=== PATIENT | male | born 1940 | race Caucasian/White ===

== ENCOUNTER → 2019-08-15 13:19 | Outpatient (BNVA) | payer MEDICARE, SELFPAY | PROVIDERS: PCP Nurse Practitioner Family; Visit Provider Nurse Practitioner Family | DX: I10 Essential (primary) hypertension (principal); M79.641 Pain in right hand; M79.642 Pain in left hand | CPT/HCPCS: 80053; 80061; 85025 ==

== ENCOUNTER → 2020-03-15 08:30 | Outpatient (BNVA) | payer MEDICARE, SELFPAY | PROVIDERS: PCP Nurse Practitioner Family; Visit Provider Family Medicine | DX: I10 Essential (primary) hypertension (principal) | CPT/HCPCS: 80053; 80061; 85025 ==

== ENCOUNTER → 2020-05-30 13:57 | Outpatient (BNVA) | payer MEDICARE, SELFPAY | PROVIDERS: PCP Family Medicine; Visit Provider Family Medicine | DX: N40.1 Benign prostatic hyperplasia with lower urinary tract symptoms (principal); R39.11 Hesitancy of micturition | CPT/HCPCS: 84153 ==

== ENCOUNTER → 2020-06-23 13:29 | Outpatient (BNVA) | payer MEDICARE, SELFPAY | PROVIDERS: PCP Family Medicine; Visit Provider Emergency Medicine | DX: Z20.822 Contact with and (suspected) exposure to COVID-19 (principal); R35.0 Frequency of micturition | CPT/HCPCS: 81000; 87635 ==

== ENCOUNTER 2020-07-29 11:18 | Inpatient (IN) | payer MEDICARE, SELFPAY ==
[2020-07-29 11:32] VITALS: BP 127/76; PULSE 118; RESP 14; TEMP 37.8; O2SAT 93; BMI 28.5
[2020-07-29] MEDS: sodium chloride 0.9% 500 ML 999 ML IV (12:04)
--- NOTE | 2020-07-29 12:04 | W.ED.GENADLT ---
HPI - General Adult General: Chief complaint: General Medical Stated complaint: COLD CHILLS, POSS UTI Time Seen by Provider: 07/29/20 11:34 History of Present Illness: HPI narrative: 79-year-old male comes in today complaining he is having chills at times. He has burning with urination. This all began this morning. He states he is in his normal state of good health yesterday. He did recently have up bladder infection he was on Macrobid for 7 days. He denies any vomiting. No shortness of breath no chest pain or abdominal pain Onset (ago): hour(s) Severity: moderate Quality: burning Pain Consistency: intermittent Relieving factors: none Exacerbating factors: none Associated symptoms: Reports decreased appetite, malaise, nausea and weakness; Deny chest pain, confusion, cough, diaphoresis, dyspnea, fevers/chills, headache(s), rash, palpitations, seizures, short of breath, syncope or vomiting Review of Systems Const: Reports: malaise; Denies: diaphoresis ENMT: Denies: throat pain, ear or mastoid pain, nasal discharge or nasal congestion Card: Denies: chest pain, palpitations or syncope Resp: Denies: dyspnea, productive cough or non-productive cough GI: Reports: nausea; Denies: vomiting : Denies: flank pain, dysuria, urinary frequency or urinary urgency Skin/Breast: Denies: rash Neuro: Denies: headache(s) or confusion PFSH ED PFSH: Medical History BPH (benign prostatic hyperplasia) GERD (gastroesophageal reflux disease) Hypertension Vitamin D deficiency Surgical History Hx of colonoscopy (~2010) Hx of foot surgery Hx of hemorrhoidectomy Hx of knee surgery Hx of neck surgery Hx of rotator cuff surgery Family History Mother , age 93 Alzheimer disease Father , age 85 Cancer colon Social History Smoking and tobacco status: former smoker Quit status (tobacco): has quit using tobacco Second hand smoke exposure: No Alcohol intake: never Lives independently: No Household members: spouse Marital status: Current occupational status: employed History of recent travel: No Current gender identity: Male Physical Exam Const: COMMON NORMALS: no acute distress GENERAL APPEARANCE: cooperative and comfortable ORIENTATION/CONSCIOUSNESS: Yes awake, Yes oriented to person, Yes oriented to place and Yes oriented to time HENMT: COMMON NORMALS: normocephalic, atraumatic and hearing grossly normal bilaterally HEAD & SCALP: normocephalic and atraumatic Eye: COMMON NORMALS: Equal, round and reactive pupils present, EOMs intact bilaterally, conjunctivae normal and no scleral icterus CONJUNCTIVA: Yes conjunctivae normal PUPIL: Yes Equal, round and reactive pupils present Neck/C-Spine: COMMON NORMALS: full ROM, no lymphadenopathy, supple and no JVD Lymph: LYMPHATIC: no lymphadenopathy noted and no lymphedema noted Resp: COMMON NORMALS: normal respiratory effort, No retractions, No use of accessory muscles and clear to auscultation bilaterally AUSCULTATION: clear to auscultation bilaterally Cardio: COMMON NORMALS: no JVD, regular rate, regular rhythm and No murmurs present (Cardio) RATE: regular rate RHYTHM: regular rhythm GI: COMMON NORMALS: Soft to palpation and No hepatosplenomegaly present AUSCULTATION: Yes normoactive bowel sounds PALPATION: Yes Soft to palpation, No Tenderness to palpation present (GI), No Guarding due to palpation present (GI) and Yes No hepatosplenomegaly present : COMMON NORMALS: Yes no CVA tenderness BLADDER/KIDNEY EXAM: Yes no CVA tenderness Back/Pelvis: COMMON NORMALS: no CVA tenderness Extremity: COMMON NORMALS: normal to inspection, capillary refill normal, no clubbing, cyanosis or edema, no calf tenderness and no pedal edema Neuro: SENSORIUM/ORIENTATION: Yes oriented to person, Yes oriented to place and Yes oriented to time Skin: COMMON NORMALS: no rashes or lesions noted GENERAL SKIN EXAM: no rashes or lesions noted Course Vital Signs: Vital signs: Vital Signs Temperature 99.2 F 07/30/20 04:00 Pulse Rate 81 07/30/20 04:00 Respiratory Rate 18 07/30/20 04:00 Blood Pressure 108/66 07/30/20 04:00 Pulse Oximetry 90 07/30/20 04:00 MDM - General Adult MDM Narrative: Medical decision making narrative: Patient has significant white count elevation in 19,000 with sharp left shift he also was having a fever. Concerned about the rapid onset of the symptoms given his age recommend that he be admitted Lab Data: Labs: Lab Results 07/29/20 07/29/20 07/29/20 Range/Units 11:57 11:57 11:57 WBC 19.1 H (4.0-10.0) 10^3/ uL RBC 3.84 L (4.1-5.3) 10^6/u L Hgb 12.5 (11.7-16.6) g/dL Hct 36.5 L (42.0-52.0) % MCV 95.1 H (80-94) fL MCH 32.6 (28.0-34.0) pg MCHC 34.2 (30.0-36.0) g/dL RDW 12.5 (12.1-15.1) % Plt Count 154 (130-400) 10^3/c mm MPV 9.8 (7.4-10.4) fL Neut % (Auto) 96.5 % Lymph % (Auto) 1.2 % [place] % (Auto) 1.6 % Eos % (Auto) 0.0 % Baso % (Auto) 0.3 % Neut # (Auto) 18.44 H (1.8-7.7) 10^3/u L Lymph # (Auto) 0.2 L (0.8-4.8) 10^3/u L [place] # (Auto) 0.3 (0.2-0.9) 10^3/u L Eos # (Auto) 0.0 (0.0-0.8) 10^3/u L Baso # (Auto) 0.1 (0.0-0.1) 10^3/u L Nucleated RBC % (a uto) 0 % Nucleated RBCs # 0.0 /100WBC D-Dimer (0-0.59) ug/mIFE U Sodium 138 (136-145) mmol/L Potassium 3.6 (3.5-5.1) mmol/L Chloride 106 (98-107) mmol/L Carbon Dioxide 23 (22-29) mmol/L Anion Gap 12.6 (5-19) BUN 21 (8-23) mg/dL Creatinine 1.0 (0.7-1.2) mg/dL GFR Calculation Not Reportable Glucose 126 H (65-115) mg/dL Calculated Osmolal ity 291 (285-295) mOsm/k g Calcium 8.3 L (8.5-10.5) mg/dL Total Bilirubin 0.8 (0.15-1.2) mg/dL AST 18 (0-40) U/L ALT 14 (0-41) U/L Alkaline Phosphata se 61 (40-130) IU/L Lactate Dehydrogen ase (135-225) U/L C-Reactive Protein 9.2 H (0.0-4.9) mg/L Total Protein 6.2 L (6.6-8.7) g/dL Albumin 3.5 (3.5-5.2) g/dL Globulin 2.7 (1.3-4.6) g/dL Procalcitonin 0.15 (0-0.5) ng/mL Urine Color (Yellow) Urine Appearance (CLEAR) Urine pH (5-7) Ur Specific Gravit y (1.005-1.030) Urine Protein (Negative) Urine Glucose (UA) (Normal) Urine Ketones (Negative) Urine Blood (Negative) Urine Nitrate (Negative) Urine Bilirubin (Negative) Urine Urobilinogen (Negative) mg/dL Ur Leukocyte Karin ase (Negative) Urine RBC (0-2) /hpf Urine WBC (0-5) /hpf Ur Squamous Epith Cells (0-5) /hpf Amorphous Sediment Urine Bacteria (NONE) /hpf 07/29/20 07/29/20 07/29/20 Range/Units 11:57 11:57 12:19 WBC (4.0-10.0) 10^3/ uL RBC (4.1-5.3) 10^6/u L Hgb (11.7-16.6) g/dL Hct (42.0-52.0) % MCV (80-94) fL MCH (28.0-34.0) pg MCHC (30.0-36.0) g/dL RDW (12.1-15.1) % Plt Count (130-400) 10^3/c mm MPV (7.4-10.4) fL Neut % (Auto) % Lymph % (Auto) % [place] % (Auto) % Eos % (Auto) % Baso % (Auto) % Neut # (Auto) (1.8-7.7) 10^3/u L Lymph # (Auto) (0.8-4.8) 10^3/u L [place] # (Auto) (0.2-0.9) 10^3/u L Eos # (Auto) (0.0-0.8) 10^3/u L Baso # (Auto) (0.0-0.1) 10^3/u L Nucleated RBC % (a uto) % Nucleated RBCs # /100WBC D-Dimer 2.42 H (0-0.59) ug/mIFE U Sodium (136-145) mmol/L Potassium (3.5-5.1) mmol/L Chloride (98-107) mmol/L Carbon Dioxide (22-29) mmol/L Anion Gap (5-19) BUN (8-23) mg/dL Creatinine (0.7-1.2) mg/dL GFR Calculation Glucose (65-115) mg/dL Calculated Osmolal ity (285-295) mOsm/k g Calcium (8.5-10.5) mg/dL Total Bilirubin (0.15-1.2) mg/dL AST (0-40) U/L ALT (0-41) U/L Alkaline Phosphata se (40-130) IU/L Lactate Dehydrogen ase 181 (135-225) U/L C-Reactive Protein (0.0-4.9) mg/L Total Protein (6.6-8.7) g/dL Albumin (3.5-5.2) g/dL Globulin (1.3-4.6) g/dL Procalcitonin (0-0.5) ng/mL Urine Color Yellow (Yellow) Urine Appearance Cloudy (CLEAR) Urine pH 7 (5-7) Ur Specific Gravit y 1.005 (1.005-1.030) Urine Protein 1+ H (Negative) Urine Glucose (UA) Norm (Normal) Urine Ketones Negative (Negative) Urine Blood 2+ H (Negative) Urine Nitrate Positive H (Negative) Urine Bilirubin Neg (Negative) Urine Urobilinogen Norm (Negative) mg/dL Ur Leukocyte Karin ase 2+ H (Negative) Urine RBC 5-10 H (0-2) /hpf Urine WBC 10-15 H (0-5) /hpf Ur Squamous Epith Cells 0-4 H (0-5) /hpf Amorphous Sediment Not Reportable Urine Bacteria 4+ H (NONE) /hpf Discharge Plan Discharge Patient Disposition: Admitted As Inpatient Admit Provider: Francis Gonzalez Clinical Impression: UTI (urinary tract infection), Sepsis Condition: Stable Coding Level of Care Code ED Peoplesoft Taleo Manager for Chg Fwd Exam Comprehensive
[2020-07-29 12:13] LABS: Basophils # 0.1 10^3/uL (0.0-0.1); Basophils % 0.3 %; Hematocrit 36.5 % (42.0-52.0); Hemoglobin 12.5 g/dL (11.7-16.6); Lymphocytes # 0.2 10^3/uL (0.8-4.8); Lymphocytes % 1.2 %; Mean Corpuscular HGB Conc 34.2 g/dL (30.0-36.0); Mean Corpuscular Hemoglobin 32.6 pg (28.0-34.0); Mean Corpuscular Volume 95.1 fL (80-94); Mean Platelet Volume 9.8 fL (7.4-10.4); Monocytes # 0.3 10^3/uL (0.2-0.9); Monocytes % 1.6 %; Neutrophils # 18.44 10^3/uL (1.8-7.7); Neutrophils % 96.5 %; Nucleated Red Blood Cells % 0 %; Platelet Count 154 10^3/cmm (130-400); Red Blood Count 3.84 10^6/uL (4.1-5.3); Red Cell Distribution Width 12.5 % (12.1-15.1); White Blood Count 19.1 10^3/uL (4.0-10.0)
[2020-07-29 12:35] LABS: Add Urine Microscopic? YES; Bilirubin Urine Neg (Negative); Blood Urine 2+ (Negative); Glucose Urine UA Norm (Normal); Ketones Urine Negative (Negative); Leukocyte Esterase Urine 2+ (Negative); Nitrate Urine Positive (Negative); Protein Urine 1+ (Negative); Specific Gravity, Urine 1.005 (1.005-1.030); Urine Appearance Cloudy (CLEAR); Urine Color Yellow (Yellow); Urobilinogen Urine Norm (Negative); pH Urine 7 (5-7)
[2020-07-29 12:38] LABS: Bacteria Urine 4+ /hpf; Squamous Epithelial Cell Urine 0-4 /hpf (0-5)
[2020-07-29 12:39] LABS: Add Urine Culture? Yes
[2020-07-29 12:44] LABS: Alanine Aminotransferase 14 U/L (0-41); Albumin Level 3.5 g/dL (3.5-5.2); Alkaline Phosphatase 61 IU/L (40-130); Anion Gap 12.6 (5-19); Aspartate Amino Transferase 18 U/L (0-40); Blood Urea Nitrogen 21 mg/dL (8-23); Calcium 8.3 mg/dL (8.5-10.5); Carbon Dioxide 23 mmol/L (22-29); Chloride 106 mmol/L (98-107); Globulin 2.7 g/dL (1.3-4.6); Glucose 126 mg/dL (65-115); Osmolality Calculated 291 mOsm/kg (285-295); Potassium 3.6 mmol/L (3.5-5.1); Sodium 138 mmol/L (136-145); Total Bilirubin 0.8 mg/dL (0.15-1.2); Total Protein 6.2 g/dL (6.6-8.7)
[2020-07-29 12:50] VITALS: BP 118/75; PULSE 92; RESP 20; O2SAT 93
--- NOTE | 2020-07-29 14:09 | XRR_ITS ---
PROCEDURE INFORMATION: Exam: XR Chest Exam date and time: 07/29/2020 2:15 PM Age: 79 years old Clinical indication: Cough and dyspnea and fever; Additional info: Dyspnea/cough TECHNIQUE: Imaging protocol: XR of the chest Views: 1 view. COMPARISON: No relevant prior studies available. FINDINGS: Lungs: Unremarkable. No consolidation. Pleural spaces: Unremarkable. No pleural effusion. No pneumothorax. Heart/Mediastinum: Unremarkable. No cardiomegaly. Bones/joints: Unremarkable. XR/XR chest 1V portable [id number] IMPRESSION: No acute findings.
--- NOTE | 2020-07-29 14:19 | PM.HP ---
Providers/Chief Complaint Primary Care Provider: Marielena Dunn MD Chief Complaint: COLD CHILLS, POSS UTI History of Present Illness Mars Reeder is a 79 year old male who presented today with chief complaint of chills. Patient is stating that around 7 AM he went out with his dog when he started experiencing chills. He is endorsing dysuria, did not experience any fever, nausea, vomiting, chest pain, shortness of breath, productive cough, headache or vision changes. He has been contemplating to see a urologist for BPH and dysuria. When he arrived in the ER he was diagnosed with UTI for which she received ceftriaxone he met sepsis criteria. No MONICA. High D-dimer. He was not hypoxic. He was saturating well on room air, pulse varying between 86-92. Chest x-ray without pneumonia. CBC showed leukocytosis BMP unremarkable with high inflammatory markers. Procalcitonin 0.15. UA showed pyuria with hematuria. Review of Systems Const: Reports: chills and body aches Eyes: Denies: change in vision ENMT: Denies: throat pain Card: Reports: chest pain Resp: Denies: dyspnea GI: Denies: abdominal pain : Denies: flank pain Musc: Denies: neck pain Skin/Breast: Denies: rash Neuro: Denies: headache(s) Psych: Denies: anxiety Endo: Denies: polyuria Saurabh/Lymph: Denies: easy bruising All/Imm: Denies: urticaria Medications/Allergies Home Medications Medication Instructions Recorded Confirmed Last Taken Type multivitamin 1 tab PO DAILY@08/15/19 07/29/20 07/29/20 History Flomax 0.4 mg PO DAILY@07/29/20 07/29/20 07/29/20 History amlodipine 5 mg PO DAILY@07/29/20 07/29/20 07/29/20 History aspirin 81 mg PO DAILY@07/29/20 07/29/20 07/29/20 History lisinopril 20 mg PO DAILY@07/29/20 07/29/20 07/28/20 History meloxicam 15 mg PO DAILY@07/29/20 07/29/20 07/29/20 History Allergies Allergy/AdvReac Type Severity Reaction Status Date / Time No Known Allergies Allergy Verified 05/30/20 13:34 PFSH Acute PFSH: Medical History BPH (benign prostatic hyperplasia) GERD (gastroesophageal reflux disease) Vitamin D deficiency Surgical History Hx of colonoscopy (~2010) Hx of foot surgery Hx of hemorrhoidectomy Hx of knee surgery Hx of neck surgery Hx of rotator cuff surgery Family History Mother , age 93 Alzheimer disease Father , age 85 Cancer colon Social History Smoking and tobacco status: former smoker Quit status (tobacco): has quit using tobacco Second hand smoke exposure: No Alcohol intake: never Lives independently: No Household members: spouse Marital status: Current occupational status: employed History of recent travel: No Current gender identity: Male Vitals/I&O/Wt Last Vital Signs Temp 100.1 F H 07/29/20 11:32 Pulse 92 07/29/20 12:50 Resp 20 H 07/29/20 12:50 BP 118/75 07/29/20 12:50 Pulse Ox 93 07/29/20 12:50 07/28/20 07/29/20 07/29/20 22:59 06:59 14:59 Intake Total 500 / 500 Balance 500 / 500 Weight last 48 hrs Weight 95.254 kg Physical Exam Narrative: EXAM NARRATIVE: Very pleasant elderly male Was sitting comfortably in his room when I enter Was saturating well on room air Appears stated age S1, S2 sinus rhythm No abdominal pain No acute respite distress no audible wheezing or stridor No neurological deficit GCS 15 Awake alert oriented x3 No skin findings of ulcer or gangrene or ischemia No joint swelling Data : 07/29/20 11:57 07/29/20 11:57 A&P Assessment and plan (1) Sepsis: Status: Acute (2) UTI (urinary tract infection): Status: Acute Additional A&P Information Sepsis secondary to UTI sepsis criteria met with tachypnea, tachycardia, leukocytosis, We will keep him on ceftriaxone for now, he is afebrile, Lactic acid is pending Requested blood culture, urine culture Covid antigen is negative considering leukocytosis with leukopenia I would request Covid PCR however 3 days ago he was tested for Covid which was negative as well We will give him 1 L lactated Ringer bolus No MONICA, patient complaining of dysuria, my threshold will stay low if he starts becoming more symptomatic to rule out pyelonephritis He has history of BPH Hypertension: Currently normotensive continue lisinopril and amlodipine Cardiac diet DVT prophylaxis Lovenox Full code Attestations Medical Necessity Statement*: Anticipating stay in the hospital course more than 2 midnights for sepsis secondary to UTI Time Spent in Patient Care: (>than 50% of time spent in counselling and/or direct pt care on unit). 35mins Coding Level of Care Code Acute Embedded Firmware Engineer for g Fwd Diagnoses Sepsis A41.9 UTI (urinary tract infection) N39.0
[2020-07-29] MEDS: cefTRIAXone 1,000 MG in sodium chloride 0.9% (plus) 50 ML 100 MG IV (14:27)
[2020-07-29 14:54] LABS: Procalcitonin 0.15 ng/mL (0-0.5)
[2020-07-29 15:05] LABS: C Reactive Protein 9.2 mg/L (0.0-4.9)
[2020-07-29 15:17] LABS: D Dimer 2.42 ug/mIFEU (0-0.59)
[2020-07-29 15:18] LABS: Lactate Dehydrogenase 181 U/L (135-225)
[2020-07-29 15:46] VITALS: BP 112/66; PULSE 96; RESP 18; O2SAT 94
[2020-07-29 16:12] VITALS: BP 101/63; PULSE 86; RESP 18; TEMP 37.3; O2SAT 93
[2020-07-29] MEDS: lactated ringers 1,000 ML 999 ML IV (16:47)
[2020-07-29] MEDS: sodium chloride 0.9% 1,000 ML 100 ML IV (17:53)
[2020-07-29] MEDS: enoxaparin 40 mg/0.4 mL Syringe SUBCUT (18:30)
[2020-07-29 19:20] LABS: Lactic Sepsis W/Reflex 3.4 mmol/L (0.5-2.2)
[2020-07-29 20:00] VITALS: BP 109/63; PULSE 86; RESP 18; TEMP 37.9; O2SAT 94
[2020-07-29 20:50] LABS: Reflex Lactate Order REFLEX LACTIC ORDERD
[2020-07-29] MEDS: lisinopril 20 mg Tablet PO (20:58)
[2020-07-29 21:56] LABS: Lactic Acid level (Lactate) 1.8 mmol/L (0.5-2.2)
[2020-07-30] VITALS: BP 106/68; PULSE 106; RESP 18; TEMP 37.4; O2SAT 92
[2020-07-30 04:00] VITALS: BP 108/66; PULSE 81; RESP 18; TEMP 37.3; O2SAT 90
[2020-07-30 05:56] LABS: Basophils # 0.1 10^3/uL (0.0-0.1); Basophils % 0.3 %; Hemoglobin 11.6 g/dL (11.7-16.6); Lymphocytes # 1.4 10^3/uL (0.8-4.8); Lymphocytes % 6.8 %; Mean Corpuscular HGB Conc 33.1 g/dL (30.0-36.0); Mean Corpuscular Hemoglobin 32.5 pg (28.0-34.0); Mean Platelet Volume 10.7 fL (7.4-10.4); Monocytes # 1.2 10^3/uL (0.2-0.9); Neutrophils # 17.15 10^3/uL (1.8-7.7); Neutrophils % 86.2 %; Nucleated Red Blood Cells % 0 %; Platelet Count 143 10^3/cmm (130-400); Red Blood Count 3.57 10^6/uL (4.1-5.3); Red Cell Distribution Width 12.7 % (12.1-15.1); White Blood Count 19.9 10^3/uL (4.0-10.0)
[2020-07-30 06:16] LABS: Alanine Aminotransferase 10 U/L (0-41); Alkaline Phosphatase 52 IU/L (40-130); Aspartate Amino Transferase 18 U/L (0-40); Blood Urea Nitrogen 28 mg/dL (8-23); Calcium 8.1 mg/dL (8.5-10.5); Carbon Dioxide 22 mmol/L (22-29); Chloride 106 mmol/L (98-107); Creatinine Clr Calc Pharmacy 63.0686; Globulin 2.6 g/dL (1.3-4.6); Glucose 100 mg/dL (65-115); Osmolality Calculated 288 mOsm/kg (285-295); Sodium 136 mmol/L (136-145); Total Bilirubin 0.8 mg/dL (0.15-1.2); Total Protein 5.6 g/dL (6.6-8.7)
[2020-07-30] MEDS: amlodipine 5 mg Tablet PO (06:19)
[2020-07-30] MEDS: tamsulosin 0.4 mg Capsule PO (06:20)
[2020-07-30] MEDS: aspirin 81 mg Chew Tablet PO (06:20)
[2020-07-30 08:00] VITALS: BP 103/64; PULSE 79; RESP 18; TEMP 36.9; O2SAT 94
--- NOTE | 2020-07-30 10:59 | P.PN_ITS ---
Subjective Subjective: Interval history: Interval history: Noticed low-grade temperature overnight, however patient is endorsing feeling better no shakes or rigors overnight, Patient is stating that dysuria still present Noted to temperature readings of 100.1 and 100.3 yesterday Leukocytosis 19.9 Lactic acidemia improved, Steroid blood culture, urine culture is pending Chest x-ray without pneumonia Vitals/I&O/Wt Last Vital Signs Temp 98.5 F 07/30/20 08:00 Pulse 79 07/30/20 08:00 Resp 18 07/30/20 08:00 BP 103/64 07/30/20 08:00 Pulse Ox 94 07/30/20 08:00 07/29/20 07/30/20 07/30/20 22:59 06:59 14:59 Intake Total 1288.333 / 1838.333 120 / 120 Balance 1288.333 / 1838.333 120 / 120 Weight last 48 hrs Weight 95.254 kg Physical Exam Narrative: EXAM NARRATIVE: Patient was sitting comfortably in his bed when I entered the room Was saturating well on room air No active chest pain shortness of breath S1, S2 no murmur Abdomen soft nontender bowel sound present No CVA tenderness Bilateral breath sounds without adventitious rhonchi or crackles No neurological deficit Awake alert oriented x3 GCS 15 No joint pain or skin cellulitis Data : 07/30/20 05:09 07/30/20 05:09 Micro: Microbiology 07/29/20 15:02 Blood Culture - Preliminary Blood SPECIMEN COLLECTED 07/29/20 15:02 Blood Culture - Preliminary Blood SPECIMEN COLLECTED A&P Assessment and plan (1) UTI (urinary tract infection): Patient is still complaining of dysuria Continue ceftriaxone If he spikes temperature 48 hours after use of antibiotics I would recommend CT abdomen to rule out pyelonephritis and escalating his antibiotics for now I would continue him on similar antibiotics, blood cultures are sterile for now, urine cultures were obtained yesterday however not reported yet Status: Acute (2) Sepsis: Sepsis present, low-grade temp last night with increasing leukocytosis however lactic acidemia has improved I will monitor him for 1 more day to finish 48 hours on ceftriaxone to see the response, and still waiting on culture and sensitivity report of urine Status: Acute Additional A&P Information DVT prophylaxis Lovenox Cardiac diet Full code BPH: Continue home regimen of tamsulosin History of hypertension: Currently normotensive Attestations Medical Necessity Statement*: Sepsis present today, will need inpatient hospitalization, anticipating discharge tomorrow if his sepsis resolves, will de-escalate antibiotics depending on culture and sensitivity Time Spent in Patient Care: (>than 50% of time spent in counselling and/or direct pt care on unit) . 30mins Coding Level of Care Code Acute Financial Advocate for [facility] Fwd Diagnoses UTI (urinary tract infection) N39.0 Sepsis A41.9
--- NOTE | 2020-07-30 11:25 | CT_ITS ---
WS: [id number] CT ABDOMEN PELVIS TECHNIQUE: Contrast-enhanced CT of the abdomen and pelvis with coronal and sagittal reformatted image s. CLINICAL INFORMATION: pyelonephritis COMPARISON: None. DLP: 1833.[address] scans at [facility] use at least one of these dose optimization techniques: automat ed exposure control; mA and/or kV adjustment per patient size (includes targeted exams where dose is matched to clinical indication); or iterative reconstruction. FINDINGS: Normal liver. Normal spleen. Chronic emphysematous changes in the lung bases. Subsegmental atelectasi s left lower lobe. Trace pleural fluid in the lung bases. Normal caliber abdominal aorta. No periaortic or retroperitoneal lymphadenopathy. Adrenal glands are normal. Normal renal parenchymal enhancement. Mild perinephric edema can be seen with renal insuffici ency. No evidence of pyelonephritis. Nodular heterogeneously enhancing enlarged prostate measuring 5.1 x 5.8 cm. Recommend correlation PSA . Diffuse bladder wall thickening likely due to bladder outlet obstruction. Sigmoid diverticulosis. N o evidence of acute diverticulitis. No evidence of small or large bowel obstruction. No inguinal lymphadenopathy. Moderate spondylitic ch anges lumbar spine. Severe central canal stenosis in the lumbar spine at L2-3, and L4-5. CT/CT abdomen pelvis w con* [id number] IMPRESSION: 1. Normal bilateral renal parenchymal enhancement. No hydronephrosis. No defin ite evidence of pyelonephritis. 2. Mild perinephric edema can be seen with renal insufficiency. 3. Nodular enlarged prostate with evidence of bladder outlet obstruction.Corre lation PSA. 4. Sigmoid diverticulosis. No evidence of acute diverticulitis. 5. Subsegmental atelectasis left lower lobe with trace bilateral pleural fluid . 6. Severe chronic appearing central canal stenosis L2-L3 and L4-L5
[2020-07-30] MEDS: phenazopyridine 100 mg Tablet 200 MG PO ×3 (11:33→17:02)
--- NOTE | 2020-07-30 11:34 | PC.CHAP ---
Pastoral Care Encounter/Spiritual Assessment Type of Contact [] Declined bill recapitulation clerk visit [] Patient/Family/Request visit [] Outpatient visit [] Follow-up visit [] Physician referral [] Code/Alert [] Routine visit [] Staff referral [] Actively dying [] Patient sleeping [] Family support [] [] Out of room [] Palliative care [] [] Receiving care in room [] Pre-surgical visit [] Trauma [] Long length of stay [] ICU visit [x] Other: Isolation Relational/Emotional Strength [] Patient feels connected with others/family/visitors/staff [] Distress [] Loneliness/isolation [] Abandonment Spirituality of Patient [] Person of Emily [] Attends Congregational of their Emily [] Believes in Prayer [] Reads Bible or Episcopal materials [] There are Spiritual issues to be addressed Awning Hanger Supervisor Interventions [] Prayer [] Active listening [] Non-anxious presence [] Spiritual/emotional support [] Crisis/trauma care [] Spiritual counseling [] Bereavement support [] Provided bereavement packet [] Provided Bible/devotional materials [] Provided toy/stuffed animal, coloring book to patient or family member [] Provided Communion [] Anointing/[place] [] Salvation [] Completed spiritual assessment [] Other: Impact on Illness or Injury [] Angry [] Fearful [] Anxious [] Often cries [] Exhaustion [] Unable to work [] Unable to attend yazidi [] Unable to walk/stand [] Unable to read [] Unable to drive [] Unable to eat/drink [] Unable to sleep [] Unable to be with family [] Patient intubated [] Other: Summary They have placed him in Isolation. Didn't get to visit with nor pray with him. :-( Time spent with patient 0
[2020-07-30 11:42] VITALS: BP 115/69; PULSE 79; RESP 17; TEMP 37.3; O2SAT 93
[2020-07-30 12:49] LABS: Add Urine Microscopic? YES; Bilirubin Urine Neg (Negative); Blood Urine 2+ (Negative); Glucose Urine UA Norm (Normal); Ketones Urine Negative (Negative); Leukocyte Esterase Urine 2+ (Negative); Nitrate Urine Negative (Negative); Protein Urine Trace (Negative); Specific Gravity, Urine 1.015 (1.005-1.030); Urine Appearance Cloudy (CLEAR); Urine Color Yellow (Yellow); Urobilinogen Urine Norm (Negative); pH Urine 5 (5-7)
[2020-07-30 13:08] LABS: Add Urine Culture? Yes; Bacteria Urine 1+ /hpf; Squamous Epithelial Cell Urine 0-4 /hpf (0-5); WBC Urine TOO NUMEROUS TO CNT /hpf (0-5)
--- NOTE | 2020-07-30 13:25 | PC.NURSE ---
Medication Scanned medication at bedside and saved. [employer] showed administration saved. After restarting computer, mar showed medication an hour late but also showed correct administration. This was corrected by this nurse.
[2020-07-30] MEDS: cefTRIAXone 1,000 MG in sodium chloride 0.9% (plus) 50 ML 100 MG IV (13:46)
[2020-07-30] MEDS: iohexol 300 mg/mL 100 mL Btl IV (15:00)
[2020-07-30 15:12] VITALS: BP 117/73; PULSE 85; RESP 17; TEMP 37.4; O2SAT 94
[2020-07-30] MEDS: enoxaparin 40 mg/0.4 mL Syringe SUBCUT (17:02)
--- NOTE | 2020-07-30 18:01 | PC.NURSE ---
SHIFT SUMMARY PATIENT HAS DONE WELL TODAY. PATIENT STATED HE FEELS BETTER . NO CHILLS TODAY. ADEQUATE URINE OUTPUT. ALTHOUGH SMALL AMOUNTS AT A TIME, PATIENT STATED HE FEELS HE HAS A BETTER STREAM THAN BEFORE. PATIENT STARTED ON PYRIDIUM TODAY SO URINE IS ORANGE IN COLOR. NO COMPLAINTS OF PAIN. CONTINUE TO MONITOR.
[2020-07-30 19:34] VITALS: BP 121/72; PULSE 77; RESP 17; TEMP 37.9; O2SAT 92
[2020-07-30] MEDS: lisinopril 20 mg Tablet PO (20:40)
[2020-07-31] VITALS: BP 125/74; PULSE 87; RESP 17; TEMP 37.7; O2SAT 92
[2020-07-31 03:56] VITALS: BP 132/81; PULSE 80; RESP 17; TEMP 37.1; O2SAT 94
[2020-07-31 05:04] LABS: Basophils % 0.3 %; Eosinophils % 0.4 %; Hematocrit 34.5 % (42.0-52.0); Hemoglobin 11.6 g/dL (11.7-16.6); Lymphocytes # 0.9 10^3/uL (0.8-4.8); Lymphocytes % 8.5 %; Mean Corpuscular HGB Conc 33.6 g/dL (30.0-36.0); Mean Platelet Volume 10.7 fL (7.4-10.4); Monocytes # 0.8 10^3/uL (0.2-0.9); Monocytes % 7.5 %; Neutrophils # 8.94 10^3/uL (1.8-7.7); Neutrophils % 82.8 %; Nucleated Red Blood Cells % 0 %; Platelet Count 131 10^3/cmm (130-400); Red Blood Count 3.52 10^6/uL (4.1-5.3); Red Cell Distribution Width 12.9 % (12.1-15.1); White Blood Count 10.8 10^3/uL (4.0-10.0)
[2020-07-31 05:59] LABS: Coronavirus Test Green County Not Detected
[2020-07-31] MEDS: amlodipine 5 mg Tablet PO (06:10)
[2020-07-31] MEDS: aspirin 81 mg Chew Tablet PO (06:10)
[2020-07-31] MEDS: tamsulosin 0.4 mg Capsule PO (06:10)
[2020-07-31] MEDS: phenazopyridine 100 mg Tablet 200 MG PO (07:19)
[2020-07-31 07:53] VITALS: BP 136/80; PULSE 84; RESP 18; TEMP 37; O2SAT 94
--- NOTE | 2020-07-31 08:20 | PM.DCS ---
Discharge Providers Date of Admission: 07/29/20 14:15 Date of Discharge: July 31, 2020 Attending Provider at Admission: Francis Gonzalez MD Attending Provider at Discharge: Francis Gonzalez MD Primary Care Provider: Marielena Dunn MD Diagnoses at Discharge Discharge Diagnosis (1) UTI (urinary tract infection): Status: Acute (2) Sepsis: Status: Acute Reason for Visit Reason for Visit: C[place], POSS UTI Hospital Course Hospital Course 79-year-old gentleman who was admitted for sepsis secondary to UTI, patient clinical course remain stable, on first night he spiked temperature of 100.3 otherwise his leukocytosis improved, he kept complaining about dysuria for which Pyridium was added, urine cultures are growing gram-negative rods however after 48 hours cultures x2 report has not been finalized. Clinically patient has improved significantly. Repeat urine culture is showing no growth yet. I am confident that this most likely is E. coli related UTI which is sensitive to cephalosporins hence he will be discharged on Cefpodoxime and Pyridium. CT abdomen was requested which did not show any pyelonephritis. Repeat urinalysis revealed microscopic hematuria however no ureterolithiasis reported on CT abdomen. I would recommend outpatient follow-up with urology for persistent microscopic hematuria, please note he has BPH which is evident on CT abdomen pelvis as well. Physical Exam Narrative: EXAM NARRATIVE: Pleasant gentleman S1, S2 sinus rhythm no sign of heart failure No acute respite distress No abdominal pain no CVA tenderness Low symmetry no edema gangrene ulcer No neurological deficit EOMI, PERRLA Discharge Data Data Completed and Pending: Completed Studies During Hospitalization Category Date Time Status CT abdomen pelvis w con* [id number] Rout ine Cat Scan 07/30/20 11:25 Completed XR chest 1V marcial ble [id number] Stat Exams 07/29/20 14:09 Completed Pending at discharge Category Date Time Status Blood Culture Sta t Lab 07/29/20 15:02 Results Urine Culture Sta t Lab 07/29/20 12:19 Results Urine Culture Sta t Lab 07/30/20 11:22 Results Labs from last 24 hours 07/31/20 07/30/20 07/29/20 04:32 11:22 15:31 WBC 10.8 H RBC 3.52 L Hgb 11.6 L Hct 34.5 L MCV 98.0 H MCH 33.0 MCHC 33.6 RDW 12.9 Plt Count 131 MPV 10.7 H Neut % (Auto) 82.8 Lymph % (Auto) 8.5 Butts % (Auto) 7.5 Eos % (Auto) 0.4 Baso % (Auto) 0.3 Neut # (Auto) 8.94 H Lymph # (Auto) 0.9 Butts # (Auto) 0.8 Eos # (Auto) 0.0 Baso # (Auto) 0.0 Nucleated RBC % (a uto) 0 Nucleated RBCs # 0.0 Urine Color Yellow Urine Appearance Cloudy Urine pH 5 Ur Specific Gravit y 1.015 Urine Protein Trace Urine Glucose (UA) Norm Urine Ketones Negative Urine Blood 2+ H Urine Nitrate Negative Urine Bilirubin Neg Urine Urobilinogen Norm Ur Leukocyte Karin ase 2+ H Urine RBC 5-10 H Urine WBC Too numerous to c nt H Ur Squamous Epith Cells 0-4 H Amorphous Sediment Not Reportable Urine Bacteria 1+ H Nasal/Oral COVID-1 9 PCR Not detected Vitals: Last Vital Signs Temp 98.6 F 07/31/20 07:53 Pulse 84 07/31/20 07:53 Resp 18 07/31/20 07:53 BP 136/80 07/31/20 07:53 Pulse Ox 94 07/31/20 07:53 Discharge Plan Discharge Patient Disposition: Home Condition: Stable Prescriptions: New tamsulosin 0.4 mg Capsule 0.4 mg PO DAILY@07 10 Days Qty: 10 RF: 0 phenazopyridine 100 mg Tablet 200 mg PO TIDPC 10 Days Qty: 30 RF: 0 cefpodoxime 200 mg tablet 200 mg PO BID 7 Days Qty: 14 RF: 0 Continued multivitamin [Daily Multi-Vitamin] Tablet 1 tab PO DAILY@07 RF: 0 aspirin 81 mg Tablet,Chewable 81 mg PO DAILY@07 RF: 0 lisinopril 20 mg tablet 20 mg PO DAILY@20 RF: 0 amlodipine 5 mg tablet 5 mg PO DAILY@07 RF: 0 Flomax 0.4 mg capsule 0.4 mg PO DAILY@07 RF: 0 Discontinued meloxicam 15 mg tablet 15 mg PO DAILY@07 RF: 0 Discharge Orders: Discharge Order (Routine); Ordered 07/31/20 Ordered By: Francis Gonzalez Referrals: Rodolfo Williamson MD [Physician] - 3 months ( BPH, obstructive symptoms, microscopic hematuria) Discharge Diet: Advance as tolerated Discharge Activity: Resume usual activity Activity Restrictions/Additional Instructions: Please finish antibiotic regimen of Cefpodoxime for next 7 days You can take Pyridium for burning sensation There is microscopic hematuria evident on urinalysis most likely is related to prostate hyperplasia however I would also recommend following up with urologist Dr. Williamson Discharge Attestations Time Spent in Discharge Care*: less than 30 min Quality Metrics Clinical Quality Measures During this hospital stay, did patient experience: None Coding Level of Care Code Acute Inventory Administrator for g Fwd Diagnoses UTI (urinary tract infection) N39.0 Sepsis A41.9
[2020-07-31 10:37] VITALS: BP 136/80; PULSE 84; RESP 18; TEMP 37; O2SAT 94
== END 2020-07-31 10:38 | disposition home or self-care (01) | DRG 872 ==
LOC: ER 14:11 → MEDSURG 14:58
PROVIDERS: Admitting Provider Internal Medicine; Emergency Provider Family Medicine; PCP Family Medicine; Visit Provider Internal Medicine
DX: A41.9 Sepsis, unspecified organism (principal); N39.0 Urinary tract infection, site not specified; E87.2 Acidosis; R31.29 Other microscopic hematuria; N40.0 Benign prostatic hyperplasia without lower urinary tract symptoms; K21.9 Gastro-esophageal reflux disease without esophagitis; E55.9 Vitamin D deficiency, unspecified; Z87.891 Personal history of nicotine dependence; I10 Essential (primary) hypertension; B96.20 Unspecified Escherichia coli [E. coli] as the cause of diseases classified elsewhere; Z79.82 Long term (current) use of aspirin
CPT/HCPCS: 11042; 36415; 71045; 74177; 80048; 80053; 81001; 82009; 82550; 83605; 83615; 83690; 83735; 84145; 85025; 85378; 86140; 87040; 87077; 87086; 87186; 87635; 96365; 96372; 99285; G0463; J0696; J1650; J2543; J7030; J7040; Q9967

== ENCOUNTER 2020-07-31 14:11 | Inpatient (IN) | payer MEDICARE, SELFPAY ==
[2020-07-31] VITALS (7 sets, daily range): BP systolic 107–137; BP diastolic 71–83; PULSE 67–92; RESP 14–22; TEMP 36.7–38.9; O2SAT 93–95; BMI 28.5
--- NOTE | 2020-07-31 15:04 | XR_ITS ---
WS: [id number] Portable AP upright chest, 07/31/2020 Clinical Data: fever Comparison: Portable chest, 07/29/2020. Findings: No nodules, masses or effusions are seen. The heart is normal. The pulmonary vascularity is not increased. No pneumonia or pneumothorax is seen. The aortic arch and descending aorta are tortuo us. XR/XR chest 1V portable [id number] Impression: Atherosclerosis.
--- NOTE | 2020-07-31 16:31 | CTR_ITS ---
PROCEDURE INFORMATION: Exam: CT Abdomen And Pelvis With Contrast Exam date and time: 07/31/2020 5:18 PM Age: 79 years old Clinical indication: Other: Frequent urination; Additional info: Abd pain TECHNIQUE: Imaging protocol: Computed tomography of the abdomen and pelvis with contrast. Radiation optimization: All CT scans at this facility use at least one of these dose optimization techniques: automated exposure control; mA and/or kV adjustment per patient size (includes targeted exams where dose is matched to clinical indication); or iterative reconstruction. Contrast material: VISI 320; Contrast volume: 95 ml; Contrast route: INTRAVENOUS (IV); COMPARISON: CT abdomen pelvis w con* [id number] 07/30/2020 3:11 PM RADIATION DOSE METRICS: Total DLP (mGy-cm): 1688.58 FINDINGS: Lungs: Mild basilar atelectasis/scarring, greater on the left. Liver: Normal size and density. No focal mass. Gallbladder and bile ducts: No intrahepatic or extrahepatic biliary dilitation. No calcified stones. Pancreas: No evidence of mass. No ductal dilation. Spleen: No splenomegaly or mass. Adrenal glands: Normal. Kidneys and ureters: No stones or hydronephrosis. No evidence of focal mass. Mild bilateral perinephric fat stranding. Stomach and bowel: Scattered diverticulosis throughout the colon. No signs of acute diverticulitis. No focal bowel wall thickening or mass. No signs of obstruction. Small to moderate stool burden. Appendix: The appendix is not clearly seen, but there are no secondary signs of acute appendicitis. Intraperitoneal space: No free air. No free fluid or evidence of abscess. Vasculature: A few scattered vascular calcifications. Lymph nodes: No lymphadenopathy. Urinary bladder: Normal CT appearance. Reproductive: The prostate gland measures 5.8 cm in transverse dimension. Bones/joints: The bones appear demineralized. Moderate to severe degenerative changes of the spine with significant canal stenosis and significant foraminal stenosis. Soft tissues: Small fat containing inguinal hernias. CT/CT abdomen pelvis w con* [id number] IMPRESSION: Urinary bladder is nondistended. The prostate gland is again noted to be enlarged. Otherwise no significant interval change compared to the prior exam. Radiation Dose CTDIVOL = (mGy): DLP = 1688.58 (mGy-cm)
--- NOTE | 2020-07-31 16:40 | ED_ITS ---
Documented by User: Jeff Goncalves DO 08/03/20 07:01 HPI - General Adult General: Chief complaint: General Medical Stated complaint: discharged this am, vomiting, shivering Time Seen by Provider: 07/31/20 16:26 History of Present Illness: HPI narrative: 79-year-old male presents emergency room with complaint of fever. We admitted him 2 days ago he appeared to be septic at the time he had a urinary tract infection although he only had a few white blood cells. His white count was 19,000 and he had a temp. During the hospitalization repeat urine showed white blood cells too many to count. His pulmonary urine culture and his blood cultures are both been negative. He was dismissed this morning on oral antibiotics. After leaving here he went out for a sandwich and then when he arrived home he was having fever sweats chills vomited. He continues to feel ill. He is still having frequent urination. He denies any hematuria. Onset (ago): day(s) Severity: mild Quality: burning Pain Consistency: intermittent Relieving factors: none Exacerbating factors: none Associated symptoms: Reports diaphoresis, decreased appetite, fevers/chills, malaise, nausea, vomiting and weakness; Deny chest pain, confusion, cough, dyspnea, headache(s), rash, palpitations, seizures, short of breath or syncope Treatments prior to arrival: other (Patiently hospitalized with IV antibiotics discharge this morning with oral antibiotics) Review of Systems Const: Reports: malaise and diaphoresis ENMT: Denies: throat pain, ear or mastoid pain, nasal discharge or nasal congestion Card: Denies: chest pain, palpitations or syncope Resp: Denies: dyspnea GI: Reports: nausea and vomiting : Denies: flank pain, dysuria, urinary frequency or urinary urgency Skin/Breast: Denies: rash Neuro: Denies: headache(s) or confusion PFS ED PFSH: Medical History BPH (benign prostatic hyperplasia) GERD (gastroesophageal reflux disease) Hypertension Vitamin D deficiency Surgical History Hx of colonoscopy (~2010) Hx of foot surgery Hx of hemorrhoidectomy Hx of knee surgery Hx of neck surgery Hx of rotator cuff surgery Family History Mother , age 93 Alzheimer disease Father , age 85 Cancer colon Social History Smoking and tobacco status: former smoker Quit status (tobacco): has quit using tobacco Second hand smoke exposure: No Alcohol intake: never Lives independently: No Household members: spouse Marital status: Current occupational status: employed History of recent travel: No Current gender identity: Male Physical Exam Const: COMMON NORMALS: no acute distress GENERAL APPEARANCE: cooperative and comfortable ORIENTATION/CONSCIOUSNESS: Yes awake, Yes oriented to person, Yes oriented to place and Yes oriented to time HENMT: COMMON NORMALS: normocephalic, atraumatic and hearing grossly normal bilaterally HEAD & SCALP: normocephalic and atraumatic Neck/C-Spine: COMMON NORMALS: no JVD Resp: COMMON NORMALS: normal respiratory effort, No retractions, No use of accessory muscles and clear to auscultation bilaterally AUSCULTATION: clear to auscultation bilaterally Cardio: COMMON NORMALS: no JVD, regular rate, regular rhythm and No murmurs present (Cardio) RATE: regular rate RHYTHM: regular rhythm GI: COMMON NORMALS: Soft to palpation and No hepatosplenomegaly present AUSCULTATION: Yes normoactive bowel sounds PALPATION: Yes Soft to palpation, No Tenderness to palpation present (GI), No Guarding due to palpation present (GI) and Yes No hepatosplenomegaly present Extremity: COMMON NORMALS: normal to inspection, capillary refill normal, no clubbing, cyanosis or edema, no calf tenderness and no pedal edema Neuro: SENSORIUM/ORIENTATION: Yes oriented to person, Yes oriented to place and Yes oriented to time Skin: COMMON NORMALS: no rashes or lesions noted GENERAL SKIN EXAM: no rashes or lesions noted Course Vital Signs: Vital signs: Vital Signs Temperature 98.5 F 08/03/20 04:00 Pulse Rate 99 08/03/20 04:00 Respiratory Rate 16 08/03/20 04:00 Blood Pressure 124/83 08/03/20 04:00 Pulse Oximetry 94 08/03/20 04:00 MDM - General Adult MDM Narrative: Medical decision making narrative: Care turned over to Dr. Berg at change of shift see his notes for diagnosis and disposition Lab Data: Labs: Lab Results 07/31/20 07/31/20 07/31/20 Range/Units 17:03 17:03 17:03 WBC 10.7 H (4.0-10.0) 10^3/ uL RBC 3.71 L (4.1-5.3) 10^6/u L Hgb 12.1 (11.7-16.6) g/dL Hct 35.2 L (42.0-52.0) % MCV 94.9 H (80-94) fL MCH 32.6 (28.0-34.0) pg MCHC 34.4 (30.0-36.0) g/dL RDW 12.5 (12.1-15.1) % Plt Count 132 (130-400) 10^3/c mm MPV 10.5 H (7.4-10.4) fL Neut % (Auto) 87.5 % Lymph % (Auto) 4.7 % [place] % (Auto) 7.1 % Eos % (Auto) 0.1 % Baso % (Auto) 0.2 % Neut # (Auto) 9.40 H (1.8-7.7) 10^3/u L Lymph # (Auto) 0.5 L (0.8-4.8) 10^3/u L [place] # (Auto) 0.8 (0.2-0.9) 10^3/u L Eos # (Auto) 0.0 (0.0-0.8) 10^3/u L Baso # (Auto) 0.0 (0.0-0.1) 10^3/u L Nucleated RBC % (a uto) 0 % Nucleated RBCs # 0.0 /100WBC Sodium 137 (136-145) mmol/L Potassium 3.8 (3.5-5.1) mmol/L Chloride 105 (98-107) mmol/L Carbon Dioxide 21 L (22-29) mmol/L Anion Gap 14.8 (5-19) BUN 16 (8-23) mg/dL Creatinine 1.0 (0.7-1.2) mg/dL GFR Calculation Not Reportable Glucose 112 (65-115) mg/dL Calculated Osmolal ity 286 (285-295) mOsm/k g Lactic Acid 1.1 (0.5-2.2) mmol/L Calcium 8.0 L (8.5-10.5) mg/dL Magnesium 1.9 (1.7-2.3) mg/dL Total Bilirubin 0.5 (0.15-1.2) mg/dL AST 28 (0-40) U/L ALT 15 (0-41) U/L Alkaline Phosphata se 60 (40-130) IU/L Creatine Kinase 102 (39-308) U/L Total Protein 6.2 L (6.6-8.7) g/dL Albumin 3.1 L (3.5-5.2) g/dL Globulin 3.1 (1.3-4.6) g/dL Lipase 30 (13-60) U/L Urine Color (Yellow) Urine Appearance (CLEAR) Urine pH (5-7) Ur Specific Gravit y (1.005-1.030) Urine Protein (Negative) Urine Glucose (UA) (Normal) Urine Ketones (Negative) Urine Blood (Negative) Urine Nitrate (Negative) Urine Bilirubin (Negative) Urine Urobilinogen (Negative) mg/dL Ur Leukocyte Karin ase (Negative) Urine RBC (0-2) /hpf Urine WBC (0-5) /hpf Ur Squamous Epith Cells (0-5) /hpf Amorphous Sediment Urine Bacteria (NONE) /hpf Serum Ketones (Negative) 07/31/20 07/31/20 Range/Units 17:03 17:14 WBC (4.0-10.0) 10^3/ uL RBC (4.1-5.3) 10^6/u L Hgb (11.7-16.6) g/dL Hct (42.0-52.0) % MCV (80-94) fL MCH (28.0-34.0) pg MCHC (30.0-36.0) g/dL RDW (12.1-15.1) % Plt Count (130-400) 10^3/c mm MPV (7.4-10.4) fL Neut % (Auto) % Lymph % (Auto) % [place] % (Auto) % Eos % (Auto) % Baso % (Auto) % Neut # (Auto) (1.8-7.7) 10^3/u L Lymph # (Auto) (0.8-4.8) 10^3/u L [place] # (Auto) (0.2-0.9) 10^3/u L Eos # (Auto) (0.0-0.8) 10^3/u L Baso # (Auto) (0.0-0.1) 10^3/u L Nucleated RBC % (a uto) % Nucleated RBCs # /100WBC Sodium (136-145) mmol/L Potassium (3.5-5.1) mmol/L Chloride (98-107) mmol/L Carbon Dioxide (22-29) mmol/L Anion Gap (5-19) BUN (8-23) mg/dL Creatinine (0.7-1.2) mg/dL GFR Calculation Glucose (65-115) mg/dL Calculated Osmolal ity (285-295) mOsm/k g Lactic Acid (0.5-2.2) mmol/L Calcium (8.5-10.5) mg/dL Magnesium (1.7-2.3) mg/dL Total Bilirubin (0.15-1.2) mg/dL AST (0-40) U/L ALT (0-41) U/L Alkaline Phosphata se (40-130) IU/L Creatine Kinase (39-308) U/L Total Protein (6.6-8.7) g/dL Albumin (3.5-5.2) g/dL Globulin (1.3-4.6) g/dL Lipase (13-60) U/L Urine Color [place] (Yellow) Urine Appearance Clear (CLEAR) Urine pH 7 (5-7) Ur Specific Gravit y 1.005 (1.005-1.030) Urine Protein 3+ H (Negative) Urine Glucose (UA) Norm (Normal) Urine Ketones Negative (Negative) Urine Blood 2+ H (Negative) Urine Nitrate Positive H (Negative) Urine Bilirubin 2+ H (Negative) Urine Urobilinogen 8 H (Negative) mg/dL Ur Leukocyte Karin ase Negative (Negative) Urine RBC 10-15 H (0-2) /hpf Urine WBC 5-10 H (0-5) /hpf Ur Squamous Epith Cells Rare (0-5) /hpf Amorphous Sediment Not Reportable Urine Bacteria 1+ H (NONE) /hpf Serum Ketones Negative (Negative) Discharge Plan Discharge Patient Disposition: Admitted As Inpatient Admit Provider: Francis Gonzalez Clinical Impression: Acute cystitis Qualifiers: Hematuria presence: without hematuria Qualified Code(s): N30.00 - Acute cystitis without hematuria Condition: Stable Coding Level of Care Code ED Molecular Geneticist for Chg Fwd Exam Comprehensive Documented by User: Chivo Berg MD 07/31/20 18:55 HPI - General Adult General: Chief complaint: General Medical Stated complaint: discharged this am, vomiting, shivering Time Seen by Provider: 07/31/20 16:26 PFSH ED PFSH: Medical History BPH (benign prostatic hyperplasia) GERD (gastroesophageal reflux disease) Hypertension Vitamin D deficiency Surgical History Hx of colonoscopy (~2010) Hx of foot surgery Hx of hemorrhoidectomy Hx of knee surgery Hx of neck surgery Hx of rotator cuff surgery Family History Mother , age 93 Alzheimer disease Father , age 85 Cancer colon Social History Smoking and tobacco status: former smoker Quit status (tobacco): has quit using tobacco Second hand smoke exposure: No Alcohol intake: never Lives independently: No Household members: spouse Marital status: Current occupational status: employed History of recent travel: No Current gender identity: Male Course Vital Signs: Vital signs: Vital Signs Temperature 98.5 F 08/03/20 04:00 Pulse Rate 99 08/03/20 04:00 Respiratory Rate 16 08/03/20 04:00 Blood Pressure 124/83 08/03/20 04:00 Pulse Oximetry 94 08/03/20 04:00 MDM - General Adult MDM Narrative: Medical decision making narrative: Patient presents here with fever and does have an acute cystitis. Spoke to hospitalist and will admit for IV antibiotics. Patient's blood pressure here stable and white count and lactate are stable as well. Lab Data: Labs: Lab Results 07/31/20 07/31/20 07/31/20 Range/Units 17:03 17:03 17:03 WBC 10.7 H (4.0-10.0) 10^3/ uL RBC 3.71 L (4.1-5.3) 10^6/u L Hgb 12.1 (11.7-16.6) g/dL Hct 35.2 L (42.0-52.0) % MCV 94.9 H (80-94) fL MCH 32.6 (28.0-34.0) pg MCHC 34.4 (30.0-36.0) g/dL RDW 12.5 (12.1-15.1) % Plt Count 132 (130-400) 10^3/c mm MPV 10.5 H (7.4-10.4) fL Neut % (Auto) 87.5 % Lymph % (Auto) 4.7 % [place] % (Auto) 7.1 % Eos % (Auto) 0.1 % Baso % (Auto) 0.2 % Neut # (Auto) 9.40 H (1.8-7.7) 10^3/u L Lymph # (Auto) 0.5 L (0.8-4.8) 10^3/u L [place] # (Auto) 0.8 (0.2-0.9) 10^3/u L Eos # (Auto) 0.0 (0.0-0.8) 10^3/u L Baso # (Auto) 0.0 (0.0-0.1) 10^3/u L Nucleated RBC % (a uto) 0 % Nucleated RBCs # 0.0 /100WBC Sodium 137 (136-145) mmol/L Potassium 3.8 (3.5-5.1) mmol/L Chloride 105 (98-107) mmol/L Carbon Dioxide 21 L (22-29) mmol/L Anion Gap 14.8 (5-19) BUN 16 (8-23) mg/dL Creatinine 1.0 (0.7-1.2) mg/dL GFR Calculation Not Reportable Glucose 112 (65-115) mg/dL Calculated Osmolal ity 286 (285-295) mOsm/k g Lactic Acid 1.1 (0.5-2.2) mmol/L Calcium 8.0 L (8.5-10.5) mg/dL Magnesium 1.9 (1.7-2.3) mg/dL Total Bilirubin 0.5 (0.15-1.2) mg/dL AST 28 (0-40) U/L ALT 15 (0-41) U/L Alkaline Phosphata se 60 (40-130) IU/L Creatine Kinase 102 (39-308) U/L Total Protein 6.2 L (6.6-8.7) g/dL Albumin 3.1 L (3.5-5.2) g/dL Globulin 3.1 (1.3-4.6) g/dL Lipase 30 (13-60) U/L Urine Color (Yellow) Urine Appearance (CLEAR) Urine pH (5-7) Ur Specific Gravit y (1.005-1.030) Urine Protein (Negative) Urine Glucose (UA) (Normal) Urine Ketones (Negative) Urine Blood (Negative) Urine Nitrate (Negative) Urine Bilirubin (Negative) Urine Urobilinogen (Negative) mg/dL Ur Leukocyte Karin ase (Negative) Urine RBC (0-2) /hpf Urine WBC (0-5) /hpf Ur Squamous Epith Cells (0-5) /hpf Amorphous Sediment Urine Bacteria (NONE) /hpf Serum Ketones (Negative) 07/31/20 07/31/20 Range/Units 17:03 17:14 WBC (4.0-10.0) 10^3/ uL RBC (4.1-5.3) 10^6/u L Hgb (11.7-16.6) g/dL Hct (42.0-52.0) % MCV (80-94) fL MCH (28.0-34.0) pg MCHC (30.0-36.0) g/dL RDW (12.1-15.1) % Plt Count (130-400) 10^3/c mm MPV (7.4-10.4) fL Neut % (Auto) % Lymph % (Auto) % [place] % (Auto) % Eos % (Auto) % Baso % (Auto) % Neut # (Auto) (1.8-7.7) 10^3/u L Lymph # (Auto) (0.8-4.8) 10^3/u L [place] # (Auto) (0.2-0.9) 10^3/u L Eos # (Auto) (0.0-0.8) 10^3/u L Baso # (Auto) (0.0-0.1) 10^3/u L Nucleated RBC % (a uto) % Nucleated RBCs # /100WBC Sodium (136-145) mmol/L Potassium (3.5-5.1) mmol/L Chloride (98-107) mmol/L Carbon Dioxide (22-29) mmol/L Anion Gap (5-19) BUN (8-23) mg/dL Creatinine (0.7-1.2) mg/dL GFR Calculation Glucose (65-115) mg/dL Calculated Osmolal ity (285-295) mOsm/k g Lactic Acid (0.5-2.2) mmol/L Calcium (8.5-10.5) mg/dL Magnesium (1.7-2.3) mg/dL Total Bilirubin (0.15-1.2) mg/dL AST (0-40) U/L ALT (0-41) U/L Alkaline Phosphata se (40-130) IU/L Creatine Kinase (39-308) U/L Total Protein (6.6-8.7) g/dL Albumin (3.5-5.2) g/dL Globulin (1.3-4.6) g/dL Lipase (13-60) U/L Urine Color [place] (Yellow) Urine Appearance Clear (CLEAR) Urine pH 7 (5-7) Ur Specific Gravit y 1.005 (1.005-1.030) Urine Protein 3+ H (Negative) Urine Glucose (UA) Norm (Normal) Urine Ketones Negative (Negative) Urine Blood 2+ H (Negative) Urine Nitrate Positive H (Negative) Urine Bilirubin 2+ H (Negative) Urine Urobilinogen 8 H (Negative) mg/dL Ur Leukocyte Karin ase Negative (Negative) Urine RBC 10-15 H (0-2) /hpf Urine WBC 5-10 H (0-5) /hpf Ur Squamous Epith Cells Rare (0-5) /hpf Amorphous Sediment Not Reportable Urine Bacteria 1+ H (NONE) /hpf Serum Ketones Negative (Negative) Imaging Data^: CT Abd/Pel: Radiologist's impression: [address] [id number] [address] Scan Report Signed Patient: Mars Reeder Unit #: [id number] : 1940 Age/Sex: 79 / M ADM Date: 07/31/20 Loc: ER Room/Bed: Attending Dr: Ordering Provider/Ordering MD: Jeff Goncalves DO Date of Service: 07/31/20 Procedure(s): CT abdomen pelvis w con* [id number] Accession Number(s): [id number] Report Number: [id number] PROCEDURE INFORMATION: Exam: CT Abdomen And Pelvis With Contrast Exam date and time: 07/31/2020 5:18 PM Age: 79 years old Clinical indication: Other: Frequent urination; Additional info: Abd pain TECHNIQUE: Imaging protocol: Computed tomography of the abdomen and pelvis with contrast. Radiation optimization: All CT scans at this facility use at least one of these dose optimization techniques: automated exposure control; mA and/or kV adjustment per patient size (includes targeted exams where dose is matched to clinical indication); or iterative reconstruction. Contrast material: VISI 320; Contrast volume: 95 ml; Contrast route: INTRAVENOUS (IV); COMPARISON: CT abdomen pelvis w con* [id number] 07/30/2020 3:11 PM RADIATION DOSE METRICS: Total DLP (mGy-cm): 1688.58 FINDINGS: Lungs: Mild basilar atelectasis/scarring, greater on the left. Liver: Normal size and density. No focal mass. Gallbladder and bile ducts: No intrahepatic or extrahepatic biliary dilitation. No calcified stones. Pancreas: No evidence of mass. No ductal dilation. Spleen: No splenomegaly or mass. Adrenal glands: Normal. Kidneys and ureters: No stones or hydronephrosis. No evidence of focal mass. Mild bilateral perinephric fat stranding. Stomach and bowel: Scattered diverticulosis throughout the colon. No signs of acute diverticulitis. No focal bowel wall thickening or mass. No signs of obstruction. Small to moderate stool burden. Appendix: The appendix is not clearly seen, but there are no secondary signs of acute appendicitis. Intraperitoneal space: No free air. No free fluid or evidence of abscess. Vasculature: A few scattered vascular calcifications. Lymph nodes: No lymphadenopathy. Urinary bladder: Normal CT appearance. Reproductive: The prostate gland measures 5.8 cm in transverse dimension. Bones/joints: The bones appear demineralized. Moderate to severe degenerative changes of the spine with significant canal stenosis and significant foraminal stenosis. Soft tissues: Small fat containing inguinal hernias. CT/CT abdomen pelvis w con* [id number] IMPRESSION: Urinary bladder is nondistended. The prostate gland is again noted to be enlarged. Discharge Plan Discharge Patient Disposition: Admitted As Inpatient Admit Provider: Francis Gonzalez Clinical Impression: Acute cystitis Qualifiers: Hematuria presence: without hematuria Qualified Code(s): N30.00 - Acute cystitis without hematuria Condition: Stable Coding Level of Care Code ED Molecular Geneticist for g Fwd Exam Comprehensive
[2020-07-31 17:14] LABS: Basophils % 0.2 %; Eosinophils % 0.1 %; Hematocrit 35.2 % (42.0-52.0); Hemoglobin 12.1 g/dL (11.7-16.6); Lymphocytes # 0.5 10^3/uL (0.8-4.8); Lymphocytes % 4.7 %; Mean Corpuscular HGB Conc 34.4 g/dL (30.0-36.0); Mean Corpuscular Hemoglobin 32.6 pg (28.0-34.0); Mean Corpuscular Volume 94.9 fL (80-94); Mean Platelet Volume 10.5 fL (7.4-10.4); Monocytes # 0.8 10^3/uL (0.2-0.9); Monocytes % 7.1 %; Neutrophils % 87.5 %; Nucleated Red Blood Cells % 0 %; Platelet Count 132 10^3/cmm (130-400); Red Blood Count 3.71 10^6/uL (4.1-5.3); Red Cell Distribution Width 12.5 % (12.1-15.1); White Blood Count 10.7 10^3/uL (4.0-10.0)
[2020-07-31] MEDS: iodixanol 320 mg/mL 100mL Btl IV (17:27)
[2020-07-31 17:34] LABS: Blood Urine 2+ (Negative); Glucose Urine UA Norm (Normal); Ketones Urine Negative (Negative); Nitrate Urine Positive (Negative); Protein Urine 3+ (Negative); Specific Gravity, Urine 1.005 (1.005-1.030); Urine Appearance Clear (CLEAR); Urine Color Orange (Yellow); pH Urine 7 (5-7)
[2020-07-31 17:35] LABS: Add Urine Microscopic? YES; Bilirubin Urine 2+ (Negative); Leukocyte Esterase Urine Negative (Negative); Urobilinogen Urine 8 mg/dL (Negative)
[2020-07-31 17:38] LABS: Add Urine Culture? Yes; Bacteria Urine 1+ /hpf; Squamous Epithelial Cell Urine RARE /hpf (0-5)
[2020-07-31 17:50] LABS: Ketone (Acetest) Serum Negative (Negative)
[2020-07-31 17:58] LABS: Lactic Sepsis W/Reflex 1.1 mmol/L (0.5-2.2)
--- NOTE | 2020-07-31 18:00 | PC.NURSE ---
pt 89% on room air whilst sleeping.pt placed on 2L per nasal cannula
[2020-07-31 18:13] LABS: Alanine Aminotransferase 15 U/L (0-41); Albumin Level 3.1 g/dL (3.5-5.2); Alkaline Phosphatase 60 IU/L (40-130); Anion Gap 14.8 (5-19); Aspartate Amino Transferase 28 U/L (0-40); Blood Urea Nitrogen 16 mg/dL (8-23); Carbon Dioxide 21 mmol/L (22-29); Chloride 105 mmol/L (98-107); Creatine Phosphokinase 102 U/L (39-308); Globulin 3.1 g/dL (1.3-4.6); Glucose 112 mg/dL (65-115); Lipase 30 U/L (13-60); Magnesium 1.9 mg/dL (1.7-2.3); Osmolality Calculated 286 mOsm/kg (285-295); Potassium 3.8 mmol/L (3.5-5.1); Sodium 137 mmol/L (136-145); Total Bilirubin 0.5 mg/dL (0.15-1.2); Total Protein 6.2 g/dL (6.6-8.7)
--- NOTE | 2020-07-31 18:36 | P.HP_ITS ---
Providers/Chief Complaint Primary Care Provider: Marielena Dunn MD Chief Complaint: discharged this am, vomiting, shivering History of Present Illness Mars Reeder is a 79 year old male who was discharged today after being treated with ceftriaxone for UTI. He was discharged on Cefpodoxime. Patient is stating that as well at home in evening he started experiencing shakes/rigors chills and fever. Temperature 102. He decided to come to the hospital. Diagnostic work-up in the ER revealed improving leukocytosis however on previous admission it was 19.1 on today's diagnostic work-up it is 10.7, he is septic with tachypnea, fever 102. No signs of meningismus, no headache, chest pain, shortness of breath history of endorsing mild dysuria, no abdominal pain, diarrhea or productive cough . Previous urine culture is growing gram-negative rods. Blood culture, urine culture requested in the ER He has been given ceftriaxone in the ER Review of Systems Const: Reports: fever(s), chills, body aches, fatigue and malaise Eyes: Denies: change in vision ENMT: Denies: throat pain Card: Denies: chest pain Resp: Denies: dyspnea GI: Denies: abdominal pain : Reports: difficulty urinating, urinary urgency and urinary dribbling; Denies: flank pain, urinary frequency or hematuria Musc: Denies: neck pain Skin/Breast: Denies: rash Neuro: Denies: headache(s) Psych: Denies: anxiety Endo: Denies: polyuria Saurabh/Lymph: Denies: easy bruising All/Imm: Denies: urticaria Medications/Allergies Home Medications Medication Instructions Recorded Confirmed Last Taken Type multivitamin 1 tab PO DAILY@08/15/19 07/31/20 07/31/20 History amlodipine 5 mg PO DAILY@07/29/20 07/31/20 07/31/20 History aspirin 81 mg PO DAILY@07/29/20 07/31/20 07/31/20 History lisinopril 20 mg PO DAILY@07/29/20 07/31/20 07/30/20 History tamsulosin [Flomax] 0.4 mg PO DAILY@07/29/20 07/31/20 07/31/20 History cefpodoxime 200 mg PO BID 7 Days #14 tab 07/31/20 07/31/20 Unknown Rx phenazopyridine 200 mg PO TIDPC 10 Days #30 tab 07/31/20 07/31/20 Unknown Rx Allergies Allergy/AdvReac Type Severity Reaction Status Date / Time No Known Allergies Allergy Verified 05/30/20 13:34 PFSH Acute PFSH: Medical History BPH (benign prostatic hyperplasia) GERD (gastroesophageal reflux disease) Hypertension Vitamin D deficiency Surgical History Hx of colonoscopy (~2010) Hx of foot surgery Hx of hemorrhoidectomy Hx of knee surgery Hx of neck surgery Hx of rotator cuff surgery Family History Mother , age 93 Alzheimer disease Father , age 85 Cancer colon Social History Smoking and tobacco status: former smoker Quit status (tobacco): has quit using tobacco Second hand smoke exposure: No Alcohol intake: never Lives independently: No Household members: spouse Marital status: Current occupational status: employed History of recent travel: No Current gender identity: Male Vitals/I&O/Wt Last Vital Signs Temp 102.0 F H 07/31/20 14:33 Pulse 89 07/31/20 17:59 Resp 21 H 07/31/20 17:59 BP 120/71 07/31/20 17:59 Pulse Ox 95 07/31/20 17:59 Weight last 48 hrs Weight 95.254 kg Physical Exam Narrative: EXAM NARRATIVE: Pleasant elderly male Appears well-hydrated Saturating well on room air S1, S2 sinus rhythm no signs of heart failure or murmur Abdomen soft nontender bowel sounds present, no CVA tenderness No signs of meningismus No neurological deficits No joint swelling No lower extremity cellulitis, edema, gangrene ulcer Appropriate mood and affect EOMI, PERRLA Data : 07/31/20 17:03 07/31/20 17:03 Micro: Microbiology 07/31/20 16:56 Blood Culture - Preliminary Blood SPECIMEN COLLECTED 07/31/20 17:07 Blood Culture - Preliminary Blood SPECIMEN COLLECTED A&P Assessment and plan (1) Sepsis: Status: Acute (2) UTI (urinary tract infection): Status: Acute (3) BPH (benign prostatic hyperplasia): Status: Acute Qualifiers: Lower urinary tract symptom presence: symptoms present Lower urinary tract symptom detail: urinary hesitancy Qualified Code(s): N40.1 - Benign prostatic hyperplasia with lower urinary tract symptoms; R39.11 - Hesitancy of micturition Additional A&P Information Sepsis secondary to UTI Previous urine culture growing gram-negative rods Currently septic with fever, tachypnea and leukocytosis Second set of urine culture blood culture requested I would use Zosyn CT abdomen pelvis was requested on previous visit which did not show any pyonephritis however mild perinephric edema noted No hydronephrosis or kidney stone BPH Continue tamsulosin added Pyridium for dysuria. Essential hypertension: Continue amlodipine and lisinopril Full code Cardiac diet DVT prophylaxis low with Attestations Medical Necessity Statement*: Anticipating stay in the hospital because more than 2 midnights for sepsis secondary to UTI Time Spent in Patient Care: (>than 50% of time spent in counselling and/or direct pt care on unit) . 40mins Coding Level of Care Code Acute Retail Service Lead Merchandiser for [facility] Fwd Diagnoses Sepsis A41.9 UTI (urinary tract infection) N39.0 BPH (benign prostatic hyperplasia) N40.1; R39.11 Lower urinary tract symptom presence: symptoms present Lower urinary tract symptom detail: urinary hesitancy
[2020-07-31] MEDS: cefTRIAXone 1,000 MG in sodium chloride 0.9% (plus) 50 ML 100 MG IV (19:04)
[2020-07-31] MEDS: lisinopril 20 mg Tablet PO (22:11)
[2020-07-31] MEDS: enoxaparin 40 mg/0.4 mL Syringe SUBCUT (22:11)
[2020-07-31] MEDS: piperacillin-tazobactam 3.375 GM in sodium chloride 0.9% (plus) 50 ML IV (22:15)
[2020-08-01] VITALS (7 sets, daily range): BP systolic 99–142; BP diastolic 66–76; PULSE 66–94; RESP 17–20; TEMP 36.6–38.3; O2SAT 90–95
[2020-08-01] MEDS: acetaminophen 325 mg Tablet 650 MG PO (04:35)
[2020-08-01] MEDS: piperacillin-tazobactam 3.375 GM in sodium chloride 0.9% (plus) 50 ML IV ×3 (04:38→21:05)
[2020-08-01 05:32] LABS: Basophils % 0.2 %; Hematocrit 33.4 % (42.0-52.0); Hemoglobin 11.5 g/dL (11.7-16.6); Lymphocytes # 0.5 10^3/uL (0.8-4.8); Mean Corpuscular HGB Conc 34.4 g/dL (30.0-36.0); Mean Corpuscular Hemoglobin 32.4 pg (28.0-34.0); Mean Corpuscular Volume 94.1 fL (80-94); Mean Platelet Volume 11.1 fL (7.4-10.4); Monocytes # 0.7 10^3/uL (0.2-0.9); Monocytes % 6.6 %; Neutrophils # 8.83 10^3/uL (1.8-7.7); Neutrophils % 87.8 %; Nucleated Red Blood Cells % 0 %; Platelet Count 128 10^3/cmm (130-400); Red Blood Count 3.55 10^6/uL (4.1-5.3); Red Cell Distribution Width 12.4 % (12.1-15.1); White Blood Count 10.1 10^3/uL (4.0-10.0)
[2020-08-01 06:05] LABS: Anion Gap 12.5 (5-19); Blood Urea Nitrogen 16 mg/dL (8-23); Calcium 7.9 mg/dL (8.5-10.5); Carbon Dioxide 24 mmol/L (22-29); Chloride 102 mmol/L (98-107); Glucose 102 mg/dL (65-115); Osmolality Calculated 281 mOsm/kg (285-295); Potassium 3.5 mmol/L (3.5-5.1); Sodium 135 mmol/L (136-145)
[2020-08-01] MEDS: tamsulosin 0.4 mg Capsule PO (06:32)
[2020-08-01] MEDS: amlodipine 5 mg Tablet PO (06:32)
[2020-08-01] MEDS: aspirin 81 mg Chew Tablet PO (06:32)
--- NOTE | 2020-08-01 09:20 | PM.PN ---
Subjective Subjective: Interval history: Interval history: Patient endorsed night sweats, overnight he had low-grade temperature, morning labs reviewed, he was watching television when entered the room did not complain of abdominal pain, worsening of dysuria chest pain shortness of breath headache He thinks his flow of urine is adequate is denying hypogastric abdominal discomfort or flank pain Vitals/I&O/Wt Last Vital Signs Temp 97.8 F 08/01/20 08:00 Pulse 72 08/01/20 08:00 Resp 18 08/01/20 08:00 BP 99/66 08/01/20 08:00 Pulse Ox 93 08/01/20 08:00 07/31/20 08/01/20 08/01/20 22:59 06:59 14:59 Intake Total 50 / 50 100 / 150 Output Total 0 / 0 400 / 400 Balance 50 / 50 -300 / -250 Weight last 48 hrs Weight 95.254 kg Physical Exam Narrative: EXAM NARRATIVE: Was lying comfortably in the room elderly male was watching television Systolic blood pressure 99 mmHg today low-grade temperature 100.5 or noted overnight S1, S2 no murmur appreciated Clinically looks euvolemic Abdomen soft no CVA tenderness Rectal exam did not reveal tender prostate Lower extremity no edema gangrene or ulcer Bunions bilateral Appropriate mood and affect EOMI, PERRLA GCS 15 Data : 08/01/20 05:02 08/01/20 05:02 Micro: Microbiology 07/31/20 16:56 Blood Culture - Preliminary Blood SPECIMEN COLLECTED 07/31/20 17:07 Blood Culture - Preliminary Blood SPECIMEN COLLECTED A&P Assessment and plan (1) Pyelonephritis: Status: Acute (2) Sepsis: Status: Acute Additional A&P Information Sepsis secondary to pyelonephritis Sepsis present however improving leukocytosis, low-grade temperature overnight 100.5 Abnormal UA, digital rectal exam did not reveal prostate tenderness Prostatitis unlikely no kidney stone or urolithiasis no hydronephrosis Perinephric fat stranding with cystitis, I do believe because of prostate he is retaining some urine which is causing bilateral perinephric fat stranding, I would continue Zosyn for pyelonephritis we will follow up with culture and sensitivity, initial urine culture is growing gram-negative rods, sensitivities pending BPH: Continue tamsulosin We will do frequent post void residual bladder scan He will need outpatient follow-up with Dr. Williamson as well Cardiac diet DVT prophylaxis Lovenox Full code Attestations Medical Necessity Statement*: Sepsis for pyonephritis continue inpatient IV antibiotics and hospitalization Time Spent in Patient Care: 30mins Coding Level of Care Code Acute Intelligence Manager for [facility] Fw Diagnoses Pyelonephritis N12 Sepsis A41.9
[2020-08-01] MEDS: phenazopyridine 100 mg Tablet 200 MG PO ×3 (09:27→18:33)
[2020-08-01] MEDS: lactated ringers 1,000 ML 999 ML IV (10:24)
[2020-08-01] MEDS: lisinopril 20 mg Tablet PO (21:04)
[2020-08-01] MEDS: enoxaparin 40 mg/0.4 mL Syringe SUBCUT (21:04)
[2020-08-02 04:00] VITALS: BP 111/69; PULSE 95; RESP 18; TEMP 37; O2SAT 94
[2020-08-02 05:43] LABS: Basophils # 0.1 10^3/uL (0.0-0.1); Basophils % 0.6 %; Eosinophils # 0.1 10^3/uL (0.0-0.8); Eosinophils % 1.7 %; Hematocrit 33.3 % (42.0-52.0); Hemoglobin 11.5 g/dL (11.7-16.6); Lymphocytes # 0.9 10^3/uL (0.8-4.8); Lymphocytes % 11.4 %; Mean Corpuscular HGB Conc 34.5 g/dL (30.0-36.0); Mean Corpuscular Hemoglobin 32.8 pg (28.0-34.0); Mean Corpuscular Volume 94.9 fL (80-94); Mean Platelet Volume 11.2 fL (7.4-10.4); Monocytes # 0.9 10^3/uL (0.2-0.9); Monocytes % 11.1 %; Neutrophils # 5.85 10^3/uL (1.8-7.7); Neutrophils % 74.7 %; Nucleated Red Blood Cells % 0 %; Platelet Count 127 10^3/cmm (130-400); Red Blood Count 3.51 10^6/uL (4.1-5.3); Red Cell Distribution Width 12.6 % (12.1-15.1); White Blood Count 7.8 10^3/uL (4.0-10.0)
[2020-08-02] MEDS: piperacillin-tazobactam 3.375 GM in sodium chloride 0.9% (plus) 50 ML IV ×3 (06:02→20:34)
[2020-08-02] MEDS: aspirin 81 mg Chew Tablet PO (06:03)
[2020-08-02] MEDS: amlodipine 5 mg Tablet PO (06:03)
[2020-08-02] MEDS: tamsulosin 0.4 mg Capsule PO (06:03)
[2020-08-02 06:20] LABS: Anion Gap 13.2 (5-19); Blood Urea Nitrogen 12 mg/dL (8-23); Calcium 7.8 mg/dL (8.5-10.5); Carbon Dioxide 23 mmol/L (22-29); Chloride 104 mmol/L (98-107); Glucose 95 mg/dL (65-115); Osmolality Calculated 284 mOsm/kg (285-295); Potassium 3.2 mmol/L (3.5-5.1); Sodium 137 mmol/L (136-145)
[2020-08-02 07:38] VITALS: BP 121/83; PULSE 99; RESP 18; TEMP 37.2; O2SAT 93
[2020-08-02 12:00] VITALS: BP 113/76; PULSE 86; RESP 18; TEMP 36.8; O2SAT 95
--- NOTE | 2020-08-02 13:30 | PM.PN ---
Subjective Subjective: Interval history: Overnight febrile episodes noted, he still spiking low-grade temperature Leukocytosis improved clinically improving he is not complaining of active chest pain his dysuria has improved No CVA tenderness No diarrhea chest pain shortness of breath nausea vomiting Vitals/I&O/Wt Last Vital Signs Temp 99.0 F 08/02/20 07:38 Pulse 99 08/02/20 07:38 Resp 18 08/02/20 07:38 BP 121/83 08/02/20 07:38 Pulse Ox 93 08/02/20 07:38 08/01/20 08/02/20 08/02/20 22:59 06:59 14:59 Intake Total 390 / 1870 50 / 1920 530 / 530 Output Total 150 / 450 540 / 990 300 / 300 Balance 240 / 1420 -490 / 930 230 / 230 Weight last 48 hrs Weight 95.254 kg Physical Exam Narrative: EXAM NARRATIVE: Patient was laying comfortably in his bed without any active discomfort Clinically improving S1, S2 sinus rhythm Abdomen soft nontender no CVA tenderness No audible wheezing or crackles Neurologically nonfocal exam EOMI, PERRLA Awake alert oriented x3 GCS 15 No joint swelling Bilateral bunions noted Data : 08/02/20 04:51 08/02/20 04:51 Micro: Microbiology 07/31/20 17:07 Blood Culture - Preliminary Blood NEGATIVE TO DATE 07/31/20 16:56 Blood Culture - Preliminary Blood NEGATIVE TO DATE 07/31/20 17:14 Urine Culture - Preliminary Urine,Clean Catch A&P Assessment and plan (1) Sepsis: Sepsis resolved 08/03/2019 , improvement in leukocytosis however still spiking low-grade temperature I will continue his Zosyn for now previous urine culture is growing gram-negative rods with E. coli sensitive to penicillin Patient is denying unintentional weight loss, night sweats at home, no previous history of smoking Patient is stating that his dysuria has improved as well Status: Acute (2) Pyelonephritis: Sepsis resolved, continue Zosyn, dysuria improved Bilateral perinephric edema noted Most likely due to BPH with urinary outlet obstruction however patient is endorsing adequate urine flow He has outpatient follow-up appointment with Dr. Williamson Status: Acute Additional A&P Information Cardiac diet DVT prophylaxis Lovenox Full code Anticipating discharge over this weekend Attestations Medical Necessity Statement*: Anticipating discharge over the weekend patient is still spiking low-grade temperature however sepsis has resolved today Time Spent in Patient Care: 30mins Coding Level of Care Code Acute Senior Analyst for [facility] Fwd Diagnoses Sepsis A41.9 Pyelonephritis N12
[2020-08-02] MEDS: potassium chloride ER 20 mEq Tablet 40 MEQ PO (13:46)
--- NOTE | 2020-08-02 14:23 | PC.CHAP ---
Pastoral Care Encounter/Spiritual Assessment Type of Contact [] Declined director of neurology visit [] Patient/Family/Request visit [] Outpatient visit [] Follow-up visit [] Physician referral [] Code/Alert [xx] Routine visit [] Staff referral [] Actively dying [] Patient sleeping [] Family support [] [] Out of room [] Palliative care [] [] Receiving care in room [] Pre-surgical visit [] Trauma [] Long length of stay [] ICU visit [] Other: Relational/Emotional Strength [xx] Patient feels connected with others/family/visitors/staff [] Distress [] Loneliness/isolation [] Abandonment Spirituality of Patient [xx] Person of Emily [xx] Attends Latter Day of their Emily [xx] Believes in Prayer [xx] Reads Bible or Yarsani materials [] There are Spiritual issues to be addressed Forward Air Controller/Air Officer Interventions [xx] Prayer [xx] Active listening [xx] Non-anxious presence [] Spiritual/emotional support [] Crisis/trauma care [] Spiritual counseling [] Bereavement support [] Provided bereavement packet [] Provided Bible/devotional materials [] Provided toy/stuffed animal, coloring book to patient or family member [] Provided Communion [] Anointing/[place] [] Salvation [xx] Completed spiritual assessment [] Other: Impact on Illness or Injury [] Angry [] Fearful [] Anxious [] Often cries [] Exhaustion [] Unable to work [] Unable to attend mormon [] Unable to walk/stand [] Unable to read [] Unable to drive [] Unable to eat/drink [] Unable to sleep [] Unable to be with family [] Patient intubated [] Other: Summary 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 He requestged director of neurology pray for certain ones rather than just himself. Time spent with patient 15 minutes
[2020-08-02 16:00] VITALS: BP 115/79; PULSE 111; RESP 18; TEMP 37.3; O2SAT 94
[2020-08-02 20:00] VITALS: BP 102/81; PULSE 85; RESP 18; TEMP 37.4; O2SAT 95
[2020-08-02] MEDS: enoxaparin 40 mg/0.4 mL Syringe SUBCUT (20:36)
[2020-08-02] MEDS: lisinopril 20 mg Tablet PO (20:37)
[2020-08-03] VITALS: BP 117/70; PULSE 92; RESP 18; TEMP 37.1; O2SAT 98
[2020-08-03 04:00] VITALS: BP 124/83; PULSE 99; RESP 16; TEMP 36.9; O2SAT 94
[2020-08-03] MEDS: piperacillin-tazobactam 3.375 GM in sodium chloride 0.9% (plus) 50 ML IV (04:31)
[2020-08-03] MEDS: amlodipine 5 mg Tablet PO (06:41)
[2020-08-03] MEDS: tamsulosin 0.4 mg Capsule PO (06:41)
[2020-08-03] MEDS: aspirin 81 mg Chew Tablet PO (06:41)
[2020-08-03 07:09] LABS: Basophils # 0.1 10^3/uL (0.0-0.1); Basophils % 0.7 %; Eosinophils # 0.2 10^3/uL (0.0-0.8); Eosinophils % 3.2 %; Hematocrit 36.6 % (42.0-52.0); Hemoglobin 12.4 g/dL (11.7-16.6); Lymphocytes % 14.7 %; Mean Corpuscular HGB Conc 33.9 g/dL (30.0-36.0); Mean Corpuscular Volume 94.6 fL (80-94); Mean Platelet Volume 10.5 fL (7.4-10.4); Monocytes # 0.8 10^3/uL (0.2-0.9); Monocytes % 10.8 %; Neutrophils # 4.84 10^3/uL (1.8-7.7); Neutrophils % 69.6 %; Nucleated Red Blood Cells % 0 %; Platelet Count 158 10^3/cmm (130-400); Red Blood Count 3.87 10^6/uL (4.1-5.3); Red Cell Distribution Width 12.4 % (12.1-15.1)
[2020-08-03 07:29] LABS: Anion Gap 13.6 (5-19); Blood Urea Nitrogen 12 mg/dL (8-23); Calcium 7.7 mg/dL (8.5-10.5); Carbon Dioxide 24 mmol/L (22-29); Chloride 106 mmol/L (98-107); Glucose 101 mg/dL (65-115); Osmolality Calculated 290 mOsm/kg (285-295); Potassium 3.6 mmol/L (3.5-5.1); Sodium 140 mmol/L (136-145)
[2020-08-03 07:33] VITALS: BP 160/73; PULSE 80; RESP 18; TEMP 36.8; O2SAT 94
[2020-08-03] MEDS: calcium carb-vit d 500mg-200unit 1 Tablet 1 EACH PO (08:40)
[2020-08-03] MEDS: potassium chloride ER 20 mEq Tablet 40 MEQ PO (08:40)
--- NOTE | 2020-08-03 10:24 | P.DS_ITS ---
Discharge Providers Date of Admission: 07/31/20 18:39 Date of Discharge: August 03, 2020 Attending Provider at Admission: Francis Gonzalez MD Attending Provider at Discharge: Francis Gonzalez MD Primary Care Provider: Marielena Dunn MD Diagnoses at Discharge Discharge Diagnosis (1) Sepsis: Status: Acute (2) Pyelonephritis: Status: Acute Reason for Visit Reason for Visit: discharged this am, vomiting, shivering Hospital Course Hospital Course Very pleasant 79-year-old gentleman who was admitted initially for management of sepsis secondary to UTI, urine culture was growing gram-negative rods, culture sensitivity was pending when he was discharged initially, he came back within 6 hours because he was experiencing rigors and chills, fever 102. Another set of blood culture and urine culture were taken and he was started on ceftriaxone. I escalated his antibiotics to Zosyn. His culture and sensitivity came back which was sensitive to penicillin and cephalosporins. Repeat CT abdomen and pelvis revealed perinephric fat stranding, considering history of BPH I treated him as pyelonephritis with Zosyn. He has stayed afebrile for last 36 hours. According to culture and sensitivity I would discharge him on Augmentin. He does not want to take Cefpodoxime because it is not available at his local pharmacy. Patient initially complained of dysuria which improved with Pyridium. His leukocytosis is improved markably initially it was 19 on day of discharge it is 7, he has stayed afebrile for 36 hours, hemodynamically stable, dysuria has improved, culture and sensitivity report reviewed, sterile blood cultures, potassium was repleted today potassium 3.6 Patient will be discharged home. Physical Exam Narrative: EXAM NARRATIVE: Very pleasant elderly male Was comfortable in his bed in supine position S1, S2 Abdomen soft No CVA tenderness No neurological deficit No acute respite distress EOMI, PERRLA Discharge Data Data Completed and Pending: Completed Studies During Hospitalization Category Date Time Status CT abdomen pelvis w con* [id number] Stat Cat Scan 07/31/20 16:31 Completed XR chest 1V marcial ble [id number] Urgent Exams 07/31/20 15:04 Completed Pending at discharge Category Date Time Status Basic Metabolic P ciera AM LABS Lab 08/04/20 04:00 Ordered Blood Culture Sta t Lab 07/31/20 16:56 Results Complete Blood Co unt w/Auto AM LABS Lab 08/04/20 04:00 Ordered Labs from last 24 hours 08/03/20 08/03/20 06:57 06:57 WBC 7.0 RBC 3.87 L Hgb 12.4 Hct 36.6 L MCV 94.6 H MCH 32.0 MCHC 33.9 RDW 12.4 Plt Count 158 MPV 10.5 H Neut % (Auto) 69.6 Lymph % (Auto) 14.7 [place] % (Auto) 10.8 Eos % (Auto) 3.2 Baso % (Auto) 0.7 Neut # (Auto) 4.84 Lymph # (Auto) 1.0 [place] # (Auto) 0.8 Eos # (Auto) 0.2 Baso # (Auto) 0.1 Nucleated RBC % (a uto) 0 Nucleated RBCs # 0.0 Sodium 140 Potassium 3.6 Chloride 106 Carbon Dioxide 24 Anion Gap 13.6 BUN 12 Creatinine 0.9 GFR Calculation Not Reportable Glucose 101 Calculated Osmolal ity 290 Calcium 7.7 L Vitals: Last Vital Signs Temp 98.3 F 08/03/20 07:33 Pulse 80 08/03/20 07:33 Resp 18 08/03/20 07:33 BP 160/73 08/03/20 07:33 Pulse Ox 94 08/03/20 07:33 Discharge Plan Discharge Patient Disposition: Home Condition: Stable Prescriptions: New acetaminophen 325 mg Tablet 650 mg PO Q6H PRN (Reason: Mild Pain) 30 Days Qty: 100 RF: 0 amoxicillin-pot clavulanate [Augmentin] 875-125 mg tablet 1 tab PO BID 10 Days Qty: 20 RF: 0 calcium carbonate-vitamin D3 [Oyster Shell Calcium-Vit D3] 500 mg(1,250mg) - 200 unit Tablet 1 ea PO DAILY 10 Days Qty: 10 RF: 0 potassium chloride [Klor-Con M20] 20 mEq Tablet,Er Particles/Crystals 40 meq PO DAILY 2 Days Qty: 2 RF: 0 Continued multivitamin [Daily Multi-Vitamin] Tablet 1 tab PO DAILY@07 RF: 0 aspirin 81 mg Tablet,Chewable 81 mg PO DAILY@07 RF: 0 lisinopril 20 mg tablet 20 mg PO DAILY@20 RF: 0 amlodipine 5 mg tablet 5 mg PO DAILY@07 RF: 0 tamsulosin [Flomax] 0.4 mg capsule 0.4 mg PO DAILY@07 30 Days Qty: 30 RF: 0 Discontinued phenazopyridine 100 mg Tablet 200 mg PO TIDPC 10 Days Qty: 30 RF: 0 cefpodoxime 200 mg tablet 200 mg PO BID 7 Days Qty: 14 RF: 0 Discharge Orders: Discharge Order (Routine); Ordered 08/03/20 Ordered By: Francis Gonzalez Referrals: Marielena Dunn MD [Primary Care Provider] - (CAMILO Acevedo/[facility] will call you to set up an appointment on Wednesday.) Discharge Diet: Advance as tolerated Discharge Activity: Increase activity as tolerated Activity Restrictions/Additional Instructions: Please be aware that you are getting Augmentin 10-day regimen take twice a day for UTI which was secondary to E. coli Your second and third urine culture did not grow anything most likely you have cleared your infection Your potassium is little bit low currently take potassium for 2 more days Calcium 7.7 you can start taking vitamin D and calcium tablets and follow-up with your PCP This UTI is most likely secondary to contamination from fecal microorganisms with underlying BPH, please follow-up with Dr. Williamson Discharge Attestations Time Spent in Discharge Care*: less than 30 min Quality Metrics Clinical Quality Measures During this hospital stay, did patient experience: None Coding Level of Care Code Acute Chg FW DC note Diagnoses Sepsis A41.9 Pyelonephritis N12
--- NOTE | 2020-08-03 11:17 | DCPLANNER ---
Pg 2 of IM updated and reviewed with pt who was fixing to leave as he is d/c'd. 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 He knows it now and gladly accepts the IM.
--- NOTE | 2020-08-03 11:20 | PC.NURSE ---
Patient discharged at this time, in stable condition. Went over discharge instructions with patient, all questions answered. IV catheter removed tip intact.
[2020-08-03 11:22] VITALS: BP 160/73; PULSE 80; RESP 18; TEMP 36.8; O2SAT 94
== END 2020-08-03 11:23 | disposition home or self-care (01) | DRG 872 ==
LOC: ER 18:55 → MEDSURG 21:04
PROVIDERS: Family Medicine; Physician Assistant; Admitting Provider Internal Medicine; Emergency Provider Emergency Medicine; PCP Family Medicine; Visit Provider Internal Medicine
DX: A41.9 Sepsis, unspecified organism (principal); N39.0 Urinary tract infection, site not specified; N13.8 Other obstructive and reflux uropathy; N10 Acute pyelonephritis; N40.1 Benign prostatic hyperplasia with lower urinary tract symptoms; R39.11 Hesitancy of micturition; K21.9 Gastro-esophageal reflux disease without esophagitis; I10 Essential (primary) hypertension; E55.9 Vitamin D deficiency, unspecified; Z87.891 Personal history of nicotine dependence; Z79.82 Long term (current) use of aspirin
CPT/HCPCS: 36415; 71045; 74177; 80048; 80053; 81001; 82009; 82550; 83605; 83690; 83735; 85025; 87040; 87086; 96365; 96372; 99285; J0696; J1650; J2543; Q9967

== ENCOUNTER → 2020-08-21 09:44 | Outpatient (BNVA) | payer MEDICARE, SELFPAY | PROVIDERS: PCP Family Medicine; Visit Provider Family Medicine | DX: R06.02 Shortness of breath (principal) | CPT/HCPCS: 71046 ==

== ENCOUNTER → 2020-09-03 08:55 | Outpatient (BNVA) | payer MEDICARE, SELFPAY | PROVIDERS: PCP Family Medicine; Visit Provider Family Medicine | DX: R06.02 Shortness of breath (principal); J18.9 Pneumonia, unspecified organism | CPT/HCPCS: 71046 ==

== ENCOUNTER 2020-09-03 11:50 | Inpatient (IN) | payer MEDICARE, SELFPAY ==
[2020-09-03] VITALS (11 sets, daily range): BP systolic 113–134; BP diastolic 64–92; PULSE 80–125; RESP 16–24; TEMP 36.3–36.6; O2SAT 90–97; BMI 29.8
--- NOTE | 2020-09-03 12:28 | XRR_ITS ---
PROCEDURE INFORMATION: Exam: XR Chest Exam date and time: 09/03/2020 1:13 PM Age: 79 years old Clinical indication: Dyspnea and shortness of breath TECHNIQUE: Imaging protocol: XR of the chest. Views: 1 view. COMPARISON: CR XR chest 2V* [id number] 09/03/2020 8:57 AM FINDINGS: Lungs: Unremarkable. No consolidation. Pleural spaces: Unremarkable. No pleural effusion. No pneumothorax. Heart/Mediastinum: Unremarkable. No cardiomegaly. Bones/joints: Unremarkable. XR/XR chest 1V portable [id number] IMPRESSION: No acute findings.
--- NOTE | 2020-09-03 12:28 | ECG_ITS ---
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 Measurements Intervals [place] Rate: 103 P: MA: QRS: 68 QRSD: 117 T: 200 QT: 389 QTc: 511 Interpretive Statements ATRIAL FIBRILLATION WITH RAPID VENTRICULAR RESPONSE WITH ABERRANT CONDUCTION OR VENTRICULAR PREMATURE COMPLEXES LOW QRS VOLTAGE IN EXTREMITY LEADS [QRS DEFLECTION < 0.5 mV IN LIMB LEADS] MODERATE INTRAVENTRICULAR CONDUCTION DELAY [105+ ms QRS DURATION, 80+ ms Q/S IN V1/V2, NO Q AND 60+ ms R IN I/aVL/V5/V6] NONSPECIFIC ST & T-WAVE ABNORMALITY Compared to ECG 09/03/2020 12:06:01 Low QRS voltage now present Intraventricular conduction delay now present T-wave abnormality now present Myocardial infarct finding no longer present Electronically Signed On 09-04-2020 7:41:21 CDT by Bette Rangel M.D. [id number]
--- NOTE | 2020-09-03 12:52 | W.ED.SOB ---
HPI - SOB/Dyspnea General: Chief Complaint: Shortness of Breath/Dyspnea Stated Complaint: SENT BY PCP/FLUID ON LUNGS Time Seen by Provider: 09/03/20 12:19 History of Present Illness: HPI Narrative: 79-year-old male who was recently in quite a bit of trouble. He was hospitalized and discharged immediately rehospitalized. Short time later he was seen use treated for pneumonia on chest x-ray was read as CHF. He was back at his primary care doctor's office today repeat chest x-ray was read as CHF with improvement. Patient's not had any orthopnea he has noticed quite a bit of swelling in his legs. He was able to sleep completely horizontal last night. Prior to that he had been sleeping in a recliner upright for some time and just recently transition back to his bed. He is not on any diuretics at this point he is on lisinopril 20 daily. He has an echocardiogram in his back from approximately 2014 which time he had an EF of 54%. Could not find our records that he has had one since. Does complain of some shortness of breath with exertion but no orthopnea or PND. MD elicited complaint: shortness of breath Pertinent past history: congestive heart failure Onset (ago): week(s) Context: recent illness Timing: improved Severity: moderate Exacerbating factors: exertion Relieving factors: rest Known history of: congestive heart failure Associated symptoms: Reports chest congestion and cough; Deny abdominal pain, chest pain, diaphoresis, dizziness, extremity pain, fever(s), hemoptysis, lightheadedness, myalgias, nausea, orthopnea, palpitations, paresthesias, polydipsia, polyuria, rash, sense of impending doom, syncope or vomiting Treatment prior to arrival: none Review of Systems Const: Denies: fever(s) or diaphoresis ENMT: Denies: throat pain, ear or mastoid pain, nasal discharge or nasal congestion Card: Denies: chest pain, palpitations, lightheadedness, syncope or orthopnea Resp: Reports: chest congestion; Denies: hemoptysis GI: Denies: abdominal pain, nausea or vomiting : Denies: flank pain, dysuria, urinary frequency or urinary urgency Musc: Denies: extremity pain Skin/Breast: Denies: rash or pruritus Neuro: Denies: dizziness Endo: Denies: polyuria or polydipsia PFSH ED PFSH: Medical History BPH (benign prostatic hyperplasia) GERD (gastroesophageal reflux disease) Hypertension Sepsis UTI (urinary tract infection) Vitamin D deficiency Surgical History Hx of colonoscopy (~2010) Hx of foot surgery Hx of hemorrhoidectomy Hx of knee surgery Hx of neck surgery Hx of rotator cuff surgery Family History Mother , age 93 Alzheimer disease Father , age 85 Cancer colon Social History Smoking and tobacco status: former smoker Quit status (tobacco): has quit using tobacco Second hand smoke exposure: No Alcohol intake: never Lives independently: No Household members: spouse Marital status: Current occupational status: employed History of recent travel: No Current gender identity: Male Physical Exam Const: COMMON NORMALS: no acute distress GENERAL APPEARANCE: cooperative and comfortable ORIENTATION/CONSCIOUSNESS: Yes awake, Yes oriented to person, Yes oriented to place and Yes oriented to time HENMT: COMMON NORMALS: normocephalic, atraumatic and hearing grossly normal bilaterally HEAD & SCALP: normocephalic and atraumatic Resp: COMMON NORMALS: normal respiratory effort, No retractions, No use of accessory muscles and clear to auscultation bilaterally AUSCULTATION: clear to auscultation bilaterally Cardio: RATE: tachycardic RHYTHM: abnormal rhythm irregularly irregular HEART SOUNDS: Murmur heart sound present systolic Location: right sternal border (Grade 3/6) GI: COMMON NORMALS: Soft to palpation and No hepatosplenomegaly present AUSCULTATION: Yes normoactive bowel sounds PALPATION: Yes Soft to palpation, No Tenderness to palpation present (GI), No Guarding due to palpation present (GI) and Yes No hepatosplenomegaly present Extremity: GENERAL: No calf tenderness and Yes edema Neuro: SENSORIUM/ORIENTATION: Yes oriented to person, Yes oriented to place and Yes oriented to time Skin: COMMON NORMALS: no rashes or lesions noted GENERAL SKIN EXAM: no rashes or lesions noted Course Vital Signs: Vital signs: Vital Signs Temperature 97.4 F L 09/03/20 12:09 Pulse Rate 117 H 09/03/20 14:00 Respiratory Rate 16 09/03/20 14:00 Blood Pressure 123/88 09/03/20 14:00 Pulse Oximetry 97 09/03/20 14:00 MDM - SOB/Dyspnea MDM Narrative: Medical decision making narrative: After initial valuation patient patient did have a few fine base crackles he was given Lasix 20 mg IV chest x-ray on repeat here does not really show any congestive heart failure though he did have quite a bit of swelling in his legs some of that may be caused by the amlodipine. More importantly he is in A. fib with RVR. We initially gave him some Lopressor had no response we instead tried Cardizem bolus and drip and he is having some semblance of control although he remains in atrial fibrillation we will go ahead and admit him for new onset atrial fibrillation discussed with Dr. Garcia orders written Lab Data: Labs: Lab Results 09/03/20 09/03/20 09/03/20 Range/Units 13:00 13:00 13:00 WBC 6.3 (4.0-10.0) 10^3/ uL RBC 4.02 L (4.1-5.3) 10^6/u L Hgb 13.1 (11.7-16.6) g/dL Hct 39.3 L (42.0-52.0) % MCV 97.8 H (80-94) fL MCH 32.6 (28.0-34.0) pg MCHC 33.3 (30.0-36.0) g/dL RDW 14.3 (12.1-15.1) % Plt Count 136 (130-400) 10^3/c mm MPV 10.5 H (7.4-10.4) fL Neut % (Auto) 76.4 % Lymph % (Auto) 14.2 % [place] % (Auto) 8.4 % Eos % (Auto) 0.2 % Baso % (Auto) 0.5 % Neut # (Auto) 4.80 (1.8-7.7) 10^3/u L Lymph # (Auto) 0.9 (0.8-4.8) 10^3/u L [place] # (Auto) 0.5 (0.2-0.9) 10^3/u L Eos # (Auto) 0.0 (0.0-0.8) 10^3/u L Baso # (Auto) 0.0 (0.0-0.1) 10^3/u L Nucleated RBC % (a uto) 0 % Nucleated RBCs # 0.0 /100WBC Sodium 135 L (136-145) mmol/L Potassium 4.1 (3.5-5.1) mmol/L Chloride 103 (98-107) mmol/L Carbon Dioxide 24 (22-29) mmol/L Anion Gap 12.1 (5-19) BUN 23 (8-23) mg/dL Creatinine 1.0 (0.7-1.2) mg/dL GFR Calculation Not Reportable Glucose 101 (65-115) mg/dL Calculated Osmolal ity 284 L (285-295) mOsm/k g Calcium 8.2 L (8.5-10.5) mg/dL Total Bilirubin 1.1 (0.15-1.2) mg/dL AST 48 H (0-40) U/L ALT 65 H (0-41) U/L Alkaline Phosphata se 80 (40-130) IU/L Troponin T Baselin e 43 H (0-15) ng/L NT-Pro-B Natriuret Pep 2563 H (0-450) pg/mL Total Protein 6.0 L (6.6-8.7) g/dL Albumin 3.6 (3.5-5.2) g/dL Globulin 2.4 (1.3-4.6) g/dL Discharge Plan Discharge Patient Disposition: Admitted As Inpatient Clinical Impression: Atrial fibrillation, Hypertension, Congestive heart failure Condition: Stable Coding Level of Care Code ED Turkey Picker for Wilian Fwd Exam Comprehensive
[2020-09-03] MEDS: metoprolol tartrate 1 mg/1 mL SDV 5 mL 2.5 MG IV (12:53)
[2020-09-03] MEDS: FUROsemide 10 mg/mL SDV 2mL 20 MG IVP (12:54)
[2020-09-03 13:07] LABS: Basophils % 0.5 %; Eosinophils % 0.2 %; Hematocrit 39.3 % (42.0-52.0); Hemoglobin 13.1 g/dL (11.7-16.6); Lymphocytes # 0.9 10^3/uL (0.8-4.8); Lymphocytes % 14.2 %; Mean Corpuscular HGB Conc 33.3 g/dL (30.0-36.0); Mean Corpuscular Hemoglobin 32.6 pg (28.0-34.0); Mean Corpuscular Volume 97.8 fL (80-94); Mean Platelet Volume 10.5 fL (7.4-10.4); Monocytes # 0.5 10^3/uL (0.2-0.9); Monocytes % 8.4 %; Neutrophils % 76.4 %; Nucleated Red Blood Cells % 0 %; Platelet Count 136 10^3/cmm (130-400); Red Blood Count 4.02 10^6/uL (4.1-5.3); Red Cell Distribution Width 14.3 % (12.1-15.1); White Blood Count 6.3 10^3/uL (4.0-10.0)
[2020-09-03 13:38] LABS: Troponin(5th) Baseline 43 ng/L (0-15)
[2020-09-03 13:52] LABS: Alanine Aminotransferase 65 U/L (0-41); Albumin Level 3.6 g/dL (3.5-5.2); Alkaline Phosphatase 80 IU/L (40-130); Anion Gap 12.1 (5-19); Aspartate Amino Transferase 48 U/L (0-40); Blood Urea Nitrogen 23 mg/dL (8-23); Calcium 8.2 mg/dL (8.5-10.5); Carbon Dioxide 24 mmol/L (22-29); Chloride 103 mmol/L (98-107); Globulin 2.4 g/dL (1.3-4.6); Glucose 101 mg/dL (65-115); NT Pro B Type Natriuretic Pept 2563 pg/mL (0-450); Osmolality Calculated 284 mOsm/kg (285-295); Potassium 4.1 mmol/L (3.5-5.1); Sodium 135 mmol/L (136-145); Total Bilirubin 1.1 mg/dL (0.15-1.2)
--- NOTE | 2020-09-03 14:28 | ECG_ITS ---
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 Measurements Intervals [place] Rate: 117 P: OK: QRS: 53 QRSD: 111 T: -60 QT: 275 QTc: 385 Interpretive Statements ATRIAL FIBRILLATION WITH RAPID VENTRICULAR RESPONSE WITH ABERRANT CONDUCTION OR VENTRICULAR PREMATURE COMPLEXES SEPTAL MYOCARDIAL INFARCTION [40+ ms Q WAVE IN V1/V2], PROBABLY OLD Compared to ECG 11/28/2014 05:50:28 Aberrant conduction of supraventricular beat(s) now present Myocardial infarct finding now present Sinus rhythm no longer present Intraventricular conduction delay no longer present T-wave abnormality no longer present Electronically Signed On 09-04-2020 7:44:42 CDT by Bette Rangel M.D. [id number]
[2020-09-03 15:31] LABS: Troponin 5 2HR 42.24 ng/L (0-15)
[2020-09-03 15:34] LABS: Troponin 5 2HR Delta -0.76 ABS# (0-10)
[2020-09-03 15:34] LABS: D Dimer 3.87 ug/mIFEU (0-0.59)
--- NOTE | 2020-09-03 16:26 | P.HP_ITS ---
Providers/Chief Complaint Admitting Physician: Yobani Murphy Primary Care Provider: Marielena Dunn MD Chief Complaint: SENT BY PCP/FLUID ON LUNGS History of Present Illness Very pleasant 79-year-old gentleman, in the last several months requiring multiple healthcare encounters including treatment of sepsis due to urinary tract infection, subsequently separate episode of care for pneumonia, and today on follow-up with primary care provider on repeat chest x-ray was noted to have congestive changes suggestive of CHF, as well as with progressive lower extremity edema, and recently orthopnea in the last several days. Last night orthopnea appears to have been better for the first time he was able to sleep in his bed. He was referred to the hospital by his primary care provider due to what appears to be new onset congestive heart failure. On evaluation in ER he is also noted to have new onset atrial fibrillation with RVR. He denies chest pain or pressure. Denies any strokelike symptoms. Recently has been going through a difficult time with his daughter's health who has cancer and whom he has been having to take her treatments to [facility]. Review of Systems Const: Denies: fever(s), chills, body aches or malaise Eyes: Denies: change in vision or eye redness ENMT: Denies: throat pain, oral sores or ear or mastoid pain Card: Reports: edema, dyspnea on exertion and orthopnea (but not last night); Denies: chest pain or pre-syncope Resp: Denies: dyspnea, productive cough, change in phlegm color or hemoptysis GI: Denies: abdominal pain, nausea, vomiting (apart from small no vomiting after choking on a lozenge several weeks ago, ), diarrhea, constipation, hematochezia or melena : Denies: flank pain, difficulty urinating, urinary frequency or hematuria Musc: Denies: back pain, joint swelling or joint redness Skin/Breast: Denies: rash, sores or new lesions Neuro: Denies: headache(s), numbness in extremities, weakness in extremities, dizziness, confusion or seizure-like activity Endo: Denies: polyuria or polydipsia Saurabh/Lymph: Denies: easy bleeding or purpura All/Imm: Denies: urticaria, throat swelling or tongue swelling Medications/Allergies Home Medications Medication Instructions Recorded Confirmed Last Taken Type multivitamin 1 tab PO DAILY@08/15/19 09/03/20 09/03/20 History amlodipine 5 mg PO DAILY@07/29/20 09/03/20 09/03/20 History aspirin 81 mg PO DAILY@07/29/20 09/03/20 09/03/20 History lisinopril 20 mg PO DAILY@07/29/20 09/03/20 09/02/20 History promethazine-DM 6.25 mg-15 mg/5 mL 5 ml PO Q6H PRN #160 ml 08/21/20 09/03/20 Unknown Rx oral syrup albuterol sulfate 2.5 mg INHALATION Q4H PRN #90 ml 09/02/20 09/03/20 09/02/20 Rx Allergies Allergy/AdvReac Type Severity Reaction Status Date / Time No Known Allergies Allergy Verified 09/03/20 09:06 PFSH Acute PFSH: Medical History BPH (benign prostatic hyperplasia) GERD (gastroesophageal reflux disease) Hypertension Sepsis UTI (urinary tract infection) Vitamin D deficiency Surgical History Hx of colonoscopy (~2010) Hx of foot surgery Hx of hemorrhoidectomy Hx of knee surgery Hx of neck surgery Hx of rotator cuff surgery Family History Mother , age 93 Alzheimer disease Father , age 85 Cancer colon Social History Smoking and tobacco status: former smoker Quit status (tobacco): has quit using tobacco Former quit date comment: pipe in high school Second hand smoke exposure: No Alcohol intake: never Substance/Drug Use: never Lives independently: Yes Household members: spouse Marital status: Current occupational status: employed History of recent travel: No Current gender identity: Male Vitals/I&O/Wt Last Vital Signs Temp 97.4 F L 09/03/20 12:09 Pulse 103 H 09/03/20 16:17 Resp 17 09/03/20 16:17 BP 113/86 09/03/20 16:17 Pulse Ox 93 09/03/20 16:17 Weight last 48 hrs Weight 99.79 kg Physical Exam Const: COMMON NORMALS: no acute distress and patient oriented x3 HENMT: COMMON NORMALS: oropharynx normal Neck/C-Spine: COMMON NORMALS: no JVD Resp: COMMON NORMALS: normal respiratory effort and clear to auscultation bilaterally AUSCULTATION: clear to auscultation bilaterally Cardio: COMMON NORMALS: no JVD, regular rhythm, S1 normal heart sound present, S2 normal heart sound present and No murmurs present (Cardio) RATE: tachycardic RHYTHM: abnormal rhythm irregularly irregular HEART SOUNDS: S1 normal heart sound present and S2 normal heart sound present GI: COMMON NORMALS: Normal to inspection, nondistended, normoactive bowel sounds present, Soft to palpation and non-tender PALPATION: Yes Soft to palpation Extremity: COMMON NORMALS: no joint enlargement GENERAL: Yes edema (3+) Neuro: COMMON NORMALS: patient oriented x3 and moves all extremities Skin: COMMON NORMALS: no rashes or lesions noted GENERAL SKIN EXAM: no rashes or lesions noted Data : 09/03/20 13:00 09/03/20 13:00 A&P Assessment and plan (1) New onset of congestive heart failure: Unclear timing of onset of CHF, but has been having progressively more swelling lower extremities. Recently also with orthopnea, which for the first time was a little bit better last night. No chest pain or pressure. Has had prior stress test, no history of coronary disease. Has been going through a difficult time recently with his daughter's health. There is moderate troponin elevation, although without suggestion of acute AR. Complete troponin EKG series. Discussed with him in number additional etiologies which may be contributing to development of congestive heart failure. Will more closely assessed by TTE. Treat also with diuretics, received IV Lasix today, will continue also tomorrow at this time 40 mg IV twice daily. Monitor urine output, renal function. Electrolytes. Monitor on telemetry. Discussed with him at some point he also would benefit from additional assessment by stress testing to rule out progression of coronary disease. Status: Acute (2) New onset a-fib: Similarly unclear etiology of new onset atrial fibrillation. Additional assessment by TTE. Treat acute CHF. Complete troponin EKG series. Check TSH, check magnesium. Potassium is normal. Has been going through stressful events recently. Continue Cardizem drip at this time. Attempt to wean. Start metoprolol 25 mg twice daily. Would discontinue amlodipine at the same time. Discussed with him risk of CVA, prevention with anticoagulation along with risks and benefits. He is agreeable to initiation. For now we will initiate with Lovenox. Monitor while in the hospital. Subsequently discussed transition to oral anticoagulants, and we went over different options including warfarin, DOACs. He would prefer DOAC as he is quite involved in the care of his daughter, and would need to minimize additional reassessments and adjustments. Status: Acute (3) Elevated d-dimer: Initiate anticoagulation as above. Will also assessed by VQ scan. Status: Acute (4) Transaminitis: Unclear cause of transaminitis, suspect this may be secondary to congestive hepatopathy given lower extremity edema, possibly right-sided heart failure. We will go ahead and assess by TTE. Monitor lower function. No sign of cholestasis. T bili, alk phos normal. Status: Acute (5) Elevated troponin: Suspect this is secondary to arrhythmia, but there is possibility of underlying coronary disease, demand ischemia secondary to A. fib with RVR. He denies any chest pain. Will complete troponin EKG series. Assess TTE. May benefit from additional risk stratification once volume optimized. Status: Acute Additional A&P Information Recent sepsis and UTI Recent pneumonia HTN BPH GERD Attestations Medical Necessity Statement*: Admission of over 2 midnights is going to be needed for assessment and management of new onset congestive heart failure, new onset atrial fibrillation with RVR, elevated troponin. Coding Level of Care Code Acute Neurology Epilepsy Physician for Wilian Reyes Diagnoses New onset of congestive heart failure I50.9 New onset a-fib I48.91 Elevated d-dimer R79.89 Transaminitis R74.01 Elevated troponin R77.8
--- NOTE | 2020-09-03 18:28 | ECG_ITS ---
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 Measurements Intervals [place] Rate: 95 P: OK: QRS: 16 QRSD: 117 T: 161 QT: 340 QTc: 428 Interpretive Statements ATRIAL FIBRILLATION WITH ABERRANT CONDUCTION OR VENTRICULAR PREMATURE COMPLEXES MODERATE INTRAVENTRICULAR CONDUCTION DELAY [105+ ms QRS DURATION, 80+ ms Q/S IN V1/V2, NO Q AND 60+ ms R IN I/aVL/V5/V6] NONSPECIFIC ST & T-WAVE ABNORMALITY Compared to ECG 09/03/2020 15:19:01 No significant changes Electronically Signed On 09-04-2020 7:45:11 CDT by Bette Rangel M.D. [id number]
[2020-09-03] MEDS: enoxaparin 100 mg/mL Syringe SUBCUT (18:40)
[2020-09-03 18:44] LABS: Magnesium 2.1 mg/dL (1.7-2.3); Thyroid Stimulating Hormone 2.45 uIU/mL (0.27-4.20)
[2020-09-03 19:48] LABS: Troponin 5 6HR 43.19 ng/L (0-15); Troponin 5 6HR Delta 0.19 ng/L (0-12)
--- NOTE | 2020-09-03 19:52 | PC.NURSE ---
Asked patient if he wanted a bath. Patient stated He had one a home before coming in to the hospital.
[2020-09-03] MEDS: metoprolol tartrate 25 mg Tablet PO (20:47)
--- NOTE | 2020-09-03 21:08 | PC.NURSE ---
Pt HR elevated to 150s a-fib with RVR. Went into patient room to evaluate patient and found him to have an increased work of breathing with audible expiratory wheezing that seemed to be upper airway only. Lung sounds revealed that the patient had some expiratory wheezing noted to the right base. Pt placed on O2 per the oxygen therapy protocol order at 2lpm. Pt stated that he had a minor accident involving some stool and he was up trying to clean up and states that he became extremely winded with any exertion and states that this is what was happening at home as well. Pt in a position of comfort and work of breathing decreased as well as his feeling of exhaustion. Pt states condition has improved at this time.
[2020-09-04] VITALS (11 sets, daily range): BP systolic 100–127; BP diastolic 71–86; PULSE 86–111; RESP 15–28; TEMP 36.4–36.9; O2SAT 90–96
[2020-09-04 04:54] LABS: Basophils % 0.5 %; Eosinophils % 0.5 %; Hematocrit 35.4 % (42.0-52.0); Hemoglobin 11.6 g/dL (11.7-16.6); Lymphocytes # 1.2 10^3/uL (0.8-4.8); Lymphocytes % 20.6 %; Mean Corpuscular HGB Conc 32.8 g/dL (30.0-36.0); Mean Corpuscular Volume 97.8 fL (80-94); Mean Platelet Volume 10.9 fL (7.4-10.4); Monocytes # 0.6 10^3/uL (0.2-0.9); Monocytes % 10.2 %; Neutrophils # 3.78 10^3/uL (1.8-7.7); Neutrophils % 67.8 %; Nucleated Red Blood Cells % 0 %; Platelet Count 136 10^3/cmm (130-400); Red Blood Count 3.62 10^6/uL (4.1-5.3); Red Cell Distribution Width 14.5 % (12.1-15.1); White Blood Count 5.6 10^3/uL (4.0-10.0)
--- NOTE | 2020-09-04 05:00 | USCV_ITS ---
Mars Reeder Age: 79 Gender: M : 1940 Exam Date: 09/04/2020 06:37 Ordering Phys: Yobani Murphy MD Technologist: Wang Lockwood Exam Location: [facility] [place] Indication: NEW ONSET AFIB, CHF BP: 140 / 70 HR: 47 Rhythm: Sinus Technical Quality: Adequate MEASUREMENTS (Male / Female) Normal Values 2D ECHO LVOT Diameter 2.1 cm LV Ejection Fraction MOD 2C 55.3 % LV Ejection Fraction 2C AL 55.5 % LA Diameter 3.9 cm Aorta at Sinotubular Diameter 3.2 cm M-MODE LV Diastolic Diameter MM 5.9 cm 4.2 - 5.9 / 3.9 - 5.3 cm LV Systolic Diameter MM 4.9 cm LV Ejection Fraction MM Teich 35.8 % IVS Diastolic Thickness MM 1.1 cm 0.6 - 1.0 / 0.6 - 0.9 cm IVS Systolic Thickness MM 1.5 cm LVPW Diastolic Thickness MM 1.2 cm 0.6 - 1.0 / 0.6 - 0.9 cm LVPW Systolic Thickness MM 1.6 cm RV Diastolic Diameter MM 1.9 cm Aortic Annulus Diameter 3.7 cm LA Ao Ratio MM 1.1 MV E Point Septal Separation 1.5 cm DOPPLER AV Peak Velocity 117.0 cm/s LVOT Peak Velocity 80.0 cm/s AV Area Cont Eq vti 3.0 cm squared AV Area Cont Eq pk 2.3 cm squared MV Area PHT 5.0 cm squared Mitral E to A Ratio 3.0 MV E' Velocity 58.5 cm/s Mitral E to MV E' Ratio 13.4 Mitral E to LV E' Lateral Ratio 13.7 Mitral E to LV E' Septal Ratio 13.2 TR Peak Velocity 309.0 cm/s TR Peak Gradient 38.2 mmHg FINDINGS Left Ventricle Moderately increased left ventricular cavity size. Severely decreased left ventricular systolic function. Left ventricular ejection fraction is estimated at 35 %. Global left ventricular hypokinesis. The presence of atrial fibrillation diastolic function cannot be assessed accurately. Right Ventricle The right ventricle is normal in size and function. RVSP could not be calculated due to incomplete tricuspid regurgitation velocity profile. Right Atrium The right atrium is normal in size. Left Atrium The left atrium is normal in size. Mitral Valve Moderately thickened mitral valve. Mild mitral annular calcification. No mitral valve stenosis. Severe mitral valve regurgitation. Aortic Valve Structurally normal aortic valve without significant sclerosis or stenosis. There is no aortic regurgitation. Tricuspid Valve Thickened tricuspid valve. No tricuspid valve stenosis. Moderate tricuspid valve regurgitation. Pulmonic Valve Structurally normal pulmonic valve without significant stenosis. There is no pulmonic regurgitation. Pericardium Normal pericardium without effusion. Aorta Normal ascending aorta dimension. CONCLUSIONS 1-Moderately increased left ventricular cavity size. Severely decreased left ventricular systolic function. Left ventricular ejection fraction is estimated at 35 %. Global left ventricular hypokinesis. The presence of atrial fibrillation diastolic function cannot be assessed accurately. 2-Structurally normal aortic valve without significant sclerosis or stenosis. There is no aortic regurgitation. 3-Moderately thickened mitral valve. Mild mitral annular calcification. No mitral valve stenosis. Severe mitral valve regurgitation. 4-There is no pericardial effusion. 5-The right ventricle is normal in size and function. RVSP could not be calculated due to incomplete tricuspid regurgitation velocity profile. 6-Right atrial pressure is around 5 mm of mercury. 7-When compared to the prior echocardiogram dated 28 November 2014 there is worsening of the left ventricle ejection fraction from normal 54% to severely depressed 35% there appeared to be severe mitral and moderate tricuspid valve regurgitation now Francis Granados MD (Electronically Signed) Final Date: 04 September 2020 17:17 S
[2020-09-04 05:12] LABS: Alanine Aminotransferase 54 U/L (0-41); Albumin Level 3.2 g/dL (3.5-5.2); Alkaline Phosphatase 70 IU/L (40-130); Aspartate Amino Transferase 44 U/L (0-40); Blood Urea Nitrogen 23 mg/dL (8-23); Carbon Dioxide 25 mmol/L (22-29); Chloride 104 mmol/L (98-107); Globulin 2.4 g/dL (1.3-4.6); Glucose 98 mg/dL (65-115); Osmolality Calculated 288 mOsm/kg (285-295); Sodium 137 mmol/L (136-145); Total Bilirubin 0.8 mg/dL (0.15-1.2); Total Protein 5.6 g/dL (6.6-8.7)
[2020-09-04] MEDS: aspirin 81 mg Chew Tablet PO (06:13)
[2020-09-04] MEDS: enoxaparin 100 mg/mL Syringe SUBCUT ×2 (06:13→17:28)
[2020-09-04] MEDS: FUROsemide 10 mg/mL SDV 4mL 40 MG IVP ×2 (06:13→17:28)
[2020-09-04] MEDS: metoprolol tartrate 25 mg Tablet PO ×2 (08:45→10:33)
--- NOTE | 2020-09-04 09:10 | PC.NURSE ---
returned from vq scan at 0750.tolerated fairly well...however heart rate elevated to 140's.cardizem drip increased to 7.5 mg
--- NOTE | 2020-09-04 09:27 | PC.CHAP ---
Pastoral Care Encounter/Spiritual Assessment Type of Contact [] Declined rubber tire curer visit [] Patient/Family/Request visit [] Outpatient visit [] Follow-up visit [] Physician referral [] Code/Alert x[] Routine visit [] Staff referral [] Actively dying [x] Patient sleeping [] Family support [] [] Out of room [] Palliative care [] [] Receiving care in room [] Pre-surgical visit [] Trauma [] Long length of stay [] ICU visit [] Other: Relational/Emotional Strength [] Patient feels connected with others/family/visitors/staff [] Distress [] Loneliness/isolation [] Abandonment Spirituality of Patient [] Person of Emily [] Attends Jewish of their Emily [] Believes in Prayer [] Reads Bible or Mormonism materials [] There are Spiritual issues to be addressed Jewellery Designer Interventions [x] Prayer [] Active listening [] Non-anxious presence [] Spiritual/emotional support [] Crisis/trauma care [] Spiritual counseling [] Bereavement support [] Provided bereavement packet [] Provided Bible/devotional materials [] Provided toy/stuffed animal, coloring book to patient or family member [] Provided Communion [] Anointing/[place] [] Salvation [x] Completed spiritual assessment [] Other: Impact on Illness or Injury [] Angry [] Fearful [] Anxious [] Often cries [] Exhaustion [] Unable to work [] Unable to attend taoist [] Unable to walk/stand [] Unable to read [] Unable to drive [] Unable to eat/drink [] Unable to sleep [] Unable to be with family [] Patient intubated [] Other: Summary Time spent with patient
--- NOTE | 2020-09-04 09:45 | PC.NURSE ---
pt wants bath tonight
--- NOTE | 2020-09-04 17:09 | NM_ITS ---
WS: [id number] NUCLEAR MEDICINE VENTILATION/PERFUSION LUNG SCAN HISTORY: new onset afib, chf, assess for pe COMPARISON: Chest radiograph 09/03/2020 TECHNIQUE: Ventilation: 32.4 mCi of Technetium 99 DTPA aerosol inhaled. Perfusion: 5.5 mCi of technetium 99m MAA IV. Marked heterogeneous distribution between the ventilatory portion. More prominent deposition centrall y. Better perfusion as compared to the ventilatory portion. Maximum blunting of the costophrenic angl es. Moderate cardiomegaly. No unmatched defects. NM/NM pul vent and perfus* [id number] IMPRESSION: Low probability pulmonary embolism.
--- NOTE | 2020-09-04 17:45 | PC.NURSE ---
cardizem drip weaned to off at 1520.hr 70-80's afib
--- NOTE | 2020-09-04 18:20 | P.PN_ITS ---
Subjective Subjective: Interval history: He is doing little bit better today. Heart rate is better controlled, although still requiring Cardizem drip at the time of my visit. Denies chest pain or pressure. States breathing is comfortable with nasal cannula oxygen. Vitals/I&O/Wt Last Vital Signs Temp 97.6 F 09/04/20 15:12 Pulse 86 09/04/20 15:12 Resp 17 09/04/20 15:12 BP 110/86 09/04/20 15:12 Pulse Ox 95 09/04/20 15:12 09/04/20 09/04/20 09/04/20 06:59 14:59 22:59 Intake Total 150 / 390 116.166 / 116.166 246.23 / 362.396 Output Total 350 / 550 1900 / 1900 Balance -200 / -160 -1783.834 / -1783.834 246.23 / -1537.604 Weight last 48 hrs Weight 100.244 kg Weight 99.79 kg Physical Exam Const: COMMON NORMALS: no acute distress and patient oriented x3 HENMT: COMMON NORMALS: oropharynx normal Neck/C-Spine: COMMON NORMALS: no JVD Resp: COMMON NORMALS: normal respiratory effort and clear to auscultation bilaterally AUSCULTATION: clear to auscultation bilaterally Cardio: COMMON NORMALS: no JVD, S1 normal heart sound present, S2 normal heart sound present and No murmurs present (Cardio) RHYTHM: abnormal rhythm irregularly irregular HEART SOUNDS: S1 normal heart sound present and S2 normal heart sound present GI: COMMON NORMALS: Normal to inspection, nondistended, normoactive bowel sounds present, Soft to palpation and non-tender PALPATION: Yes Soft to palpation Extremity: COMMON NORMALS: no joint enlargement GENERAL: Yes edema (3+) Neuro: COMMON NORMALS: patient oriented x3 and moves all extremities Skin: COMMON NORMALS: no rashes or lesions noted GENERAL SKIN EXAM: no rashes or lesions noted Data : 09/04/20 04:15 09/04/20 04:15 A&P Assessment and plan (1) New onset of congestive heart failure: Diuresing well so far. Continue IV diuretic. In negative balance 2 L last 24 hours. Continue optimization of A. fib with RVR of which appears we are getting better control. TTE showing EF 35%, global left ventricular hypokinesis. Diastolic function could not be assessed due to A. fib. Severe MVR. EF worsened down to 35% compared to echocardiogram in 2015. At this time continue to optimize volume status. Would benefit additional assessment for coronary artery disease once volume status is better. He has been chest pain-free. Troponin without acute rise. Likely this would be achieved by stress test. TSH is normal. Status: Acute (2) New onset a-fib: Continue to optimize A. fib with RVR. Required up to 7.5 mg infusion of Cardizem. Weaning down today with increasing metoprolol dose today to 50 mg twice daily. Severe MVR. Would benefit from additional follow-up with cardiology, subs equently consideration of risks and benefits of valve repair. Normal TSH and magnesium. Has been going through stressful events recently. Anticoagulation. Status: Acute (3) Elevated d-dimer: VQ scan low probability for PE. Status: Acute (4) Transaminitis: Likely congestive hepatopathy secondary to CHF. Continue optimizing vol ume status, IV diuretics. Monitor liver parameters. Will need follow-up. Status: Acute (5) Elevated troponin: Suspect this is secondary to arrhythmia, but there is possibility of underlying coronary disease, demand ischemia secondary to A. fib with RVR. He denies any chest pain. Will complete troponin EKG series. Assess TTE. May benefit from additional risk stratification once volume optimized. Status: Acute Additional A&P Information Recent sepsis and UTI Recent pneumonia HTN BPH GERD Attestations Medical Necessity Statement*: Continue admission for assessment of management of new CHF, with worsening EF, new A. fib with RVR, optimization of rate control, additional assessment of troponin elevation. Coding Level of Care Code Acute Research Quality Assurance Specialist for Chg Fwd Diagnoses New onset of congestive heart failure I50.9 New onset a-fib I48.91 Elevated d-dimer R79.89 Transaminitis R74.01 Elevated troponin R77.8
[2020-09-04] MEDS: metoprolol tartrate 50 mg Tablet PO (21:20)
[2020-09-05] VITALS (11 sets, daily range): BP systolic 98–129; BP diastolic 72–106; PULSE 81–117; RESP 15–24; TEMP 36.3–36.8; O2SAT 91–96
[2020-09-05 05:42] LABS: Basophils % 0.7 %; Eosinophils % 0.5 %; Hematocrit 37.9 % (42.0-52.0); Hemoglobin 12.3 g/dL (11.7-16.6); Lymphocytes # 1.1 10^3/uL (0.8-4.8); Mean Corpuscular HGB Conc 32.5 g/dL (30.0-36.0); Mean Corpuscular Hemoglobin 32.4 pg (28.0-34.0); Mean Corpuscular Volume 99.7 fL (80-94); Mean Platelet Volume 10.8 fL (7.4-10.4); Monocytes # 0.6 10^3/uL (0.2-0.9); Monocytes % 10.4 %; Neutrophils # 3.83 10^3/uL (1.8-7.7); Neutrophils % 68.9 %; Nucleated Red Blood Cells % 0 %; Platelet Count 139 10^3/cmm (130-400); Red Cell Distribution Width 14.6 % (12.1-15.1); White Blood Count 5.6 10^3/uL (4.0-10.0)
[2020-09-05 05:57] LABS: Alanine Aminotransferase 49 U/L (0-41); Albumin Level 3.2 g/dL (3.5-5.2); Alkaline Phosphatase 68 IU/L (40-130); Anion Gap 13.8 (5-19); Aspartate Amino Transferase 37 U/L (0-40); Blood Urea Nitrogen 23 mg/dL (8-23); Calcium 7.8 mg/dL (8.5-10.5); Carbon Dioxide 25 mmol/L (22-29); Chloride 102 mmol/L (98-107); Globulin 2.6 g/dL (1.3-4.6); Glucose 91 mg/dL (65-115); Osmolality Calculated 287 mOsm/kg (285-295); Potassium 3.8 mmol/L (3.5-5.1); Sodium 137 mmol/L (136-145); Total Bilirubin 0.7 mg/dL (0.15-1.2); Total Protein 5.8 g/dL (6.6-8.7)
[2020-09-05] MEDS: FUROsemide 10 mg/mL SDV 4mL 40 MG IVP ×2 (06:41→16:19)
[2020-09-05] MEDS: enoxaparin 100 mg/mL Syringe SUBCUT ×2 (06:41→17:35)
[2020-09-05] MEDS: aspirin 81 mg Chew Tablet PO (06:41)
[2020-09-05] MEDS: metoprolol tartrate 50 mg Tablet PO ×2 (08:00→20:36)
[2020-09-05] MEDS: dilTIAZem 60 mg Tablet PO ×3 (08:05→20:36)
[2020-09-05] MEDS: tamsulosin 0.4 mg Capsule PO (10:41)
--- NOTE | 2020-09-05 18:43 | PM.PN ---
Subjective Subjective: Interval history: Today he states he is doing all right. He is breathing a bit better. Denies chest pain or pressure. Breathing all right with nasal cannula on. Denies palpitations, lightheadedness, presyncope. Still persistent swelling in lower extremities. Heart rates this morning somewhat worse. Fluctuating between 90s and 100 and teens at rest. Vitals/I&O/Wt Last Vital Signs Temp 98.0 F 09/05/20 15:37 Pulse 81 09/05/20 15:37 Resp 18 09/05/20 15:37 BP 106/76 09/05/20 15:37 Pulse Ox 96 09/05/20 15:37 09/05/20 09/05/20 09/05/20 06:59 14:59 22:59 Intake Total 100 / 462.396 820 / 820 240 / 1060 Output Total 250 / 2450 960 / 960 750 / 1710 Balance -150 / -1987.604 -140 / -140 -510 / -650 Weight last 48 hrs Weight 109.316 kg Weight 100.244 kg Physical Exam Const: COMMON NORMALS: no acute distress and patient oriented x3 HENMT: COMMON NORMALS: oropharynx normal Neck/C-Spine: COMMON NORMALS: no JVD Resp: COMMON NORMALS: normal respiratory effort AUSCULTATION: diminished lung sounds Cardio: COMMON NORMALS: no JVD, S1 normal heart sound present, S2 normal heart sound present and No murmurs present (Cardio) RATE: tachycardic RHYTHM: abnormal rhythm irregularly irregular HEART SOUNDS: S1 normal heart sound present and S2 normal heart sound present GI: COMMON NORMALS: Normal to inspection, nondistended, normoactive bowel sounds present, Soft to palpation and non-tender PALPATION: Yes Soft to palpation Extremity: COMMON NORMALS: no joint enlargement GENERAL: Yes edema (3+) Neuro: COMMON NORMALS: patient oriented x3 and moves all extremities Skin: COMMON NORMALS: no rashes or lesions noted GENERAL SKIN EXAM: no rashes or lesions noted Data : 09/05/20 04:23 09/05/20 04:23 A&P Assessment and plan (1) New onset of congestive heart failure: In negative balance. Diuresing. Continue IV diuresis at this time. Still persistently very lower extremity edema. Diminished air entry. Requiring oxygen by nasal cannula. Discussed with him findings of echocardiogram, new onset CHF, severe MVR. Continue optimization of A. fib with RVR of which appears we are getting better control. TTE showing EF 35%, global left ventricular hypokinesis. Diastolic function could not be assessed due to A. fib. Severe MVR. EF worsened down to 35% compared to echocardiogram in 2015. At this time continue to optimize volume status. Would benefit additional assessment for coronary artery disease once volume status is better. He has been chest pain-free. Troponin without acute rise. Likely this would be achieved by stress test. TSH is normal. Status: Acute (2) New onset a-fib: Difficult to control A. fib with RVR with noted severe MVR. Discussed with him. Continue optimization of rate control and volume status. Continue metoprolol 50 mg twice daily. Added Cardizem 60 mg every 6 hours to help wean off Cardizem drip, better control heart rates. Severe MVR. Will benefit from additional assessment by cardiology including additional assessment of the valve by HARI, subsequently consideration of risks and benefits of valve surgery. Discussed with him. Normal TSH and magnesium. Has been going through stressful events recently. Anticoagulation. Status: Acute (3) Elevated d-dimer: VQ scan low probability for PE. Status: Acute (4) Transaminitis: Likely congestive hepatopathy secondary to CHF. Continue optimizing volume status, IV diuretics. Monitor liver parameters. Will need follow-up. Status: Acute (5) Elevated troponin: Suspect this is secondary to arrhythmia, but there is possibility of underlying coronary disease, demand ischemia secondary to A. fib with RVR. No chest pain. Worsening of ejection fraction down to 35%. Would benefit from additional risk stratification once a better volume optimized. Status: Acute Additional A&P Information Recent sepsis and UTI Recent pneumonia HTN BPH GERD Attestations Medical Necessity Statement*: Continue admission for management of new CHF, difficult to control A. fib with RVR, with new decrease in EF, severe MVR Coding Level of Care Code Acute Clinical Documentation Consultant for Chg Fwd Diagnoses New onset of congestive heart failure I50.9 New onset a-fib I48.91 Elevated d-dimer R79.89 Transaminitis R74.01 Elevated troponin R77.8
[2020-09-06] VITALS (10 sets, daily range): BP systolic 101–124; BP diastolic 73–80; PULSE 0–112; RESP 17–20; TEMP 36.3–36.6; O2SAT 85–97
[2020-09-06] MEDS: dilTIAZem 60 mg Tablet PO ×4 (01:22→20:11)
--- NOTE | 2020-09-06 01:39 | PC.NURSE ---
Received bedside report from ABHI Vogel at 1930. Patient resting in bed. Denies pain or needs at this time. No distress observed.
[2020-09-06 04:58] LABS: Basophils % 0.4 %; Eosinophils % 0.9 %; Hematocrit 35.5 % (42.0-52.0); Hemoglobin 12.1 g/dL (11.7-16.6); Lymphocytes % 20.3 %; Mean Corpuscular HGB Conc 34.1 g/dL (30.0-36.0); Mean Corpuscular Hemoglobin 32.7 pg (28.0-34.0); Mean Corpuscular Volume 95.9 fL (80-94); Mean Platelet Volume 10.7 fL (7.4-10.4); Monocytes # 0.6 10^3/uL (0.2-0.9); Neutrophils % 66.2 %; Nucleated Red Blood Cells % 0 %; Platelet Count 146 10^3/cmm (130-400); Red Cell Distribution Width 14.3 % (12.1-15.1); White Blood Count 4.7 10^3/uL (4.0-10.0)
[2020-09-06 05:16] LABS: Alanine Aminotransferase 39 U/L (0-41); Albumin Level 3.1 g/dL (3.5-5.2); Alkaline Phosphatase 61 IU/L (40-130); Anion Gap 12.4 (5-19); Aspartate Amino Transferase 28 U/L (0-40); Blood Urea Nitrogen 23 mg/dL (8-23); Calcium 7.8 mg/dL (8.5-10.5); Carbon Dioxide 28 mmol/L (22-29); Chloride 101 mmol/L (98-107); Globulin 2.5 g/dL (1.3-4.6); Glucose 97 mg/dL (65-115); Osmolality Calculated 290 mOsm/kg (285-295); Potassium 3.4 mmol/L (3.5-5.1); Sodium 138 mmol/L (136-145); Total Bilirubin 0.7 mg/dL (0.15-1.2); Total Protein 5.6 g/dL (6.6-8.7)
[2020-09-06] MEDS: enoxaparin 100 mg/mL Syringe SUBCUT ×2 (06:01→18:36)
[2020-09-06] MEDS: FUROsemide 10 mg/mL SDV 4mL 40 MG IVP ×2 (06:01→18:36)
[2020-09-06] MEDS: aspirin 81 mg Chew Tablet PO (06:01)
[2020-09-06] MEDS: metoprolol tartrate 50 mg Tablet PO ×2 (08:06→20:11)
[2020-09-06] MEDS: tamsulosin 0.4 mg Capsule PO (08:06)
--- NOTE | 2020-09-06 09:30 | PC.SOCIAL ---
IMM Updated Updated pt on Pg 2 IMM. No questions voiced. Provided pt a copy. Signed, dated, & timed a copy & placed in chart.
--- NOTE | 2020-09-06 21:53 | PM.PN ---
Subjective Subjective: Interval history: Breathing gradually improving. Intermittently coming down to room air today. Denies chest pain or pressure. Denies palpitations, lightheadedness or dizziness. Vitals/I&O/Wt Last Vital Signs Temp 97.6 F 09/06/20 19:07 Pulse 85 09/06/20 21:45 Resp 17 09/06/20 19:22 BP 101/80 09/06/20 19:07 Pulse Ox 85 L 09/06/20 19:22 09/06/20 09/06/20 09/06/20 06:59 14:59 22:59 Intake Total 360 / 360 600 / 960 Output Total 550 / 2685 1580 / 1580 640 / 2220 Balance -550 / -1625 -1220 / -1220 -40 / -1260 Weight last 48 hrs Weight 108.635 kg Weight 109.316 kg Physical Exam Const: COMMON NORMALS: no acute distress and patient oriented x3 HENMT: COMMON NORMALS: oropharynx normal Neck/C-Spine: COMMON NORMALS: no JVD Resp: COMMON NORMALS: normal respiratory effort AUSCULTATION: diminished lung sounds Cardio: COMMON NORMALS: no JVD, S1 normal heart sound present, S2 normal heart sound present and No murmurs present (Cardio) RATE: tachycardic RHYTHM: abnormal rhythm irregularly irregular HEART SOUNDS: S1 normal heart sound present and S2 normal heart sound present GI: COMMON NORMALS: Normal to inspection, nondistended, normoactive bowel sounds present, Soft to palpation and non-tender PALPATION: Yes Soft to palpation Extremity: COMMON NORMALS: no joint enlargement GENERAL: Yes edema (2-3+) Neuro: COMMON NORMALS: patient oriented x3 and moves all extremities Skin: COMMON NORMALS: no rashes or lesions noted GENERAL SKIN EXAM: no rashes or lesions noted Data : 09/06/20 04:24 09/06/20 04:24 A&P Assessment and plan (1) New onset of congestive heart failure: Severe lower extremity edema appears to be gradually improving. Diuresing well. Renal function so far doing well. Continue IV diuresis at this time. Replace potassium. Monitor renal function. Blood pressures. Discussed with him again, he is agreeable for additional cardiology evaluation when his volume status is getting little bit better. Discussed with him findings of echocardiogram, new onset CHF, severe MVR. Continue optimization of A. fib with RVR of which appears we are getting better control. TTE showing EF 35%, global left ventricular hypokinesis. Diastolic function could not be assessed due to A. fib. Severe MVR. EF worsened down to 35% compared to echocardiogram in 2015. At this time continue to optimize volume status. Would benefit additional assessment for coronary artery disease once volume status is better. He has been chest pain-free. Troponin without acute rise. Likely this would be achieved by stress test. TSH is normal. Status: Acute (2) New onset a-fib: Heart rates are now much better controlled. Continue metoprolol, Cardizem p.o. Has weaned off the drip. Severe MVR. Will benefit from additional assessment by cardiology including additional assessment of the valve by HARI, subsequently consideration of risks and benefits of valve surgery. Discussed with him. Normal TSH and magnesium. Has been going through stressful events recently. Anticoagulation. Status: Acute (3) Elevated d-dimer: VQ scan low probability for PE. Status: Acute (4) Transaminitis: Resolving with optimization of volume status. 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 Continue optimizing volume status, IV diuretics. Monitor liver parameters. Will need follow-up. Status: Acute (5) Elevated troponin: Suspect this is secondary to arrhythmia, but there is possibility of underlying coronary disease, demand ischemia secondary to A. fib with RVR. No chest pain. Worsening of ejection fraction down to 35%. Would benefit from additional risk stratification once a better volume optimized. Status: Acute Additional A&P Information Recent sepsis and UTI Recent pneumonia HTN BPH GERD Attestations Medical Necessity Statement*: See admission for assessment management of acute CHF, new A. fib in the setting of worsening ejection fraction, new severe MVR. Coding Level of Care Code Acute Maintenance Representative for Chg Fwd Diagnoses New onset of congestive heart failure I50.9 New onset a-fib I48.91 Elevated d-dimer R79.89 Transaminitis R74.01 Elevated troponin R77.8
[2020-09-06] MEDS: potassium chloride ER 20 mEq Tablet PO (22:11)
[2020-09-07] VITALS (11 sets, daily range): BP systolic 89–146; BP diastolic 66–89; PULSE 73–94; RESP 10–19; TEMP 36.3–36.8; O2SAT 91–95
[2020-09-07] MEDS: dilTIAZem 60 mg Tablet PO ×4 (02:10→20:52)
[2020-09-07] MEDS: enoxaparin 100 mg/mL Syringe SUBCUT ×2 (05:40→17:31)
[2020-09-07] MEDS: aspirin 81 mg Chew Tablet PO (05:40)
[2020-09-07] MEDS: FUROsemide 10 mg/mL SDV 4mL 40 MG IVP ×2 (05:40→16:19)
[2020-09-07 06:03] LABS: Basophils % 0.2 %; Eosinophils % 0.4 %; Hematocrit 35.6 % (42.0-52.0); Hemoglobin 11.9 g/dL (11.7-16.6); Lymphocytes # 0.9 10^3/uL (0.8-4.8); Lymphocytes % 18.8 %; Mean Corpuscular HGB Conc 33.4 g/dL (30.0-36.0); Mean Corpuscular Hemoglobin 32.2 pg (28.0-34.0); Mean Corpuscular Volume 96.5 fL (80-94); Mean Platelet Volume 10.7 fL (7.4-10.4); Monocytes # 0.5 10^3/uL (0.2-0.9); Monocytes % 11.7 %; Neutrophils # 3.18 10^3/uL (1.8-7.7); Neutrophils % 68.7 %; Nucleated Red Blood Cells % 0 %; Platelet Count 146 10^3/cmm (130-400); Red Blood Count 3.69 10^6/uL (4.1-5.3); Red Cell Distribution Width 14.2 % (12.1-15.1); White Blood Count 4.6 10^3/uL (4.0-10.0)
[2020-09-07 06:31] LABS: Alanine Aminotransferase 34 U/L (0-41); Albumin Level 3.3 g/dL (3.5-5.2); Alkaline Phosphatase 60 IU/L (40-130); Anion Gap 12.5 (5-19); Aspartate Amino Transferase 26 U/L (0-40); Blood Urea Nitrogen 20 mg/dL (8-23); Calcium 7.9 mg/dL (8.5-10.5); Carbon Dioxide 28 mmol/L (22-29); Chloride 100 mmol/L (98-107); Globulin 2.7 g/dL (1.3-4.6); Glucose 89 mg/dL (65-115); Osmolality Calculated 286 mOsm/kg (285-295); Potassium 3.5 mmol/L (3.5-5.1); Sodium 137 mmol/L (136-145); Total Bilirubin 0.7 mg/dL (0.15-1.2)
[2020-09-07] MEDS: tamsulosin 0.4 mg Capsule PO (08:17)
[2020-09-07] MEDS: metoprolol tartrate 50 mg Tablet PO ×2 (08:17→20:52)
--- NOTE | 2020-09-07 19:22 | PM.PN ---
Subjective Subjective: Interval history: He is progressively feeling better. He is gradually able to increase the distance he is able to ambulate. Denies chest pain or pressure. No palpitations, no dizziness or lightheadedness. Being visited by his . Vitals/I&O/Wt Last Vital Signs Temp 98.0 F 09/07/20 14:43 Pulse 73 09/07/20 14:43 Resp 19 H 09/07/20 14:43 BP 101/77 09/07/20 14:43 Pulse Ox 94 09/07/20 14:43 09/07/20 09/07/20 09/07/20 06:59 14:59 22:59 Intake Total 360 / 360 340 / 700 Output Total 300 / 2720 900 / 900 100 / 1000 Balance -300 / -1760 -540 / -540 240 / -300 Weight last 48 hrs Weight 107.275 kg Weight 108.635 kg Physical Exam Const: COMMON NORMALS: no acute distress and patient oriented x3 HENMT: COMMON NORMALS: oropharynx normal Neck/C-Spine: COMMON NORMALS: no JVD Resp: COMMON NORMALS: normal respiratory effort AUSCULTATION: diminished lung sounds Cardio: COMMON NORMALS: no JVD, S1 normal heart sound present, S2 normal heart sound present and No murmurs present (Cardio) RATE: tachycardic RHYTHM: abnormal rhythm irregularly irregular HEART SOUNDS: S1 normal heart sound present and S2 normal heart sound present GI: COMMON NORMALS: Normal to inspection, nondistended, normoactive bowel sounds present, Soft to palpation and non-tender PALPATION: Yes Soft to palpation Extremity: COMMON NORMALS: no joint enlargement GENERAL: Yes edema (2+) Neuro: COMMON NORMALS: patient oriented x3 and moves all extremities Skin: COMMON NORMALS: no rashes or lesions noted GENERAL SKIN EXAM: no rashes or lesions noted Data : 09/07/20 04:42 09/07/20 04:42 A&P Assessment and plan (1) New onset of congestive heart failure: Continue diuresis. In negative balance. Improving dyspnea on exertion. Improving edema. Requesting cardiology consultation in preparation for additional work-up regarding new onset CHF, severe mitral regurgitation. New A. fib. Discussed with him again, he is agreeable for additional cardiology evaluation when his volume status is getting little bit better. Discussed with him findings of echocardiogram, new onset CHF, severe MVR. Continue metoprolol, Cardizem. TTE showing EF 35%, global left ventricular hypokinesis. Diastolic function could not be assessed due to A. fib. Severe MVR. EF worsened down to 35% compared to echocardiogram in 2015. At this time continue to optimize volume status. Would benefit additional assessment for coronary artery disease once volume status is better. He has been chest pain-free. Troponin without acute rise. Likely this would be achieved by stress test. TSH is normal. Status: Acute (2) New onset a-fib: Heart rates are now much better controlled. Continue metoprolol, Cardizem p.o. Has weaned off the drip. Cardiology consultation with regards to new symptomatic severe MVR. Will benefit from additional assessment by cardiology including additional assessment of the valve by HARI, subsequently consideration of risks and benefits of valve surgery. Discussed with him. Anticoagulation. Status: Acute (3) Elevated d-dimer: VQ scan low probability for PE. Status: Acute (4) Transaminitis: Resolving with optimization of volume status. 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 Continue optimizing volume status, IV diuretics. Monitor liver parameters. Will need follow-up. Status: Acute (5) Elevated troponin: Suspect this is secondary to arrhythmia, but there is possibility of underlying coronary disease, demand ischemia secondary to A. fib with RVR. No chest pain. Worsening of ejection fraction down to 35%. Would benefit from additional risk stratification once a better volume optimized. Status: Acute Additional A&P Information Recent sepsis and UTI Recent pneumonia HTN BPH GERD Attestations Medical Necessity Statement*: Continue admission for assessment of management of new CHF, optimization of volume status, severe MVR, new A. fib. Coding Level of Care Code Acute Integrated Pest Management Technician for Chg Fwd Diagnoses New onset of congestive heart failure I50.9 New onset a-fib I48.91 Elevated d-dimer R79.89 Transaminitis R74.01 Elevated troponin R77.8
--- NOTE | 2020-09-07 20:57 | PM.CONSULT ---
Providers/Reason For Consult Consulting Physican/Specialty*: Dr. Negro, Cardiology Reason for Consult*: Mitral reggurgitation, CHF Attending Physician: Yobani Murphy Primary Care Provider: Marielena Dunn MD History of Present Illness History of Present Illness Mars Reeder is a 79 year old male was at primary care provider's office for SOB. He was treated for UTI and then PNA prior to that. Chest x-ray was noted to have congestive changes. He had worsening lower extremity edema, orthopnea and dry cough. On evaluation in ER he was noted to have new onset atrial fibrillation with RVR. He denies chest pain or pressure. Denies any stroke like symptoms. Recently has been going through a difficult time with his daughter's health who has cancer and whom he has been having to take her treatments to [facility]. Echo with moderately decreased LV function and severe MR. I have been asked to assist and evaluate in further management. Review of Systems Const: Denies: fever(s), chills, body aches or malaise Eyes: Denies: change in vision or eye redness ENMT: Denies: throat pain, oral sores or ear or mastoid pain Card: Reports: edema, dyspnea on exertion and orthopnea (but not last night); Denies: chest pain or pre-syncope Resp: Denies: dyspnea, productive cough, change in phlegm color or hemoptysis GI: Denies: abdominal pain, nausea, vomiting (apart from small no vomiting after choking on a lozenge several weeks ago, ), diarrhea, constipation, hematochezia or melena : Denies: flank pain, difficulty urinating, urinary frequency or hematuria Musc: Denies: back pain, joint swelling or joint redness Skin/Breast: Denies: rash, sores or new lesions Neuro: Denies: headache(s), numbness in extremities, weakness in extremities, dizziness, confusion or seizure-like activity Endo: Denies: polyuria or polydipsia Saurabh/Lymph: Denies: easy bleeding or purpura All/Imm: Denies: urticaria, throat swelling or tongue swelling Meds/Allergies Home Medications and Allergies Home Medications Medication Instructions Recorded Confirmed Last Taken Type multivitamin 1 tab PO DAILY@08/15/19 09/03/20 09/03/20 History amlodipine 5 mg PO DAILY@07 07/29/20 09/03/20 09/03/20 History aspirin 81 mg PO DAILY@07 07/29/20 09/03/20 09/03/20 History lisinopril 20 mg PO DAILY@07/29/20 09/03/20 09/02/20 History promethazine-DM 6.25 mg-15 mg/5 mL 5 ml PO Q6H PRN #160 ml 08/21/20 09/03/20 Unknown Rx oral syrup albuterol sulfate 2.5 mg INHALATION Q4H PRN #90 ml 09/02/20 09/03/20 09/02/20 Rx Allergies Allergy/AdvReac Type Severity Reaction Status Date / Time No Known Allergies Allergy Verified 09/03/20 09:06 Current Medications Current Medications Generic Name Dose Route Start Last Admin Trade Name Freq PRN Reason Stop Dose Admin Aspirin 81 mg 09/04/20 07:00 09/07/20 05:40 Aspirin 81 Mg Chew Tablet PO 81 mg DAILY@07 BALJIT Administration Diltiazem HCl 60 mg 09/05/20 08:00 09/07/20 20:52 Diltiazem 60 Mg Tablet PO 60 mg Q6H BALJIT Administration Enoxaparin Sodium 100 mg 09/03/20 18:00 09/07/20 17:31 Enoxaparin 100 Mg/Ml Syringe 1 mg/kg (100 mg) 100 mg SUBCUT Administration Q12H BALJIT Furosemide 40 mg 09/04/20 06:00 09/07/20 16:19 Furosemide 10 Mg/Ml Sdv 4ml IVP 40 mg BID@0600,1600 BALJIT Administration Diltiazem HCl 125 mg/ Sodium 125 mls @ 0 mls/hr 09/03/20 14:15 09/04/20 15:20 Chloride IV Infused .Q0M BALJIT Titration Protocol Per Protocol Metoprolol Tartrate 50 mg 09/04/20 21:00 09/07/20 20:52 Metoprolol Tartrate 50 Mg Tablet PO 50 mg BID@0900,2100 BALJIT Administration Tamsulosin HCl 0.4 mg 09/05/20 10:30 09/07/20 08:17 Tamsulosin 0.4 Mg Capsule PO 0.4 mg DAILY BALJIT Administration PFSH Acute PFSH: Medical History (Updated 09/07/20 @ 21:00 by Ofe Negro MD) BPH (benign prostatic hyperplasia) GERD (gastroesophageal reflux disease) Hypertension Mitral valve regurgitation Sepsis UTI (urinary tract infection) Vitamin D deficiency Surgical History Hx of colonoscopy (~2010) Hx of foot surgery Hx of hemorrhoidectomy Hx of knee surgery Hx of neck surgery Hx of rotator cuff surgery Family History Mother , age 93 Alzheimer disease Father , age 85 Cancer colon Social History Smoking and tobacco status: former smoker Quit status (tobacco): has quit using tobacco Former quit date comment: pipe in high school Second hand smoke exposure: No Alcohol intake: never Substance/Drug Use: never Lives independently: Yes Household members: spouse Marital status: Current occupational status: employed History of recent travel: No Current gender identity: Male Vitals/I&O/Wt Last Vital Signs Temp 97.8 F 09/07/20 20:53 Pulse 85 09/07/20 20:53 Resp 18 09/07/20 20:53 BP 117/75 09/07/20 20:53 Pulse Ox 91 09/07/20 20:53 09/07/20 09/07/20 09/07/20 06:59 14:59 22:59 Intake Total 360 / 360 340 / 700 Output Total 300 / 2720 900 / 900 100 / 1000 Balance -300 / -1760 -540 / -540 240 / -300 Weight last 48 hrs Weight 236 lb 8 oz Weight 239 lb 8 oz Physical Exam Narrative: EXAM NARRATIVE: Gen: NAD, sitting confortably in bed HEENT/Neck: + JVD, PERRL, No pallor or icterus RS: CTAB/L, No wheezing, rales or rhonchi CVS: S1, S2 +, No murmur, rub or gallop PA: soft, BS+, NT, ND. DISPLAY DESIGNER OUTSIDE: AAOx3, No FND Ext: 1+ bilateral edema, No cyanosis or clubbing Psych: Normal mood and affect Skin: No rashes or lesions noted Data Imaging^: Echo: I personally reviewed and interpreted this imaging study as follows: My impression: CONCLUSIONS 1-Moderately increased left ventricular cavity size. Severely decreased left ventricular systolic function. Left ventricular ejection fraction is estimated at 35 %. Global left ventricular hypokinesis. The presence of atrial fibrillation diastolic function cannot be assessed accurately. 2-Structurally normal aortic valve without significant sclerosis or stenosis. There is no aortic regurgitation. 3-Moderately thickened mitral valve. Mild mitral annular calcification. No mitral valve stenosis. Severe mitral valve regurgitation. 4-There is no pericardial effusion. 5-The right ventricle is normal in size and function. RVSP could not be calculated due to incomplete tricuspid regurgitation velocity profile. 6-Right atrial pressure is around 5 mm of mercury. 7-When compared to the prior echocardiogram dated 28 November 2014 there is worsening of the left ventricle ejection fraction from normal 54% to severely depressed 35% there appeared to be severe mitral and moderate tricuspid valve regurgitation now A&P Assessment and plan (1) New onset of congestive heart failure: continue to diurese. -will need left and right heart cath possibly early next week. Status: Acute (2) Mitral valve regurgitation: Plan for HARI to assess MR Status: Acute (3) Atrial fibrillation: On cardizem, lovenox and metoprolol Status: Acute (4) Hypertension: Status: Acute (5) GERD (gastroesophageal reflux disease): Status: Acute Consult Attestations Medical Necessity Statement: Needs hospital stay for CHF and MR Time Spent in Patient Care: Greater than 35 minutes (>than 50% of time spent in counselling and/or direct pt care on unit). Coding Level of Care Code Acute Physical Meteorologist for Chrisg Fwd Diagnoses New onset of congestive heart failure I50.9 Mitral valve regurgitation I34.0 Atrial fibrillation I48.91 Hypertension I10 GERD (gastroesophageal reflux disease) K21.9
[2020-09-08] VITALS (12 sets, daily range): BP systolic 99–118; BP diastolic 78–85; PULSE 78–96; RESP 14–18; TEMP 36.4–36.7; O2SAT 90–95
[2020-09-08] MEDS: dilTIAZem 60 mg Tablet PO ×2 (03:02→08:46)
[2020-09-08] MEDS: aspirin 81 mg Chew Tablet PO (05:49)
[2020-09-08] MEDS: FUROsemide 10 mg/mL SDV 4mL 40 MG IVP ×2 (05:49→15:11)
[2020-09-08] MEDS: enoxaparin 100 mg/mL Syringe SUBCUT ×2 (05:49→17:18)
[2020-09-08] MEDS: tamsulosin 0.4 mg Capsule PO (08:46)
[2020-09-08] MEDS: metoprolol tartrate 50 mg Tablet PO (08:46)
[2020-09-08 09:17] LABS: Anion Gap 10.2 (5-19); Blood Urea Nitrogen 19 mg/dL (8-23); Calcium 7.9 mg/dL (8.5-10.5); Carbon Dioxide 31 mmol/L (22-29); Chloride 98 mmol/L (98-107); Glucose 115 mg/dL (65-115); Osmolality Calculated 285 mOsm/kg (285-295); Potassium 3.2 mmol/L (3.5-5.1); Sodium 136 mmol/L (136-145)
--- NOTE | 2020-09-08 09:44 | PC.SOCIAL ---
IMM Updated Updated pt on Pg 2 IMM. No questions voiced. Provided pt a copy. Signed, dated, & timed copy in chart.
[2020-09-08 10:30] LABS: Magnesium 1.8 mg/dL (1.7-2.3)
[2020-09-08] MEDS: potassium chloride ER 20 mEq Tablet 40 MEQ PO (17:17)
[2020-09-08] MEDS: magnesium sulfate premix 2 GM/50 ML PIGGYBACK IV (17:17)
--- NOTE | 2020-09-08 17:29 | PC.NURSE ---
Patient's SBP noted to be 99 at [address] Negro notified, asked to hold this evenings dose of metoprolol succinate.
--- NOTE | 2020-09-08 17:39 | P.PN_ITS ---
Subjective Subjective: Interval history: Denies any new complaints. BCs and NSVT noted on telemetry. Medications: Reviewed: Yes Vitals/I&O/Wt Last Vital Signs Temp 97.6 F 09/08/20 14:42 Pulse 78 09/08/20 14:42 Resp 17 09/08/20 14:42 BP 104/79 09/08/20 17:22 Pulse Ox 93 09/08/20 14:42 09/08/20 09/08/20 09/08/20 06:59 14:59 22:59 Intake Total 240 / 940 720 / 720 240 / 960 Output Total 550 / 1550 1250 / 1250 550 / 1800 Balance -310 / -610 -530 / -530 -310 / -840 Weight last 48 hrs Weight 233 lb Weight 236 lb 8 oz Physical Exam 2 Narrative: EXAM NARRATIVE: Gen: NAD, sitting confortably in bed HEENT/Neck: + JVD, PERRL, No pallor or icterus RS: CTAB/L, No wheezing, rales or rhonchi CVS: S1, S2 +, No murmur, rub or gallop PA: soft, BS+, NT, ND. DIRECTOR OF EDUCATION AND TRAINING: AAOx3, No FND Ext: 1+ bilateral lower leg and ankle edema, No cyanosis or clubbing Psych: Normal mood and affect Skin: No rashes or lesions noted Data : 09/07/20 04:42 09/08/20 08:15 A&P Assessment and plan (1) New onset of congestive heart failure: continue to diurese. -will need left and right heart cath possibly early next week. Status: Acute (2) Mitral valve regurgitation: Plan for HARI to assess MR tomorrow or day after depending on schedule. Status: Acute Qualifiers: Cardiac valve disease etiology: nonrheumatic Qualified Code(s): I34.0 - Nonrheumatic mitral (valve) insufficiency (3) Atrial fibrillation: On cardizem, lovenox and metoprolol Status: Acute Qualifiers: Atrial fibrillation type: persistent (not longstanding) Qualified Code(s): I48.19 - Other persistent atrial fibrillation (4) Hypertension: Status: Acute Qualifiers: Hypertension type: essential hypertension Qualified Code(s): I10 - Essential (primary) hypertension (5) GERD (gastroesophageal reflux disease): Status: Acute Qualifiers: Esophagitis presence: esophagitis presence not specified Qualified Code(s): K21.9 - Gastro-esophageal reflux disease without esophagitis Additional A&P Information PVCs/NSVT Hypokalemia : replaced Attestations Medical Necessity Statement*: Needs hospital stay for further work-up of CHF and mitral regurgitation Time Spent in Patient Care: 16 - 35 minutes (>than 50% of time spent in counselling and/or direct pt care on unit) . Coding Level of Care Code Acute Infant Lead Teacher for [facility] Fwd Diagnoses New onset of congestive heart failure I50.9 Mitral valve regurgitation I34.0 Cardiac valve disease etiology: nonrheumatic Atrial fibrillation I48.19 Atrial fibrillation type: persistent (not longstanding) Hypertension I10 Hypertension type: essential hypertension GERD (gastroesophageal reflux disease) K21.9 Esophagitis presence: esophagitis presence not specified
[2020-09-08] MEDS: metoprolol succinate ER (24 HR) 25 mg Tablet PO (20:06)
--- NOTE | 2020-09-08 20:42 | PM.PN ---
Subjective Subjective: Interval history: Overall he feels he continues to progress well. Ambulating little bit easier. Denies any complaints. Had a good discussion with the machinist/machine builder. Yesterday was having some issues with weaker urinary stream, but appears to be doing better with tamsulosin. Vitals/I&O/Wt Last Vital Signs Temp 98.1 F 09/08/20 19:39 Pulse 95 09/08/20 19:39 Resp 14 09/08/20 19:39 BP 107/79 09/08/20 19:39 Pulse Ox 92 09/08/20 19:39 09/08/20 09/08/20 09/08/20 06:59 14:59 22:59 Intake Total 240 / 940 720 / 720 290 / 1010 Output Total 550 / 1550 1250 / 1250 800 / 2050 Balance -310 / -610 -530 / -530 -510 / -1040 Weight last 48 hrs Weight 105.687 kg Weight 107.275 kg Physical Exam Const: COMMON NORMALS: no acute distress and patient oriented x3 HENMT: COMMON NORMALS: oropharynx normal Neck/C-Spine: COMMON NORMALS: no JVD Resp: COMMON NORMALS: normal respiratory effort AUSCULTATION: diminished lung sounds Cardio: COMMON NORMALS: no JVD, S1 normal heart sound present, S2 normal heart sound present and No murmurs present (Cardio) RATE: tachycardic RHYTHM: abnormal rhythm irregularly irregular HEART SOUNDS: S1 normal heart sound present and S2 normal heart sound present GI: COMMON NORMALS: Normal to inspection, nondistended, normoactive bowel sounds present, Soft to palpation and non-tender PALPATION: Yes Soft to palpation Extremity: COMMON NORMALS: no joint enlargement GENERAL: Yes edema (2+) Neuro: COMMON NORMALS: patient oriented x3 and moves all extremities Skin: COMMON NORMALS: no rashes or lesions noted GENERAL SKIN EXAM: no rashes or lesions noted Data : 09/07/20 04:42 09/08/20 08:15 A&P Assessment and plan (1) New onset of congestive heart failure: Continue IV diuretics. Replace hypokalemia, hypomagnesemia. Appreciate cardiology recommendations regarding new onset CHF, severe mitral regurgitation. New A. fib. Plans for additional assessment by HARI, left and right heart cath. HARI planned for tomorrow. New onset CHF, severe MVR. Continue metoprolol, Cardizem. TTE showing EF 35%, global left ventricular hypokinesis. Diastolic function could not be assessed due to A. fib. Severe MVR. EF worsened down to 35% compared to echocardiogram in 2015. At this time continue to optimize volume status. Would benefit additional assessment for coronary artery disease once volume status is better. He has been chest pain-free. Troponin without acute rise. Likely this would be achieved by stress test. TSH is normal. Status: Acute (2) New onset a-fib: Continue metoprolol, Cardizem p.o. Lovenox. Transition to oral anticoagulation at discharge. Status: Acute (3) Elevated d-dimer: VQ scan low probability for PE. Status: Acute (4) Transaminitis: Resolving with optimization of volume status. 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 Continue optimizing volume status, IV diuretics. Monitor liver parameters. Will need follow-up. Status: Acute (5) Elevated troponin: Suspect this is secondary to arrhythmia, but there is possibility of underlying coronary disease, demand ischemia secondary to A. fib with RVR. No chest pain. Worsening of ejection fraction down to 35%. Would benefit from additional risk stratification once a better volume optimized. Status: Acute Additional A&P Information Recent sepsis and UTI Recent pneumonia HTN BPH: Started tamsulosin GERD Attestations Medical Necessity Statement*: Continue admission for assessment management of new CHF, worsening ejection fraction, new severe MVR, additional assessment by HARI, left and right heart cath. Coding Level of Care Code Acute Patternmaker All Around for g Fwd Diagnoses New onset of congestive heart failure I50.9 New onset a-fib I48.91 Elevated d-dimer R79.89 Transaminitis R74.01 Elevated troponin R77.8
[2020-09-09] VITALS (13 sets, daily range): BP systolic 103–126; BP diastolic 72–94; PULSE 93–117; RESP 17–24; TEMP 36.6–36.8; O2SAT 91–97
[2020-09-09 04:47] LABS: Anion Gap 12.8 (5-19); Blood Urea Nitrogen 21 mg/dL (8-23); Carbon Dioxide 29 mmol/L (22-29); Chloride 99 mmol/L (98-107); Glucose 84 mg/dL (65-115); Magnesium 2.2 mg/dL (1.7-2.3); Osmolality Calculated 286 mOsm/kg (285-295); Potassium 3.8 mmol/L (3.5-5.1); Sodium 137 mmol/L (136-145)
[2020-09-09] MEDS: aspirin 81 mg Chew Tablet PO (06:03)
[2020-09-09] MEDS: enoxaparin 100 mg/mL Syringe SUBCUT ×2 (06:03→18:11)
[2020-09-09] MEDS: FUROsemide 10 mg/mL SDV 4mL 40 MG IVP ×2 (06:08→16:31)
[2020-09-09] MEDS: metoprolol succinate ER (24 HR) 100 mg Tablet PO (08:12)
[2020-09-09] MEDS: tamsulosin 0.4 mg Capsule PO (08:12)
[2020-09-09] MEDS: potassium chloride ER 20 mEq Tablet 40 MEQ PO (11:50)
[2020-09-09 13:17] LABS: Iron 78 ug/dL (59-158); Percent Saturation 31.4 % (20-50); Total Iron Binding Capacity 248 mcg/dl; Unsaturated Iron Binding 170 ug/dL (112-347)
--- NOTE | 2020-09-09 13:26 | P.PN_ITS ---
Subjective Subjective: Interval history: Hospital course, labs and vitals appreciated. Examination lying comfortably in bed. States he is feeling a lot better than when he came in. Denies any nausea, vomiting, headache, palpitations. Currently on room air saturating 93%. Awaiting HARI to be done tomorrow morning. He verbalizes understanding of care plan. Medications: Reviewed: Yes Vitals/I&O/Wt Last Vital Signs Temp 98.0 F 09/09/20 12:00 Pulse 96 09/09/20 12:00 Resp 23 H 09/09/20 12:00 BP 107/72 09/09/20 12:00 Pulse Ox 93 09/09/20 12:00 09/08/20 09/09/20 09/09/20 22:59 06:59 14:59 Intake Total 290 / 1010 100 / 1110 480 / 480 Output Total 1075 / 2325 425 / 2750 1550 / 1550 Balance -785 / -1315 -325 / -1640 -1070 / -1070 Weight last 48 hrs Weight 105.823 kg Weight 105.687 kg Data : 09/07/20 04:42 09/09/20 03:48 A&P Assessment and plan (1) Mitral valve regurgitation: New onset. Patient awaiting HARI. Patient most likely will need left and right heart cath as a work-up for mitral valve replacement. Status: Acute Qualifiers: Cardiac valve disease etiology: nonrheumatic Qualified Code(s): I34.0 - Nonrheumatic mitral (valve) insufficiency (2) New onset of congestive heart failure: Secondary to above. Continue IV diuretics. Replace hypokalemia, hypomagnesemia. Appreciate cardiology recommendations regarding new onset CHF, severe mitral regurgitation. New A. fib. TTE showing EF 35%, global left ventricular hypokinesis. Diastolic function could not be assessed due to A. fib. Severe MVR. EF worsened down to 35% compared to echocardiogram in 2015. At this time continue to optimize volume status. Would benefit additional assessment for coronary artery disease once volume status is better. He has been chest pain-free. Troponin without acute rise. Likely this would be achieved by stress test. TSH is normal. Status: Acute (3) New onset a-fib: Continue metoprolol, Cardizem p.o. Anticoagulation with full dose Lovenox. Transition to oral anticoagulation at discharge. Status: Acute (4) Elevated d-dimer: VQ scan low probability for PE. Status: Acute (5) Transaminitis: Resolving with optimization of volume status. 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 Continue optimizing volume status, IV diuretics. Monitor liver parameters. Will need follow-up. Status: Acute (6) Elevated troponin: Suspect this is secondary to arrhythmia, but there is possibility of underlying coronary disease, demand ischemia secondary to A. fib with RVR. No chest pain. Worsening of ejection fraction down to 35%. Would benefit from additional risk stratification once a better volume optimized. Status: Acute Additional A&P Information Recent sepsis and UTI Recent pneumonia HTN BPH: Started tamsulosin GERD Full code. Full dose Lovenox will also help with DVT prophylaxis. Cardiac diet, n.p.o. after midnight. Patient's care plan discussed in detail with the patient. Verbalized understanding. All questions were answered. Attestations Medical Necessity Statement*: Patient requires further hospitalization for evaluation of new severe mitral regurg, treatment of new onset congestive heart failure. Time Spent in Patient Care: Greater than 35 minutes (>than 50% of time spent in counselling and/or direct pt care on unit) . Coding Level of Care Code Acute Community Administrator for Wilian Reyes Diagnoses Mitral valve regurgitation I34.0 Cardiac valve disease etiology: nonrheumatic New onset of congestive heart failure I50.9 New onset a-fib I48.91 Elevated d-dimer R79.89 Transaminitis R74.01 Elevated troponin R77.8
--- NOTE | 2020-09-09 15:11 | P.PN_ITS ---
Subjective Subjective: Interval history: Denies any new complaints. PVCs and NSVT noted on telemetry. Medications: Reviewed: Yes Medication Review Details: Current Medications Acetaminophen (Acetaminophen 325 Mg Tablet) 650 mg PO Q6H PRN PRN Reason: Mild/Mod Pain Or Temp >/= 101 Albuterol Sulfate (Albuterol 2.5 Mg/0.5 Ml Neb) 2.5 mg INHALATION Q4H.RESPIRATORY PRN PRN Reason: shortness of breath or wheezing Aspirin (Aspirin 81 Mg Chew Tablet) 81 mg PO DAILY@07 [facility] Last Admin: 09/09/20 06:03 Dose: 81 mg Documented by: Diltiazem HCl (Diltiazem 30 Mg Tablet) 30 mg PO Q6H PRN PRN Reason: HR>100 bpm Enoxaparin Sodium (Enoxaparin 100 Mg/Ml Syringe) 100 mg 1 mg/kg (100 mg) SUBCUT Q12H [facility] Last Admin: 09/09/20 06:03 Dose: 100 mg Documented by: Furosemide (Furosemide 10 Mg/Ml Sdv 4ml) 40 mg IVP BID@0600,1600 [facility] Last Admin: 09/09/20 06:08 Dose: 40 mg Documented by: Metoprolol Succinate (Metoprolol Succinate Er (24 Hr) 100 Mg Tablet) 100 mg PO QAM [facility] Last Admin: 09/09/20 08:12 Dose: 100 mg Documented by: Metoprolol Succinate (Metoprolol Succinate Er (24 Hr) 50 Mg Tablet) 50 mg PO 2100 [facility] Ondansetron HCl (Ondansetron 2 Mg/Ml Sdv 2 Ml) 4 mg IVP Q6H PRN PRN Reason: NAUSEA AND VOMITING Tamsulosin HCl (Tamsulosin 0.4 Mg Capsule) 0.4 mg PO DAILY [facility] Last Admin: 09/09/20 08:12 Dose: 0.4 mg Documented by: Vitals/I&O/Wt Last Vital Signs Temp 97.8 F 09/09/20 15:00 Pulse 117 H 09/09/20 15:00 Resp 18 09/09/20 15:00 BP 103/86 09/09/20 15:00 Pulse Ox 97 09/09/20 15:00 09/09/20 09/09/20 09/09/20 06:59 14:59 22:59 Intake Total 100 / 1110 480 / 480 Output Total 425 / 2750 1550 / 1550 Balance -325 / -1640 -1070 / -1070 Weight last 48 hrs Weight 233 lb 4.8 oz Weight 233 lb Physical Exam Narrative: EXAM NARRATIVE: Gen: NAD, sitting confortably in bed HEENT/Neck:Mild JVD, PERRL, No pallor or icterus RS: CTAB/L, No wheezing, rales or rhonchi CVS: S1, S2 +, No murmur, rub or gallop PA: soft, BS+, NT, ND. AGRICULTURAL AGENT: AAOx3, No FND Ext: 1+ bilateral lower leg and ankle edema, No cyanosis or clubbing Psych: Normal mood and affect Skin: No rashes or lesions noted Data : 09/07/20 04:42 09/09/20 03:48 Micro: Microbiology 09/09/20 13:50 Blood Culture - Preliminary Blood SPECIMEN COLLECTED 09/09/20 14:00 Blood Culture - Preliminary Blood SPECIMEN COLLECTED Attestation for Other Data: I personally reviewed and interpreted the following: Other data: Echo: I personally reviewed and interpreted this imaging study as follows: My impression: CONCLUSIONS 1-Moderately increased left ventricular cavity size. Severely decreased left ventricular systolic function. Left ventricular ejection fraction is estimated at 35 %. Global left ventricular hypokinesis. The presence of atrial fibrillation diastolic function cannot be assessed accurately. 2-Structurally normal aortic valve without significant sclerosis or stenosis. There is no aortic regurgitation. 3-Moderately thickened mitral valve. Mild mitral annular calcification. No mitral valve stenosis. Severe mitral valve regurgitation. 4-There is no pericardial effusion. 5-The right ventricle is normal in size and function. RVSP could not be calculated due to incomplete tricuspid regurgitation velocity profile. 6-Right atrial pressure is around 5 mm of mercury. 7-When compared to the prior echocardiogram dated 28 November 2014 there is worsening of the left ventricle ejection fraction from normal 54% to severely depressed 35% there appeared to be severe mitral and moderate tricuspid valve regurgitation now A&P Assessment and plan (1) New onset of congestive heart failure: continue to diurese. Possibly transition to PO lasix tomorrow -will plan for left and right heart cath possibly on Wednesday. -started on metoprolol succinate 100 mg am and 50 mg PM -will add entresto possibly tomorrow/day after Status: Acute (2) Mitral valve regurgitation: Plan for HARI to assess MR tomorrow. Status: Acute Qualifiers: Cardiac valve disease etiology: nonrheumatic Qualified Code(s): I34.0 - Nonrheumatic mitral (valve) insufficiency (3) Atrial fibrillation: On lovenox and metoprolol Status: Acute Qualifiers: Atrial fibrillation type: persistent (not longstanding) Qualified Code(s): I48.19 - Other persistent atrial fibrillation (4) Hypertension: Status: Acute Qualifiers: Hypertension type: essential hypertension Qualified Code(s): I10 - Essential (primary) hypertension (5) GERD (gastroesophageal reflux disease): Status: Acute Qualifiers: Esophagitis presence: esophagitis presence not specified Qualified Code(s): K21.9 - Gastro-esophageal reflux disease without esophagitis Additional A&P Information PVCs/NSVT: keep K>4 and magnesium >2. Hypokalemia : replaced Attestations Medical Necessity Statement*: Needs hospital stay for further work-up of CHF a nd mitral regurgitation Time Spent in Patient Care: 16 - 35 minutes (>than 50% of time spent in counselling and/or direct pt care on unit) . Coding Level of Care Code Acute Sap Portal Developer for Chg Fwd Diagnoses New onset of congestive heart failure I50.9 Mitral valve regurgitation I34.0 Cardiac valve disease etiology: nonrheumatic Atrial fibrillation I48.19 Atrial fibrillation type: persistent (not longstanding) Hypertension I10 Hypertension type: essential hypertension GERD (gastroesophageal reflux disease) K21.9 Esophagitis presence: esophagitis presence not specified
[2020-09-09 17:21] LABS: SARS Covid-2 Antigen Negative (Negative)
[2020-09-09] MEDS: metoprolol succinate ER (24 HR) 50 mg Tablet PO (20:54)
[2020-09-10] VITALS (11 sets, daily range): BP systolic 99–121; BP diastolic 72–97; PULSE 83–115; RESP 14–27; TEMP 36.3–36.8; O2SAT 91–96
[2020-09-10 05:06] LABS: Basophils % 0.4 %; Eosinophils % 0.6 %; Hematocrit 38.9 % (42.0-52.0); Lymphocytes # 1.1 10^3/uL (0.8-4.8); Lymphocytes % 21.1 %; Mean Corpuscular HGB Conc 33.4 g/dL (30.0-36.0); Mean Corpuscular Hemoglobin 32.4 pg (28.0-34.0); Mean Platelet Volume 10.5 fL (7.4-10.4); Monocytes # 0.6 10^3/uL (0.2-0.9); Monocytes % 10.9 %; Neutrophils # 3.44 10^3/uL (1.8-7.7); Neutrophils % 66.6 %; Nucleated Red Blood Cells % 0 %; Platelet Count 160 10^3/cmm (130-400); Red Blood Count 4.01 10^6/uL (4.1-5.3); Red Cell Distribution Width 13.9 % (12.1-15.1); White Blood Count 5.2 10^3/uL (4.0-10.0)
[2020-09-10 05:36] LABS: Magnesium 2.2 mg/dL (1.7-2.3)
[2020-09-10 05:37] LABS: Alanine Aminotransferase 34 U/L (0-41); Albumin Level 3.3 g/dL (3.5-5.2); Alkaline Phosphatase 59 IU/L (40-130); Aspartate Amino Transferase 32 U/L (0-40); Blood Urea Nitrogen 21 mg/dL (8-23); Carbon Dioxide 30 mmol/L (22-29); Chloride 97 mmol/L (98-107); Globulin 2.5 g/dL (1.3-4.6); Glucose 95 mg/dL (65-115); Osmolality Calculated 281 mOsm/kg (285-295); Sodium 134 mmol/L (136-145); Total Bilirubin 0.9 mg/dL (0.15-1.2); Total Protein 5.8 g/dL (6.6-8.7)
[2020-09-10] MEDS: enoxaparin 100 mg/mL Syringe SUBCUT ×2 (06:18→18:02)
[2020-09-10] MEDS: aspirin 81 mg Chew Tablet PO (06:18)
[2020-09-10] MEDS: FUROsemide 10 mg/mL SDV 4mL 40 MG IVP (06:18)
[2020-09-10] MEDS: metoprolol succinate ER (24 HR) 100 mg Tablet PO (06:18)
--- NOTE | 2020-09-10 07:00 | USCV_ITS ---
Mars Reeder Age: 79 Gender: M : 1940 Exam Date: 09/10/2020 06:26 Ordering Phys: Ofe Negro MD ([email or web address]) Technologist: Dona Mancuso Exam Location: [facility] [place] Indication: Mitral regurgitation BP: 113 / 97 HR: 43 Rhythm: Sinus Technical Quality: Good MEASUREMENTS (Male / Female) Normal Values 2D ECHO LVOT Diameter 2.1 cm DOPPLER LVOT Peak Velocity 54.0 cm/s TR Peak Velocity 254.1 cm/s TR Peak Gradient 25.8 mmHg TR Mean Velocity 171.7 cm/s TR Mean Gradient 13.5 mmHg TR Velocity Time Integral 55.8 cm Medications Sedation by anesthesia. Refer to separate report for details. Complications Intubation easy. Attempts x 2. No blood on probe post procedure. Proc. Components Multiple images obtained at mid esophageal and trans gastric levels FINDINGS Left Ventricle Severely increased left ventricular cavity size. Severely decreased left ventricular systolic function. Left ventricular ejection fraction is estimated at 20-25%. Severe global hypokinesis. Right Ventricle Normal right ventricular size. Mildly decreased right ventricular systolic function. Pulmonary artery pressure estimated at 33 mm Hg. Right Atrium Normal right atrial size. Left Atrium Moderately increased left atrial size. LA Appendage Normal left atrial appendage. Decreased flow velocities in the left atrial appendage. No thrombus visualized in the left atrial appendage. IA Septum Normal interatrial septum. No patent foramen ovale. No evidence for an atrial septal defect. Mitral Valve Structurally normal mitral valve. No mitral valve stenosis. Moderate-severe mitral valve regurgitation. Aortic Valve Structurally normal trileaflet aortic valve. No aortic valve stenosis. Mild aortic valve regurgitation. Tricuspid Valve Structurally normal tricuspid valve. Mild tricuspid valve regurgitation. Pulmonic Valve Structurally normal pulmonic valve. Trace pulmonary valve regurgitation. Pericardium No pericardial effusion. Aorta Normal size aortic root and proximal ascending aorta. No aortic dilation, aneurysm or dissection. Grade 3 atheroma noted in proximal descending aorta. CONCLUSIONS 1. Severely increased left ventricular cavity size. Severely decreased left ventricular systolic function. Left ventricular ejection fraction is estimated at 20-25%. Severe global hypokinesis. 2. Mildly decreased right ventricular systolic function. 3. Moderate-severe mitral valve regurgitation. 4. Pulmonary artery pressure estimated at 33 mm Hg. 5. No left atrial or atrial appendage thrombus. 6. Mild aortic valve regurgitation. Ofe Negro MD (Electronically Signed) Final Date: 11 September 2020 20:18 S
--- NOTE | 2020-09-10 07:00 | ANES.PREANE2 ---
Pre-Anesthetic Assessment Pre-Anesthetic Assessment: Height/Weight: Height 1.83 m Weight 105.687 kg Temp Pulse Resp BP Pulse Ox 98 F 115 H 16 113/97 93 09/09/20 23:19 09/10/20 03:28 09/10/20 03:28 09/10/20 03:28 09/10/20 03:28 Preop Diagnosis: MR assessment new onset atrial fibrillation. Proposed Procedure: Operation Date: 09/10/20 07:00 Proposed Procedures p HARI(Not Applicable) - Ofe Negro MD Familial anesthetic complications: none Was Beta Bell taken within 24 hours: Yes Was Clonidine taken within 24 hours: N/A Last intake: Food- 232909/09/20 clear liquid sip with med 0630 Social: Social History: No alcohol and No tobacco Exam: Pre-Anes Outpt Exam: alert, oriented x 3 and clear to auscultation bilaterally Airway: Submandibular: WNL Cervical ROM: WNL MP: 3 Dentition: Full History/ROS: No significant history except as noted Pulmonary: Pulmonary: SOB (with activity.) and None reported CV/HEM: CV/HEM: Afib, Arrythmia (atrial fibrilation), CHF, HTN and Murmur (severe mitral regurgitation see previous ECHO results in ava's note.) : : None reported Hepatic: Hepatic: None reported GI: GI: GERD and None reported Metabolic: Metabolic: None reported Musc/skel: Musc/skel: None reported Neuropsych: Neuropsych: None reported Anesthetic Plan: ASA status: 3 Anesthesia: MAC Risk of > 500 ml blood loss (7ml/kg in children): No Meds/Allergies Current Medications: Current Medications Generic Name Dose Route Start Last Admin Trade Name Macq PRN Reason Stop Dose Admin Aspirin 81 mg 09/04/20 07:00 09/10/20 06:18 Aspirin 81 Mg Ch ew Tablet PO 81 mg DAILY@07 BALJIT Administration Enoxaparin Sodium 100 mg 09/03/20 18:00 09/10/20 06:18 Enoxaparin 100 M g/Ml Syringe 1 mg/kg (100 mg) 100 mg SUBCUT Administration Q12H BALJIT Furosemide 40 mg 09/04/20 06:00 09/10/20 06:18 Furosemide 10 Mg /Ml Sdv 4ml IVP 40 mg BID@0600,1600 BALJIT Administration Metoprolol Succina te 100 mg 04/19/21 09:00 09/10/20 06:18 Metoprolol Succi marisol Er (24 Hr) 10 0 Mg Tablet PO 100 mg QAM [facility] Administration Metoprolol Succina te 50 mg 09/09/20 21:00 09/09/20 20:54 Metoprolol Succi marisol Er (24 Hr) 50 Mg Tablet PO 50 mg 2100 [facility] Administration Tamsulosin HCl 0.4 mg 09/05/20 10:30 09/09/20 08:12 Tamsulosin 0.4 M g Capsule PO 0.4 mg DAILY [facility] Administration Additional Medication Information: Current Medications Acetaminophen (Acetaminophen 325 Mg Tablet) 650 mg PO Q6H PRN PRN Reason: Mild/Mod Pain Or Temp >/= 101 Albuterol Sulfate (Albuterol 2.5 Mg/0.5 Ml Neb) 2.5 mg INHALATION Q4H.RESPIRATORY PRN PRN Reason: shortness of breath or wheezing Aspirin (Aspirin 81 Mg Chew Tablet) 81 mg PO DAILY@07 [facility] Last Admin: 09/09/20 06:03 Dose: 81 mg Documented by: Diltiazem HCl (Diltiazem 30 Mg Tablet) 30 mg PO Q6H PRN PRN Reason: HR>100 bpm Enoxaparin Sodium (Enoxaparin 100 Mg/Ml Syringe) 100 mg 1 mg/kg (100 mg) SUBCUT Q12H [facility] Last Admin: 09/09/20 06:03 Dose: 100 mg Documented by: Furosemide (Furosemide 10 Mg/Ml Sdv 4ml) 40 mg IVP BID@0600,1600 [facility] Last Admin: 09/09/20 06:08 Dose: 40 mg Documented by: Metoprolol Succinate (Metoprolol Succinate Er (24 Hr) 100 Mg Tablet) 100 mg PO QAM [facility] Last Admin: 09/09/20 08:12 Dose: 100 mg Documented by: Metoprolol Succinate (Metoprolol Succinate Er (24 Hr) 50 Mg Tablet) 50 mg PO 2100 [facility] Ondansetron HCl (Ondansetron 2 Mg/Ml Sdv 2 Ml) 4 mg IVP Q6H PRN PRN Reason: NAUSEA AND VOMITING Tamsulosin HCl (Tamsulosin 0.4 Mg Capsule) 0.4 mg PO DAILY [facility] Last Admin: 09/09/20 08:12 Dose: 0.4 mg Documented by: PFSH Anesthesia PFSH: Medical History (Updated 09/08/20 @ 17:43 by Ofe Negro MD) BPH (benign prostatic hyperplasia) GERD (gastroesophageal reflux disease) Hypertension Mitral valve regurgitation Sepsis UTI (urinary tract infection) Vitamin D deficiency Surgical History Hx of colonoscopy (~2010) Hx of foot surgery Hx of hemorrhoidectomy Hx of knee surgery Hx of neck surgery Hx of rotator cuff surgery Family History Mother , age 93 Alzheimer disease Father , age 85 Cancer colon Social History Smoking and tobacco status: former smoker Quit status (tobacco): has quit using tobacco Former quit date comment: pipe in high school Second hand smoke exposure: No Alcohol intake: never Substance/Drug Use: never Lives independently: Yes Household members: spouse Marital status: Current occupational status: employed History of recent travel: No Current gender identity: Male Data Anesthesia CBC & Chem 7: 09/10/20 04:20 09/10/20 04:20 Other Labs: Laboratory Results - last 48 hr 09/08/20 09/08/20 09/09/20 08:15 08:15 03:48 WBC RBC Hgb Hct MCV MCH MCHC RDW Plt Count MPV Neut % (Auto) Lymph % (Auto) [place] % (Auto) Eos % (Auto) Baso % (Auto) Neut # (Auto) Lymph # (Auto) [place] # (Auto) Eos # (Auto) Baso # (Auto) Nucleated RBC % (auto) Nucleated RBCs # Sodium 136 137 Potassium 3.2 L 3.8 Chloride 98 99 Carbon Dioxide 31 H 29 Anion Gap 10.2 12.8 BUN 19 21 Creatinine 0.9 0.8 GFR Calculation Not Reportable Not Reportable Glucose 115 84 Calculated Osmolality 285 286 Calcium 7.9 L 8.0 L Magnesium 1.8 2.2 Iron TIBC % Saturation Unsat Iron Binding Total Bilirubin AST ALT Alkaline Phosphatase Total Protein Albumin Globulin SARS-CoV-2 Ag (Rapid) 09/09/20 09/09/20 09/10/20 03:48 16:30 04:20 WBC RBC Hgb Hct MCV MCH MCHC RDW Plt Count MPV Neut % (Auto) Lymph % (Auto) [place] % (Auto) Eos % (Auto) Baso % (Auto) Neut # (Auto) Lymph # (Auto) [place] # (Auto) Eos # (Auto) Baso # (Auto) Nucleated RBC % (auto) Nucleated RBCs # Sodium Potassium Chloride Carbon Dioxide Anion Gap BUN Creatinine GFR Calculation Glucose Calculated Osmolality Calcium Magnesium 2.2 Iron 78 TIBC 248 % Saturation 31.4 Unsat Iron Binding 170 Total Bilirubin AST ALT Alkaline Phosphatase Total Protein Albumin Globulin SARS-CoV-2 Ag (Rapid) Negative 09/10/20 09/10/20 04:20 04:20 WBC 5.2 RBC 4.01 L Hgb 13.0 Hct 38.9 L MCV 97.0 H MCH 32.4 MCHC 33.4 RDW 13.9 Plt Count 160 MPV 10.5 H Neut % (Auto) 66.6 Lymph % (Auto) 21.1 [place] % (Auto) 10.9 Eos % (Auto) 0.6 Baso % (Auto) 0.4 Neut # (Auto) 3.44 Lymph # (Auto) 1.1 [place] # (Auto) 0.6 Eos # (Auto) 0.0 Baso # (Auto) 0.0 Nucleated RBC % (auto) 0 Nucleated RBCs # 0.0 Sodium 134 L Potassium 4.0 Chloride 97 L Carbon Dioxide 30 H Anion Gap 11.0 BUN 21 Creatinine 0.9 GFR Calculation Not Reportable Glucose 95 Calculated Osmolality 281 L Calcium 8.0 L Magnesium Iron TIBC % Saturation Unsat Iron Binding Total Bilirubin 0.9 AST 32 ALT 34 Alkaline Phosphatase 59 Total Protein 5.8 L Albumin 3.3 L Globulin 2.5 SARS-CoV-2 Ag (Rapid) Micro: Microbiology 09/09/20 13:50 Blood Culture - Preliminary Blood SPECIMEN COLLECTED 09/09/20 14:00 Blood Culture - Preliminary Blood SPECIMEN COLLECTED Cardiac Studies: No Data to Display
[2020-09-10] MEDS: sodium chloride 0.9% 1,000 ML 75 ML IV (07:15)
--- NOTE | 2020-09-10 08:16 | PC.NURSE ---
HARI 0715 procedure start, timeout performed, all that are present agree. 0721 patient confirmed asleep. 0723 scope in 0803 scope out VSS and IVF monitored and titrated by anesthesia. Patient tolerated procedure well. Nursing to continue to monitor.
--- NOTE | 2020-09-10 08:37 | P.PN_ITS ---
Subjective Subjective: Interval history: Denies any new complaints. PVCs and NSVT noted on telemetry. He undwerwent HARI this morning Medications: Reviewed: Yes Medication Review Details: Current Medications Acetaminophen (Acetaminophen 325 Mg Tablet) 650 mg PO Q6H PRN PRN Reason: Mild/Mod Pain Or Temp >/= 101 Albuterol Sulfate (Albuterol 2.5 Mg/0.5 Ml Neb) 2.5 mg INHALATION Q4H.RESPIR ATORY PRN PRN Reason: shortness of breath or wheezing Aspirin (Aspirin 81 Mg Chew Tablet) 81 mg PO DAILY@07 [facility] Last Admin: 09/09/20 06:03 Dose: 81 mg Documented by: Diltiazem HCl (Diltiazem 30 Mg Tablet) 30 mg PO Q6H PRN PRN Reason: HR>100 bpm Enoxaparin Sodium (Enoxaparin 100 Mg/Ml Syringe) 100 mg 1 mg/kg (100 mg) SUBCUT Q12H [facility] Last Admin: 09/09/20 06:03 Dose: 100 mg Documented by: Furosemide (Furosemide 10 Mg/Ml Sdv 4ml) 40 mg IVP BID@0600,1600 [facility] Last Admin: 09/09/20 06:08 Dose: 40 mg Documented by: Metoprolol Succinate (Metoprolol Succinate Er (24 Hr) 100 Mg Tablet) 100 mg PO QAM [facility] Last Admin: 09/09/20 08:12 Dose: 100 mg Documented by: Metoprolol Succinate (Metoprolol Succinate Er (24 Hr) 50 Mg Tablet) 50 mg PO 2100 [facility] Ondansetron HCl (Ondansetron 2 Mg/Ml Sdv 2 Ml) 4 mg IVP Q6H PRN PRN Reason: NAUSEA AND VOMITING Tamsulosin HCl (Tamsulosin 0.4 Mg Capsule) 0.4 mg PO DAILY [facility] Last Admin: 09/09/20 08:12 Dose: 0.4 mg Documented by: Vitals/I&O/Wt Last Vital Signs Temp 98 F 09/09/20 23:19 Pulse 97 09/10/20 06:00 Resp 16 09/10/20 03:28 BP 113/97 09/10/20 03:28 Pulse Ox 93 09/10/20 03:28 09/09/20 09/10/20 09/10/20 22:59 06:59 14:59 Intake Total 340 / 820 446.25 / 446.25 Output Total 500 / 2050 600 / 2650 400 / 400 Balance -160 / -1230 -600 / -1830 46.25 / 46.25 Weight last 48 hrs Weight 233 lb Weight 233 lb 4.8 oz Physical Exam Narrative: EXAM NARRATIVE: Gen: NAD, sitting confortably in bed HEENT/Neck:Mild JVD, PERRL, No pallor or icterus RS: CTAB/L, No wheezing, rales or rhonchi CVS: S1, S2 irregular, Grade 3/6 SM+. No rub or gallop PA: soft, BS+, NT, ND. BOILER/CHILLER OPERATOR: AAOx3, No FND Ext: trace bilateral lower leg and ankle edema, No cyanosis or clubbing Psych: Normal mood and affect Skin: No rashes or lesions noted Data : 09/10/20 04:20 09/10/20 04:20 Micro: Microbiology 09/09/20 13:50 Blood Culture - Preliminary Blood SPECIMEN COLLECTED 09/09/20 14:00 Blood Culture - Preliminary Blood SPECIMEN COLLECTED A&P Assessment and plan (1) New onset of congestive heart failure: continue to diurese. Transition to PO lasix -will plan for left and right heart cath tomorrow. -started on metoprolol succinate 100 mg am and 50 mg PM -will add entresto possibly tomorrow/day after. Risks and benefits were discussed with the patients. Alternate management options were discussed with the patient as well. Possible complications were reviewed with the patient as well. Plan is to proceed for the procedure at the earliest. -The case was discussed with Dr. Granados and plan to proceed with cath tomorrow. Status: Acute (2) Mitral valve regurgitation: s/p HARI with 3-4+ MR . -Findings discussed with the patient and his and daughter. Status: Acute Qualifiers: Cardiac valve disease etiology: nonrheumatic Qualified Code(s): I34.0 - Nonrheumatic mitral (valve) insufficiency (3) Atrial fibrillation: On lovenox and metoprolol -Transition to Eliquis post left and right cathetarization Status: Acute Qualifiers: Atrial fibrillation type: persistent (not longstanding) Qualified Code(s): I48.19 - Other persistent atrial fibrillation (4) Hypertension: BP soft here Status: Acute Qualifiers: Hypertension type: essential hypertension Qualified Code(s): I10 - Essential (primary) hypertension (5) GERD (gastroesophageal reflux disease): Status: Acute Qualifiers: Esophagitis presence: esophagitis presence not specified Qualified Code(s): K21.9 - Gastro-esophageal reflux disease without esophagitis Additional A&P Information PVCs/NSVT: keep K>4 and magnesium >2. Hypokalemia : replaced Attestations 2 Medical Necessity Statement*: Needs hospital stay for further work-up of CHF and mitral regurgitation Time Spent in Patient Care: Greater than 35 minutes (>than 50% of time spent in counselling and/or direct pt care on unit) . Coding Level of Care Code Acute Transformation Consultant for Chg Fwd Diagnoses New onset of congestive heart failure I50.9 Mitral valve regurgitation I34.0 Cardiac valve disease etiology: nonrheumatic Atrial fibrillation I48.19 Atrial fibrillation type: persistent (not longstanding) Hypertension I10 Hypertension type: essential hypertension GERD (gastroesophageal reflux disease) K21.9 Esophagitis presence: esophagitis presence not specified
--- NOTE | 2020-09-10 08:37 | PM.ACPR ---
Procedure/Consent Time out: Time Out Performed: Yes Consent: Consent for Procedure: Consent obtained from patient, Risks & Benefits reviewed and Agrees to proceed with procedure Procedure Narrative: HARI Procedure note Indication: Mitral regurgitation Sedation: Propofol by anesthesia. Refer to separate report for details. Procedure was performed bedside. Procedure was explained to the patient in detail and informed consent was obtained. Timeout was called. After achieving adequate sedation, the probe was inserted on second attempt. No blood on the probe post procedure. Prelim report: Severely decreased left ventricular systolic function. 3-4+ mitral regurgitation. No left atrial or left atrial appendage thrombus. Full report to follow. Patient tolerated the procedure well Acute Procedures Epistaxis Control: Time out performed: Yes
[2020-09-10] MEDS: tamsulosin 0.4 mg Capsule PO (09:26)
--- NOTE | 2020-09-10 09:51 | PC.SOCIAL ---
*IMM UPDATE* Dispenser Operator gave patient IMM update, provided him copy of pg 2. Verbalized understanding. 09/10/20 @ 0937 Initialed,dated, timed and placed in chart.
--- NOTE | 2020-09-10 09:59 | PC.CHAP ---
Pastoral Care Encounter/Spiritual Assessment Type of Contact [] Declined senior resident care director visit [] Patient/Family/Request visit [] Outpatient visit [] Follow-up visit [] Physician referral [] Code/Alert [x] Routine visit [] Staff referral [] Actively dying [] Patient sleeping [] Family support [] [] Out of room [] Palliative care [] [] Receiving care in room [] Pre-surgical visit [] Trauma [] Long length of stay [] ICU visit [] Other: Relational/Emotional Strength [] Patient feels connected with others/family/visitors/staff [] Distress [] Loneliness/isolation [] Abandonment Spirituality of Patient [] Person of Emily [] Attends Hindu of their Emily [] Believes in Prayer [] Reads Bible or Hinduism materials [] There are Spiritual issues to be addressed Travel Service Consultant Interventions [x] Prayer [x] Active listening [x] Non-anxious presence [x] Spiritual/emotional support [] Crisis/trauma care [] Spiritual counseling [] Bereavement support [] Provided bereavement packet [] Provided Bible/devotional materials [] Provided toy/stuffed animal, coloring book to patient or family member [] Provided Communion [] Anointing/[place] [] Salvation [x] Completed spiritual assessment [] Other: Impact on Illness or Injury [] Angry [] Fearful [] Anxious [] Often cries [] Exhaustion [] Unable to work [] Unable to attend congregational [] Unable to walk/stand [] Unable to read [] Unable to drive [] Unable to eat/drink [] Unable to sleep [] Unable to be with family [] Patient intubated [] Other: 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 having issues with breathing and couching.. resting well, but there is concern with heart issues.. waiting for doctors visit Time spent with patient 10 min
[2020-09-10] MEDS: cetylpyridinium Lozenge 1 EACH MUCOUS MEM ×2 (12:08→16:32)
--- NOTE | 2020-09-10 15:35 | P.PN_ITS ---
Subjective Subjective: Interval history: No acute events overnight. On examination patient seen post HARI. On examination patient lying comfortably in bed. Denies any nausea, vomiting, headache, palpitation. Complaining of mild throat scratchiness. Currently on room air saturating 92%. Still not ambulating much. Medications: Reviewed: Yes Vitals/I&O/Wt Last Vital Signs Temp 97.4 F L 09/10/20 15:10 Pulse 83 09/10/20 15:10 Resp 14 09/10/20 15:10 BP 121/78 09/10/20 15:10 Pulse Ox 92 09/10/20 15:10 09/10/20 09/10/20 09/10/20 06:59 14:59 22:59 Intake Total 686.25 / 686.25 Output Total 600 / 2650 1100 / 1100 Balance -600 / -1830 -413.75 / -413.75 Weight last 48 hrs Weight 105.687 kg Weight 105.823 kg Physical Exam Narrative: EXAM NARRATIVE: General: No acute distress, AO x3 HEENT: PERRLA, pupils bilaterally equal and reactive Chest: Normal vesicular breath sounds, no added sounds, equal good air entry bilaterally CVS: S1-S2 irregularly irregular, pansystolic murmur at the apex radiating all the way to the posterior axillary line, , no tachycardia, no gallops, no rubs Abdomen: Soft, nontender, no organomegaly, bowel sounds present Neuro: No focal deficits, no facial deformity, AO x3, power 5/5 in all limbs Data : 09/10/20 04:20 09/10/20 04:20 Micro: Microbiology 09/09/20 13:50 Blood Culture - Preliminary Blood NEGATIVE TO DATE 09/09/20 14:00 Blood Culture - Preliminary Blood NEGATIVE TO DATE A&P Assessment and plan (1) Mitral valve regurgitation: New onset. HARI done today. Results awaited. Plan would most likely for patient to undergo left and right heart cath for work-up for mitral valve replacement tomorrow. N.p.o. after midnight. Status: Acute Qualifiers: Cardiac valve disease etiology: nonrheumatic Qualified Code(s): I34.0 - Nonrheumatic mitral (valve) insufficiency (2) New onset of congestive heart failure: Secondary to above. Continue IV diuretics. Replace hypokalemia, hypomagnesemia. Appreciate cardiology recommendations regarding new onset CHF, severe mitral regurgitation. New A. fib. TTE showing EF 35%, global left ventricular hypokinesis. Diastolic function could not be assessed due to A. fib. Severe MVR. EF worsened down to 35% comp ared to echocardiogram in 2014. At this time continue to optimize volume status. Would benefit additional assessment for coronary artery disease once volume status is better. He has been chest pain-free. Troponin without acute rise. Likely this would be achieved by stress test. TSH is normal. Status: Acute (3) New onset a-fib: Continue metoprolol, Cardizem p.o. Anticoagulation with full dose Lovenox. Transition to oral anticoagulation at discharge. Status: Acute (4) Elevated d-dimer: VQ scan low probability for PE. Status: Acute (5) Transaminitis: Resolving with optimization of volume status. 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 Continue optimizing volume status, IV diuretics. Monitor liver parameters. Will need follow-up. Status: Acute (6) Elevated troponin: Suspect this is secondary to arrhythmia, but there is possibility of underlying coronary disease, demand ischemia secondary to A. fib with RVR. No chest pain. Worsening of ejection fraction down to 35%. Would benefit from additional risk stratification once a better volume optimized. Status: Acute Additional A&P Information Recent sepsis and UTI Recent pneumonia HTN BPH: Started tamsulosin GERD Full code. Full dose Lovenox will also help with DVT prophylaxis. Cardiac diet, n.p.o. after midnight. PT/OT evaluation. Patient's care plan discussed in detail with the patient. Verbalized understanding. All questions were answered. Attestations Medical Necessity Statement*: Requires further hospitalization for management of new onset congestive heart failure in setting of new onset severe mitral regurgitation and atrial fibrillation. Time Spent in Patient Care: Greater than 35 minutes (>than 50% of time spent in counselling and/or direct pt care on unit) . Coding Level of Care Code Acute Lamination Operator for Wilian Fwd Diagnoses Mitral valve regurgitation I34.0 Cardiac valve disease etiology: nonrheumatic New onset of congestive heart failure I50.9 New onset a-fib I48.91 Elevated d-dimer R79.89 Transaminitis R74.01 Elevated troponin R77.8
--- NOTE | 2020-09-10 16:24 | ANE.PACU2 ---
Inpatient post-anesthesia follow up: Airway intact: Yes Vital signs: Temperature 97.4 F Pulse Rate [Monito r] 125 Pulse Rate 83 Respiratory Rate 14 Blood Pressure [Ri ght Arm] 121/77 Blood Pressure 121/78 Pulse Oximetry 92 Oxygen Delivery Me thod Room Air Oxygen Flow Rate 3 Fraction of Inspir ed Oxygen Hydration adequate: Yes Nausea and vomiting: No Pain level: 1 Mental status: Baseline
[2020-09-10] MEDS: FUROsemide 40 mg Tablet PO (16:31)
[2020-09-10] MEDS: metoprolol succinate ER (24 HR) 50 mg Tablet PO (21:36)
[2020-09-11] VITALS (29 sets, daily range): BP systolic 92–129; BP diastolic 70–105; PULSE 85–110; RESP 13–30; TEMP 36.3–36.8; O2SAT 82–97
[2020-09-11 04:56] LABS: Basophils % 0.3 %; Eosinophils # 0.1 10^3/uL (0.0-0.8); Eosinophils % 0.8 %; Hematocrit 37.4 % (42.0-52.0); Hemoglobin 12.4 g/dL (11.7-16.6); Lymphocytes # 1.2 10^3/uL (0.8-4.8); Lymphocytes % 19.8 %; Mean Corpuscular HGB Conc 33.2 g/dL (30.0-36.0); Mean Corpuscular Volume 96.4 fL (80-94); Mean Platelet Volume 10.7 fL (7.4-10.4); Monocytes # 0.6 10^3/uL (0.2-0.9); Monocytes % 10.3 %; Neutrophils # 4.13 10^3/uL (1.8-7.7); Neutrophils % 68.6 %; Nucleated Red Blood Cells % 0 %; Platelet Count 144 10^3/cmm (130-400); Red Blood Count 3.88 10^6/uL (4.1-5.3); Red Cell Distribution Width 13.9 % (12.1-15.1)
[2020-09-11 05:14] LABS: Alanine Aminotransferase 34 U/L (0-41); Albumin Level 3.3 g/dL (3.5-5.2); Alkaline Phosphatase 58 IU/L (40-130); Anion Gap 9.9 (5-19); Aspartate Amino Transferase 34 U/L (0-40); Blood Urea Nitrogen 18 mg/dL (8-23); Carbon Dioxide 30 mmol/L (22-29); Chloride 98 mmol/L (98-107); Globulin 2.5 g/dL (1.3-4.6); Glucose 97 mg/dL (65-115); Osmolality Calculated 280 mOsm/kg (285-295); Potassium 3.9 mmol/L (3.5-5.1); Sodium 134 mmol/L (136-145); Total Bilirubin 0.8 mg/dL (0.15-1.2); Total Protein 5.8 g/dL (6.6-8.7)
--- NOTE | 2020-09-11 06:11 | PC.NURSE ---
Patient has [facility] scheduled for this morning at 0830 with Lovenox due at this time. Informed Dr Granados and received order to hold this dose.
[2020-09-11] MEDS: metoprolol succinate ER (24 HR) 100 mg Tablet PO (06:26)
--- NOTE | 2020-09-11 06:56 | W.PM.OPSUD ---
Surgery/Procedure H&P Update DATE OF PROCEDURE: September 11, 2020 DATE H&P PERFORMED: 09/07/20 H&P UPDATE INFORMATION: I have reviewed H&P completed within last 30 days, I have examined patient prior to procedure and No changes to prior documentation PREOP DIAGNOSIS: MR assessment new onset atrial fibrillation. Heart failure PLANNED PROCEDURE: Operation Date: 09/10/20 07:00 Proposed Procedures p HARI(Not Applicable) - Ofe Negro MD Operation Date: 09/11/20 08:30 Proposed Procedures p Right and Left Cardiac Catheterization(Bilateral) - Francis Granados MD PATIENT REASSESSED PRIOR TO SEDATION, WITH NO CHANGE NOTED: Yes PHYSICAL EXAM: alert, oriented x 3, clear to auscultation bilaterally and regular rate & rhythm AIRWAY EVAL/ANESTHESIA PLAN: ASA II, Risks, benefits & alternatives of sedation and/or procedure discussed and Patient agrees to continue as planned
--- NOTE | 2020-09-11 07:37 | XACV_ITS ---
Exam Room: [facility] Ht: 178 cm Wt: 106 kg BSA: 2.32 m2 Gender: Male : 1940 Exam Priority: Routine Procedure(s): Procedure Description: Diagnostic procedure Procedure Description: Left Heart Catheterization Procedure Description: Right Heart Catheterization Diagnostic Cath Status: Elective Diagnostic Findings * LM has 0% stenosis. * CX has 0% stenosis. * RCA has 0% stenosis. * mLAD: Mild 20% stenosis, JACINTO: 3 flow. * Coronary angiography shows right dominance. Conclusions 1. Right heart catheterization1-RA mean 19 mm Hg2-RV 55/23/16 mm Hg3-PA mean 40 mm Hg4-PCWP 34 mm HgFick cardiac output 3 LCardiac index 2No significant stepup noted. 2. There is mild coronary artery disease with one vessel disease. Recommendations * Continue current medical management and risk factor modification. Diagnostic RX Recommendation: medical therapy and/or counseling Pressures Phase:Rest RV : 55 / 23 / 16 @ 7:03:00 AM PA : 45 / 25 ( 33 ) @ 6:59:00 AM 52 / 30 ( 40 ) @ 7:01:00 AM RA : a wave = 23 v wave = 21 mean = 19 @ 7:05:00 AM PCW : a wave = 39 v wave = 38 mean = 34 @ 7:02:00 AM O2 Content Phase:Rest PA : O2 Content O2: 36.9 @ 7:01:00 AM Saturations Phase:Rest AO : 84 @ 6:59:00 AM RA : 39 @ 7:02:00 AM RV : 35 @ 7:05:00 AM PA : 37 @ 7:01:00 AM Cardiac Output Phase:Rest Tonya : 3 @ 11:07:52 AM Tonya Cardiac Index: 2 @ 11:07:52 AM Flow Phase:Rest Qp : 3 @ 11:07:52 AM Qs : 3 @ 11:07:52 AM Clinical Evaluation EBL: 5mL-10mL Procedural Details Procedure Consent Obtained. Admit Source: In Patient. Pre-Procedure Time Out. Identified patient by full name and date of as verbalized by the patient/guarantor. Does the consent match the physician's order: Yes. Accurate & Complete Informed Consent: Yes. Inpatient/Outpatient History & Physical on Chart: Yes. If H&P is completed, is and addenduem needed: Yes; If yes, is the addendum complete: N/A. Visualize and Verify Site with Patient/Guarantor: N/A. Relevant Radiology Images available: N/A. Pre-op teaching completed and patient verbalized understanding. The risks, benefits, and alternatives of sedation and/or procedure were discussed by physician. The patient agrees to continue. Procedure started. Correct patient, site and procedure confirmed by cath team. PERRLA. Strong, equal hand manager purchasing bilaterally. Lungs clear x 5 lobes. IV Site on Arrival: 20 gauge in the left wrist. bilateral groins was prepped with chloroprep then draped in the usual sterile fashion. right radial was prepped with chloroprep then draped in the usual sterile fashion. Physician notified. Baseline sample Acquired. HR: 95 BPM. Physician arrived. Physician scrubbed in. Immediate Pre-Procedure Time Out. Correct Patient: Yes; Correct Procedure: Yes; Correct Site: Yes; Correct Patient Position: Yes; Correct Supplies: Yes; Dried Flammable Prep: Yes; Blood Products Available: N/A;. Lidocaine 1% infiltrated to the right brachial. sheath wire inserted through IV catheter. Venous access obtained. IV cather out over the wire. [place]-Ravi MON catheter inserted. [place]-Rvai out. Lidocaine 1% infiltrated to the right radial. Arterial access obtained. A 5 pashto TIG catheter in over wire. Multiple views taken of right coronary artery. Catheter redirected to the LCA. Multiple views taken of left coronary artery. Catheter out. A 5 pashto Cristhian catheter in over wire. Oxygen started at 2liters/min via nasal canula. Catheter out. TR band placed. Hemostasis obtained. PERRLA. Strong, equal hand manager purchasing bilaterally. No VTE prophylaxis required. A TR Band was successful obtaining hemostatsis at the Right Radial artery insertion site. A Manual Compression was successful obtaining hemostatsis at the Right Brachial Vein insertion site. [facility] Clinical Fraility Score: 4: Vulnerable. Brokerage Coordinator Indications: LV Dysfunction. Brokerage Coordinator Indications: Cardiomyopathy. Chest Pain Symptom Assessment: Atypical Angina. Cardiovascular Instability: No, if yes, Persistant Ischemic Symptoms. Medication's Wasted: Other = fentanyl 25 mg. Medication's Wasted: Heparin = 1000 units. Medication's Wasted: Nitro = 49.8 mg. Medication's Wasted: Lidocaine 1% = 16 mL. Total IV fluids: 75 mL. Contrast type used: Omnipaque 300 mgI/mL, 500 mL bottle. Contrast Material : Omnipaque 123 ml. Post-op diagnosis: non ischemic cardiomyopathy. Complications: none. Estimated blood loss: 5mL-10mL. Procedure completed. Patient transferred by wheelchair to 1st floor. Vital chart was stopped. Access Site Site: Right Brachial Vein Sheath Size: 6 Fr Hemostasis Method: Manual Compression Hemostasis Success: Successful Site: Right Radial artery Sheath Size: 6 Fr Hemostasis Method: TR Band Hemostasis Success: Successful Procedure Medications Start: 7:48 AM Stop: 7:48 AM Medication: Versed Amount: 1 mg Route: I.V. Start: 7:48 AM Stop: 7:48 AM Medication: Fentanyl Amount: 25 mcg Route: I.V. Start: 7:49 AM Stop: 7:49 AM Medication: Benadryl Amount: 50 mg Route: I.V. Start: 7:59 AM Stop: 7:59 AM Medication: Versed Amount: 0.5 mg Route: I.V. Start: 8:00 AM Stop: 8:00 AM Medication: Fentanyl Amount: 25 mcg Route: I.V. Start: 8:03 AM Stop: 8:03 AM Medication: Versed Amount: 0.5 mg Route: I.V. Start: 8:08 AM Stop: 8:08 AM Medication: Fentanyl Amount: 25 mcg Route: I.V. Start: 8:08 AM Stop: 8:08 AM Medication: Nitrogylcerin Amount: 200 mcg Route: I.A. Start: 8:11 AM Stop: 8:11 AM Medication: Heparin Amount: 5000 units Route: I.V. I, the attending physician, have reviewed and verified all procedure medications. Yes, all medications given per verbal order History/Risk Factors Hypertension: Yes Tobacco Use: Former Report Signatures Finalized by Francis Granados MD on 09/25/2020 07:43 PM
[2020-09-11] MEDS: aspirin 81 mg Chew Tablet PO (09:35)
[2020-09-11] MEDS: amiodarone 200 mg Tablet 400 MG PO ×2 (09:35→17:47)
[2020-09-11] MEDS: tamsulosin 0.4 mg Capsule PO (09:35)
[2020-09-11] MEDS: FUROsemide 40 mg Tablet PO ×2 (09:35→16:25)
--- NOTE | 2020-09-11 09:43 | PC.CHAP ---
Pastoral Care Encounter/Spiritual Assessment Type of Contact [] Declined pairer visit [] Patient/Family/Request visit [] Outpatient visit [] Follow-up visit [] Physician referral [] Code/Alert [x] Routine visit [] Staff referral [] Actively dying [x] Patient sleeping [] Family support [] [] Out of room [] Palliative care [] [] Receiving care in room [] Pre-surgical visit [] Trauma [] Long length of stay [] ICU visit [] Other: Relational/Emotional Strength [] Patient feels connected with others/family/visitors/staff [] Distress [] Loneliness/isolation [] Abandonment Spirituality of Patient [] Person of Emily [] Attends Church of their Emily [] Believes in Prayer [] Reads Bible or Mosque materials [] There are Spiritual issues to be addressed Meter Calibrator Interventions [x] Prayer [] Active listening [] Non-anxious presence [] Spiritual/emotional support [] Crisis/trauma care [] Spiritual counseling [] Bereavement support [] Provided bereavement packet [] Provided Bible/devotional materials [] Provided toy/stuffed animal, coloring book to patient or family member [] Provided Communion [] Anointing/[place] [] Salvation [x] Completed spiritual assessment [] Other: Impact on Illness or Injury [] Angry [] Fearful [] Anxious [] Often cries [] Exhaustion [] Unable to work [] Unable to attend samaritan [] Unable to walk/stand [] Unable to read [] Unable to drive [] Unable to eat/drink [] Unable to sleep [] Unable to be with family [] Patient intubated [] Other: Summary patient seemed to be resting well Time spent with patient
--- NOTE | 2020-09-11 12:38 | P.PN_ITS ---
Subjective Subjective: Interval history: Denies any new complaints. PVCs and NSVT noted on telemetry. He undwerwent cath this morning Medications: Reviewed: Yes Medication Review Details: Current Medications Acetaminophen (Acetaminophen 325 Mg Tablet) 650 mg PO Q6H PRN PRN Reason: Mild/Mod Pain Or Temp >/= 101 Albuterol Sulfate (Albuterol 2.5 Mg/0.5 Ml Neb) 2.5 mg INHALATION Q4H.RESPI RATORY PRN PRN Reason: shortness of breath or wheezing Aspirin (Aspirin 81 Mg Chew Tablet) 81 mg PO DAILY@07 [facility] Last Admin: 09/09/20 06:03 Dose: 81 mg Documented by: Diltiazem HCl (Diltiazem 30 Mg Tablet) 30 mg PO Q6H PRN PRN Reason: HR>100 bpm Enoxaparin Sodium (Enoxaparin 100 Mg/Ml Syringe) 100 mg 1 mg/kg (100 mg) SUBCUT Q12H [facility] Last Admin: 09/09/20 06:03 Dose: 100 mg Documented by: Furosemide (Furosemide 10 Mg/Ml Sdv 4ml) 40 mg IVP BID@0600,1600 [facility] Last Admin: 09/09/20 06:08 Dose: 40 mg Documented by: Metoprolol Succinate (Metoprolol Succinate Er (24 Hr) 100 Mg Tablet) 100 mg PO QAM [facility] Last Admin: 09/09/20 08:12 Dose: 100 mg Documented by: Metoprolol Succinate (Metoprolol Succinate Er (24 Hr) 50 Mg Tablet) 50 mg PO 2100 [facility] Ondansetron HCl (Ondansetron 2 Mg/Ml Sdv 2 Ml) 4 mg IVP Q6H PRN PRN Reason: NAUSEA AND VOMITING Tamsulosin HCl (Tamsulosin 0.4 Mg Capsule) 0.4 mg PO DAILY [facility] Last Admin: 09/09/20 08:12 Dose: 0.4 mg Documented by: Vitals/I&O/Wt Last Vital Signs Temp 97.8 F 09/11/20 07:10 Pulse 95 09/11/20 10:30 Resp 20 H 09/11/20 10:30 BP 114/80 09/11/20 10:30 Pulse Ox 94 09/11/20 10:30 09/10/20 09/11/20 09/11/20 22:59 06:59 14:59 Intake Total 360 / 1046.25 Output Total 600 / 1700 350 / 350 Balance 360 / -53.75 -600 / -653.75 -350 / -350 Weight last 48 hrs Weight 227 lb 1.6 oz Weight 233 lb Physical Exam Narrative: EXAM NARRATIVE: Gen: NAD, sitting confortably in bed HEENT/Neck:Mild JVD, PERRL, No pallor or icterus RS: CTAB/L, No wheezing, rales or rhonchi CVS: S1, S2 irregular, Grade 3/6 SM+. No rub or gallop PA: soft, BS+, NT, ND. PATTERNMAKER WOOD: AAOx3, No FND Ext: trace bilateral lower leg and ankle edema, No cyanosis or clubbing Psych: Normal mood and affect Skin: No rashes or lesions noted Data : 09/11/20 04:29 09/11/20 04:29 Micro: Microbiology 09/09/20 13:50 Blood Culture - Preliminary Blood NEGATIVE TO DATE 09/09/20 14:00 Blood Culture - Preliminary Blood NEGATIVE TO DATE A&P Assessment and plan (1) New onset of congestive heart failure: Newly diagnosed congestive heart failure (LVEF ~20-25% on HARI) Nonischemic cardiomyopathy: Tachycardia induced cardiomyopathy is a possibility -Normal coronaries on cardiac catheterization with pulmonary capillary wedge of 34 -Continue metoprolol succinate 100 mg am and 50 mg PM. -Continue Lasix 40 mg twice a day and add spironolactone 12.5 mg daily. -will add entresto possibly tomorrow based on blood pressure. -I will discuss with him about LifeVest later this afternoon. He was groggy this morning when I attempted to talk to him. Status: Acute (2) Mitral valve regurgitation: s/p HARI with 3-4+ MR . -Secondary mitral regurgitation. - -Findings discussed with the patient and his and daughter. Status: Acute Qualifiers: Cardiac valve disease etiology: nonrheumatic Qualified Code(s): I34.0 - Nonrheumatic mitral (valve) insufficiency (3) Atrial fibrillation: -Initially rate control strategy was chosen however given concerns for ta chycardia induced cardiomyopathy, I will start him on amiodarone 400 mg twice a day. -No left atrial or left atrial appendage thrombus noted on HARI. -On metoprolol -Transition to Eliquis 5 mg twice a day this evening. Status: Acute Qualifiers: Atrial fibrillation type: persistent (not longstanding) Qualified Code(s): I48.19 - Other persistent atrial fibrillation (4) GERD (gastroesophageal reflux disease): Status: Acute Qualifiers: Esophagitis presence: esophagitis presence not specified Qualified Code(s): K21.9 - Gastro-esophageal reflux disease without esophagitis Additional A&P Information PVCs/NSVT: keep K>4 and magnesium >2. Hypokalemia : replaced Attestations Medical Necessity Statement*: Needs hospital stay for congestive heart f ailure, atrial fibrillation, mitral regurgitation and medication titration. Coding Level of Care Code Acute Plastics Worker for [facility] Fwd Diagnoses New onset of congestive heart failure I50.9 Mitral valve regurgitation I34.0 Cardiac valve disease etiology: nonrheumatic Atrial fibrillation I48.19 Atrial fibrillation type: persistent (not longstanding) GERD (gastroesophageal reflux disease) K21.9 Esophagitis presence: esophagitis presence not specified
[2020-09-11] MEDS: spironolactone 25 mg Tablet 12.5 MG PO (13:27)
--- NOTE | 2020-09-11 14:28 | PM.PN ---
Subjective Subjective: Interval history: No acute events overnight. On examination patient seen post HARI. On examination patient lying comfortably in bed. Denies any nausea, vomiting, headache, palpitation. Complaining of mild throat scratchiness. Currently on room air saturating 92%. Still not ambulating much. Medications: Reviewed: Yes Vitals/I&O/Wt Last Vital Signs Temp 97.8 F 09/11/20 07:10 Pulse 95 09/11/20 12:00 Resp 17 09/11/20 12:00 BP 116/89 09/11/20 12:00 Pulse Ox 96 09/11/20 12:00 09/10/20 09/11/20 09/11/20 22:59 06:59 14:59 Intake Total 360 / 1046.25 Output Total 600 / 1700 350 / 350 Balance 360 / -53.75 -600 / -653.75 -350 / -350 Weight last 48 hrs Weight 103.011 kg Weight 105.687 kg Physical Exam Narrative: EXAM NARRATIVE: General: No acute distress, AO x3 HEENT: PERRLA, pupils bilaterally equal and reactive Chest: Normal vesicular breath sounds, no added sounds, equal good air entry bilaterally CVS: S1-S2 irregularly irregular, pansystolic murmur at the apex radiating all the way to the posterior axillary line, , no tachycardia, no gallops, no rubs Abdomen: Soft, nontender, no organomegaly, bowel sounds present Neuro: No focal deficits, no facial deformity, AO x3, power 5/5 in all limbs Data : 09/11/20 04:29 09/11/20 04:29 Micro: Microbiology 09/09/20 13:50 Blood Culture - Preliminary Blood NEGATIVE TO DATE 09/09/20 14:00 Blood Culture - Preliminary Blood NEGATIVE TO DATE A&P Assessment and plan (1) Mitral valve regurgitation: New onset. HARI and cardiac catheterization results appreciated. Nonischemic/secondary in nature. Treatment plan discussed with Dr. Negro from cardiology. Plan for optimization of medication for next 3 months will follow-up as an outpatient to look for resolution of mitral regurgitation. Status: Acute Qualifiers: Cardiac valve disease etiology: nonrheumatic Qualified Code(s): I34.0 - Nonrheumatic mitral (valve) insufficiency (2) New onset of congestive heart failure: Secondary to above. Switch IV diuretics to oral. Daily weights. Strict input output charting. Fluid restriction 1500 cc. We will discuss with Dr. Negro for possible addition of Aldactone to medical treatment. TTE showing EF 35%, global left ventricular hypokinesis. Diastolic function could not be assessed due to A. fib. Severe MVR. EF worsened down to 35% compared to echocardiogram in 2015. At this time continue to optimize volume status. TSH is normal. Status: Acute (3) New onset a-fib: Mostly rate controlled. Continue with metoprolol. Amiodarone added and Cardizem stopped as per cardiology recommendations. We will plan to switch over to oral anticoagulation from full dose Lovenox post procedure now. Status: Acute (4) Elevated d-dimer: VQ scan low probability for PE. Status: Acute (5) Transaminitis: Resolving with optimization of volume status. 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 Continue optimizing volume status, IV diuretics. Monitor liver parameters. Will need follow-up. Status: Acute (6) Elevated troponin: Suspect this is secondary to arrhythmia, but there is possibility of underlying coronary disease, demand ischemia secondary to A. fib with RVR. No chest pain. Worsening of ejection fraction down to 35%. Would benefit from additional risk stratification once a better volume optimized. Status: Acute Additional A&P Information Recent sepsis and UTI Recent pneumonia HTN BPH: Started tamsulosin GERD Full code. Eliquis will also help with DVT prophylaxis. Cardiac diet, fluid restriction up to 1500 cc. PT evaluation appreciated. Discharge plan: After further fluid optimization and medical optimization we will plan to discharge in next 24 to 48 hours with advised to follow-up with cardiology as an outpatient. Patient's care plan discussed in detail with the patient. Verbalized understanding. All questions were answered. Attestations Medical Necessity Statement*: Patient requires further hospitalization for management of congestive heart failure in setting of new onset mitral valve regurgitation and atrial fibrillation. Time Spent in Patient Care: Greater than 35 minutes (>than 50% of time spent in counselling and/or direct pt care on unit). Coding Level of Care Code Acute Disc Pad Grinding Machine Feeder for [facility] Fwd Diagnoses Mitral valve regurgitation I34.0 Cardiac valve disease etiology: nonrheumatic New onset of congestive heart failure I50.9 New onset a-fib I48.91 Elevated d-dimer R79.89 Transaminitis R74.01 Elevated troponin R77.8
[2020-09-11] MEDS: metoprolol succinate ER (24 HR) 50 mg Tablet PO (20:49)
[2020-09-11] MEDS: apixaban 5 mg Tablet PO (20:49)
--- NOTE | 2020-09-11 21:27 | PC.NURSE ---
Bedside report received from Niyah Mason RN. Pt resting in bed watching TV. Alert & Orientated x4. Cath Incision site shows no sign of redness or hematoma. Patient voices no complaints of pain or other needs at this time. Nurse will continue to monitor.
[2020-09-12] VITALS (9 sets, daily range): BP systolic 98–106; BP diastolic 73–83; PULSE 81–106; RESP 12–21; TEMP 37–37.4; O2SAT 93–97
[2020-09-12] MEDS: acetaminophen 325 mg Tablet 650 MG PO ×2 (03:13→13:58)
[2020-09-12 05:38] LABS: Basophils % 0.3 %; Eosinophils % 0.1 %; Hematocrit 37.2 % (42.0-52.0); Hemoglobin 12.4 g/dL (11.7-16.6); Lymphocytes # 0.8 10^3/uL (0.8-4.8); Lymphocytes % 11.3 %; Mean Corpuscular HGB Conc 33.3 g/dL (30.0-36.0); Mean Corpuscular Hemoglobin 32.6 pg (28.0-34.0); Mean Corpuscular Volume 97.9 fL (80-94); Mean Platelet Volume 11.2 fL (7.4-10.4); Monocytes # 0.7 10^3/uL (0.2-0.9); Monocytes % 10.2 %; Neutrophils # 5.43 10^3/uL (1.8-7.7); Neutrophils % 77.7 %; Nucleated Red Blood Cells % 0 %; Platelet Count 140 10^3/cmm (130-400); Red Cell Distribution Width 14.1 % (12.1-15.1)
[2020-09-12 05:45] LABS: Alanine Aminotransferase 28 U/L (0-41); Albumin Level 3.3 g/dL (3.5-5.2); Alkaline Phosphatase 58 IU/L (40-130); Anion Gap 10.9 (5-19); Aspartate Amino Transferase 24 U/L (0-40); Blood Urea Nitrogen 21 mg/dL (8-23); Calcium 7.8 mg/dL (8.5-10.5); Carbon Dioxide 28 mmol/L (22-29); Chloride 94 mmol/L (98-107); Creatinine Clr Calc Pharmacy 71.6801; Globulin 2.6 g/dL (1.3-4.6); Glucose 124 mg/dL (65-115); Osmolality Calculated 272 mOsm/kg (285-295); Potassium 3.9 mmol/L (3.5-5.1); Sodium 129 mmol/L (136-145); Total Bilirubin 0.9 mg/dL (0.15-1.2); Total Protein 5.9 g/dL (6.6-8.7)
[2020-09-12] MEDS: metoprolol succinate ER (24 HR) 100 mg Tablet PO (06:13)
--- NOTE | 2020-09-12 06:39 | PC.NURSE ---
End of shift assessment Pt rested well during the night. Woke up around 3 am with left ankle pain. Tylenol administered. Contacted Dr. Jackson, awaiting orders. Patient is A & O x4 this morning. Voices no other needs at this time.
--- NOTE | 2020-09-12 07:21 | XR_ITS ---
WS: [id number] Left ankle, 2 views, 09/11/2020 Clinical Data: left ankle pain Comparison: None. Findings: No fractures or dislocations are seen. The ankle mortise is normal. The talus and calcaneus are unrem arkable. No soft tissue swelling over the medial or lateral malleolus is seen. There is an Achilles spur. XR/XR ankle LT 2V [id number] Impression: Negative left ankle.
--- NOTE | 2020-09-12 08:03 | PC.SOCIAL ---
IMM Update Pg. 2 of IMM updated and reviewed with patient who verbalized understanding. Copy provided.
[2020-09-12 08:11] LABS: NT Pro B Type Natriuretic Pept 3467 pg/mL (0-450)
[2020-09-12] MEDS: tamsulosin 0.4 mg Capsule PO (08:20)
[2020-09-12] MEDS: losartan 50 mg Tablet 12.5 MG PO (08:20)
[2020-09-12] MEDS: spironolactone 25 mg Tablet 12.5 MG PO (08:20)
[2020-09-12] MEDS: amiodarone 200 mg Tablet 400 MG PO ×2 (08:20→17:05)
[2020-09-12] MEDS: apixaban 5 mg Tablet PO (08:20)
[2020-09-12] MEDS: FUROsemide 20 mg Tablet PO (08:20)
--- NOTE | 2020-09-12 10:32 | PC.CHAP ---
Pastoral Care Encounter/Spiritual Assessment Type of Contact [] Declined electronic commerce specialist visit [] Patient/Family/Request visit [] Outpatient visit [] Follow-up visit [] Physician referral [] Code/Alert [x] Routine visit [] Staff referral [] Actively dying [] Patient sleeping [] Family support [] [] Out of room [] Palliative care [] [x] Receiving care in room [] Pre-surgical visit [] Trauma [x] Long length of stay [] ICU visit [] Other: Relational/Emotional Strength [x] Patient feels connected with others/family/visitors/staff [] Distress [] Loneliness/isolation [] Abandonment Spirituality of Patient [x] Person of Emily [] Attends Confucianist of their Emily [x] Believes in Prayer [] Reads Bible or Pentecostalism materials [] There are Spiritual issues to be addressed Contour Grinder Interventions [x] Prayer [x] Active listening [x] Non-anxious presence [x] Spiritual/emotional support [] Crisis/trauma care [x] Spiritual counseling [] Bereavement support [] Provided bereavement packet [] Provided Bible/devotional materials [] Provided toy/stuffed animal, coloring book to patient or family member [] Provided Communion [] Anointing/[place] [] Salvation [x] Completed spiritual assessment [] Other: Impact on Illness or Injury [] Angry [] Fearful [x] Anxious [] Often cries [] Exhaustion [] Unable to work [] Unable to attend muslim [] Unable to walk/stand [] Unable to read [] Unable to drive [] Unable to eat/drink [] Unable to sleep [] Unable to be with family [] Patient intubated [] Other: Summary Fluid on lungs, inlots of pain, tests doen't know, waiting on dortor report, has a good attitude, wants t2o go hoeme soon Time spent with patient 10 mins
--- NOTE | 2020-09-12 12:38 | P.PN_ITS ---
Subjective Subjective: Interval history: Denies any new complaints. PVCs and NSVT noted on telemetry. He undwer went cath yesterday morning. He is complaining of left ankle pain and difficulty in weightbearing today. Medications: Reviewed: Yes Medication Review Details: Current Medications Acetaminophen (Acetaminophen 325 Mg Tablet) 650 mg PO Q6H PRN PRN Reason: Mild/Mod Pain Or Temp >/= 101 Albuterol Sulfate (Albuterol 2.5 Mg/0.5 Ml Neb) 2.5 mg INHALATION Q4H.RESPIRATORY PRN PRN Reason: shortness of breath or wheezing Aspirin (Aspirin 81 Mg Chew Tablet) 81 mg PO DAILY@07 [facility] Last Admin: 09/09/20 06:03 Dose: 81 mg Documented by: Diltiazem HCl (Diltiazem 30 Mg Tablet) 30 mg PO Q6H PRN PRN Reason: HR>100 bpm Enoxaparin Sodium (Enoxaparin 100 Mg/Ml Syringe) 100 mg 1 mg/kg (100 mg) SUBCUT Q12H [facility] Last Admin: 09/09/20 06:03 Dose: 100 mg Documented by: Furosemide (Furosemide 10 Mg/Ml Sdv 4ml) 40 mg IVP BID@0600,1600 [facility] Last Admin: 09/09/20 06:08 Dose: 40 mg Documented by: Metoprolol Succinate (Metoprolol Succinate Er (24 Hr) 100 Mg Tablet) 100 mg PO QAM [facility] Last Admin: 09/09/20 08:12 Dose: 100 mg Documented by: Metoprolol Succinate (Metoprolol Succinate Er (24 Hr) 50 Mg Tablet) 50 mg PO 2100 [facility] Ondansetron HCl (Ondansetron 2 Mg/Ml Sdv 2 Ml) 4 mg IVP Q6H PRN PRN Reason: NAUSEA AND VOMITING Tamsulosin HCl (Tamsulosin 0.4 Mg Capsule) 0.4 mg PO DAILY [facility] Last Admin: 09/09/20 08:12 Dose: 0.4 mg Documented by: Vitals/I&O/Wt Last Vital Signs Temp 98.8 F 09/12/20 11:08 Pulse 88 09/12/20 11:08 Resp 15 09/12/20 11:08 BP 99/81 09/12/20 11:08 Pulse Ox 94 09/12/20 11:08 09/11/20 09/12/20 09/12/20 22:59 06:59 14:59 Intake Total 480 / 720 100 / 820 720 / 720 Output Total 475 / 1375 450 / 1825 400 / 400 Balance 5 / -655 -350 / -1005 320 / 320 Weight last 48 hrs Weight 225 lb 8 oz Weight 227 lb 1.6 oz Physical Exam Narrative: EXAM NARRATIVE: Gen: NAD, sitting confortably in bed HEENT/Neck:Mild JVD, PERRL, No pallor or icterus RS: CTAB/L, No wheezing, rales or rhonchi CVS: S1, S2 irregular, Grade 3/6 SM+. No rub or gallop PA: soft, BS+, NT, ND. ENGRAVINGS POLISHER: AAOx3, No FND Ext: trace-1+ bilateral ankle edema, No cyanosis or clubbing, peripheral pulses bilaterally. -Limited dorsiflexion and plantarflexion of ankle joint because of left ankle pain. Psych: Normal mood and affect Skin: No rashes or lesions noted Data : 09/12/20 03:59 09/12/20 03:59 A&P Assessment and plan (1) New onset of congestive heart failure: Newly diagnosed congestive heart failure (LVEF ~20-25% on HARI) Dilated Cardiomyopathy ACC/AHA Stage C NYHA 3 : Possible etiology tachycardia induced. -Plan for life vest and maximally tolerated GDMT for 3 month and follow up echo to assess MR and LV function. -Patient is agreeable with the plan and all his questions were answered. -Normal coronaries on cardiac catheterization with pulmonary capillary wedge of 34 -Continue Lasix 20 mg a.m. and 40 mg p.m today. -Stable from cardiac standpoint to be discharged. -Continue metoprolol succinate 100 mg am and 50 mg PM and spironolactone 12.5 mg daily. -May be discharged on Lasix 40 mg p.o. twice daily and low-dose losartan given soft blood pressure. -Once he is fitted with LifeVest later today stable from cardiac standpoint to go home. -I had a long discussion with patient about importance of monitoring blood pressure, heart rate, weight and salt and fluid restriction to 48 ounces per day -Follow-up with Ms. Carrasco in [facility] in 1 week for site check BMP and EKG. -Follow-up with me in 1 month. Status: Acute (2) Mitral valve regurgitation: s/p HARI with 3-4+ MR . -Secondary mitral regurgitation. -Findings discussed with the patient. Status: Acute Qualifiers: Cardiac valve disease etiology: nonrheumatic Qualified Code(s): I34.0 - Nonrheumatic mitral (valve) insufficiency (3) Atrial fibrillation: -Initially rate control strategy was chosen however given concerns for tachycardia induced cardiomyopathy -No left atrial or left atrial appendage thrombus noted on HARI. -On metoprolol -Transitioned to Eliquis 5 mg twice a day -Amiodarone 400 mg twice a day for 5 more days and then 200 mg twice a day for 10 days and 20 mg daily after that. Status: Acute Qualifiers: Atrial fibrillation type: persistent (not longstanding) Qualified Code(s): I48.19 - Other persistent atrial fibrillation (4) GERD (gastroesophageal reflux disease): Status: Acute Qualifiers: Esophagitis presence: esophagitis presence not specified Qualified Code(s): K21.9 - Gastro-esophageal reflux disease without esophagitis Additional A&P Information PVCs/NSVT: keep K>4 and magnesium >2. Hypokalemia : replaced Left ankle pain. Attestations Medical Necessity Statement*: Stable from cardiac standpoint to be discharged Time Spent in Patient Care: Greater than 35 minutes (>than 50% of time spent in counselling and/or direct pt care on unit) . Coding Level of Care Code Acute Price Clerk for Chg Fwd Diagnoses New onset of congestive heart failure I50.9 Mitral valve regurgitation I34.0 Cardiac valve disease etiology: nonrheumatic Atrial fibrillation I48.19 Atrial fibrillation type: persistent (not longstanding) GERD (gastroesophageal reflux disease) K21.9 Esophagitis presence: esophagitis presence not specified
[2020-09-12] MEDS: FUROsemide 40 mg Tablet PO (13:44)
--- NOTE | 2020-09-12 15:48 | P.DS_ITS ---
Discharge Providers Date of Admission: 09/03/20 17:09 Date of Discharge: September 12, 2020 Attending Provider at Admission: Yobani Murphy Attending Provider at Discharge: Bryce Lama MD Consults: Cardiology: Dr. Negro Primary Care Provider: Marielena Dunn MD Diagnoses at Discharge Discharge Diagnosis (1) New onset of congestive heart failure: Status: Acute Permanent problem details: Severely increased left ventricular cavity size. Severely decreased left ventricular systolic function. Left ventricular ejection fraction is estimated at 20-25%. Severe global hypokinesis. (2) Mitral valve regurgitation: Status: Acute Qualifiers: Cardiac valve disease etiology: nonrheumatic Qualified Code(s): I34.0 - Nonrheumatic mitral (valve) insufficiency (3) Atrial fibrillation: Status: Acute Qualifiers: Atrial fibrillation type: persistent (not longstanding) Qualified Code(s): I48.19 - Other persistent atrial fibrillation (4) GERD (gastroesophageal reflux disease): Status: Acute Qualifiers: Esophagitis presence: esophagitis presence not specified Qualified Code(s): K21.9 - Gastro-esophageal reflux disease without esophagitis Reason for Visit Reason for Visit: SENT BY PCP/FLUID ON LUNGS Hospital Course Hospital Course Very pleasant 79-year-old gentleman with past medical history of BPH, hypertension, in the last several months requiring multiple healthcare encounters including treatment of sepsis due to urinary tract infection, subsequently separate episode of care for pneumonia, and today on follow-up with primary care provider on repeat chest x-ray was noted to have congestive changes suggestive of CHF, as well as with progressive lower extremity edema, and recently orthopnea in the last several days. Last night orthopnea appears to have been better for the first time he was able to sleep in his bed. He was referred to the hospital by his primary care provider due to what appears to be new onset congestive heart failure. On evaluation in ER he is also noted to have new onset atrial fibrillation with RVR. He denies chest pain or pressure. Denies any strokelike symptoms. Recently has been going through a difficult time with his daughter's health who has cancer and whom he has been having to take her treatments to [facility]. Patient is admitted to the hospital for treatment of new onset congestive heart failure and atrial fibrillation. He was treated on IV diuretic treatment and antiarrhythmics. Echocardiogram was done which showed EF of 35% with global LV hypokinesia with severe mitral valve regurgitation. Severe mitral valve regurgitation worsening to patient's diagnosis. Cardiology was consulted. Patient underwent HARI to quantify mitral valve regurgitation was found to be secondary in nature. To rule out ischemic cause of mitral valve regurgitation patient underwent left and right heart catheterization which ruled out ischemia. Patient's diuretic therapy was further adjusted. Patient responded well to the treatment and day of discharge he was ambulating in the hallway on room air. It was discussed with him in detail about the importance of monitoring blood pressure, heart rate, weight and salt and fluid restriction to 48 ounces per day. Life vest was also arranged for patient. He has been discharged hemodynamically stable condition with advised to follow- up with cardiology in 1 week for BMP and EKG with Dr. Negro in 1 month. Physical Exam Narrative: EXAM NARRATIVE: General: No acute distress, AO x3 HEENT: PERRLA, pupils bilaterally equal and reactive Chest: Normal vesicular breath sounds, no added sounds, equal good air entry bilaterally CVS: S1-S2 irregularly irregular, pansystolic murmur at the apex radiating all the way to the posterior axillary line, , no tachycardia, no gallops, no rubs Abdomen: Soft, nontender, no organomegaly, bowel sounds present Neuro: No focal deficits, no facial deformity, AO x3, power 5/5 in all limbs Discharge Data Data Completed and Pending: Completed Studies During Hospitalization Category Date Time Status XR ankle LT 2V 73 600 Routine Exams 09/12/20 07:21 Completed XR chest 1V marcial ble [id number] Stat Exams 09/03/20 12:28 Completed NM pul vent and p erfus* [id number] Routi ne Nuc Med 09/04/20 17:09 Completed CV echo complete* [id number] Routine Ultrasound 09/04/20 05:00 Completed CV echo transesop hageal [id number] Routi ne Ultrasound 09/10/20 07:00 Completed Pending at discharge Category Date Time Status AUTOMOTIVE SERVICES MANAGER request for service Routin e Exams 09/11/20 07:37 Taken Blood Culture Sta t Lab 09/09/20 13:50 Results Labs from last 24 hours 09/12/20 09/12/20 09/12/20 03:59 03:59 03:59 WBC 7.0 RBC 3.80 L Hgb 12.4 Hct 37.2 L MCV 97.9 H MCH 32.6 MCHC 33.3 RDW 14.1 Plt Count 140 MPV 11.2 H Neut % (Auto) 77.7 Lymph % (Auto) 11.3 [place] % (Auto) 10.2 Eos % (Auto) 0.1 Baso % (Auto) 0.3 Neut # (Auto) 5.43 Lymph # (Auto) 0.8 [place] # (Auto) 0.7 Eos # (Auto) 0.0 Baso # (Auto) 0.0 Nucleated RBC % (a uto) 0 Nucleated RBCs # 0.0 Sodium 129 L Potassium 3.9 Chloride 94 L Carbon Dioxide 28 Anion Gap 10.9 BUN 21 Creatinine 1.0 GFR Calculation Not Reportable Glucose 124 H Calculated Osmolal ity 272 L Calcium 7.8 L Total Bilirubin 0.9 AST 24 ALT 28 Alkaline Phosphata se 58 NT-Pro-B Natriuret Pep 3467 H Total Protein 5.9 L Albumin 3.3 L Globulin 2.6 Addt'l Data from Hospital Stay: Laboratory Results WBC 7.0 10^3/uL (4.0- 10.0) 09/12/20 03:59 RBC 3.80 10^6/uL (4.1 -5.3) L 09/12/20 03:59 Hgb 12.4 g/dL (11.7-1 6.6) 09/12/20 03:59 Hct 37.2 % (42.0-52.0 ) L 09/12/20 03:59 MCV 97.9 fL (80-94) H 09/12/20 03:59 MCH 32.6 pg (28.0-34. 0) 09/12/20 03:59 MCHC 33.3 g/dL (30.0-3 6.0) 09/12/20 03:59 RDW 14.1 % (12.1-15.1 ) 09/12/20 03:59 Plt Count 140 10^3/cmm (130 -400) 09/12/20 03:59 MPV 11.2 fL (7.4-10.4 ) H 09/12/20 03:59 Neut % (Auto) 77.7 % 09/12/20 03:59 Lymph % (Auto) 11.3 % 09/12/20 03:59 [place] % (Auto) 10.2 % 09/12/20 03:59 Eos % (Auto) 0.1 % 09/12/20 03:59 Baso % (Auto) 0.3 % 09/12/20 03:59 Neut # (Auto) 5.43 10^3/uL (1.8 -7.7) 09/12/20 03:59 Lymph # (Auto) 0.8 10^3/uL (0.8- 4.8) 09/12/20 03:59 [place] # (Auto) 0.7 10^3/uL (0.2- 0.9) 09/12/20 03:59 Eos # (Auto) 0.0 10^3/uL (0.0- 0.8) 09/12/20 03:59 Baso # (Auto) 0.0 10^3/uL (0.0- 0.1) 09/12/20 03:59 Nucleated RBC % (a uto) 0 % 09/12/20 03:59 Nucleated RBCs # 0.0 /100WBC 09/12/20 03:59 D-Dimer 3.87 ug/mIFEU (0- 0.59) H 09/03/20 13:00 Sodium 129 mmol/L (136-1 45) L 09/12/20 03:59 Potassium 3.9 mmol/L (3.5-5 .1) 09/12/20 03:59 Chloride 94 mmol/L (98-107 ) L 09/12/20 03:59 Carbon Dioxide 28 mmol/L (22-29) 09/12/20 03:59 Anion Gap 10.9 (5-19) 09/12/20 03:59 BUN 21 mg/dL (8-23) 09/12/20 03:59 Creatinine 1.0 mg/dL (0.7-1. 2) 09/12/20 03:59 GFR Calculation Not Reportable 09/12/20 03:59 Glucose 124 mg/dL (65-115 ) H 09/12/20 03:59 Calculated Osmolal ity 272 mOsm/kg (285- 295) L 09/12/20 03:59 Calcium 7.8 mg/dL (8.5-10 .5) L 09/12/20 03:59 Magnesium 2.0 mg/dL (1.7-2. 3) 09/11/20 04:29 Iron 78 ug/dL (59-158) 09/09/20 03:48 TIBC 248 mcg/dl 09/09/20 03:48 % Saturation 31.4 % (20-50) 09/09/20 03:48 Unsat Iron Binding 170 ug/dL (112-34 7) 09/09/20 03:48 Total Bilirubin 0.9 mg/dL (0.15-1 .2) 09/12/20 03:59 AST 24 U/L (0-40) 09/12/20 03:59 ALT 28 U/L (0-41) 09/12/20 03:59 Alkaline Phosphata se 58 IU/L (40-130) 09/12/20 03:59 Troponin T Baselin e 43 ng/L (0-15) H 09/03/20 13:00 Troponin T 120 Min [place] 42.24 ng/L (0-15) H 09/03/20 15:00 Delta Troponin T -0.76 ABS# (0-10) L 09/03/20 15:00 Troponin T Hi Sens 6Hr 43.19 ng/L (0-15) H 09/03/20 19:15 Troponin T Hi Sens 6Hr Delta 0.19 ng/L (0-12) 09/03/20 19:15 NT-Pro-B Natriuret Pep 3467 pg/mL (0-450 ) H 09/12/20 03:59 Total Protein 5.9 g/dL (6.6-8.7 ) L 09/12/20 03:59 Albumin 3.3 g/dL (3.5-5.2 ) L 09/12/20 03:59 Globulin 2.6 g/dL (1.3-4.6 ) 09/12/20 03:59 TSH 2.45 uIU/mL (0.27 -4.20) 09/03/20 13:00 SARS-CoV-2 Ag (Rap id) Negative (Negati ve) 09/09/20 16:30 Impressions Chest X-Ray 09/03/20 12:28 IMPRESSION: No acute findings. Pulmonary Perfusion Imaging 09/04/20 17:09 IMPRESSION: Low probability pulmonary embolism. Ankle X-Ray 09/12/20 07:21 Impression: Negative left ankle. Echocardiogram done on September 04, 2020 CONCLUSIONS 1-Moderately increased left ventricular cavity size. Severely decreased left ventricular systolic function. Left ventricular ejection fraction is estimated at 35 %. Global left ventricular hypokinesis. The presence of atrial fibrillation diastolic function cannot be assessed accurately. 2-Structurally normal aortic valve without significant sclerosis or stenosis. There is no aortic regurgitation. 3-Moderately thickened mitral valve. Mild mitral annular calcification. No mitral valve stenosis. Severe mitral valve regurgitation. 4-There is no pericardial effusion. 5-The right ventricle is normal in size and function. RVSP could not be calculated due to incomplete tricuspid regurgitation velocity profile. 6-Right atrial pressure is around 5 mm of mercury. 7-When compared to the prior echocardiogram dated 28 November 2014 there is worsening of the left ventricle ejection fraction from normal 54% to severely depressed 35% there appeared to be severe mitral and moderate tricuspid valve regurgitation now Francis Granados MD (Electronically Signed) Final Date: 04 September 2020 HARI done on September 11 CONCLUSIONS 1. Severely increased left ventricular cavity size. Severely decreased left ventricular systolic function. Left ventricular ejection fraction is estimated at 20-25%. Severe global hypokinesis. 2. Mildly decreased right ventricular systolic function. 3. Moderate-severe mitral valve regurgitation. 4. Pulmonary artery pressure estimated at 33 mm Hg. 5. No left atrial or atrial appendage thrombus. 6. Mild aortic valve regurgitation. Ofe Negro MD (Electronically Signed) Final Date: 11 September 2020 20:18 Vitals: Last Vital Signs Temp 98.8 F 09/12/20 11:08 Pulse 88 09/12/20 11:08 Resp 15 09/12/20 11:08 BP 99/81 09/12/20 11:08 Pulse Ox 94 09/12/20 11:08 Discharge Plan Discharge Patient Disposition: Home Condition: Stable Prescriptions: New Pacerone 200 mg Tablet 400 mg PO BID Qty: 30 RF: 0 Eliquis 5 mg Tablet 5 mg PO BID@0900,2100 Qty: 60 RF: 0 furosemide 20 mg Tablet 20 mg PO 0800 Qty: 30 RF: 0 furosemide 40 mg Tablet 40 mg PO 1400 Qty: 30 RF: 0 losartan 50 mg Tablet 12.5 mg PO DAILY Qty: 30 RF: 0 metoprolol succinate 50 mg Tablet Extended Release 24 Hr 50 mg PO 2100 Qty: 30 RF: 0 metoprolol succinate 100 mg Tablet Extended Release 24 Hr 100 mg PO QAM Qty: 30 RF: 0 spironolactone 25 mg Tablet 12.5 mg PO DAILY Qty: 30 RF: 0 tamsulosin 0.4 mg Capsule 0.4 mg PO DAILY Qty: 30 RF: 0 diclofenac sodium 1 % gel 2 g topical QID PRN (Reason: pain (scale score 1-3)) Qty: 100 RF: 0 tramadol 50 mg tablet 50 mg PO Q8H PRN (Reason: pain) Qty: 14 RF: 0 Continued multivitamin [Daily Multi-Vitamin] Tablet 1 tab PO DAILY@07 RF: 0 promethazine-DM 6.25-15 mg/5 mL syrup 5 ml PO Q6H PRN (Reason: cough) Qty: 160 RF: 0 albuterol sulfate 2.5 mg /3 mL (0.083 %) solution for nebulization 2.5 mg inhalation Q4H PRN (Reason: shortness of breath or wheezing) Qty: 90 RF: 1 Discontinued aspirin 81 mg Tablet,Chewable 81 mg PO DAILY@07 RF: 0 lisinopril 20 mg tablet 20 mg PO DAILY@20 RF: 0 amlodipine 5 mg tablet 5 mg PO DAILY@07 RF: 0 Discharge Orders: Discharge Order (Routine); Ordered 09/12/20 Ordered By: Bryce Lama Referrals: Ariadna Carrasco FNP [Nurse Practitioner] - 1 week Ofe Negro MD [Physician] - 1 month Marielena Dunn MD [Primary Care Provider] - 1 week Discharge Diet: Cardiac and Low Salt Discharge Activity: Resume usual activity Patient Instructions: Opioid Safety Activity Restrictions/Additional Instructions: monitoring blood pressure, heart rate, weight and salt and fluid restriction to 48 ounces per day -Follow-up with Ms. Carrasco in [facility] in 1 week for site check BMP and EKG. Discharge Attestations Time Spent in Discharge Care*: greater than 30 min Specific Discharge Activities: educating patient, educating and/or supporting family/caregiver, discussing with pcp/other providers, discussing with field nurse case manager/social workers/dc planners, documenting/other paperwork and evaluating patient/reviewing data Status at Discharge: Cognitive status at discharge: cognitively intact , Behavioral status at discharge: cooperative , Functional status at discharge: independent ambulation Overall status at discharge: patient has a new baseline Quality Metrics Clinical Quality Measures During this hospital stay, did patient experience: None Coding Level of Care Code Acute Chg FW DC note Diagnoses New onset of congestive heart failure I50.9 Mitral valve regurgitation I34.0 Cardiac valve disease etiology: nonrheumatic Atrial fibrillation I48.19 Atrial fibrillation type: persistent (not longstanding) GERD (gastroesophageal reflux disease) K21.9 Esophagitis presence: esophagitis presence not specified
== END 2020-09-12 18:50 | disposition home or self-care (01) | DRG 287 ==
LOC: ER 15:02 → CSU 16:14
PROVIDERS: Internal Medicine Cardiovascular Disease; Admitting Provider Internal Medicine; Emergency Provider Family Medicine; PCP Family Medicine; Visit Provider Student in an Organized Health Care Education/Training Program
PROC: B24BZZ4 Ultrasonography of Heart with Aorta, Transesophageal (ICD-10-PCS; CPT 93312; principal; 2020-09-10 07:00)
PROC: 4A023N8 Measurement of Cardiac Sampling and Pressure, Bilateral, Percutaneous Approach (ICD-10-PCS; principal; 2020-09-11 08:30)
DX: I11.0 Hypertensive heart disease with heart failure (principal); I50.41 Acute combined systolic (congestive) and diastolic (congestive) heart failure; Z87.440 Personal history of urinary (tract) infections; Z87.01 Personal history of pneumonia (recurrent); I48.91 Unspecified atrial fibrillation; N40.0 Benign prostatic hyperplasia without lower urinary tract symptoms; K21.9 Gastro-esophageal reflux disease without esophagitis; E55.9 Vitamin D deficiency, unspecified; Z87.891 Personal history of nicotine dependence; I34.0 Nonrheumatic mitral (valve) insufficiency; E87.6 Hypokalemia; E83.42 Hypomagnesemia; I42.0 Dilated cardiomyopathy
CPT/HCPCS: 36415; 71045; 71046; 73600; 78014; 80048; 80053; 83540; 83550; 83735; 83880; 84443; 84484; 85025; 85378; 87040; 87426; 93005; 93306; 93312; 93320; 93325; 93456; 94664; 96372; 96374; 96375; 97161; 97530; 99285; A9540; A9567; C1751; C1769; C1887; C1894; J1200; J1644; J1650; J1940; J2250; J2370; J2704; J3010; J3475; J3490; J7030; Q9967

== ENCOUNTER → 2020-09-13 13:59 | Outpatient (BNVA) | payer MEDICARE, SELFPAY | PROVIDERS: PCP Family Medicine; Visit Provider Nurse Practitioner Family | DX: M79.672 Pain in left foot (principal) | CPT/HCPCS: 73630; 84550 ==

== ENCOUNTER → 2020-09-19 15:20 | Outpatient (BNVA) | payer MEDICARE, SELFPAY | PROVIDERS: PCP Family Medicine; Visit Provider Nurse Practitioner Family | DX: I48.91 Unspecified atrial fibrillation (principal); I50.9 Heart failure, unspecified | CPT/HCPCS: 80048 ==

== ENCOUNTER → 2020-10-16 16:17 | Outpatient (BNVA) | payer MEDICARE, SELFPAY | PROVIDERS: PCP Family Medicine; Visit Provider Internal Medicine Cardiovascular Disease | DX: I50.9 Heart failure, unspecified (principal); I48.91 Unspecified atrial fibrillation; I10 Essential (primary) hypertension | CPT/HCPCS: 80053; 84439; 84443; 84481 ==

== ENCOUNTER → 2020-10-31 14:05 | Outpatient (BNVA) | payer MEDICARE, SELFPAY | PROVIDERS: PCP Family Medicine; Visit Provider Internal Medicine Cardiovascular Disease | DX: Z01.818 Encounter for other preprocedural examination (principal); Z20.822 Contact with and (suspected) exposure to COVID-19 | CPT/HCPCS: 87635 ==

== ENCOUNTER 2020-11-06 14:38 | Day surgery (SDC) | payer MEDICARE, SELFPAY ==
[2020-11-06 11:25] VITALS: BP 102/75; PULSE 85; RESP 18; TEMP 36.8; O2SAT 95
[2020-11-06 11:38] VITALS: BMI 27.1
--- NOTE | 2020-11-06 12:00 | ANES.PREANE2 ---
Pre-Anesthetic Assessment Pre-Anesthetic Assessment: Height/Weight: Height 1.83 m Weight 90.718 kg Temp Pulse Resp BP Pulse Ox 98.3 F 85 18 102/75 95 11/06/20 11:25 11/06/20 11:25 11/06/20 11:25 11/06/20 11:25 11/06/20 11:25 Preop Diagnosis: MR assessment new onset atrial fibrillation. Heart failure Proposed Procedure: Operation Date: 11/06/20 12:00 Proposed Procedures p Cardioversion(Not Applicable) - Ofe Negro MD Familial anesthetic complications: none Was Beta Bell taken within 24 hours: Yes Was Clonidine taken within 24 hours: N/A Last intake: 2300 Last Intake: 23:00 Social: Social History: No alcohol and No tobacco Exam: Pre-Anes Outpt Exam: alert and oriented x 3 Airway: Submandibular: WNL Cervical ROM: WNL MP: 2 Pulmonary: Pulmonary: None reported CV/HEM: CV/HEM: Afib and Palp Comments: cardiomyopathy : : None reported Hepatic: Hepatic: None reported GI: GI: None reported Metabolic: Metabolic: None reported Musc/skel: Musc/skel: OA/DJD Neuropsych: Neuropsych: None reported Anesthetic Plan: ASA status: 4 Anesthesia: Anesthesia Evaluation and MAC Risk of > 500 ml blood loss (7ml/kg in children): No PFSH Anesthesia PFSH: Medical History (Updated 10/17/20 @ 07:44 by Ofe Negro MD) BPH (benign prostatic hyperplasia) GERD (gastroesophageal reflux disease) Hx of gout Hypertension Mitral valve regurgitation Sepsis UTI (urinary tract infection) Vitamin D deficiency Surgical History Hx of colonoscopy (~2010) Hx of foot surgery Hx of hemorrhoidectomy Hx of knee surgery Hx of neck surgery Hx of rotator cuff surgery Family History Mother , age 93 Alzheimer disease Father , age 85 Cancer colon Social History Smoking and tobacco status: former smoker Quit status (tobacco): has quit using tobacco Former quit date comment: pipe in high school Second hand smoke exposure: No Alcohol intake: never Lives independently: Yes Household members: spouse Marital status: Current occupational status: employed History of recent travel: No Current gender identity: Male Data Anesthesia Cardiac Studies: No Data to Display
--- NOTE | 2020-11-06 12:09 | ECG_ITS ---
[facility] Test Date: 2020-11-06 Pat Name: Mars Reeder Department: Room: Gender: Male Emergency Planner: : 1940 Requested By: Ofe Negro Order Number: [id number] Librado MD: Bette Rangel M.D. Measurements Intervals [place] Plane Rate: 85 P: ND: QRS: -22 QRSD: 135 T: 109 QT: 409 QTc: 487 Interpretive Statements ATRIAL FIBRILLATION BORDERLINE LEFT AXIS DEVIATION [QRS AXIS < -20] INTRAVENTRICULAR CONDUCTION DELAY [130+ ms QRS DURATION] WARNING: DATA QUALITY MAY AFFECT INTERPRETATION Compared to ECG 09/03/2020 19:30:23 Ventricular premature complex(es) no longer present Aberrant conduction of supraventricular beat(s) no longer present T-wave abnormality no longer present Electronically Signed On 11-06-2020 17:46:09 CDT by Bette Rangel M.D. [id number] f
--- NOTE | 2020-11-06 12:18 | PM.ACPR ---
Procedure/Consent Time out: Time Out Performed: Yes Consent: Consent for Procedure: Consent obtained from patient, Risks & Benefits reviewed and Agrees to proceed with procedure Procedure Narrative: Cardioversion procedure note. Indication: Symptomatic atrial fibrillation Anticoagulation: Eliquis Sedation: Propofol by anesthesia Procedure was explained to the patient in detail. Risks and benefits of the procedures were discussed. Informed consent was obtained. After time out was called patient received sedation. Pads were placed anteroposteriorly. He received 150 J of synchronized biphasic shock ?1 with anabaptist to sinus bradycardia. Patient tolerated the procedure well. Recovery: In GI lab Disposition: Patient to be discharged later today. Metoprolol was discontinued on discharge. Acute Procedures Epistaxis Control: Time out performed: Yes
--- NOTE | 2020-11-06 12:18 | W.PM.OPSFHP ---
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 Echo with moderately decreased LV function and severe MR. He underwent HARI as well as left and right heart catheterization which did not show any significant stenosis. 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 He was started on amiodarone, in addition to metoprolol. He was discharged with LifeVest. He appears well compensated. He had a gout flare after discharge, and took prednisone which significantly helped his left foot. EKG (10/17/20): Atrial fibrillation at 74 bpm. IVCD. Possible old anterior infarct. Non specific ST-T wave changes. QT/QTc 432/456 msec. BP and HR low at home intermittently. He is here for elective cardioversion. PREOP DIAGNOSIS: MR assessment new onset atrial fibrillation. Heart failure PLANNED PROCEDRUE: Operation Date: 11/06/20 12:00 Proposed Procedures p Cardioversion(Not Applicable) - Ofe Negro MD Medications/Allergies* Home Medications Medication Instructions Recorded Confirmed Type multivitamin 1 tab PO DAILY@07 08/15/19 11/06/20 History amiodarone [Pacerone] 200 mg PO DAILY 10/15/20 11/06/20 History furosemide 20 mg PO DAILY 10/15/20 11/06/20 History Allergies/Adverse Reactions Allergy/AdvReac Type Severity Reaction Status Date / Time No Known Allergies Allergy Verified 11/06/20 11:32 Pertinent History/Comorbid Conditions* Medical History (Updated 10/17/20 @ 07:44 by Ofe Negro MD) BPH (benign prostatic hyperplasia) GERD (gastroesophageal reflux disease) Hx of gout Hypertension Mitral valve regurgitation Sepsis UTI (urinary tract infection) Vitamin D deficiency Surgical History (Updated 05/30/20 @ 13:50 by Marielena Dunn MD) Hx of colonoscopy (~2010) Hx of foot surgery Hx of hemorrhoidectomy Hx of knee surgery Hx of neck surgery Hx of rotator cuff surgery Family History (Updated 08/03/19 @ 10:36 by Lindsay Booth LPN, RT) Father, age 85 Mother, age 93 Alzheimer disease Mother Cancer Father colon Social History Smoking and tobacco status: former smoker Quit status (tobacco): has quit using tobacco Former quit date comment: pipe in high school Second hand smoke exposure: No Alcohol intake: never Lives independently: Yes Household members: spouse Marital status: Current occupational status: employed History of recent travel: No Current gender identity: Male Pertinent Exam Findings alert, oriented x 3, clear to auscultation bilaterally and procedure specific exam findings (EKG pre OP : atrial fibrillation at 85 bpm. Left axis deviation. IVCD) Recommendations Surgery/Procedure today Coding Level of Care Code Acute Facility Manager Histology for Wilian Reyes
--- NOTE | 2020-11-06 12:34 | ECG_ITS ---
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 Measurements Intervals [place] Rate: 51 P: 89 DC: 224 QRS: -14 QRSD: 130 T: 39 QT: 482 QTc: 445 Interpretive Statements SINUS BRADYCARDIA WITH FIRST DEGREE AV BLOCK MODERATE INTRAVENTRICULAR CONDUCTION DELAY [110+ ms QRS DURATION] ST DEVIATION AND MODERATE T-WAVE ABNORMALITY, CONSIDER ANTEROLATERAL ISCHEMIA [-0.1+ mV T WAVE IN V3-V6] Compared to ECG 11/06/2020 12:17:09 First degree AV block now present T-wave abnormality now present Possible ischemia now present Atrial fibrillation no longer present Electronically Signed On 11-06-2020 17:46:37 CDT by Bette Rangel M.D. [id number] f
[2020-11-06 12:35] VITALS: BP 100/60; PULSE 50; RESP 18; O2SAT 100
[2020-11-06 12:45] VITALS: BP 98/58; PULSE 52; RESP 18; O2SAT 99
[2020-11-06 13:00] VITALS: BP 104/68; PULSE 52; RESP 18; O2SAT 99
[2020-11-06 13:16] VITALS: BP 102/65; PULSE 51; RESP 18; O2SAT 99
--- NOTE | 2020-11-06 13:59 | ANE.PACU2 ---
Inpatient post-anesthesia follow up: Airway intact: Yes Vital signs: Temperature 98.3 F Pulse Rate 51 Respiratory Rate 18 Blood Pressure 102/65 Pulse Oximetry 99 Oxygen Delivery Me thod Room Air Oxygen Flow Rate Fraction of Inspir ed Oxygen Hydration adequate: Yes Nausea and vomiting: No Pain level: 1 Mental status: Baseline
== END 2020-11-06 14:50 | disposition home or self-care (01) ==
LOC: CCL 14:38
PROVIDERS: PCP Family Medicine; Visit Provider Internal Medicine Cardiovascular Disease
PROC: 5A2204Z Restoration of Cardiac Rhythm, Single (ICD-10-PCS; principal; 2020-11-06 12:00)
DX: I48.91 Unspecified atrial fibrillation (principal); Z79.01 Long term (current) use of anticoagulants; M19.90 Unspecified osteoarthritis, unspecified site; N40.0 Benign prostatic hyperplasia without lower urinary tract symptoms; K21.9 Gastro-esophageal reflux disease without esophagitis; I10 Essential (primary) hypertension; Z87.891 Personal history of nicotine dependence
CPT/HCPCS: 92960; 93005; J2704

== ENCOUNTER → 2020-12-05 15:07 | Outpatient (BNVA) | payer MEDICARE, SELFPAY | PROVIDERS: PCP Family Medicine; Visit Provider Internal Medicine Cardiovascular Disease | DX: I50.9 Heart failure, unspecified (principal); I48.91 Unspecified atrial fibrillation; I50.21 Acute systolic (congestive) heart failure; R06.02 Shortness of breath; I10 Essential (primary) hypertension; R42 Dizziness and giddiness; I34.0 Nonrheumatic mitral (valve) insufficiency; K21.9 Gastro-esophageal reflux disease without esophagitis; N40.1 Benign prostatic hyperplasia with lower urinary tract symptoms; R39.11 Hesitancy of micturition | CPT/HCPCS: 80048; 83735; 83880; 85025 ==

== ENCOUNTER 2020-12-26 06:46 | Outpatient (CLI) | payer MEDICARE, SELFPAY ==
--- NOTE | 2020-12-26 07:15 | USCV_ITS ---
Mars Reeder Age: 80 Gender: M : 1940 Exam Date: 12/26/2020 07:19 Ordering Phys: Ofe Negro MD ([email or web address]) Technologist: Dona Mancuso [place] [facility] [place]: Congestive heart failure, atrial fibrillation, mitral regurgitation BP: 150 / 91 HR: 65 Rhythm: Sinus Technical Quality: Adequate MEASUREMENTS (Male / Female) Normal Values 2D ECHO LV Diastolic Diameter PLAX 4.9 cm 4.2 - 5.9 / 3.9 - 5.3 cm LV Systolic Diameter PLAX 2.8 cm LV Chamber Size 3.7 cm IVS Diastolic Thickness 1.3 cm 0.6 - 1.0 / 0.6 - 0.9 cm IVS Systolic Thickness 1.5 cm LVPW Diastolic Thickness 1.1 cm 0.6 - 1.0 / 0.6 - 0.9 cm LVPW Systolic Thickness 1.6 cm RV Chamber Size 3.5 cm LVOT Diameter 2.0 cm LV Ejection Fraction 2D Teich 74.3 % LV Ejection Fraction MOD 2C 49.3 % LV Ejection Fraction 2C AL 51.8 % LA Diameter 4.5 cm LA Width 3.3 cm LA Height 5.2 cm RA Width 4.1 cm RA Height 3.5 cm Aorta at Sinotubular Diameter 3.7 cm M-MODE LV Diastolic Diameter MM 5.0 cm 4.2 - 5.9 / 3.9 - 5.3 cm LV Systolic Diameter MM 3.6 cm LV Ejection Fraction MM Teich 53.3 % IVS Diastolic Thickness MM 0.9 cm 0.6 - 1.0 / 0.6 - 0.9 cm IVS Systolic Thickness MM 1.3 cm LVPW Diastolic Thickness MM 1.8 cm 0.6 - 1.0 / 0.6 - 0.9 cm LVPW Systolic Thickness MM 2.9 cm Aortic Annulus Diameter 4.0 cm LA Ao Ratio MM 1.3 MV E Point Septal Separation 0.7 cm FINDINGS Left Ventricle Normal left ventricular size. Mildly decreased left ventricle systolic function. Left ventricular ejection fraction is estimated at 50 %. Mild global hypokinesis. Right Ventricle Normal right ventricular size and systolic function. Right Atrium Normal right atrial size. Left Atrium Mildly increased left atrial size. Mitral Valve Mildly thickened mitral valve. Mild mitral valve regurgitation. Aortic Valve Aortic valve not well visualized. Mild aortic valve regurgitation. Tricuspid Valve Structurally normal tricuspid valve. Trace tricuspid valve regurgitation. Pulmonic Valve Pulmonic valve not well visualized. Pericardium No pericardial effusion. Aorta Normal-sized aortic root. CONCLUSIONS 1. This is a limited echocardiogram. 2. Normal left ventricular size. Mildly decreased left ventricle systolic function. Left ventricular ejection fraction is estimated at 50 %. Mild global hypokinesis. 3. Mild mitral and aortic valve regurgitation. 4. When compared to previous echocardiogram dated 09/04/2020, left ventricular systolic function has improved and mitral regurgitation has decreased in severity. Ofe Negro MD (Electronically Signed) Final Date: 26 December 2020 17:42 S
== END 2020-12-26 06:47 | disposition home or self-care (01) ==
PROVIDERS: PCP Family Medicine; Visit Provider Internal Medicine Cardiovascular Disease
DX: I48.91 Unspecified atrial fibrillation (principal); I50.9 Heart failure, unspecified; I08.0 Rheumatic disorders of both mitral and aortic valves
CPT/HCPCS: 93308; 93325

== ENCOUNTER → 2021-06-03 15:23 | Outpatient (BNVA) | payer MEDICARE, SELFPAY | PROVIDERS: PCP Family Medicine; Visit Provider Family Medicine | DX: E55.9 Vitamin D deficiency, unspecified (principal); I48.0 Paroxysmal atrial fibrillation; I50.21 Acute systolic (congestive) heart failure; I11.0 Hypertensive heart disease with heart failure; N40.1 Benign prostatic hyperplasia with lower urinary tract symptoms; R39.11 Hesitancy of micturition | CPT/HCPCS: 80053; 80061; 82306; 84443; 85025 ==

== ENCOUNTER 2021-06-13 01:41 | Emergency (ER) | payer MEDICARE, SELFPAY ==
[2021-06-13 01:50] VITALS: BP 140/101; PULSE 84; RESP 18; TEMP 36.1; O2SAT 94; BMI 29.7
[2021-06-13 02:02] LABS: Basophils % 0.4 %; Eosinophils % 0.9 %; Hematocrit 35.3 % (42.0-52.0); Hemoglobin 12.2 g/dL (11.7-16.6); Lymphocytes # 0.5 10^3/uL (0.8-4.8); Lymphocytes % 11.5 %; Mean Corpuscular HGB Conc 34.6 g/dL (30.0-36.0); Mean Corpuscular Hemoglobin 33.5 pg (28.0-34.0); Mean Platelet Volume 9.9 fL (7.4-10.4); Monocytes # 0.4 10^3/uL (0.2-0.9); Monocytes % 8.8 %; Neutrophils # 3.65 10^3/uL (1.8-7.7); Nucleated Red Blood Cells % 0 %; Platelet Count 124 10^3/cmm (130-400); Red Blood Count 3.64 10^6/uL (4.1-5.3); Red Cell Distribution Width 13.2 % (12.1-15.1); White Blood Count 4.7 10^3/uL (4.0-10.0)
--- NOTE | 2021-06-13 02:03 | W.ED.EPISTAX ---
HPI - Epistaxis General: Chief complaint: Epistaxis Stated complaint: nose bleed Time Seen by Provider: 06/13/21 01:51 History of Present Illness: HPI Narrative: 80-year-old male patient comes in today for complaints of right side nosebleed. Patient 1 day last week had a short nosebleed that stopped pretty immediately. Patient comes in today and reports that it started bleeding just before they were going to bed after a movie. Patient states that he had bled significantly this time. At this time patient's nose to stop bleeding. No signs of distress is noted. Location: right nostril Review of Systems ENMT: Reports: epistaxis PFSH ED PFSH: Medical History Atrial fibrillation BPH (benign prostatic hyperplasia) GERD (gastroesophageal reflux disease) Hx of gout Hypertension Mitral valve regurgitation Sepsis UTI (urinary tract infection) Vitamin D deficiency Surgical History Hx of colonoscopy (~2010) Hx of foot surgery Hx of hemorrhoidectomy Hx of knee surgery Hx of neck surgery Hx of rotator cuff surgery Family History Mother , age 93 Alzheimer disease Father , age 85 Cancer colon Social History Quit status (tobacco): has quit using tobacco Former quit date comment: pipe in high school Second hand smoke exposure: No Alcohol intake: never Lives independently: Yes Household members: spouse Marital status: Current occupational status: employed History of recent travel: No Current gender identity: Male Physical Exam Const: COMMON NORMALS: patient oriented x3 and healthy appearing GENERAL APPEARANCE: cooperative HENMT: NOSE: Epistaxis present on the right dried blood present MOUTH: Normal oral and palatal mucosa present THROAT: posterior oropharynx normal Resp: COMMON NORMALS: normal respiratory effort and clear to auscultation bilaterally AUSCULTATION: clear to auscultation bilaterally Cardio: COMMON NORMALS: regular rate and regular rhythm RATE: regular rate RHYTHM: regular rhythm GI: AUSCULTATION: Yes normoactive bowel sounds Extremity: COMMON NORMALS: normal to inspection Neuro: COMMON NORMALS: patient oriented x3 Psych: ATTITUDE: Yes calm Skin: COMMON NORMALS: no rashes or lesions noted GENERAL SKIN EXAM: no rashes or lesions noted Course Vital Signs: Vital signs: Vital Signs Temperature 96.9 F L 06/13/21 01:50 Pulse Rate 84 06/13/21 01:50 Respiratory Rate 18 06/13/21 01:50 Blood Pressure 140/101 06/13/21 01:50 Pulse Oximetry 94 06/13/21 01:50 MDM - Epistaxis MDM Narrative: Medical decision making narrative: Patient comes in today for complaints of right-sided nosebleed. On exam patient has some dried blood in the right naris with no obvious site identified of the bleed origin. Posterior pharynx is absent of clot or bleeding. Lungs are clear to auscultation. Vital signs are normal. Differential diagnosis includes anemia, anticoagulation, epistaxis. Laboratory values were unremarkable. INR was 1.45. Hemoglobin is 12.2. Patient has exhibited no bleeding in the emergency room. I will keep patient on Afrin 1 spray each nostril 3 times a day for next 3 days. I recommended patient hold his meloxicam. Recommended patient continue with his other medications as directed. I will request that case management set patient up with field research assistant. I offered to go ahead and pack the nose to help prevent further bleeding but patient wanted to avoid this at this time. Lab Data: Labs: Lab Results 06/13/21 06/13/21 01:55 01:55 WBC 4.7 10^3/uL 10^3/ uL (4.0-10.0) RBC 3.64 10^6/uL L 10 ^6/uL (4.1-5.3) Hgb 12.2 g/dL g/dL (11.7-16.6) Hct 35.3 % L % (42.0-52.0) MCV 97.0 fl H fl (80-94) MCH 33.5 pg pg (28.0-34.0) MCHC 34.6 g/dL g/dL (30.0-36.0) RDW 13.2 % % (12.1-15.1) Plt Count 124 10^3/cmm L 10 ^3/cmm (130-400) MPV 9.9 fL fL (7.4-10.4) Neut % (Auto) 78.0 % % Lymph % (Auto) 11.5 % % [place] % (Auto) 8.8 % % Eos % (Auto) 0.9 % % Baso % (Auto) 0.4 % % Neut # (Auto) 3.65 10^3/uL 10^3 /uL (1.8-7.7) Lymph # (Auto) 0.5 10^3/uL L 10^ 3/uL (0.8-4.8) [place] # (Auto) 0.4 10^3/uL 10^3/ uL (0.2-0.9) Eos # (Auto) 0.0 10^3/uL 10^3/ uL (0.0-0.8) Baso # (Auto) 0.0 10^3/uL 10^3/ uL (0.0-0.1) Nucleated RBC % (a uto) 0 % % Nucleated RBCs # 0.0 /100WBC /100W BC PT 18.10 SECONDS H S ECONDS (12.1-14.9) INR 1.45 H (0.8-1.2) Discharge Plan Discharge Patient Disposition: Home Clinical Impression: Epistaxis Condition: Stable Prescriptions: No Action multivitamin [Daily Multi-Vitamin] Tablet 1 tab PO DAILY@07 RF: 0 amiodarone [Pacerone] 200 mg tablet 200 mg PO DAILY Qty: 30 RF: 4 tamsulosin 0.4 mg capsule See Rx Instructions .ROUTE .COMPLEX Qty: 90 RF: 1 Eliquis 5 mg tablet See Rx Instructions .ROUTE .COMPLEX Qty: 60 RF: 3 meloxicam 15 mg tablet 15 mg PO DAILY Qty: 30 RF: 4 amlodipine 2.5 mg tablet 2.5 mg PO DAILY Qty: 30 RF: 2 potassium chloride 10 mEq tablet extended release 10 meq PO DAILY Qty: 30 RF: 2 hydrochlorothiazide 12.5 mg tablet 25 mg PO DAILY Qty: 60 RF: 4 Discharge Orders: Discharge ED (Routine); Ordered 06/13/21 Ordered By: Sushil Haas Referrals: Marielena Dunn MD [Primary Care Provider] - Discharge Diet: Usual diet Discharge Activity: Increase activity as tolerated Patient Instructions: Nosebleed (ED), Opioid Safety Activity Restrictions/Additional Instructions: Use decongestant nasal spray 1 spray each nostril 3 times a day for the next 3 days. Avoid picking your nose. Use saline nasal spray/gel as needed for nasal irritation and dryness. Hold your meloxicam as this is good increasing your risk for bleeding. You can use Tylenol arthritis to help with your arthritis pain. Follow-up with primary care for other treatment of your arthritis. Continue with your other medication as recommended. Return to the ER for worsening nosebleeds as you will need to have packing. We will have case management set you up with the field research assistant for further treatment. Coding Level of Care Code ED Jewel Bearing Polisher for Wilian Reyes Exam Comprehensive
[2021-06-13 02:14] LABS: INR 1.45 (0.8-1.2)
[2021-06-13] MEDS: oxymetazoline 0.05% Nasal Spray 15 mL 2 SPRAY NOSTRIL-B (02:45)
--- NOTE | 2021-06-13 10:18 | DCPLANNER ---
Addendum entered by Vi Miller 06/20/21 14:36: ENT clinic emailed rehabilitation case coordinator stating that patient will call clinic after seeing Dr. Negro. Addendum entered by Vi Miller 06/19/21 10:22: manager security emailed the ENT clinic, to check up to see if an appointment had been scheduled for patient. Original Note: manager security had message to schedule a follow up appointment for patient with ENT. manager security emailed patients information to Cathie Camacho and Angelica at [facility] General Surgery / ENT clinic. Patients information will be printed and reviewed. Clinic will call patient with appointment information.
== END 2021-06-13 02:47 | disposition home or self-care (01) ==
PROVIDERS: Emergency Medicine; Emergency Provider Nurse Practitioner Family; PCP Family Medicine
DX: R04.0 Epistaxis (principal); Z79.1 Long term (current) use of non-steroidal anti-inflammatories (NSAID); Z79.01 Long term (current) use of anticoagulants; I10 Essential (primary) hypertension; I48.91 Unspecified atrial fibrillation; N40.0 Benign prostatic hyperplasia without lower urinary tract symptoms; K21.9 Gastro-esophageal reflux disease without esophagitis; I34.0 Nonrheumatic mitral (valve) insufficiency; Z87.891 Personal history of nicotine dependence
CPT/HCPCS: 36415; 85025; 85610; 99283

== ENCOUNTER → 2021-09-30 13:26 | Outpatient (BNVA) | payer MEDICARE, SELFPAY | PROVIDERS: PCP Family Medicine; Visit Provider Internal Medicine Cardiovascular Disease | DX: I48.0 Paroxysmal atrial fibrillation (principal); I11.0 Hypertensive heart disease with heart failure; I50.21 Acute systolic (congestive) heart failure; I34.0 Nonrheumatic mitral (valve) insufficiency; Z87.891 Personal history of nicotine dependence | CPT/HCPCS: 99214 ==

== ENCOUNTER → 2021-11-13 13:48 | Outpatient (BNVA) | payer MEDICARE, SELFPAY | PROVIDERS: PCP Family Medicine; Visit Provider Family Medicine | DX: I50.9 Heart failure, unspecified (principal); I10 Essential (primary) hypertension | CPT/HCPCS: 80053; 80061; 85025 ==

== ENCOUNTER → 2022-03-02 14:09 | Outpatient (BNVA) | payer MEDICARE, SELFPAY | PROVIDERS: PCP Family Medicine; Visit Provider Nurse Practitioner Family | DX: J06.9 Acute upper respiratory infection, unspecified (principal); J18.9 Pneumonia, unspecified organism | CPT/HCPCS: 71046; 80053 ==

== ENCOUNTER → 2022-03-31 14:30 | Outpatient (BNVA) | payer MEDICARE, SELFPAY | PROVIDERS: PCP Family Medicine; Visit Provider Internal Medicine Cardiovascular Disease | DX: I48.0 Paroxysmal atrial fibrillation (principal); I11.0 Hypertensive heart disease with heart failure; I50.21 Acute systolic (congestive) heart failure; I34.0 Nonrheumatic mitral (valve) insufficiency; Z79.01 Long term (current) use of anticoagulants; Z87.891 Personal history of nicotine dependence | CPT/HCPCS: 99214 ==

== ENCOUNTER → 2022-07-28 11:00 | Outpatient (BNVA) | payer MEDICARE, SELFPAY | PROVIDERS: PCP Family Medicine; Visit Provider Nurse Practitioner Family | DX: R53.83 Other fatigue (principal); R53.1 Weakness; Z12.5 Encounter for screening for malignant neoplasm of prostate; Z13.9 Encounter for screening, unspecified; Z20.822 Contact with and (suspected) exposure to COVID-19; J06.9 Acute upper respiratory infection, unspecified; I10 Essential (primary) hypertension | CPT/HCPCS: 80053; 84402; 84403; 85025; G0103 ==

== ENCOUNTER 2022-08-28 17:44 | Emergency (ER) | payer MEDICARE, SELFPAY ==
[2022-08-28 17:57] VITALS: BP 103/79; PULSE 89; RESP 20; TEMP 36.4; O2SAT 92
--- NOTE | 2022-08-28 18:03 | ECG_ITS ---
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 Measurements Intervals [place] Rate: 91 P: 0 AL: 0 QRS: 61 QRSD: 133 T: 27 QT: 413 QTc: 509 Interpretive Statements ATRIAL FIBRILLATION WITH ABERRANT CONDUCTION OR VENTRICULAR PREMATURE COMPLEXES INTRAVENTRICULAR CONDUCTION DELAY [130+ ms QRS DURATION] INTERPRETATION BASED ON A DEFAULT AGE OF 40 YEARS Compared to ECG 11/06/2020 12:45:55 Ventricular premature complex(es) now present Aberrant conduction of supraventricular beat(s) now present Sinus bradycardia no longer present First degree AV block no longer present T-wave abnormality no longer present Possible ischemia no longer present Electronically Signed On 08-28-2022 21:29:18 CDT by Bette Rangel M.D. [id number] mine
--- NOTE | 2022-08-28 18:38 | XRR_ITS ---
PROCEDURE INFORMATION: Exam: XR Chest Exam date and time: 08/28/2022 6:47 PM Age: 81 years old Clinical indication: Cough and shortness of breath; Additional info: SOB TECHNIQUE: Imaging protocol: Radiologic exam of the chest. Views: 1 view. COMPARISON: CR XR chest 2V* [id number] 03/02/2022 2:14 PM FINDINGS: Lungs: Bibasilar atelectasis versus infiltrate right greater than left. Pleural spaces: Trace right pleural effusion. Heart/Mediastinum: Cardiomegaly. Bones/joints: Unremarkable. XR/XR chest 1V portable [id number] IMPRESSION: 1. Trace right pleural effusion. 2. Bibasilar atelectasis versus infiltrate right greater than left. 3. Cardiomegaly.
--- NOTE | 2022-08-28 19:00 | W.ED.SOB ---
HPI - SOB/Dyspnea General: Chief Complaint: Shortness of Breath/Dyspnea Stated Complaint: SOB, Swelling in feet Time Seen by Provider: 08/28/22 18:34 Source: patient Mode of arrival: ambulatory Limitations: no limitations History of Present Illness: HPI Narrative: 81-year-old male with a history of CHF he states he used to be on diuretics he has been off of them for months he states that he had a cough he had a recent infection and just finished antibiotics a week ago he states has been gaining water weight he feels like he is little extremity edema he has put on 15 pounds states he just recently started HCTZ but states he does not feel like he is getting in the water off. Associated symptoms: Deny abdominal pain, chest pain, fever(s), nausea or vomiting Review of Systems Const: Denies: fever(s), chills, body aches or change in appetite Eyes: Denies: blurry vision or eye discomfort ENMT: Denies: throat pain or dental pain Card: Denies: chest pain Resp: Reports: dyspnea and non-productive cough GI: Denies: abdominal pain, nausea, vomiting or diarrhea : Denies: dysuria Musc: Reports: extremity swelling Skin/Breast: Denies: rash Neuro: Denies: headache(s) Psych: Denies: depression Saurabh/Lymph: Denies: easy bruising All/Imm: Denies: urticaria PFSH ED PFSH: Medical History Atrial fibrillation BPH (benign prostatic hyperplasia) GERD (gastroesophageal reflux disease) Hx of gout Hypertension Mitral valve regurgitation Sepsis UTI (urinary tract infection) Vitamin D deficiency Surgical History Hx of colonoscopy (~2010) Hx of foot surgery Hx of hemorrhoidectomy Hx of knee surgery Hx of neck surgery Hx of rotator cuff surgery Family History Mother , age 93 Alzheimer disease Father , age 85 Cancer colon Social History Smoking and tobacco status: former smoker Quit status (tobacco): has quit using tobacco Former quit date comment: pipe in high school Second hand smoke exposure: No Alcohol intake: never Lives independently: Yes Household members: spouse Marital status: Current occupational status: employed Current gender identity: Male Physical Exam Const: COMMON NORMALS: patient oriented x3 HENMT: COMMON NORMALS: normocephalic and atraumatic HEAD & SCALP: normocephalic and atraumatic Eye: COMMON NORMALS: Equal, round and reactive pupils present and EOMs intact bilaterally PUPIL: Yes Equal, round and reactive pupils present Neck/C-Spine: COMMON NORMALS: full ROM and supple Chest: COMMONS NORMALS: normal inspection of the chest and normal palpation of entire chest wall Resp: COMMON NORMALS: normal respiratory effort, No retractions and No use of accessory muscles AUSCULTATION: rales Cardio: COMMON NORMALS: regular rate, regular rhythm and No murmurs present (Cardio) RATE: regular rate RHYTHM: regular rhythm GI: COMMON NORMALS: Normal to inspection, nondistended, normoactive bowel sounds present, Soft to palpation, non-tender and no masses PALPATION: Yes Soft to palpation Extremity: COMMON NORMALS: full ROM OTHER: 2+ edema Neuro: COMMON NORMALS: patient oriented x3, moves all extremities and no focal motor deficits Psych: COMMON NORMALS: mental status grossly normal, Normal thought process present and cooperative THOUGHT PROCESS: Normal thought process present Skin: COMMON NORMALS: no rashes or lesions noted and no wounds GENERAL SKIN EXAM: no rashes or lesions noted Course Vital Signs: Vital signs: Vital Signs Temperature 97.5 F L 08/28/22 17:57 Pulse Rate 94 08/28/22 20:30 Respiratory Rate 18 08/28/22 20:30 Blood Pressure 122/88 08/28/22 20:30 Pulse Oximetry 95 08/28/22 20:30 Oxygen Delivery Nv thod 08/28/22 19:18 MDM - SOB/Dyspnea Medical Decision Making Patient presents here with increased weight gain edema in his legs likely from his CHF his oxygen level here is normal x-ray shows some small pleural effusions I did give him IV Lasix here he is filled up 1 urine along with a another urinal here after and states he feels much improved I did offer him admission for diuresis 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 Lab Data 08/28/22 18:55 08/28/22 18:55 Labs/Radiology: Radiology Impressions Chest X-Ray 08/28/22 18:38 IMPRESSION: 1. Trace right pleural effusion. 2. Bibasilar atelectasis versus infiltrate right greater than left. 3. Cardiomegaly. Laboratory Results WBC 4.3 10^3/uL (4.0-10.0) 08/28/22 18:55 RBC 3.67 10^6/uL (4.1-5.3) L 08/28/22 18:55 Hgb 12.3 g/dL (11.7-16.6) 08/28/22 18:55 Hct 36.7 % (42.0-52.0) L 08/28/22 18:55 MCV 100.0 fl (80-94) H 08/28/22 18:55 MCH 33.5 pg (28.0-34.0) 08/28/22 18:55 MCHC 33.5 g/dL (30.0-36.0) 08/28/22 18:55 RDW 13.5 % (12.1-15.1) 08/28/22 18:55 Plt Count 141 10^3/cmm (130-400) 08/28/22 18:55 MPV 10.4 fL (7.4-10.4) 08/28/22 18:55 Neut % (Auto) 71.8 % 08/28/22 18:55 Lymph % (Auto) 16.3 % 08/28/22 18:55 [place] % (Auto) 9.5 % 08/28/22 18:55 Eos % (Auto) 1.2 % 08/28/22 18:55 Baso % (Auto) 0.7 % 08/28/22 18:55 Neut # (Auto) 3.09 10^3/uL (1.8-7.7) 08/28/22 18:55 Lymph # (Auto) 0.7 10^3/uL (0.8-4.8) L 08/28/22 18:55 Branch # (Auto) 0.4 10^3/uL (0.2-0.9) 08/28/22 18:55 Eos # (Auto) 0.1 10^3/uL (0.0-0.8) 08/28/22 18:55 Baso # (Auto) 0.0 10^3/uL (0.0-0.1) 08/28/22 18:55 Nucleated RBC % (auto) 0 % 08/28/22 18: Nucleated RBCs # 0.0 /100WBC 08/28/22 18:55 PT 18.40 SECONDS (12.1-14.9) H 08/28/22 18:55 INR 1.48 (0.8-1.2) H 08/28/22 18:55 Sodium 141 mmol/L (136-145) 08/28/22 18:55 Potassium 3.6 mmol/L (3.5-5.1) 08/28/22 18:55 Chloride 104 mmol/L (98-107) 08/28/22 18:55 Carbon Dioxide 27 mmol/L (22-29) 08/28/22 18:55 Anion Gap 13.6 (5-19) 08/28/22 18:55 BUN 22 mg/dL (8-23) 08/28/22 18:55 Creatinine 1.3 mg/dL (0.7-1.2) H 08/28/22 18:55 GFR Calculation Not Reportable 08/28/22 18:55 Glucose 80 mg/dL (65-115) 08/28/22 18:55 Calculated Osmolality 294 mOsm/kg (285-295) 08/28/22 18:55 Calcium 8.3 mg/dL (8.5-10.5) L 08/28/22 18:55 Total Bilirubin 0.9 mg/dL (0.15-1.2) 08/28/22 18:55 AST 30 U/L (0-40) 08/28/22 18:55 ALT 38 U/L (0-41) 08/28/22 18:55 Alkaline Phosphatase 80 U/L (40-130) 08/28/22 18:55 NT-Pro-B Natriuret Pep 6183 pg/mL (0-450) H 08/28/22 18:55 Total Protein 6.2 g/dL (6.6-8.7) L 08/28/22 18:55 Albumin 3.8 g/dL (3.5-5.2) 08/28/22 18:55 Globulin 2.4 g/dL (1.3-4.6) 08/28/22 18:55 Discharge Plan Discharge Patient Disposition: Home Clinical Impression: CHF (congestive heart failure), Edema Condition: Stable Prescriptions: New Lasix 40 mg tablet 40 mg PO QAM Qty: 30 0RF Discontinued hydrochlorothiazide 12.5 mg tablet 12.5 mg PO DAILY Qty: 30 2RF No Action multivitamin [Daily Multi-Vitamin] Tablet 1 tab PO DAILY@07 potassium chloride 10 mEq capsule, extended release 10 meq PO DAILY PRN meloxicam 15 mg tablet 15 mg PO DAILY PRN promethazine-DM 6.25-15 mg/5 mL syrup 5 ml PO Q6H PRN (Reason: cough) Qty: 160 0RF azithromycin [Zithromax Z-Juan Francisco] 250 mg tablet See Rx Instructions PO .COMPLEX Qty: 6 0RF Rx Instructions: take 500 mg today (day 1), then 250 mg for 4 days (days 2-5) PO albuterol sulfate 90 mcg/actuation HFA aerosol inhaler 1 inh inhalation Q6H PRN (Reason: shortness of breath or wheezing) Qty: 8.5 0RF Eliquis 5 mg tablet See Rx Instructions .ROUTE .COMPLEX Qty: 180 3RF Dose Instruction: TAKE ONE TABLET BY MOUTH TWICE DAILY AT 9:00 a.m. AND 9 p.m. Rx Instructions: TAKE ONE TABLET BY MOUTH TWICE DAILY AT 9:00 a.m. AND 9 p.m. amiodarone 200 mg tablet See Rx Instructions .ROUTE .COMPLEX Qty: 90 3RF Dose Instruction: Take 1 tablet by mouth once daily Rx Instructions: Take 1 tablet by mouth once daily diclofenac sodium [Voltaren Arthritis Pain] 1 % gel 2 g topical QID Qty: 100 2RF Rx Instructions: apply to area as needed. (DME) compressor, for nebulizer Device See Rx Instructions .Route Qty: 1 0RF Rx Instructions: 1 nebulizer and all required equipment As directed ipratropium-albuterol 0.5 mg-3 mg(2.5 mg base)/3 mL solution for nebulization 3 ml inhalation Q4H PRN (Reason: wheezing) Qty: 200 1RF tamsulosin [Flomax] 0.4 mg capsule 0.4 mg PO BID 90 Days Qty: 180 1RF amlodipine 2.5 mg tablet See Rx Instructions .ROUTE .COMPLEX PRN (Reason: BP >140/90) Qty: 90 3RF Dose Instruction: Take 1 tablet by mouth once daily Rx Instructions: Take 1 tablet by mouth once daily PRN; Discharge Orders: Discharge ED (Routine); Ordered 08/28/22 Ordered By: Chivo Berg Referrals: Marielena Dunn MD [Primary Care Provider] - 1-3 days Discharge Diet: Advance as tolerated Discharge Activity: Resume usual activity Patient Instructions: Heart Failure (ED), Edema (ED) Coding Level of Care Code ED Casting Molder for Wilian Reyes
[2022-08-28] MEDS: FUROsemide 10 mg/mL SDV 10mL 60 MG IVP (19:15)
[2022-08-28] MEDS: albuterol 2.5 mg/3 mL Neb INHALATION (19:15)
[2022-08-28 19:18] VITALS: PULSE 81; RESP 18; O2SAT 98
[2022-08-28 19:25] LABS: Basophils % 0.7 %; Eosinophils # 0.1 10^3/uL (0.0-0.8); Eosinophils % 1.2 %; Hematocrit 36.7 % (42.0-52.0); Hemoglobin 12.3 g/dL (11.7-16.6); Lymphocytes # 0.7 10^3/uL (0.8-4.8); Lymphocytes % 16.3 %; Mean Corpuscular HGB Conc 33.5 g/dL (30.0-36.0); Mean Corpuscular Hemoglobin 33.5 pg (28.0-34.0); Mean Platelet Volume 10.4 fL (7.4-10.4); Monocytes # 0.4 10^3/uL (0.2-0.9); Monocytes % 9.5 %; Neutrophils # 3.09 10^3/uL (1.8-7.7); Neutrophils % 71.8 %; Nucleated Red Blood Cells % 0 %; Platelet Count 141 10^3/cmm (130-400); Red Blood Count 3.67 10^6/uL (4.1-5.3); Red Cell Distribution Width 13.5 % (12.1-15.1); White Blood Count 4.3 10^3/uL (4.0-10.0)
[2022-08-28 19:30] VITALS: BP 123/94; PULSE 90; RESP 13; O2SAT 98
[2022-08-28 20:01] LABS: Alanine Aminotransferase 38 U/L (0-41); Albumin Level 3.8 g/dL (3.5-5.2); Alkaline Phosphatase 80 U/L (40-130); Anion Gap 13.6 (5-19); Aspartate Amino Transferase 30 U/L (0-40); Blood Urea Nitrogen 22 mg/dL (8-23); Calcium 8.3 mg/dL (8.5-10.5); Carbon Dioxide 27 mmol/L (22-29); Chloride 104 mmol/L (98-107); Globulin 2.4 g/dL (1.3-4.6); Glucose 80 mg/dL (65-115); NT Pro B Type Natriuretic Pept 6183 pg/mL (0-450); Osmolality Calculated 294 mOsm/kg (285-295); Potassium 3.6 mmol/L (3.5-5.1); Sodium 141 mmol/L (136-145); Total Bilirubin 0.9 mg/dL (0.15-1.2); Total Protein 6.2 g/dL (6.6-8.7)
[2022-08-28 20:02] LABS: Creatinine Clr Calc Pharmacy 51.0321
[2022-08-28 20:08] LABS: INR 1.48 (0.8-1.2)
[2022-08-28 20:30] VITALS: BP 122/88; PULSE 94; RESP 18; O2SAT 95
== END 2022-08-28 21:09 | disposition home or self-care (01) ==
PROVIDERS: Emergency Provider Emergency Medicine; PCP Family Medicine
DX: I11.0 Hypertensive heart disease with heart failure (principal); I50.9 Heart failure, unspecified; Z79.01 Long term (current) use of anticoagulants; Z87.891 Personal history of nicotine dependence
CPT/HCPCS: 36415; 71045; 80053; 83880; 85025; 85610; 93005; 94640; 96374; 99285; J1940; J7613

== ENCOUNTER 2022-09-14 09:24 | Inpatient (IN) | payer MEDICARE, SELFPAY ==
[2022-09-14] VITALS (101 sets, daily range): BP systolic 106–175; BP diastolic 67–112; PULSE 59–129; RESP 2–31; TEMP 36.3–36.9; O2SAT 82–100; BMI 25.9; BMI 26.7
--- NOTE | 2022-09-14 09:41 | ECG_ITS ---
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 Measurements Intervals D Hanis Rate: 107 P: 0 IN: 0 QRS: -23 QRSD: 134 T: 121 QT: 354 QTc: 473 Interpretive Statements ATRIAL FIBRILLATION WITH RAPID VENTRICULAR RESPONSE INTRAVENTRICULAR CONDUCTION DELAY [130+ ms QRS DURATION] SEPTAL MYOCARDIAL INFARCTION , OF INDETERMINATE AGE [40+ ms Q WAVE IN V1/V2] Compared to ECG 08/28/2022 18:06:46 Myocardial infarct finding now present Ventricular premature complex(es) no longer present Aberrant conduction of supraventricular beat(s) no longer present Electronically Signed On 09-14-2022 14:29:16 CDT by Reynaldo Asencio M.D. [email or web address]
--- NOTE | 2022-09-14 09:41 | XR_ITS ---
WS: [id number] Exam: XR chest 1V portable [id number] Date/Time of Exam: 09/14/2022 9:48 AM Reason For Exam: sob Comparison 08/28/2022. There is atelectasis and consolidation in the right lower lobe. Similar findings noted on the prior e xam. An underlying mass in the right lower lobe is not excluded. The left lung is clear. There is car diac enlargement. Probable small right basal pleural effusion. The mediastinum is normal in contour. Bony structures are intact. Recommendations: Contrast CT scanning of the chest would be recommended for follow-up. XR/XR chest 1V portable [id number] IMPRESSION: 1. Persistent Consolidation and atelectasis in the right lower lobe similar to previous exam. Underlying mass is not excluded. 2. Probable small right-sided pleural effusion. 3. Cardiac enlargement unchanged.
--- NOTE | 2022-09-14 09:57 | W.ED.SOB ---
Documented by User: LIBRADO Newsome 09/14/22 14:07 HPI - SOB/Dyspnea General: Chief Complaint: Shortness of Breath/Dyspnea Stated Complaint: cough/sob Time Seen by Provider: 09/14/22 09:41 History of Present Illness: HPI Narrative: Patient is an 81-year-old male who comes to the ED with cough and shortness of breath. Past medical history of A-fib, GERD, CHF and hypertension. Symptoms started well over a month ago. Patient saw his PCP when symptoms initially started and was diagnosed with bronchitis and put on 2 rounds of antibiotics. Then back on August 28 the patient was seen here in the ED for same complaints but was having a bunch of fluid on his legs as well. Patient was given IV Lasix and discharged home with Lasix. Patient says the fluid on his legs has improved. He is still having a productive cough with a yellow sputum and shortness of breath. Shortness of breath gets worse when he lays flat or upon any exertion. Denies any fevers, chest pain or palpitations. Associated symptoms: Reports orthopnea; Deny abdominal pain, chest pain, fever(s), nausea, palpitations or vomiting Review of Systems Const: Denies: fever(s), chills or fatigue Eyes: Denies: change in vision or eye discomfort ENMT: Denies: throat pain, odynophagia, nasal discharge or nasal congestion Card: Reports: dyspnea on exertion and orthopnea; Denies: chest pain, palpitations, edema or swelling of feet/ankles Resp: Reports: dyspnea and productive cough; Denies: non-productive cough GI: Denies: abdominal pain, nausea, vomiting, diarrhea, constipation or hematochezia : Denies: flank pain, difficulty urinating, dysuria or hematuria Musc: Denies: neck pain, back pain or extremity swelling Skin/Breast: Denies: rash or new lesions Neuro: Denies: headache(s), numbness in extremities or weakness in extremities PFS ED PFSH: Medical History Atrial fibrillation BPH (benign prostatic hyperplasia) GERD (gastroesophageal reflux disease) Hx of gout Hypertension Mitral valve regurgitation Sepsis UTI (urinary tract infection) Vitamin D deficiency Surgical History Hx of colonoscopy (~2010) Hx of foot surgery Hx of hemorrhoidectomy Hx of knee surgery Hx of neck surgery Hx of rotator cuff surgery Family History Mother , age 93 Alzheimer disease Father , age 85 Cancer colon Social History Smoking and tobacco status: former smoker Quit status (tobacco): has quit using tobacco Former quit date comment: pipe in high school Second hand smoke exposure: No Alcohol intake: never Substance/Drug Use: never Lives independently: Yes Household members: spouse Marital status: Current occupational status: employed Current gender identity: Male Physical Exam Const: COMMON NORMALS: patient oriented x3 and alert HENMT: COMMON NORMALS: normocephalic HEAD & SCALP: normocephalic MOUTH: Normal oral and palatal mucosa present THROAT: posterior oropharynx normal and uvula midline Neck/C-Spine: COMMON NORMALS: supple GENERAL: Yes normal visual inspection Resp: COMMON NORMALS: normal respiratory effort, No retractions and No use of accessory muscles EFFORT & INSPECTION: Yes Actively coughing dry AUSCULTATION: wheezes expiratory wheezes and upper bilaterally and diminished lung sounds on the right in the lower lung abrams Cardio: COMMON NORMALS: regular rate, S1 normal heart sound present, S2 normal heart sound present, No gallops present (Cardio), No clicks present (Cardio), No murmurs present (Cardio) and Peripheral pulses 2+ throughout RATE: regular rate RHYTHM: abnormal rhythm irregularly irregular HEART SOUNDS: S1 normal heart sound present and S2 normal heart sound present PERIPHERAL PULSES: Peripheral pulses 2+ throughout GI: COMMON NORMALS: Normal to inspection, nondistended, normoactive bowel sounds present, Soft to palpation, non-tender and no masses PALPATION: Yes Soft to palpation : COMMON NORMALS: Yes no CVA tenderness BLADDER/KIDNEY EXAM: Yes no CVA tenderness Back/Pelvis: COMMON NORMALS: no CVA tenderness Extremity: COMMON NORMALS: normal to inspection and no pedal edema Neuro: COMMON NORMALS: patient oriented x3 SENSORIUM/ORIENTATION: Yes alert GAIT: Yes Normal gait present Skin: GENERAL SKIN EXAM: dry skin Course Vital Signs: Vital signs: Vital Signs Temperature 97.8 F 09/16/22 04:00 Pulse Rate 82 09/16/22 05:52 Respiratory Rate 19 H 09/16/22 05:00 Blood Pressure 114/88 09/16/22 05:00 Pulse Oximetry 77 L 09/16/22 05:00 Oxygen Delivery Me thod Room Air 09/16/22 05:00 Oxygen Flow Rate 3 09/16/22 04:30 MDM - SOB/Dyspnea Medical Decision Making Patient is an 81-year-old male who comes to the ED with cough and shortness of breath. Past medical history of A-fib, GERD, CHF and hypertension. Symptoms started well over a month ago. Patient saw his PCP when symptoms initially started and was diagnosed with bronchitis and put on 2 rounds of antibiotics. Then back on August 28 the patient was seen here in the ED for same complaints but was having a bunch of fluid on his legs as well. Patient was given IV Lasix and discharged home with Lasix. Patient says the fluid on his legs has improved. He is still having a productive cough with a yellow sputum and shortness of breath. Shortness of breath gets worse when he lays flat or upon any exertion. Denies any fevers, chest pain or palpitations. Vitals are stable. Patient has some bilateral upper lung field expiratory wheezing and diminished lung sounds in the right lower lobe. Patient is actively coughing during exam. Rest of exam is benign. CBC and CMP are unremarkable. BNP is 7586 and back on August 28 it was 6183. Chest x-ray shows persistent consolidation and atelectasis in the right lower lobe similar to previous exam, underlying mass not excluded. Probable small right-sided pleural effusion. EKG showed A-fib with a rate of [address] segment ovation or depression seen. I discussed patient case with Dr. Goncalves and he agreed to have patient admitted for exacerbation of heart failure. Dr. Goncalves will be contacting hospitalist and placing the admitting orders. Lab Data I reviewed the patient's lab results. 09/16/22 04:19 09/16/22 04:19 Labs/Radiology: Radiology Impressions Chest X-Ray 09/14/22 09:41 IMPRESSION: 1. Persistent Consolidation and atelectasis in the right lower lobe similar to previous exam. Underlying mass is not excluded. 2. Probable small right-sided pleural effusion. 3. Cardiac enlargement unchanged. Chest CT 09/15/22 07:43 IMPRESSION: 1. Moderate to large RIGHT pleural effusion. 2. Small LEFT pleural effusion. 3. Soft tissue anasarca. 4. Soft tissue mass in the RIGHT lower lung field. Soft tissue consolidation adjacent to the RIGHT atrium and extending in a linear configuration into the RIGHT. Favor atelectasis over neoplasm. Laboratory Results WBC 6.4 10^3/uL (4.0-10.0) 09/15/22 04:30 RBC 3.81 10^6/uL (4.1-5.3) L 09/15/22 04:30 Hgb 12.6 g/dL (11.7-16.6) 09/15/22 04:30 Hct 38.9 % (42.0-52.0) L 09/15/22 04:30 MCV 102.1 fl (80-94) H 09/15/22 04:30 MCH 33.1 pg (28.0-34.0) 09/15/22 04:30 MCHC 32.4 g/dL (30.0-36.0) 09/15/22 04:30 RDW 13.4 % (12.1-15.1) 09/15/22 04:30 Plt Count 145 10^3/cmm (130-400) 09/15/22 04:30 MPV 11.3 fL (7.4-10.4) H 09/15/22 04:30 Neut % (Auto) 82.0 % 09/15/22 04:30 Lymph % (Auto) 9.8 % 09/15/22 04:30 Band[place] % (Auto) 7.6 % 09/15/22 04:30 Eos % (Auto) 0.0 % 09/15/22 04:30 Baso % (Auto) 0.3 % 09/15/22 04:30 Neut # (Auto) 5.27 10^3/uL (1.8-7.7) 09/15/22 04:30 Lymph # (Auto) 0.6 10^3/uL (0.8-4.8) L 09/15/22 04:30 [place] # (Auto) 0.5 10^3/uL (0.2-0.9) 09/15/22 04:30 Eos # (Auto) 0.0 10^3/uL (0.0-0.8) 09/15/22 04:30 Baso # (Auto) 0.0 10^3/uL (0.0-0.1) 09/15/22 04:30 Nucleated RBC % (auto) 0 % 09/15/22 04:30 Nucleated RBCs # 0.0 /100WBC 09/15/22 04:30 Sodium 142 mmol/L (136-145) 09/15/22 04:30 Potassium 4.1 mmol/L (3.5-5.1) 09/15/22 04:30 Chloride 105 mmol/L (98-107) 09/15/22 04:30 Carbon Dioxide 25 mmol/L (22-29) 09/15/22 04:30 Anion Gap 16.1 (5-19) 09/15/22 04:30 BUN 36 mg/dL (8-23) H 09/15/22 04:30 Creatinine 1.5 mg/dL (0.7-1.2) H 09/15/22 04:30 GFR Calculation Not Reportable 09/15/22 04:30 Glucose 122 mg/dL (65-115) H 09/15/22 04:30 Calculated Osmolality 304 mOsm/kg (285-295) H 09/15/22 04:30 Calcium 8.0 mg/dL (8.5-10.5) L 09/15/22 04:30 Magnesium 2.2 mg/dL (1.7-2.3) 09/15/22 04:30 Total Bilirubin 1.1 mg/dL (0.15-1.2) 09/15/22 04:30 AST 29 U/L (0-40) 09/15/22 04:30 ALT 27 U/L (0-41) 09/15/22 04:30 Alkaline Phosphatase 83 U/L (40-130) 09/15/22 04:30 Troponin T Baseline 42 ng/L (0-15) H 09/14/22 10:11 Troponin T 120 Minute 39.45 ng/L (0-15) H 09/14/22 12:38 Delta Troponin T -2.55 ABS# (0-10) L 09/14/22 12:38 Troponin T Hi Sens 6Hr 39.86 ng/L (0-15) H 09/14/22 16:14 Troponin T Hi Sens 6Hr Delta -2.14 ng/L (0-12) L 09/14/22 16:14 NT-Pro-B Natriuret Pep 7586 pg/mL (0-450) H 09/14/22 10:11 Total Protein 6.1 g/dL (6.6-8.7) L 09/15/22 04:30 Albumin 3.4 g/dL (3.5-5.2) L 09/15/22 04:30 Globulin 2.7 g/dL (1.3-4.6) 09/15/22 04:30 TSH 3.67 uIU/mL (0.27-4.20) 09/14/22 10:11 Urine Color Dark yellow (Yellow) 09/14/22 14:10 Urine Appearance Clear (CLEAR) 09/14/22 14:10 Urine pH 6 (5-7) 09/14/22 14:10 Ur Specific [place] 1.015 (1.005-1.030) 09/14/22 14:10 Urine Protein Neg (Negative) 09/14/22 14:10 Urine Glucose (UA) Norm (Normal) 09/14/22 14:10 Urine Ketones Negative (Negative) 09/14/22 14:10 Urine Blood 3+ (Negative) H 09/14/22 14:10 Urine Nitrate Negative (Negative) 09/14/22 14:10 Urine Bilirubin Neg (Negative) 09/14/22 14:10 Urine Urobilinogen Neg mg/dL (Negative) 09/14/22 14:10 Ur Leukocyte Esterase Negative (Negative) 09/14/22 14:10 Urine RBC 10-15 /hpf (0-2) H 09/14/22 14:10 Urine WBC None /hpf (0-5) 09/14/22 14:10 Ur Squamous Epith Cells None /hpf (0-5) 09/14/22 14:10 Amorphous Sediment Not Reportable 09/14/22 14:10 Urine Bacteria None /hpf (NONE) 09/14/22 14:10 EKG Data EKG 1: I personally reviewed and interpreted this EKG as follows: EKG Interpretation Date: 09/14/22 Interpretation: A-fib, 107 bpm, no ST segment elevation or depression seen at this time. Discharge Plan Discharge Patient Disposition: Admitted As Inpatient Admit Provider: Joni Lyons Clinical Impression: Acute exacerbation of CHF (congestive heart failure), A-fib Condition: Stable Sign Out Sign Out Data: Patient Sign Out occurred on 09/14/22 at 11:35. Patient's care was discussed, and care was transferred from to Jeff Goncalves DO. Coding Level of Care Code ED Ball Points Inspector for Chg Fwd Documented by User: Aleksandr Parish DO 09/14/22 22:34 HPI - SOB/Dyspnea General: Chief Complaint: Shortness of Breath/Dyspnea Stated Complaint: cough/sob Time Seen by Provider: 09/14/22 09:41 PFSH ED PFSH: Medical History Atrial fibrillation BPH (benign prostatic hyperplasia) GERD (gastroesophageal reflux disease) Hx of gout Hypertension Mitral valve regurgitation Sepsis UTI (urinary tract infection) Vitamin D deficiency Surgical History Hx of colonoscopy (~2010) Hx of foot surgery Hx of hemorrhoidectomy Hx of knee surgery Hx of neck surgery Hx of rotator cuff surgery Family History Mother , age 93 Alzheimer disease Father , age 85 Cancer colon Social History Smoking and tobacco status: former smoker Quit status (tobacco): has quit using tobacco Former quit date comment: pipe in high school Second hand smoke exposure: No Alcohol intake: never Substance/Drug Use: never Lives independently: Yes Household members: spouse Marital status: Current occupational status: employed Current gender identity: Male Course Vital Signs: Vital signs: Vital Signs Temperature 97.8 F 09/16/22 04:00 Pulse Rate 82 09/16/22 05:52 Respiratory Rate 19 H 09/16/22 05:00 Blood Pressure 114/88 09/16/22 05:00 Pulse Oximetry 77 L 09/16/22 05:00 Oxygen Delivery Me thod Room Air 09/16/22 05:00 Oxygen Flow Rate 3 09/16/22 04:30 MDM - SOB/Dyspnea Medical Decision Making Patient is an 81-year-old male who comes to the ED with cough and shortness of breath. Past medical history of A-fib, GERD, CHF and hypertension. Symptoms started well over a month ago. Patient saw his PCP when symptoms initially started and was diagnosed with bronchitis and put on 2 rounds of antibiotics. Then back on August 28 the patient was seen here in the ED for same complaints but was having a bunch of fluid on his legs as well. Patient was given IV Lasix and discharged home with Lasix. Patient says the fluid on his legs has improved. He is still having a productive cough with a yellow sputum and shortness of breath. Shortness of breath gets worse when he lays flat or upon any exertion. Denies any fevers, chest pain or palpitations. Vitals are stable. Patient has some bilateral upper lung field expiratory wheezing and diminished lung sounds in the right lower lobe. Patient is actively coughing during exam. Rest of exam is benign. CBC and CMP are unremarkable. BNP is 7586 and back on August 28 it was 6183. Chest x-ray shows persistent consolidation and atelectasis in the right lower lobe similar to previous exam, underlying mass not excluded. Probable small right-sided pleural effusion. EKG showed A-fib with a rate of [address] segment ovation or depression seen. I discussed patient case with Dr. Goncalves and he agreed to have patient admitted for exacerbation of heart failure. Dr. Goncalves will be contacting hospitalist and placing the admitting orders. This patient was originally seen by Mr. Jhonatan PA-C. I agree with this history, evaluation, and management. This patient is requiring oxygen. He is a natural fibrillation with rapid ventricular response. They're required admission for rate control, and management of related mild pulmonary edema. Hospitalist was contacted for admission, and will see the patient in the ER. Lab Data 09/16/22 04:19 09/16/22 04:19 Labs/Radiology: Radiology Impressions Chest X-Ray 09/14/22 09:41 IMPRESSION: 1. Persistent Consolidation and atelectasis in the right lower lobe similar to previous exam. Underlying mass is not excluded. 2. Probable small right-sided pleural effusion. 3. Cardiac enlargement unchanged. Chest CT 09/15/22 07:43 IMPRESSION: 1. Moderate to large RIGHT pleural effusion. 2. Small LEFT pleural effusion. 3. Soft tissue anasarca. 4. Soft tissue mass in the RIGHT lower lung field. Soft tissue consolidation adjacent to the RIGHT atrium and extending in a linear configuration into the RIGHT. Favor atelectasis over neoplasm. Laboratory Results WBC 6.4 10^3/uL (4.0-10.0) 09/15/22 04:30 RBC 3.81 10^6/uL (4.1-5.3) L 09/15/22 04:30 Hgb 12.6 g/dL (11.7-16.6) 09/15/22 04:30 Hct 38.9 % (42.0-52.0) L 09/15/22 04:30 MCV 102.1 fl (80-94) H 09/15/22 04:30 MCH 33.1 pg (28.0-34.0) 09/15/22 04:30 MCHC 32.4 g/dL (30.0-36.0) 09/15/22 04:30 RDW 13.4 % (12.1-15.1) 09/15/22 04:30 Plt Count 145 10^3/cmm (130-400) 09/15/22 04:30 MPV 11.3 fL (7.4-10.4) H 09/15/22 04:30 Neut % (Auto) 82.0 % 09/15/22 04:30 Lymph % (Auto) 9.8 % 09/15/22 04:30 Band[place] % (Auto) 7.6 % 09/15/22 04:30 Eos % (Auto) 0.0 % 09/15/22 04:30 Baso % (Auto) 0.3 % 09/15/22 04:30 Neut # (Auto) 5.27 10^3/uL (1.8-7.7) 09/15/22 04:30 Lymph # (Auto) 0.6 10^3/uL (0.8-4.8) L 09/15/22 04:30 [place] # (Auto) 0.5 10^3/uL (0.2-0.9) 09/15/22 04:30 Eos # (Auto) 0.0 10^3/uL (0.0-0.8) 09/15/22 04:30 Baso # (Auto) 0.0 10^3/uL (0.0-0.1) 09/15/22 04:30 Nucleated RBC % (auto) 0 % 09/15/22 04:30 Nucleated RBCs # 0.0 /100WBC 09/15/22 04:30 Sodium 142 mmol/L (136-145) 09/15/22 04:30 Potassium 4.1 mmol/L (3.5-5.1) 09/15/22 04:30 Chloride 105 mmol/L (98-107) 09/15/22 04:30 Carbon Dioxide 25 mmol/L (22-29) 09/15/22 04:30 Anion Gap 16.1 (5-19) 09/15/22 04:30 BUN 36 mg/dL (8-23) H 09/15/22 04:30 Creatinine 1.5 mg/dL (0.7-1.2) H 09/15/22 04:30 GFR Calculation Not Reportable 09/15/22 04:30 Glucose 122 mg/dL (65-115) H 09/15/22 04:30 Calculated Osmolality 304 mOsm/kg (285-295) H 09/15/22 04:30 Calcium 8.0 mg/dL (8.5-10.5) L 09/15/22 04:30 Magnesium 2.2 mg/dL (1.7-2.3) 09/15/22 04:30 Total Bilirubin 1.1 mg/dL (0.15-1.2) 09/15/22 04:30 AST 29 U/L (0-40) 09/15/22 04:30 ALT 27 U/L (0-41) 09/15/22 04:30 Alkaline Phosphatase 83 U/L (40-130) 09/15/22 04:30 Troponin T Baseline 42 ng/L (0-15) H 09/14/22 10:11 Troponin T 120 Minute 39.45 ng/L (0-15) H 09/14/22 12:38 Delta Troponin T -2.55 ABS# (0-10) L 09/14/22 12:38 Troponin T Hi Sens 6Hr 39.86 ng/L (0-15) H 09/14/22 16:14 Troponin T Hi Sens 6Hr Delta -2.14 ng/L (0-12) L 09/14/22 16:14 NT-Pro-B Natriuret Pep 7586 pg/mL (0-450) H 09/14/22 10:11 Total Protein 6.1 g/dL (6.6-8.7) L 09/15/22 04:30 Albumin 3.4 g/dL (3.5-5.2) L 09/15/22 04:30 Globulin 2.7 g/dL (1.3-4.6) 09/15/22 04:30 TSH 3.67 uIU/mL (0.27-4.20) 09/14/22 10:11 Urine Color Dark yellow (Yellow) 09/14/22 14:10 Urine Appearance Clear (CLEAR) 09/14/22 14:10 Urine pH 6 (5-7) 09/14/22 14:10 Ur Specific [place] 1.015 (1.005-1.030) 09/14/22 14:10 Urine Protein Neg (Negative) 09/14/22 14:10 Urine Glucose (UA) Norm (Normal) 09/14/22 14:10 Urine Ketones Negative (Negative) 09/14/22 14:10 Urine Blood 3+ (Negative) H 09/14/22 14:10 Urine Nitrate Negative (Negative) 09/14/22 14:10 Urine Bilirubin Neg (Negative) 09/14/22 14:10 Urine Urobilinogen Neg mg/dL (Negative) 09/14/22 14:10 Ur Leukocyte Esterase Negative (Negative) 09/14/22 14:10 Urine RBC 10-15 /hpf (0-2) H 09/14/22 14:10 Urine WBC None /hpf (0-5) 09/14/22 14:10 Ur Squamous Epith Cells None /hpf (0-5) 09/14/22 14:10 Amorphous Sediment Not Reportable 09/14/22 14:10 Urine Bacteria None /hpf (NONE) 09/14/22 14:10 Discharge Plan Discharge Patient Disposition: Admitted As Inpatient Admit Provider: Joni Lyons Clinical Impression: Acute exacerbation of CHF (congestive heart failure), A-fib Condition: Stable Sign Out Sign Out Data: Patient Sign Out occurred on 09/14/22 at 11:35. Patient's care was discussed, and care was transferred from to Jeff Goncalves DO. Coding Level of Care Code ED Ball Points Inspector for Chg Fwd Documented by User: Jeff Goncalves DO 09/16/22 07:53 HPI - SOB/Dyspnea General: Chief Complaint: Shortness of Breath/Dyspnea Stated Complaint: cough/sob Time Seen by Provider: 09/14/22 09:41 PFSH ED PFSH: Medical History Atrial fibrillation BPH (benign prostatic hyperplasia) GERD (gastroesophageal reflux disease) Hx of gout Hypertension Mitral valve regurgitation Sepsis UTI (urinary tract infection) Vitamin D deficiency Surgical History Hx of colonoscopy (~2010) Hx of foot surgery Hx of hemorrhoidectomy Hx of knee surgery Hx of neck surgery Hx of rotator cuff surgery Family History Mother , age 93 Alzheimer disease Father , age 85 Cancer colon Social History Smoking and tobacco status: former smoker Quit status (tobacco): has quit using tobacco Former quit date comment: pipe in high school Second hand smoke exposure: No Alcohol intake: never Substance/Drug Use: never Lives independently: Yes Household members: spouse Marital status: Current occupational status: employed Current gender identity: Male Course Vital Signs: Vital signs: Vital Signs Temperature 97.8 F 09/16/22 04:00 Pulse Rate 82 09/16/22 05:52 Respiratory Rate 19 H 09/16/22 05:00 Blood Pressure 114/88 09/16/22 05:00 Pulse Oximetry 77 L 09/16/22 05:00 Oxygen Delivery Me thod Room Air 09/16/22 05:00 Oxygen Flow Rate 3 09/16/22 04:30 MDM - SOB/Dyspnea Medical Decision Making Patient is an 81-year-old male who comes to the ED with cough and shortness of breath. Past medical history of A-fib, GERD, CHF and hypertension. Symptoms started well over a month ago. Patient saw his PCP when symptoms initially started and was diagnosed with bronchitis and put on 2 rounds of antibiotics. Then back on August 28 the patient was seen here in the ED for same complaints but was having a bunch of fluid on his legs as well. Patient was given IV Lasix and discharged home with Lasix. Patient says the fluid on his legs has improved. He is still having a productive cough with a yellow sputum and shortness of breath. Shortness of breath gets worse when he lays flat or upon any exertion. Denies any fevers, chest pain or palpitations. Vitals are stable. Patient has some bilateral upper lung field expiratory wheezing and diminished lung sounds in the right lower lobe. Patient is actively coughing during exam. Rest of exam is benign. CBC and CMP are unremarkable. BNP is 7586 and back on August 28 it was 6183. Chest x-ray shows persistent consolidation and atelectasis in the right lower lobe similar to previous exam, underlying mass not excluded. Probable small right-sided pleural effusion. EKG showed A-fib with a rate of [address] segment ovation or depression seen. I discussed patient case with Dr. Goncalves and he agreed to have patient admitted for exacerbation of heart failure. Dr. Goncalves will be contacting hospitalist and placing the admitting orders. Initially seen by LIBRADO Newsome. I discussed and reviewed the patient with Mars Israel. Care handed off to Dr. Parish who will see the patient discussed the hospitalist and admit for A-fib with RVR as well as congestive heart failure. See Dr. Parish's notes. This patient was originally seen by Mr. Jhonatan PA-C. I agree with this history, evaluation, and management. This patient is requiring oxygen. He is a natural fibrillation with rapid ventricular response. They're required admission for rate control, and management of related mild pulmonary edema. Hospitalist was contacted for admission, and will see the patient in the ER. Lab Data 09/16/22 04:19 09/16/22 04:19 Labs/Radiology: Radiology Impressions Chest X-Ray 09/14/22 09:41 IMPRESSION: 1. Persistent Consolidation and atelectasis in the right lower lobe similar to previous exam. Underlying mass is not excluded. 2. Probable small right-sided pleural effusion. 3. Cardiac enlargement unchanged. Chest CT 09/15/22 07:43 IMPRESSION: 1. Moderate to large RIGHT pleural effusion. 2. Small LEFT pleural effusion. 3. Soft tissue anasarca. 4. Soft tissue mass in the RIGHT lower lung field. Soft tissue consolidation adjacent to the RIGHT atrium and extending in a linear configuration into the RIGHT. Favor atelectasis over neoplasm. Laboratory Results WBC 6.4 10^3/uL (4.0-10.0) 09/15/22 04:30 RBC 3.81 10^6/uL (4.1-5.3) L 09/15/22 04:30 Hgb 12.6 g/dL (11.7-16.6) 09/15/22 04:30 Hct 38.9 % (42.0-52.0) L 09/15/22 04:30 MCV 102.1 fl (80-94) H 09/15/22 04:30 MCH 33.1 pg (28.0-34.0) 09/15/22 04:30 MCHC 32.4 g/dL (30.0-36.0) 09/15/22 04:30 RDW 13.4 % (12.1-15.1) 09/15/22 04:30 Plt Count 145 10^3/cmm (130-400) 09/15/22 04:30 MPV 11.3 fL (7.4-10.4) H 09/15/22 04:30 Neut % (Auto) 82.0 % 09/15/22 04:30 Lymph % (Auto) 9.8 % 09/15/22 04:30 [place] % (Auto) 7.6 % 09/15/22 04:30 Eos % (Auto) 0.0 % 09/15/22 04:30 Baso % (Auto) 0.3 % 09/15/22 04:30 Neut # (Auto) 5.27 10^3/uL (1.8-7.7) 09/15/22 04:30 Lymph # (Auto) 0.6 10^3/uL (0.8-4.8) L 09/15/22 04:30 [place] # (Auto) 0.5 10^3/uL (0.2-0.9) 09/15/22 04:30 Eos # (Auto) 0.0 10^3/uL (0.0-0.8) 09/15/22 04:30 Baso # (Auto) 0.0 10^3/uL (0.0-0.1) 09/15/22 04:30 Nucleated RBC % (auto) 0 % 09/15/22 04:30 Nucleated RBCs # 0.0 /100WBC 09/15/22 04:30 Sodium 142 mmol/L (136-145) 09/15/22 04:30 Potassium 4.1 mmol/L (3.5-5.1) 09/15/22 04:30 Chloride 105 mmol/L (98-107) 09/15/22 04:30 Carbon Dioxide 25 mmol/L (22-29) 09/15/22 04:30 Anion Gap 16.1 (5-19) 09/15/22 04:30 BUN 36 mg/dL (8-23) H 09/15/22 04:30 Creatinine 1.5 mg/dL (0.7-1.2) H 09/15/22 04:30 GFR Calculation Not Reportable 09/15/22 04:30 Glucose 122 mg/dL (65-115) H 09/15/22 04:30 Calculated Osmolality 304 mOsm/kg (285-295) H 09/15/22 04:30 Calcium 8.0 mg/dL (8.5-10.5) L 09/15/22 04:30 Magnesium 2.2 mg/dL (1.7-2.3) 09/15/22 04:30 Total Bilirubin 1.1 mg/dL (0.15-1.2) 09/15/22 04:30 AST 29 U/L (0-40) 09/15/22 04:30 ALT 27 U/L (0-41) 09/15/22 04:30 Alkaline Phosphatase 83 U/L (40-130) 09/15/22 04:30 Troponin T Baseline 42 ng/L (0-15) H 09/14/22 10:11 Troponin T 120 Minute 39.45 ng/L (0-15) H 09/14/22 12:38 Delta Troponin T -2.55 ABS# (0-10) L 09/14/22 12:38 Troponin T Hi Sens 6Hr 39.86 ng/L (0-15) H 09/14/22 16:14 Troponin T Hi Sens 6Hr Delta -2.14 ng/L (0-12) L 09/14/22 16:14 NT-Pro-B Natriuret Pep 7586 pg/mL (0-450) H 09/14/22 10:11 Total Protein 6.1 g/dL (6.6-8.7) L 09/15/22 04:30 Albumin 3.4 g/dL (3.5-5.2) L 09/15/22 04:30 Globulin 2.7 g/dL (1.3-4.6) 09/15/22 04:30 TSH 3.67 uIU/mL (0.27-4.20) 09/14/22 10:11 Urine Color Dark yellow (Yellow) 09/14/22 14:10 Urine Appearance Clear (CLEAR) 09/14/22 14:10 Urine pH 6 (5-7) 09/14/22 14:10 Ur Specific [place] 1.015 (1.005-1.030) 09/14/22 14:10 Urine Protein Neg (Negative) 09/14/22 14:10 Urine Glucose (UA) Norm (Normal) 09/14/22 14:10 Urine Ketones Negative (Negative) 09/14/22 14:10 Urine Blood 3+ (Negative) H 09/14/22 14:10 Urine Nitrate Negative (Negative) 09/14/22 14:10 Urine Bilirubin Neg (Negative) 09/14/22 14:10 Urine Urobilinogen Neg mg/dL (Negative) 09/14/22 14:10 Ur Leukocyte Esterase Negative (Negative) 09/14/22 14:10 Urine RBC 10-15 /hpf (0-2) H 09/14/22 14:10 Urine WBC None /hpf (0-5) 09/14/22 14:10 Ur Squamous Epith Cells None /hpf (0-5) 09/14/22 14:10 Amorphous Sediment Not Reportable 09/14/22 14:10 Urine Bacteria None /hpf (NONE) 09/14/22 14:10 Discharge Plan Discharge Patient Disposition: Admitted As Inpatient Admit Provider: Joni Lyons Clinical Impression: Acute exacerbation of CHF (congestive heart failure), A-fib Condition: Stable Sign Out Sign Out Data: Patient Sign Out occurred on 09/14/22 at 11:35. Patient's care was discussed, and care was transferred from to Jeff Goncalves DO. Coding Level of Care Code ED [place] Inspector for Wilian Reyes
[2022-09-14] MEDS: ipratropium-albuterol 3 mL Neb 6 ML INHALATION (10:18)
[2022-09-14 10:30] LABS: Basophils % 0.5 %; Eosinophils % 0.3 %; Hematocrit 37.8 % (42.0-52.0); Hemoglobin 12.4 g/dL (11.7-16.6); Lymphocytes # 0.7 10^3/uL (0.8-4.8); Lymphocytes % 12.4 %; Mean Corpuscular HGB Conc 32.8 g/dL (30.0-36.0); Mean Corpuscular Hemoglobin 32.8 pg (28.0-34.0); Monocytes # 0.6 10^3/uL (0.2-0.9); Monocytes % 9.6 %; Neutrophils % 76.9 %; Nucleated Red Blood Cells % 0 %; Platelet Count 141 10^3/cmm (130-400); Red Blood Count 3.78 10^6/uL (4.1-5.3); Red Cell Distribution Width 13.2 % (12.1-15.1); White Blood Count 5.7 10^3/uL (4.0-10.0)
[2022-09-14 10:41] LABS: Troponin(5th) Baseline 42 ng/L (0-15)
[2022-09-14 10:50] LABS: Alanine Aminotransferase 20 U/L (0-41); Albumin Level 3.6 g/dL (3.5-5.2); Alkaline Phosphatase 72 U/L (40-130); Anion Gap 11.6 (5-19); Aspartate Amino Transferase 20 U/L (0-40); Blood Urea Nitrogen 32 mg/dL (8-23); Calcium 8.2 mg/dL (8.5-10.5); Carbon Dioxide 28 mmol/L (22-29); Chloride 103 mmol/L (98-107); Globulin 2.6 g/dL (1.3-4.6); Glucose 101 mg/dL (65-115); NT Pro B Type Natriuretic Pept 7586 pg/mL (0-450); Osmolality Calculated 295 mOsm/kg (285-295); Potassium 3.6 mmol/L (3.5-5.1); Sodium 139 mmol/L (136-145); Total Protein 6.2 g/dL (6.6-8.7)
--- NOTE | 2022-09-14 11:41 | ECG_ITS ---
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 Measurements Intervals [place] Rate: 107 P: 0 KS: 0 QRS: -22 QRSD: 143 T: 81 QT: 384 QTc: 513 Interpretive Statements ATRIAL FIBRILLATION WITH RAPID VENTRICULAR RESPONSE INTRAVENTRICULAR CONDUCTION DELAY [130+ ms QRS DURATION] Compared to ECG 09/14/2022 09:46:46 Myocardial infarct finding no longer present Electronically Signed On 09-14-2022 14:34:02 CDT by Reynaldo Asencio M.D. [id number]
--- NOTE | 2022-09-14 13:01 | PM.HP ---
Providers/Chief Complaint Admitting Physician: Joni Lyons MD Primary Care Provider: Marielena Dunn MD Chief Complaint: cough/sob History of Present Illness Mars Reeder is a 81 year old male presenting from home with complaints of shortness of breath with exertion and laying down. This has been gradually increasing over the last several months, after he had a bout of bronchitis . He has been taking Lasix and having some reduction in his edema. reports his heart rate has been high recently, usually over 100 and irregular. He has been taking his amiodarone. He did not take his Lasix yet today. He denies any fever. He has been coughing at times. He denies any choking with food, nausea, vomiting. No recent ill contacts. No chest discomfort. Review of Systems General: Reports: 10 or more systems reviewed and unremarkable except in HPI and below Const: Reports: fatigue; Denies: fever(s) or chills Card: Reports: palpitations, swelling of feet/ankles and dyspnea on exertion; Denies: chest pain Resp: Reports: dyspnea and non-productive cough; Denies: productive cough GI: Denies: abdominal pain, nausea, vomiting, hematochezia or melena Medications/Allergies Home Medications Medication Instructions Recorded Confirmed Last Taken Type multivitamin (Daily Multi-Vitamin 1 tab PO DAILY@07 08/15/19 09/14/22 09/14/22 History tablet) apixaban 5 mg tablet (Eliquis) See Rx Instructions .Route 02/17/22 09/14/22 09/14/22 Rx .COMPLEX #180 tabs compressor, for nebulizer #1 ea 03/02/22 09/14/22 Unknown Rx ipratropium 0.5 mg-albuterol 3 mg 3 ml inhalation Q4H PRN wheezing 07/28/22 09/14/22 Unknown Rx (2.5 mg base)/3 mL nebulization #200 mL soln albuterol sulfate 90 mcg/actuation 1 inh inhalation Q6H PRN shortness 08/10/22 09/14/22 Unknown Rx aerosol inhaler of breath or wheezing #8.5 grams furosemide 40 mg tablet (Lasix) 40 mg PO QAM #30 tabs 08/28/22 09/14/22 09/13/22 Rx amiodarone 200 mg tablet 200 mg PO QPM 09/14/22 09/14/22 09/13/22 History hydrochlorothiazide 12.5 mg tablet 12.5 mg PO DAILY 09/14/22 09/14/22 Unknown History tamsulosin 0.4 mg capsule (Flomax) 0.4 mg PO DAILY 09/14/22 09/14/22 09/14/22 History Allergies Allergy/AdvReac Type Severity Reaction Status Date / Time promethazine Allergy ADR-Halluci Verified 09/14/22 11:49 nating PFSH Acute PFSH: Medical History Atrial fibrillation BPH (benign prostatic hyperplasia) GERD (gastroesophageal reflux disease) Hx of gout Hypertension Mitral valve regurgitation Sepsis UTI (urinary tract infection) Vitamin D deficiency Surgical History Hx of colonoscopy (~2010) Hx of foot surgery Hx of hemorrhoidectomy Hx of knee surgery Hx of neck surgery Hx of rotator cuff surgery Family History Mother , age 93 Alzheimer disease Father , age 85 Cancer colon Social History Smoking and tobacco status: former smoker Quit status (tobacco): has quit using tobacco Former quit date comment: pipe in high school Second hand smoke exposure: No Alcohol intake: never Substance/Drug Use: never Lives independently: Yes Household members: spouse Marital status: Current occupational status: employed Current gender identity: Male Vitals/I&O/Wt Last Vital Signs Temp 97.4 F L 09/14/22 09:30 Pulse 107 H 09/14/22 12:40 Resp 19 H 09/14/22 12:40 BP 122/94 09/14/22 12:40 Pulse Ox 91 09/14/22 12:40 O2 Del Method Room Air 09/14/22 10:25 Weight last 48 hrs Weight 86.636 kg Physical Exam Narrative: General exam is a white male, no distress, oxygen saturation 89 to 90% room air, heart rate 100-115. With talking it easily goes to 115 where he appears short of breath. HEENT: Pupils equally round. Oropharynx is clear Neck is supple no lymphadenopathy thyromegaly Cardiovascular irregular, irregular with a 2/6 systolic murmur. Tachycardic. Lungs diminished breath sounds bilaterally but no crackles Abdomen is soft with positive bowel sounds. No obvious organomegaly exam was deferred Extremities 1+ edema. No cyanosis or clubbing Skin no rash Neuro no obvious focal deficits Data 09/14/22 10:11 09/14/22 10:11 Other Labs: Chest x-ray by my read demonstrates cardiomegaly, pulmonary congestion, likely right lower lobe effusion EKG which I reviewed demonstrates atrial fibrillation with rapid ventricular rate, left axis deviation, intraventricular conduction delay, poor R wave progression Calcium is 8.2 I have ordered a magnesium and a TSH LFTs are normal Troponin baseline 42, repeat pending BNP 7586 Albumin 3.6 Urinalysis ordered A&P Assessment and plan (1) Atrial fibrillation with rapid ventricular response: Patient presents with atrial fibrillation with rapid ventricular rate Continue amiodarone which she has been taking long-term, 200 mg daily Metoprolol 12.5 mg p.o. now, then twice daily. Titrate this up as needed to keep resting heart rate less than 100. (2) Acute systolic heart failure: Patient with evidence of acute systolic heart failure by peripheral edema, physical exam, chest x-ray demonstrating right effusion, elevated BNP Lasix 40 mg IV given in the emergency department Reevaluate for further doses after response Accurate I's and O's Low-salt diet Check limited echo. EF in the past is varied from 35 to 50%, with the last being 50% on a limited echo. (3) Pleural effusion: Appears to be secondary to heart failure. Patient without history of fever Would recommend repeating x-ray after effective heart failure treatment, likely in [address] scan if does not resolve Plan Other medical problems as listed in past medical history Full code Eliquis will suffice for DVT prophylaxis Attestations Medical Necessity Statement*: Will need less than 2 midnight stay for evaluation and treatment of atrial fibrillation with rapid reticular rate, acute systolic heart failure Diagnoses Atrial fibrillation with rapid ventricular response I48.91 Acute systolic heart failure I50.21 Pleural effusion J90 Time Spent (min) 54
[2022-09-14] MEDS: FUROsemide 10 mg/mL SDV 4mL 40 MG IVP (13:04)
[2022-09-14] MEDS: metoprolol tartrate 25 mg Tablet 12.5 MG PO (13:05)
[2022-09-14 13:18] LABS: Troponin 5 2HR 39.45 ng/L (0-15)
[2022-09-14 13:21] LABS: Troponin 5 2HR Delta -2.55 ABS# (0-10)
[2022-09-14 13:27] LABS: Magnesium 2.2 mg/dL (1.7-2.3); Thyroid Stimulating Hormone 3.67 uIU/mL (0.27-4.20)
--- NOTE | 2022-09-14 15:30 | PC.NURSE ---
Transfer Note Patient transferred to ICU from ER via stretcher. Handoff received from ABHI Patel. Patient oriented to environment and equipment. Covering service notified. Orders reviewed and will continue to monitor. Family notified. Patient alert/oriented x4 on room air upon arrival to unit. No wounds or skin issues noted at this time. Patient belongings including shoes, jacket, pants, glasses and cell phone placed at bedside.
--- NOTE | 2022-09-14 15:40 | USCV_ITS ---
Mars Reeder Age: 81 Gender: M : 1940 Exam Date: 09/14/2022 19:09 Ordering Phys: Joni Lyons MD Technologist: JOSE [place] [facility] [place]: CHF SOB atrial fibrillation, GERD, HTN, LE edema. Only cardiac intervention was cardioversion with Dr. Negro 2019 BP: 121 / 84 HR: 116 Rhythm: Atrial fibrillation Technical Quality: Adequate MEASUREMENTS (Male / Female) Normal Values 2D ECHO LV Diastolic Diameter PLAX 4.6 cm 4.2 - 5.9 / 3.9 - 5.3 cm LV Systolic Diameter PLAX 4.0 cm IVS Diastolic Thickness 2.1 cm 0.6 - 1.0 / 0.6 - 0.9 cm IVS Systolic Thickness 2.7 cm LVPW Diastolic Thickness 1.8 cm 0.6 - 1.0 / 0.6 - 0.9 cm LVPW Systolic Thickness 2.0 cm LVOT Diameter 2.2 cm LV Ejection Fraction 2D Teich 27.8 % LV Ejection Fraction MOD 2C 27.8 % LV Ejection Fraction 2C AL 25.0 % LA Diameter 4.3 cm LA Width 4.7 cm LA Height 6.3 cm RA Width 5.4 cm RA Height 5.3 cm Aorta at Sinotubular Diameter 3.2 cm IVC Diameter 2.9 cm M-MODE Aortic Annulus Diameter 3.8 cm LA Ao Ratio MM 1.1 MV E Point Septal Separation 3.6 cm DOPPLER AV Peak Velocity 95.0 cm/s LVOT Peak Velocity 47.0 cm/s AV Area Cont Eq vti 2.3 cm squared AV Area Cont Eq pk 1.9 cm squared MV Area PHT 4.9 cm squared MV E' Velocity 67.5 cm/s Mitral E to MV E' Ratio 22.9 Mitral E to LV E' Lateral Ratio 17.6 Mitral E to LV E' Septal Ratio 33.8 TR Peak Velocity 322.3 cm/s TR Peak Gradient 41.6 mmHg TV Peak E Velocity 110.0 cm/s Right Atrial Pressure 10.0 mmHg Pulmonary Artery Systolic Pressu 51.6 mmHg PV Peak Velocity 135.0 cm/s RV Acceleration Time 0.1 s RV Ejection Time 0.4 s RV AcT/ET 0.1 FINDINGS Left Ventricle Left ventricle is normal in size. LV systolic function is severely reduced with EF 20 to 25%. Severe global hypokinesis.Diastolic function is indeterminate because of atrial fibrillation Right Ventricle Normal in size. RV is mildly hypokinetic Right Atrium Dilated Left Atrium Dilated Mitral Valve Structurally normal mitral valve. Moderate mitral regurgitation. Aortic Valve Structurally normal aortic valve.Moderate aortic regurgitation. No significant aortic stenosis Tricuspid Valve Moderate tricuspid regurgitation. RVSP is 50-55mmHg. This is consistent with moderate pulmonary hypertension Pulmonic Valve Not well visualized Pericardium Pleural effusion is seen Aorta Normal in size IVC Dilated CONCLUSIONS LV systolic function is severely reduced EF of 20 to 25%. Diastolic function is indeterminate because of atrial fibrillation RV is hypokinetic. Moderate mitral regurgitation Biatrial dilation Moderate aortic regurgitation Moderate tricuspid regurgitation. Moderate pulmonary hypertension Pleural effusion noted. IVC is dilated. RA pressure is elevated. Compared to prior echocardiogram from 2020, LV systolic function has significantly decreased and is now 20 to 25%. Aortic and mitral regurgitation have progressed as well. Atul Cesar MD (Electronically Signed) Final Date: 15 September 2022 11:28 S
--- NOTE | 2022-09-14 16:35 | ECG_ITS ---
[facility] Test Date: 2022-09-14 Pat Name: Mars Reeder Department: Room: ICU02 Gender: Male [place] Supervisor: : 1940 Requested By: Mars Israel Order Number: [id number] Pavon MD: Atul Cesar M.D. Measurements Intervals [place] Rate: 98 P: 0 MA: 0 QRS: -26 QRSD: 142 T: 97 QT: 400 QTc: 512 Interpretive Statements ATRIAL FIBRILLATION WITH VENTRICULAR PREMATURE COMPLEXES INTRAVENTRICULAR CONDUCTION DELAY [130+ ms QRS DURATION] Compared to ECG 09/14/2022 11:50:23 Ventricular premature complex(es) now present Aberrant conduction of supraventricular beat(s) now present Electronically Signed On 09-15-2022 10:12:22 CDT by Atul Cesar M.D. [id number]
[2022-09-14 16:51] LABS: Troponin 5 6HR 39.86 ng/L (0-15)
[2022-09-14 16:52] LABS: Troponin 5 6HR Delta -2.14 ng/L (0-12)
[2022-09-14] MEDS: amiodarone 200 mg Tablet PO (18:02)
--- NOTE | 2022-09-14 19:07 | PC.NURSE ---
Shift Note Frequent safety and comfort rounds continue. Orders and/or nursing care completed as indicated. Patient monitored for response to intervention and treatment(s). Education provided includes treatment plan. Patient verbalized understanding of teaching. Patient had an uneventful shift, remains on room air and is alert/oriented x4. No wounds or skin issues noted at this time. Left AC IV remains saline locked at this time. No reports of pain throughout shift. Will continue to monitor.
[2022-09-14] MEDS: apixaban 5 mg Tablet PO (20:17)
[2022-09-14] MEDS: metoprolol tartrate 25 mg Tablet PO (20:17)
[2022-09-14 21:37] LABS: Urine Appearance Clear (CLEAR); Urine Color Dark Yellow (Yellow)
[2022-09-14 21:38] LABS: Add Urine Culture? Yes; Add Urine Microscopic? YES; Bilirubin Urine Neg (Negative); Blood Urine 3+ (Negative); Glucose Urine UA Norm (Normal); Ketones Urine Negative (Negative); Leukocyte Esterase Urine Negative (Negative); Nitrate Urine Negative (Negative); Protein Urine Neg (Negative); Specific Gravity, Urine 1.015 (1.005-1.030); Urobilinogen Urine Neg (Negative); pH Urine 6 (5-7)
[2022-09-14] MEDS: metoprolol tartrate 1 mg/1 mL SDV 5 mL 5 MG IVP (22:49)
[2022-09-14] MEDS: ondansetron 2 mg/ML SDV 2 mL 4 MG IVP (23:30)
[2022-09-15] VITALS (44 sets, daily range): BP systolic 89–125; BP diastolic 68–97; PULSE 83–136; RESP 0–30; TEMP 36.6–36.7; O2SAT 68–98; BMI 25.9
--- NOTE | 2022-09-15 01:00 | PC.NURSE ---
Patient heart rate fluctuating between 110's-130. Patient has parameters to keep heart rate below [address] Arenas notified with new orders to administer IVP metoprolol 5 mg and administer a one time dose of 12.5 mg of metoprolol PO ONCE.
[2022-09-15] MEDS: metoprolol tartrate 25 mg Tablet 12.5 MG PO (01:06)
[2022-09-15 05:45] LABS: Basophils % 0.3 %; Hematocrit 38.9 % (42.0-52.0); Hemoglobin 12.6 g/dL (11.7-16.6); Lymphocytes # 0.6 10^3/uL (0.8-4.8); Lymphocytes % 9.8 %; Mean Corpuscular HGB Conc 32.4 g/dL (30.0-36.0); Mean Corpuscular Hemoglobin 33.1 pg (28.0-34.0); Mean Corpuscular Volume 102.1 fl (80-94); Mean Platelet Volume 11.3 fL (7.4-10.4); Monocytes # 0.5 10^3/uL (0.2-0.9); Monocytes % 7.6 %; Neutrophils # 5.27 10^3/uL (1.8-7.7); Nucleated Red Blood Cells % 0 %; Platelet Count 145 10^3/cmm (130-400); Red Blood Count 3.81 10^6/uL (4.1-5.3); Red Cell Distribution Width 13.4 % (12.1-15.1); White Blood Count 6.4 10^3/uL (4.0-10.0)
[2022-09-15 06:09] LABS: Alanine Aminotransferase 27 U/L (0-41); Albumin Level 3.4 g/dL (3.5-5.2); Alkaline Phosphatase 83 U/L (40-130); Anion Gap 16.1 (5-19); Aspartate Amino Transferase 29 U/L (0-40); Blood Urea Nitrogen 36 mg/dL (8-23); Carbon Dioxide 25 mmol/L (22-29); Chloride 105 mmol/L (98-107); Globulin 2.7 g/dL (1.3-4.6); Glucose 122 mg/dL (65-115); Magnesium 2.2 mg/dL (1.7-2.3); Osmolality Calculated 304 mOsm/kg (285-295); Potassium 4.1 mmol/L (3.5-5.1); Sodium 142 mmol/L (136-145); Total Bilirubin 1.1 mg/dL (0.15-1.2); Total Protein 6.1 g/dL (6.6-8.7)
--- NOTE | 2022-09-15 07:43 | CT_ITS ---
WS: [id number] CT chest wo con [id number] HISTORY: left effusion versus infiltrate TECHNIQUE: Axial imaging performed through the thorax. Coronal and sagittal reformats are submitted. All CT scans at [facility] use at least one of these dose optimization techniques: automated exposure control; mA and/or kV adjustment per patient size (includes targeted exams where dose is mat ched to clinical indication); or iterative reconstruction. CONTRAST: None DLP: 484.68 mGy.cm COMPARISON: Chest radiograph 09/14/2022 Lungs and central airway: Mild hazy attenuation throughout both lungs. More focal increasing consolid ation of in the medial LEFT upper lobe. Compressive atelectasis at the lung bases. There is a soft ti ssue mass extending in a linear configuration into the RIGHT lower lung field, probably the middle lo be. There is also adjacent soft tissue bordering the the RIGHT heart. This may be a solid mass or ate lectasis. Pleura: Moderate to large RIGHT pleural effusion and small layering LEFT pleural effusion. Heart and pericardium: Marked cardiomegaly. Mediastinum and minal: Scattered small lymph nodes. Hilar regions are difficult to evaluate without IV contrast. Vessels: Mild atherosclerosis aorta. No aneurysm. Normal size pulmonary artery. Chest wall and lower neck: Soft tissue anasarca. Upper abdomen: Soft tissue anasarca. Osseous structures: No destructive process. CT/CT chest wo con [id number] IMPRESSION: 1. Moderate to large RIGHT pleural effusion. 2. Small LEFT pleural effusion. 3. Soft tissue anasarca. 4. Soft tissue mass in the RIGHT lower lung field. Soft tissue consolidation a djacent to the RIGHT atrium and extending in a linear configuration into the RI GHT. Favor atelectasis over neoplasm.
--- NOTE | 2022-09-15 09:21 | PM.PN ---
Subjective Subjective: Mars reports he is breathing a little bit better, but still coughing quite a bit. Still has a little bit of swelling in his ankles. Medications: Reviewed: Yes Vitals/I&O/Wt Last Vital Signs Temp 98.1 F 09/15/22 04:00 Pulse 94 09/15/22 06:00 Resp 22 H 09/15/22 06:00 BP 103/88 09/15/22 06:00 Pulse Ox 84 L 09/15/22 06:00 O2 Del Method Room Air 09/15/22 05:30 O2 Flow Rate 2 09/15/22 04:00 09/14/22 09/15/22 09/15/22 22:59 06:59 14:59 Intake Total 240 / 240 Output Total 400 / 400 100 / 500 Balance -160 / -160 -100 / -260 Weight last 48 hrs Weight 86.863 kg Weight 89.584 kg Weight 86.636 kg Physical Exam Narrative: General exam is a white male, no distress, oxygen saturation 89 to 90% room air, heart rate less than 100. Still appears somewhat short of breath. Neck is supple no lymphadenopathy thyromegaly Cardiovascular irregular, irregular with a 2/6 systolic murmur. Tachycardic. Lungs diminished breath sounds bilaterally but no crackles Abdomen is soft with positive bowel sounds. No obvious organomegaly exam was deferred Extremities trace edema. No cyanosis or clubbing Data 09/15/22 04:30 09/15/22 04:30 Other Labs: I reviewed CT scan personally, demonstrating moderate to large right effusion. I also reviewed his echo, likely his ejection fraction will be 30%. Awaiting for official read. A&P Assessment and plan (1) Atrial fibrillation with rapid ventricular response: Patient presents with atrial fibrillation with rapid ventricular rate Continue amiodarone which she has been taking long-term, 200 mg daily I have increased his metoprolol to 25 mg twice daily (2) Acute systolic heart failure: Patient with evidence of acute systolic heart failure by peripheral edema, physical exam, chest x-ray demonstrating right effusion, elevated BNP Lasix 40 mg IV given in the emergency department Transition to 60 mg of Lasix p.o. today. Noted that creatinine is slightly higher Only 300 negative but clinically only trace edema. It may be hard to mobilize the moderate to large amount of fluid in his right pleural effusion. It is certainly symptomatic. Accurate I's and O's Low-salt diet Limited echo final result is pending (3) Pleural effusion: Appears to be secondary to heart failure. Patient without history of fever Would recommend repeating x-ray after effective heart failure treatment, likely in 2 weeks we will repeat CT (4) Pleural effusion, right: Has significant right pleural effusion on CT scan. Moderate to large and certainly symptomatic with coughing and shortness of breath. I think this is likely secondary to heart failure but may be very slow to resolve and he is still requiring oxygen. It may be more beneficial to go ahead and do a thoracentesis. This will allow check of the fluid as well as he does have history of some type of respiratory illness over 3 weeks ago. I have discussed with radiology and we will hold his anticoagulation, hopefully being able to perform thoracentesis tomorrow for therapeutic and diagnostic purposes. I have discussed the risks and benefits with him including bleeding, infection, pneumothorax, need for further procedure. He agrees to go forward with the procedure. Plan Other medical problems as listed in past medical history Full code Holding Eliquis for procedure. SCDs for DVT prophylaxis Changed to regular admission Attestations Medical Necessity Statement*: Needs continued hospitalization for acute systolic heart failure Diagnoses Atrial fibrillation with rapid ventricular response I48.91 Acute systolic heart failure I50.21 Pleural effusion J90 Pleural effusion, right J90 Time Spent (min) 31
[2022-09-15] MEDS: metoprolol tartrate 25 mg Tablet PO ×2 (09:56→21:59)
[2022-09-15] MEDS: tamsulosin 0.4 mg Capsule PO (09:56)
[2022-09-15] MEDS: FUROsemide 40 mg Tablet 60 MG PO (09:56)
[2022-09-15] MEDS: amiodarone 200 mg Tablet PO (17:15)
--- NOTE | 2022-09-15 20:33 | PM.CONSULT ---
Providers/Reason For Consult Consulting Physician/Specialty*: Atul Cesar MD/ Cardiology Reason for Consult*: Congestive heart failure Requesting Physician: Dr Lyons Attending Physician: Joni Lyons MD Primary Care Provider: Marielena Dunn MD History of Present Illness History of Present Illness Mars Reeder is a 81 year old male with past medical history of congestive heart failure with EF ranging from 30% to 50%, last echo prior to the admission showed EF of 50%, nonischemic cardiomyopathy, atrial fibrillation on Eliquis presented to hospital with worsening shortness of breath. Patient was also having orthopnea and significant dyspnea on exertion. Denies chest pain. NT proBNP was over 7000. Troponins have not trended up significantly. Echocardiogram performed shows LV systolic function is significantly reduced with EF of 20 to 25%.Patient has significant pleural effusion as well. Patient was also in afib with RVR. Review of Systems General: Reports: 10 or more systems reviewed and unremarkable except in HPI and below Const: Reports: fatigue; Denies: fever(s) or chills Card: Reports: palpitations, swelling of feet/ankles and dyspnea on exertion; Denies: chest pain Resp: Reports: dyspnea and non-productive cough; Denies: productive cough GI: Denies: abdominal pain, nausea, vomiting, hematochezia or melena Medications/Allergies Home Medications Medication Instructions Recorded Confirmed Last Taken Type multivitamin (Daily Multi-Vitamin 1 tab PO DAILY@07 08/15/19 09/14/22 09/14/22 History tablet) apixaban 5 mg tablet (Eliquis) See Rx Instructions .Route 02/17/22 09/14/22 09/14/22 Rx .COMPLEX #180 tabs compressor, for nebulizer #1 ea 03/02/22 09/14/22 Unknown Rx ipratropium 0.5 mg-albuterol 3 mg 3 ml inhalation Q4H PRN wheezing 07/28/22 09/14/22 Unknown Rx (2.5 mg base)/3 mL nebulization #200 mL soln albuterol sulfate 90 mcg/actuation 1 inh inhalation Q6H PRN shortness 08/10/22 09/14/22 Unknown Rx aerosol inhaler of breath or wheezing #8.5 grams furosemide 40 mg tablet (Lasix) 40 mg PO QAM #30 tabs 08/28/22 09/14/22 09/13/22 Rx amiodarone 200 mg tablet 200 mg PO QPM 09/14/22 09/14/22 09/13/22 History hydrochlorothiazide 12.5 mg tablet 12.5 mg PO DAILY 09/14/22 09/14/22 Unknown History tamsulosin 0.4 mg capsule (Flomax) 0.4 mg PO DAILY 09/14/22 09/14/22 09/14/22 History Allergies Allergy/AdvReac Type Severity Reaction Status Date / Time promethazine Allergy ADR-Halluci Verified 09/14/22 11:49 nating Current Medications Generic Name Dose Route Start Last Admin Trade Name Freq PRN Reason Stop Dose Admin Amiodarone HCl 200 mg 09/14/22 18:00 09/15/22 17:15 Amiodarone 200 Mg Tablet PO 200 mg QPM BALJIT Administration Furosemide 60 mg 09/15/22 08:00 09/15/22 09:56 Furosemide 40 Mg Tablet PO 60 mg DAILY@0800 BALJIT Administration Metoprolol Tartrate 25 mg 09/14/22 21:00 09/15/22 09:56 Metoprolol Tartrate 25 Mg Tablet PO 25 mg BID@0900,2100 BALJIT Administration Ondansetron HCl 4 mg 09/14/22 15:40 09/14/22 23:30 Ondansetron 2 Mg/Ml Sdv 2 Ml IVP 4 mg Q6H PRN Administration vomiting, or N/V if npo Tamsulosin HCl 0.4 mg 09/15/22 09:00 09/15/22 09:56 Tamsulosin 0.4 Mg Capsule PO 0.4 mg DAILY BALJIT Administration PFSH Acute PFSH: Medical History Atrial fibrillation BPH (benign prostatic hyperplasia) GERD (gastroesophageal reflux disease) Hx of gout Hypertension Mitral valve regurgitation Sepsis UTI (urinary tract infection) Vitamin D deficiency Surgical History Hx of colonoscopy (~2010) Hx of foot surgery Hx of hemorrhoidectomy Hx of knee surgery Hx of neck surgery Hx of rotator cuff surgery Family History Mother , age 93 Alzheimer disease Father , age 85 Cancer colon Social History Smoking and tobacco status: former smoker Quit status (tobacco): has quit using tobacco Former quit date comment: pipe in high school Second hand smoke exposure: No Alcohol intake: never Substance/Drug Use: never Lives independently: Yes Household members: spouse Marital status: Current occupational status: employed Current gender identity: Male Vitals/I&O/Wt Last Vital Signs Temp 98.1 F 09/15/22 04:00 Pulse 107 H 09/15/22 16:00 Resp 24 H 09/15/22 16:00 BP 115/80 09/15/22 16:00 Pulse Ox 87 L 09/15/22 16:00 O2 Del Method Room Air 09/15/22 09:26 O2 Flow Rate 2 09/15/22 04:00 09/15/22 09/15/22 09/15/22 06:59 14:59 22:59 Intake Total 240 / 240 240 / 480 Output Total 100 / 500 Balance -100 / -260 240 / 240 240 / 480 Weight last 48 hrs Weight 191 lb 8 oz Weight 197 lb 8 oz Weight 191 lb Physical Exam Narrative: GENERAL: Patient is alert, awake and oriented x3. [] NECK: No jugular vein distension. [] HEENT: No cyanosis. No icterus. No pallor. [] HEART: Irregularly irregular, grade 3/6 systolic murmur LUNGS: Diminished air entry CENTRAL NERVOUS SYSTEM: Grossly nonfocal. [] EXTREMITIES: Lower extremities with 1+ edema bilaterally. Data 09/16/22 04:19 09/16/22 04:19 A&P Assessment and plan (1) Pleural effusion, right: (2) Acute exacerbation of CHF (congestive heart failure): (3) A-fib: (4) Pleural effusion: (5) Mitral valve regurgitation: Qualifiers: Cardiac valve disease etiology: nonrheumatic Qualified Code(s): I34.0 - Nonrheumatic mitral (valve) insufficiency (6) Acute kidney injury: Plan Patient has nonischemic cardiomyopathy. LV systolic function is significantly decreased from before. Continue amiodarone. Metoprolol can be uptitrated as blood pressure tolerates. If heart rates stay persistently elevated, can switch to amiodaron gtt Agree with plan for thoracentesis as symptoms will improve. Resume anticoagulation post procedure when safe. Continue diuresis. Close I&O's. Close monitoring of renal function. He will benefit from LifeVest if he agrees. Thank you for involving us with care of this patient. We will continue to follow. Please call with questions. Consult Attestations Medical Necessity Statement: Care expected to cross 2 midnights. Coding Level of Care Code Acute Code for g Fwd Diagnoses Pleural effusion, right J90 Acute exacerbation of CHF (congestive heart failure) I50.9 A-fib I48.91 Pleural effusion J90 Mitral valve regurgitation I34.0 Cardiac valve disease etiology: nonrheumatic Acute kidney injury N17.9
[2022-09-16] VITALS (45 sets, daily range): BP systolic 91–129; BP diastolic 68–94; PULSE 81–115; RESP 1–35; TEMP 36.3–36.6; O2SAT 73–100; BMI 26.2
[2022-09-16 04:58] LABS: Basophils % 0.4 %; Hematocrit 39.7 % (42.0-52.0); Hemoglobin 13.1 g/dL (11.7-16.6); Lymphocytes % 12.5 %; Mean Corpuscular Hemoglobin 33.1 pg (28.0-34.0); Mean Corpuscular Volume 100.3 fl (80-94); Monocytes # 0.8 10^3/uL (0.2-0.9); Monocytes % 9.8 %; Neutrophils # 6.12 10^3/uL (1.8-7.7); Neutrophils % 76.8 %; Nucleated Red Blood Cells % 0.3 %; Platelet Count 128 10^3/cmm (130-400); Red Blood Count 3.96 10^6/uL (4.1-5.3); Red Cell Distribution Width 13.2 % (12.1-15.1)
[2022-09-16 05:20] LABS: Anion Gap 17.5 (5-19); Blood Urea Nitrogen 47 mg/dL (8-23); Carbon Dioxide 25 mmol/L (22-29); Chloride 101 mmol/L (98-107); Glucose 111 mg/dL (65-115); Magnesium 2.2 mg/dL (1.7-2.3); Osmolality Calculated 301 mOsm/kg (285-295); Potassium 4.5 mmol/L (3.5-5.1); Sodium 139 mmol/L (136-145)
--- NOTE | 2022-09-16 06:49 | PC.NURSE ---
Dr. Arenas notified of low urine output for this shift and low oxygen saturation while sleeping; no new orders received.
--- NOTE | 2022-09-16 07:00 | US_ITS ---
WS: [id number] ULTRASOUND-GUIDED THORACENTESIS, RIGHT HISTORY: pleural effusion right Procedure, risks, and complications were explained to the patient. With the patient in an upright pos ition, the skin over the RIGHT posterior thorax was cleansed with ChloraPrep and anesthetized with 1% buffered lidocaine. A 5 Kinyarwanda Yueh needle is inserted into the pleural fluid without complication. Approximately 1800 cc of clear yellow pleural fluid is removed without difficulty. Pleural fluid specimen collected for analysis as requested. / thoracentesis [id number] IMPRESSION: 1. RIGHT thoracentesis yielding 1800 cc of fluid. 2. Chest radiograph to follow to evaluate for pneumothorax. 3. Specimen collected for analysis as requested.
--- NOTE | 2022-09-16 08:13 | PM.PN ---
Subjective Subjective: Mars reported he was significantly short of breath when I saw him. He had just been up to the bathroom without his oxygen on. I put him back on oxygen and he recovered fairly quickly. No chest pain. Occasional cough still present. Eager to undergo thoracentesis to see if that improves his condition. Medications: Reviewed: Yes Vitals/I&O/Wt Last Vital Signs Temp 97.8 F 09/16/22 04:00 Pulse 98 09/16/22 07:30 Resp 23 H 09/16/22 07:30 BP 117/83 09/16/22 07:00 Pulse Ox 91 09/16/22 07:30 O2 Del Method Room Air 09/16/22 07:30 O2 Flow Rate 3 09/16/22 04:30 09/15/22 09/16/22 09/16/22 22:59 06:59 14:59 Intake Total 240 / 480 0 / 0 Output Total 225 / 225 125 / 350 Balance 15 / 255 -125 / 130 0 / 0 Weight last 48 hrs Weight 87.77 kg Weight 86.863 kg Weight 89.584 kg Weight 86.636 kg Physical Exam Narrative: General exam is a white male, short of breath with tachypnea but when I replaced his 3 L facemask he improved substantially. Neck is supple no lymphadenopathy thyromegaly Cardiovascular irregular, irregular with a 2/6 systolic murmur. Heart rate is controlled Lungs diminished breath sounds bilaterally but no crackles Abdomen is soft with positive bowel sounds. No obvious organomegaly Extremities trace edema. No cyanosis or clubbing Data 09/16/22 04:19 09/16/22 04:19 A&P Assessment and plan (1) Atrial fibrillation with rapid ventricular response: Patient presents with atrial fibrillation with rapid ventricular rate Continue amiodarone which he has been taking long-term, 200 mg daily Metoprolol currently at 25 mg twice daily with controlled rate (2) Acute systolic heart failure: Patient with evidence of acute systolic heart failure by peripheral edema, physical exam, chest x-ray demonstrating right effusion, elevated BNP Was getting diuresed. Hold Lasix today as rising creatinine to 1.9. Not significantly negative over the last 24 hours. We orally hydrate today. It may be hard to mobilize the moderate to large amount of fluid in his right pleural effusion. It is certainly symptomatic. Thoracentesis planned today. Anticoagulation is being held. Accurate I's and O's Low-salt diet Limited echo final result demonstrates EF of 20 to 25%, moderate MR, hypokinetic RV, moderate aortic regurgitation. Awaiting final results of their opinion, as well as possibility of need for LifeVest. Will not completely rule out need for inotropic's at this time. (3) Pleural effusion: Appears to be secondary to heart failure. Patient without history of fever Would recommend repeating x-ray after effective heart failure treatment, likely in 2 weeks we will repeat [address] (4) Pleural effusion, right: Has significant right pleural effusion on CT scan. Moderate to large and certainly symptomatic with coughing and shortness of breath. I think this is likely secondary to heart failure but may be very slow to resolve and he is still requiring oxygen. It may be more beneficial to go ahead and do a thoracentesis. This will allow check of the fluid as well as he does have history of some type of respiratory illness over 3 weeks ago. I have discussed with radiology and thoracentesis is planned today. Anticoagulation has been held. Hopefully this will substantially improve his condition, allow weaning of oxygen. I have discussed the risks and benefits with him including bleeding, infection, pneumothorax, need for further procedure. He agrees to go forward with the procedure. (5) Acute kidney injury: Holding diuresis today. Some evidence for acute kidney injury. Avoid renal toxic medication. May orally hydrate. Repeat creatinine this afternoon, morning Plan Other medical problems as listed in past medical history Full code Holding Eliquis for procedure. SCDs for DVT prophylaxis Changed to regular admission Attestations Medical Necessity Statement*: Needs continued hospitalization for thoracentesis secondary to large right pleural effusion. Diagnoses Atrial fibrillation with rapid ventricular response I48.91 Acute systolic heart failure I50.21 Pleural effusion J90 Pleural effusion, right J90 Acute kidney injury N17.9 Time Spent (min) 31
--- NOTE | 2022-09-16 09:31 | PC.NURSE ---
Addendum entered by Aki Medina RN 09/16/22 09:59: Approximately 1800 ml removed. Original Note: Thoracentesis right side done at bedside by Dr. Matta. No complications.
--- NOTE | 2022-09-16 09:39 | XR_ITS ---
WS: [id number] PORTABLE CHEST HISTORY: Post Thoracentesis, RIGHT side COMPARISON: 09/14/2022 Status post RIGHT thoracentesis. No pneumothorax. Much better aeration of the RIGHT lung. Focal lobul ated opacification RIGHT lower lung field measuring 3.0 x 4.7 cm. This was also described on the rece nt chest CT of 09/15/2022 and thought related to atelectasis versus neoplasm. This will need additiona l imaging follow-up. Small LEFT pleural effusion. There is very mild interstitial thickening which is new since the prior radiograph. No overt pulmonary edema at this time. Cardiac size: Mildly enlarged cardiac silhouette. Mediastinum/Aorta: Mild atherosclerosis aorta. No osseous abnormality seen. XR/XR chest 1V portable [id number] IMPRESSION: 1. No pneumothorax status post RIGHT thoracentesis. 2. Lobulated opacification RIGHT lower lung field measuring 3.0 x 4.7 cm. Desc ribed also on the recent chest CT. Atelectasis versus neoplasm. Recommend follo w-up chest CT in 3 months as patient's condition improves. 3. Small LEFT pleural effusion. 4. Interstitial thickening has become more prominent as compared to the recent chest radiograph. At this time no overt pulmonary edema.
[2022-09-16] MEDS: metoprolol tartrate 25 mg Tablet PO ×2 (10:16→20:31)
[2022-09-16] MEDS: tamsulosin 0.4 mg Capsule PO (10:16)
[2022-09-16 10:17] LABS: Fluid Laterality RIGHT SIDE
[2022-09-16 10:24] LABS: Body Fluid Polynuclear #Cells 0.024; Body Fluid WBC 148 /uL; Monocytes # Body Fluid 0.124
[2022-09-16 10:41] LABS: Apprearance, Body Fluid CLEAR; Color, Body Fluid PALE YELLOW; Cyto Order Verification Order Verified
[2022-09-16 10:45] LABS: Albumin Body Fluid 0.9 g/dL; LDH Pleural Fluid 77 U/L; Total Protein Pleural Fluid 1.3 g/dL; Triglycerides, Pleural Fluid 9 mg/dL
[2022-09-16 12:16] LABS: Lactate Dehydrogenase 498 U/L (135-225)
--- NOTE | 2022-09-16 12:16 | PM.PN ---
Subjective Subjective: Patient is feeling better after thoracentesis. 1800 cc of pleural effusion drained. Renal function worsened today. Holding Lasix. Vitals/I&O/Wt Last Vital Signs Temp 97.8 F 09/16/22 04:00 Pulse 92 09/16/22 10:19 Resp 12 09/16/22 09:00 BP 118/87 09/16/22 09:00 Pulse Ox 92 09/16/22 10:19 O2 Del Method Room Air 09/16/22 10:19 O2 Flow Rate 3 09/16/22 09:00 09/15/22 09/16/22 09/16/22 22:59 06:59 14:59 Intake Total 240 / 480 0 / 0 Output Total 225 / 225 125 / 350 Balance 15 / 255 -125 / 130 0 / 0 Weight last 48 hrs Weight 193 lb 8 oz Weight 191 lb 8 oz Weight 197 lb 8 oz Physical Exam Narrative: GENERAL: Patient is alert, awake and oriented x3. [] NECK: No jugular vein distension. [] HEENT: No cyanosis. No icterus. No pallor. [] HEART: Irregularly irregular, grade 3/6 systolic murmur LUNGS: Diminished air entry CENTRAL NERVOUS SYSTEM: Grossly nonfocal. [] EXTREMITIES: Lower extremities with 1+ edema bilaterally. Data 09/17/22 03:05 09/17/22 03:05 Micro: Microbiology 09/14/22 14:10 Urine Culture - Final Urine,Clean Catch A&P Assessment and plan (1) Congestive heart failure: Qualifiers: Heart failure chronicity: acute Heart failure type: systolic Qualified Code(s): I50.21 - Acute systolic (congestive) heart failure (2) Acute exacerbation of CHF (congestive heart failure): (3) A-fib: (4) Pleural effusion: (5) Mitral valve regurgitation: Qualifiers: Cardiac valve disease etiology: nonrheumatic Qualified Code(s): I34.0 - Nonrheumatic mitral (valve) insufficiency (6) Acute kidney injury: Plan Patient feeling better after thoracentesis. We will hold diuresis secondary to renal function worsening.Close monitoring Heart rate is controlled. Continue metoprolol and amiodarone. Can uptitrate metoprolol tomorrow if blood pressure allows. Anticoagulation resumed Close I&O's. Close monitoring of renal function. Lifevest ordered. Thank you for involving us with care of this patient. We will continue to follow. Please call with questions. Attestations Medical Necessity Statement*: Care expected to cross 2 midnights. Coding Level of Care Code Acute Code for Chg Fwd Diagnoses Congestive heart failure I50.21 Heart failure chronicity: acute Heart failure type: systolic Acute exacerbation of CHF (congestive heart failure) I50.9 A-fib I48.91 Pleural effusion J90 Mitral valve regurgitation I34.0 Cardiac valve disease etiology: nonrheumatic Acute kidney injury N17.9
[2022-09-16 16:22] LABS: Anion Gap 16.7 (5-19); Blood Urea Nitrogen 49 mg/dL (8-23); Calcium 7.9 mg/dL (8.5-10.5); Carbon Dioxide 26 mmol/L (22-29); Chloride 101 mmol/L (98-107); Glucose 119 mg/dL (65-115); Osmolality Calculated 302 mOsm/kg (285-295); Potassium 4.7 mmol/L (3.5-5.1); Sodium 139 mmol/L (136-145)
[2022-09-16] MEDS: amiodarone 200 mg Tablet PO (17:36)
[2022-09-16] MEDS: apixaban 5 mg Tablet PO (20:31)
[2022-09-17] VITALS (23 sets, daily range): BP systolic 90–119; BP diastolic 67–87; PULSE 88–120; RESP 3–31; TEMP 36.7–37.1; O2SAT 70–98
[2022-09-17 03:46] LABS: Basophils % 0.4 %; Hematocrit 39.8 % (42.0-52.0); Hemoglobin 12.8 g/dL (11.7-16.6); Lymphocytes # 0.8 10^3/uL (0.8-4.8); Lymphocytes % 9.9 %; Mean Corpuscular HGB Conc 32.2 g/dL (30.0-36.0); Mean Corpuscular Hemoglobin 32.5 pg (28.0-34.0); Mean Platelet Volume 11.4 fL (7.4-10.4); Monocytes # 0.7 10^3/uL (0.2-0.9); Monocytes % 8.5 %; Neutrophils # 6.75 10^3/uL (1.8-7.7); Neutrophils % 80.7 %; Nucleated Red Blood Cells % 0 %; Platelet Count 143 10^3/cmm (130-400); Red Blood Count 3.94 10^6/uL (4.1-5.3); Red Cell Distribution Width 13.2 % (12.1-15.1); White Blood Count 8.4 10^3/uL (4.0-10.0)
[2022-09-17 04:06] LABS: Lactate Dehydrogenase 469 U/L (135-225)
[2022-09-17 04:22] LABS: Anion Gap 19.2 (5-19); Blood Urea Nitrogen 60 mg/dL (8-23); Calcium 8.3 mg/dL (8.5-10.5); Carbon Dioxide 24 mmol/L (22-29); Chloride 97 mmol/L (98-107); Glucose 114 mg/dL (65-115); Osmolality Calculated 300 mOsm/kg (285-295); Potassium 4.2 mmol/L (3.5-5.1); Sodium 136 mmol/L (136-145)
[2022-09-17] MEDS: sodium chloride 0.9% 250 ML IV (05:42)
--- NOTE | 2022-09-17 07:39 | PM.PN ---
Subjective Subjective: Patient is doing well. no chest pain. Breathing has improved significantly. Vitals/I&O/Wt Last Vital Signs Temp 98.7 F 09/17/22 04:00 Pulse 106 H 09/17/22 07:35 Resp 3 L 09/17/22 05:30 BP 112/74 09/17/22 05:00 Pulse Ox 93 09/17/22 07:35 O2 Del Method Room Air 09/17/22 07:35 O2 Flow Rate 3 09/16/22 09:00 09/16/22 09/17/22 09/17/22 22:59 06:59 14:59 Intake Total 240 / 480 240 / 720 250 / 250 Output Total 150 / 350 Balance 240 / 280 90 / 370 250 / 250 Weight last 48 hrs Weight 194 lb Weight 193 lb 8 oz Physical Exam Narrative: GENERAL: Patient is alert, awake and oriented x3. [] NECK: No jugular vein distension. [] HEENT: No cyanosis. No icterus. No pallor. [] HEART: Irregularly irregular, grade 3/6 systolic murmur LUNGS: Diminished air entry CENTRAL NERVOUS SYSTEM: Grossly nonfocal. [] EXTREMITIES: Lower extremities with 1+ edema bilaterally. Data 09/17/22 03:05 09/17/22 12:12 Micro: Microbiology 09/15/22 09:50 Gram Stain - Final Pleural Fluid 09/14/22 14:10 Urine Culture - Final Urine,Clean Catch A&P Assessment and plan (1) Congestive heart failure: Qualifiers: Heart failure chronicity: acute Heart failure type: systolic Qualified Code(s): I50.21 - Acute systolic (congestive) heart failure (2) Acute exacerbation of CHF (congestive heart failure): (3) A-fib: (4) Pleural effusion: (5) Mitral valve regurgitation: Qualifiers: Cardiac valve disease etiology: nonrheumatic Qualified Code(s): I34.0 - Nonrheumatic mitral (valve) insufficiency (6) Acute kidney injury: Plan LifeVest ordered. Lasix to be restarted at low-dose.Continue anticoagulation Thank you for involving us with care of this patient. Patient is stable to be dicharged from cardiology standpoint. Please call with questions. Attestations Medical Necessity Statement*: Care expected to cross 2 midnights. Coding Level of Care Code Acute Code for g Fwd Diagnoses Congestive heart failure I50.21 Heart failure chronicity: acute Heart failure type: systolic Acute exacerbation of CHF (congestive heart failure) I50.9 A-fib I48.91 Pleural effusion J90 Mitral valve regurgitation I34.0 Cardiac valve disease etiology: nonrheumatic Acute kidney injury N17.9
[2022-09-17] MEDS: metoprolol tartrate 25 mg Tablet PO (08:03)
[2022-09-17] MEDS: tamsulosin 0.4 mg Capsule PO (08:03)
[2022-09-17] MEDS: apixaban 5 mg Tablet PO (08:04)
[2022-09-17 12:45] LABS: Blood Urea Nitrogen 60 mg/dL (8-23); Calcium 8.1 mg/dL (8.5-10.5); Carbon Dioxide 25 mmol/L (22-29); Chloride 98 mmol/L (98-107); Glucose 104 mg/dL (65-115); Osmolality Calculated 295 mOsm/kg (285-295); Sodium 134 mmol/L (136-145)
--- NOTE | 2022-09-17 13:19 | P.DS_ITS ---
Discharge Providers Date of Admission: 09/15/22 09:20 Date of Discharge: September 17, 2022 Attending Provider at Admission: Joni Lyons MD Attending Provider at Discharge: Joni Lyons MD Primary Care Provider: Marielena Dunn MD Diagnoses at Discharge Discharge Diagnosis (1) Congestive heart failure: Status: Acute Qualifiers: Heart failure chronicity: acute Heart failure type: systolic Qualified Code(s): I50.21 - Acute systolic (congestive) heart failure (2) Acute exacerbation of CHF (congestive heart failure): Status: Acute (3) A-fib: Status: Acute (4) Pleural effusion: Status: Acute (5) Mitral valve regurgitation: Status: Acute Qualifiers: Cardiac valve disease etiology: nonrheumatic Qualified Code(s): I34.0 - Nonrheumatic mitral (valve) insufficiency (6) Acute kidney injury: Status: Acute Reason for Visit Reason for Visit: cough/sob Hospital Course Hospital Course Mars is an 81-year-old white male who presented to the hospital short of breath. He was found to be in acute systolic heart failure, and A-fib with rapid ventricular rate. He had a past history of A-fib, and nonischemic cardiomyopathy. He was given IV Lasix, metoprolol was added for his A-fib with RVR to his amiodarone. With his treatment he improved some, but was still quite symptomatic. CT of his chest demonstrated a large right pleural effusion. Echocardiogram demonstrated an EF in the range of 20 to 25%, decreased from the 50 percentile previously. Cardiology was consulted, for help in management as well as coordination of potential LifeVest. A thoracentesis was performed, which yielded 1800 cc of yellow fluid consistent with transudate. Multiple studies were sent. The rest of his hospital course he was seen to gradually improved. By the end he was able to be off oxygen during the day, but desatted at night so home oxygen was arranged. It was communicated to him, as well as in the discharge summary that he will need a sleep study as an outpatient. Creatinine was coming down by time of discharge but he will need a BMP in 3 to 5 days for recheck of kidney function and potassium. He will need close follow-up with cardiology as well as primary care provider. He should call for any worsening swelling, shortness of breath. Patient was given an opportunity ask questions, and agreed with the plan at discharge. I had also talked with his family multiple times during his hospital stay. Physical Exam Narrative: General exam no distress Neck is supple Cardiovascular irregular, irregular with controlled rate Lungs diminished breath sounds at the bases but clear Abdomen is soft with positive bowel sounds Extremities trace edema Discharge Data Studies Completed and Pending Completed Studies During Hospitalization Category Date Time Status CT chest wo con [id number] Routine Cat Scan 09/15/22 07:43 Completed XR chest 1V portable [id number] Stat Exams 09/14/22 09:41 Completed XR chest 1V portable [id number] Stat Exams 09/16/22 09:39 Completed CV. echo complete* [id number] Routine Ultrasound 09/14/22 15:40 Completed US thoracentesis [id number] Routine Ultrasound 09/16/22 07:00 Completed Pending at discharge Category Date Time Status Body Fluid Culture & GS Routine Lab 09/15/22 09:50 Results Mycobacteria, Culture w/Fluor Routine Lab 09/15/22 09:50 Received Cytology [PTH] Routine Pth 09/15/22 09:18 Received Radiology Impressions Chest CT 09/15/22 07:43 IMPRESSION: 1. Moderate to large RIGHT pleural effusion. 2. Small LEFT pleural effusion. 3. Soft tissue anasarca. 4. Soft tissue mass in the RIGHT lower lung field. Soft tissue consolidation adjacent to the RIGHT atrium and extending in a linear configuration into the RIGHT. Favor atelectasis over neoplasm. Thoracentesis Ultrasound 09/16/22 07:00 IMPRESSION: 1. RIGHT thoracentesis yielding 1800 cc of fluid. 2. Chest radiograph to follow to evaluate for pneumothorax. 3. Specimen collected for analysis as requested. Chest X-Ray 09/16/22 09:39 IMPRESSION: 1. No pneumothorax status post RIGHT thoracentesis. 2. Lobulated opacification RIGHT lower lung field measuring 3.0 x 4.7 cm. Described also on the recent chest CT. Atelectasis versus neoplasm. Recommend follow-up chest CT in 3 months as patient's condition improves. 3. Small LEFT pleural effusion. 4. Interstitial thickening has become more prominent as compared to the recent chest radiograph. At this time no overt pulmonary edema. Laboratory Results WBC 8.4 10^3/uL (4.0-10.0) 09/17/22 03:05 RBC 3.94 10^6/uL (4.1-5.3) L 09/17/22 03:05 Hgb 12.8 g/dL (11.7-16.6) 09/17/22 03:05 Hct 39.8 % (42.0-52.0) L 09/17/22 03:05 MCV 101.0 fl (80-94) H 09/17/22 03:05 MCH 32.5 pg (28.0-34.0) 09/17/22 03:05 MCHC 32.2 g/dL (30.0-36.0) 09/17/22 03:05 RDW 13.2 % (12.1-15.1) 09/17/22 03:05 Plt Count 143 10^3/cmm (130-400) 09/17/22 03:05 MPV 11.4 fL (7.4-10.4) H 09/17/22 03:05 Neut % (Auto) 80.7 % 09/17/22 03:05 Lymph % (Auto) 9.9 % 09/17/22 03:05 Warren % (Auto) 8.5 % 09/17/22 03:05 Eos % (Auto) 0.0 % 09/17/22 03:05 Baso % (Auto) 0.4 % 09/17/22 03:05 Neut # (Auto) 6.75 10^3/uL (1.8-7.7) 09/17/22 03:05 Lymph # (Auto) 0.8 10^3/uL (0.8-4.8) 09/17/22 03:05 Warren # (Auto) 0.7 10^3/uL (0.2-0.9) 09/17/22 03:05 Eos # (Auto) 0.0 10^3/uL (0.0-0.8) 09/17/22 03:05 Baso # (Auto) 0.0 10^3/uL (0.0-0.1) 09/17/22 03:05 Nucleated RBC % (auto) 0 % 09/17/22 03:05 Nucleated RBCs # 0.0 /100WBC 09/17/22 03:05 Sodium 134 mmol/L (136-145) L 09/17/22 12:12 Potassium 4.0 mmol/L (3.5-5.1) 09/17/22 12:12 Chloride 98 mmol/L (98-107) 09/17/22 12:12 Carbon Dioxide 25 mmol/L (22-29) 09/17/22 12:12 Anion Gap 15.0 (5-19) 09/17/22 12:12 BUN 60 mg/dL (8-23) H 09/17/22 12:12 Creatinine 1.9 mg/dL (0.7-1.2) H 09/17/22 12:12 GFR Calculation Not Reportable 09/17/22 12:12 Glucose 104 mg/dL (65-115) 09/17/22 12:12 Calculated Osmolality 295 mOsm/kg (285-295) 09/17/22 12:12 Calcium 8.1 mg/dL (8.5-10.5) L 09/17/22 12:12 Magnesium 2.2 mg/dL (1.7-2.3) 09/16/22 04:19 Total Bilirubin 1.1 mg/dL (0.15-1.2) 09/15/22 04:30 AST 29 U/L (0-40) 09/15/22 04:30 ALT 27 U/L (0-41) 09/15/22 04:30 Alkaline Phosphatase 83 U/L (40-130) 09/15/22 04:30 Lactate Dehydrogenase 469 U/L (135-225) H 09/17/22 03:05 Troponin T Baseline 42 ng/L (0-15) H 09/14/22 10:11 Troponin T 120 Minute 39.45 ng/L (0-15) H 09/14/22 12:38 Delta Troponin T -2.55 ABS# (0-10) L 09/14/22 12:38 Troponin T Hi Sens 6Hr 39.86 ng/L (0-15) H 09/14/22 16:14 Troponin T Hi Sens 6Hr Delta -2.14 ng/L (0-12) L 09/14/22 16:14 NT-Pro-B Natriuret Pep 7586 pg/mL (0-450) H 09/14/22 10:11 Total Protein 6.1 g/dL (6.6-8.7) L 09/15/22 04:30 Albumin 3.4 g/dL (3.5-5.2) L 09/15/22 04:30 Globulin 2.7 g/dL (1.3-4.6) 09/15/22 04:30 TSH 3.67 uIU/mL (0.27-4.20) 09/14/22 10:11 Urine Color Dark yellow (Yellow) 09/14/22 14:10 Urine Appearance Clear (CLEAR) 09/14/22 14:10 Urine pH 6 (5-7) 09/14/22 14:10 Ur Specific [place] 1.015 (1.005-1.030) 09/14/22 14:10 Urine Protein Neg (Negative) 09/14/22 14:10 Urine Glucose (UA) Norm (Normal) 09/14/22 14:10 Urine Ketones Negative (Negative) 09/14/22 14:10 Urine Blood 3+ (Negative) H 09/14/22 14:10 Urine Nitrate Negative (Negative) 09/14/22 14:10 Urine Bilirubin Neg (Negative) 09/14/22 14:10 Urine Urobilinogen Neg mg/dL (Negative) 09/14/22 14:10 Ur Leukocyte Esterase Negative (Negative) 09/14/22 14:10 Urine RBC 10-15 /hpf (0-2) H 09/14/22 14:10 Urine WBC None /hpf (0-5) 09/14/22 14:10 Ur Squamous Epith Cells None /hpf (0-5) 09/14/22 14:10 Amorphous Sediment Not Reportable 09/14/22 14:10 Urine Bacteria None /hpf (NONE) 09/14/22 14:10 Fluid Color Pale yellow 09/15/22 09:50 Fluid Appearance Clear 09/15/22 09:50 Fluid WBC 148 /uL 09/15/22 09:50 Fluid RBC 1.000 10^3/uL 09/15/22 09:50 Fluid Hematocrit 0.0 % 09/15/22 09:50 Fld Polynuclear WBCs # 0.024 09/15/22 09:50 Fld Polynuclear WBCs % 16.200 % 09/15/22 09:50 Fl Mononucl WBCs #(Auto) 0.124 09/15/22 09:50 Fl Mononuclear % Auto 83.800 % 09/15/22 09:50 Fld Crystal Laterality Right side 09/15/22 09:50 Fluid Albumin 0.9 g/dL 09/15/22 09:50 Fluid Creatinine 1.70 (0.7-1.2) H 09/15/22 09:50 Pleural pH 8.00 (6.5-7.5) H 09/15/22 09:50 Pleural Total Protein 1.3 g/dL 09/15/22 09:50 Pleural LDH 77 U/L 09/15/22 09:50 Pleural Glucose 111.0 mg/dL 09/15/22 09:50 Pleural Amylase 16.0 U/L 09/15/22 09:50 Pleural Triglycerides 9 mg/dL 09/15/22 09:50 Vitals Last Vital Signs Temp 98.1 F 09/17/22 07:30 Pulse 88 09/17/22 12:00 Resp 25 H 09/17/22 12:00 BP 104/67 09/17/22 11:00 Pulse Ox 94 09/17/22 12:00 O2 Del Method Room Air 09/17/22 12:00 O2 Flow Rate 3 09/16/22 09:00 Discharge Plan Discharge Patient Disposition: Home Condition: Stable Prescriptions: New metoprolol tartrate 25 mg Tablet 25 mg PO BID@0900,2100 Qty: 60 0RF Lasix 20 mg tablet 20 mg PO BID Qty: 60 0RF Continued multivitamin [Daily Multi-Vitamin] Tablet 1 tab PO DAILY@07 albuterol sulfate 90 mcg/actuation HFA aerosol inhaler 1 inh inhalation Q6H PRN (Reason: shortness of breath or wheezing) Qty: 8.5 0RF Eliquis 5 mg tablet See Rx Instructions .ROUTE .COMPLEX Qty: 180 3RF Dose Instruction: TAKE ONE TABLET BY MOUTH TWICE DAILY AT 9:00 a.m. AND 9 p.m. Rx Instructions: TAKE ONE TABLET BY MOUTH TWICE DAILY AT 9:00 a.m. AND 9 p.m. (DME) compressor, for nebulizer Device See Rx Instructions .Route Qty: 1 0RF Rx Instructions: 1 nebulizer and all required equipment As directed ipratropium-albuterol 0.5 mg-3 mg(2.5 mg base)/3 mL solution for nebulization 3 ml inhalation Q4H PRN (Reason: wheezing) Qty: 200 1RF amiodarone 200 mg tablet 200 mg PO QPM Flomax 0.4 mg capsule 0.4 mg PO DAILY Discontinued furosemide [Lasix] 40 mg tablet 40 mg PO QAM Qty: 30 0RF hydrochlorothiazide 12.5 mg tablet 12.5 mg PO DAILY Discharge Orders: Discharge Order (Routine); Ordered 09/17/22 Ordered By: Joni Lyons Other Ambulatory Orders: DME: Oxygen (Order) Location: None Selected Ordered By: Joni Lyons Referrals: [facility] [Outside] (oxygen needs) Ariadna Carrasco FNP [Nurse Practitioner] - 1 week (September, time of 09:15 am) Marielena Dunn MD [Primary Care Provider] - 4-7 days (Please arrange BMP for Wednesday, results to PCP and cardiology Please consider arranging patient for outpatient sleep study secondary to witnessed apena. appointment scheduled follow up on Wednesday ,September 212022 at time of 10:00 am ) Discharge Diet: Cardiac Discharge Activity: Increase activity as tolerated Patient Instructions: Metoprolol (By mouth), Furosemide (By mouth) (Lasix), Heart Failure (DC), A-fib (Atrial Fibrillation) (DC), Pleural Effusion (DC), Sepsis (DC), CHF Stoplight, Opioid Safety, Stroke Stoplight Activity Restrictions/Additional Instructions: Take all meds as prescribed. Weight yourself daily. Call cardiology if greater than 3 lb weight gain in 2 days. Low salt diet. Please arrange for home oxygen at discharge, 3 L at night Please start Lasix 20mg every morning when you go home. Do not increase to BID until OK's by cardiology or PCP after review of BMP on Wednesday. Call cardiology or PCP for any increase in shortness of breath BMP on Wednesday, results to PCP and cardiology. Patient's Health Concerns: Shortness of breath Assessment: Afib, pleural effusion Plan of Treatment: Add Metoprolol tthoracentesis. Close follow up in cardiology for heart failure Discharge Attestations Time Spent in Discharge Care*: greater than 30 min Status at Discharge: Cognitive status at discharge: cognitively intact , Behavioral status at discharge: cooperative , Quality Metrics Clinical Quality Measures [ No reported AMI, CVA or VTE this stay] Coding Level of Care Code 00076 Total time (in minutes) for Discharge: 39 Diagnoses Congestive heart failure I50.21 Heart failure chronicity: acute Heart failure type: systolic Acute exacerbation of CHF (congestive heart failure) I50.9 A-fib I48.91 Pleural effusion J90 Mitral valve regurgitation I34.0 Cardiac valve disease etiology: nonrheumatic Acute kidney injury N17.9
--- NOTE | 2022-09-17 16:09 | PC.NURSE ---
Discharge instructions given to patient, IV removed, home oxygen at bedside with patient, life vest on. Patient and belongings wheeled to private vehicle by this nurse. driving. No further questions.
== END 2022-09-17 15:30 | disposition home or self-care (01) | DRG 291 ==
LOC: ER 12:17 → ICU 14:06
PROVIDERS: Physician Assistant; Admitting Provider Internal Medicine; Emergency Provider Emergency Medicine; PCP Family Medicine; Visit Provider Internal Medicine
DX: I11.0 Hypertensive heart disease with heart failure (principal); I50.21 Acute systolic (congestive) heart failure; J90 Pleural effusion, not elsewhere classified; N17.9 Acute kidney failure, unspecified; I48.91 Unspecified atrial fibrillation; I42.8 Other cardiomyopathies; Z79.51 Long term (current) use of inhaled steroids; Z79.01 Long term (current) use of anticoagulants; N40.0 Benign prostatic hyperplasia without lower urinary tract symptoms; K21.9 Gastro-esophageal reflux disease without esophagitis; I34.0 Nonrheumatic mitral (valve) insufficiency; Z87.891 Personal history of nicotine dependence
CPT/HCPCS: 32555; 36415; 71045; 71250; 80048; 80053; 80503; 81001; 82042; 82150; 82570; 82945; 83615; 83735; 83880; 83986; 84157; 84443; 84478; 84484; 85014; 85025; 87015; 87070; 87075; 87086; 87116; 87205; 87206; 87801; 88112; 89050; 93005; 93306; 94640; 96374; 96376; 99291; G0378; J1940; J2405; J3490; J7050

== ENCOUNTER → 2022-09-21 11:39 | Outpatient (BNVA) | payer MEDICARE, SELFPAY | PROVIDERS: PCP Family Medicine; Visit Provider Family Medicine | DX: N17.9 Acute kidney failure, unspecified (principal); I50.9 Heart failure, unspecified | CPT/HCPCS: 80048 ==

== ENCOUNTER → 2022-09-29 09:20 | Outpatient (BNVA) | payer MEDICARE, SELFPAY | PROVIDERS: PCP Family Medicine; Visit Provider Nurse Practitioner Family | DX: I48.0 Paroxysmal atrial fibrillation (principal); I11.0 Hypertensive heart disease with heart failure; I50.21 Acute systolic (congestive) heart failure; Z87.891 Personal history of nicotine dependence; Z79.01 Long term (current) use of anticoagulants | CPT/HCPCS: 99214 ==

== ENCOUNTER 2022-09-29 14:38 | Emergency (ER) | payer MEDICARE, SELFPAY ==
--- NOTE | 2022-09-29 14:46 | CTR_ITS ---
PROCEDURE INFORMATION: Exam: CT Head Without Contrast Exam date and time: 09/29/2022 3:09 PM Age: 82 years old Clinical indication: Injury or trauma; Fall; Blunt trauma (contusions or hematomas); Additional info: Fall, headstrike TECHNIQUE: Imaging protocol: Computed tomography of the head without contrast. Radiation optimization: All CT scans at this facility use at least one of these dose optimization techniques: automated exposure control; mA and/or kV adjustment per patient size (includes targeted exams where dose is matched to clinical indication); or iterative reconstruction. REPORTING DATA: Count of CT and Cardiac NM exams in prior 12 months: This patient has received [address] and 0 known cardiac nuclear medicine studies in the 12 months prior to the current study. COMPARISON: No relevant prior studies available. RADIATION DOSE METRICS: Total DLP (mGy-cm): 1148 FINDINGS: Brain: There are mild periventricular and subcortical lucencies consistent with chronic microvascular ischemic changes.The camargo-white differentiation is maintained. No hemorrhage. No edema. Cerebral ventricles: No ventriculomegaly. Paranasal sinuses: Visualized sinuses are unremarkable. No fluid levels. Mastoid air cells: Visualized mastoid air cells are well aerated. Orbital cavities: Bilateral cataract surgery. Bones/joints: Unremarkable. No acute fracture. Soft tissues: Unremarkable. CT/CT head wo con* [id number] IMPRESSION: No acute intracranial abnormality. Chronic microvascular ischemic changes.
--- NOTE | 2022-09-29 14:46 | CTR_ITS ---
PROCEDURE INFORMATION: Exam: CT Cervical Spine Without Contrast Exam date and time: 09/29/2022 3:09 PM Age: 82 years old Clinical indication: Injury or trauma; Fall; Blunt trauma; Prior surgery; Surgery date: 6+ months; Surgery type: Some sort of bone added to c spine per PT; Additional info: Fall, headstrike TECHNIQUE: Imaging protocol: Computed tomography of the cervical spine without contrast. Radiation optimization: All CT scans at this facility use at least one of these dose optimization techniques: automated exposure control; mA and/or kV adjustment per patient size (includes targeted exams where dose is matched to clinical indication); or iterative reconstruction. REPORTING DATA: Count of CT and Cardiac NM exams in prior 12 months: This patient has received [address] and 0 known cardiac nuclear medicine studies in the 12 months prior to the current study. COMPARISON: CT chest wo con [id number] 09/15/2022 8:08 AM RADIATION DOSE METRICS: Total DLP (mGy-cm): 210 FINDINGS: Bones/joints: Multilevel degenerative disc disease. Grade 1 anterolisthesis of C7 over T1. Near complete fusion of C5-C6 and C6-C7 vertebra. There is multilevel uncovertebral and facet hypertrophy with neural foramina narrowing. Lungs: Lung apices are normal. Pleural spaces: Pleural effusion in the visualized right apical lung. Soft tissues: Unremarkable. CT/CT cervical spin wo con* [id number] IMPRESSION: No acute abnormality.
[2022-09-29 14:49] VITALS: BP 113/73; PULSE 88; RESP 16; TEMP 36.3; O2SAT 96
--- NOTE | 2022-09-29 16:40 | W.ED.FALL ---
HPI - Fall General: Chief Complaint: Fall Stated Complaint: fall/hit head Time Seen by Provider: 09/29/22 16:10 History of Present Illness: Patient is 82-year-old male comes to the ED after fall. Patient says fall occurred approximately 4 to 5 hours ago. He was walking into a clinic to get his toenails clipped. He tripped over the curb and fell forward and hit his right side of forehead on a metal grate. Denies any loss of consciousness, vomiting or seizure-like activity. He does endorse having a headache. He was able to get back up and go to his toenail clipping appointment. He has a swollen nodule on his right forehead from where he hit the ground but denies any other symptoms. Denies any neurological symptoms. Associated symptoms-after fall: Reports headache(s); Denies abdominal pain, chest pain, hematuria or neck pain Review of Systems Const: Denies: fever(s), chills or fatigue Eyes: Denies: change in vision or eye discomfort ENMT: Denies: throat pain, odynophagia, nasal discharge or nasal congestion Card: Denies: chest pain, palpitations, edema, swelling of feet/ankles, dyspnea on exertion or orthopnea Resp: Denies: dyspnea, productive cough or non-productive cough GI: Denies: abdominal pain, nausea, vomiting, diarrhea, constipation or hematochezia : Denies: flank pain, difficulty urinating, dysuria or hematuria Musc: Denies: neck pain, back pain or extremity swelling Skin/Breast: Denies: rash or new lesions Neuro: Reports: headache(s); Denies: numbness in extremities or weakness in extremities PENDING SALE TO [facility] ED PFSH: Medical History Atrial fibrillation BPH (benign prostatic hyperplasia) GERD (gastroesophageal reflux disease) Hx of gout Hypertension Mitral valve regurgitation Sepsis UTI (urinary tract infection) Vitamin D deficiency Surgical History Hx of colonoscopy (~2010) Hx of foot surgery Hx of hemorrhoidectomy Hx of knee surgery Hx of neck surgery Hx of rotator cuff surgery Family History Mother , age 93 Alzheimer disease Father , age 85 Cancer colon Social History Smoking and tobacco status: former smoker Quit status (tobacco): has quit using tobacco Former quit date comment: pipe in high school Second hand smoke exposure: No Alcohol intake: never Substance/Drug Use: never Lives independently: Yes Household members: spouse Marital status: Current occupational status: employed Current gender identity: Male Physical Exam Const: COMMON NORMALS: no acute distress, patient oriented x3 and alert HENMT: COMMON NORMALS: normocephalic HEAD & SCALP: normocephalic and hematoma right frontal Head hematoma size: 2 cm; no abrasion, no Dutton's sign, no laceration and no raccoon eyes MOUTH: Normal oral and palatal mucosa present THROAT: posterior oropharynx normal and uvula midline Neck/C-Spine: COMMON NORMALS: supple GENERAL: Yes normal visual inspection Resp: COMMON NORMALS: normal respiratory effort, No retractions, No use of accessory muscles and clear to auscultation bilaterally AUSCULTATION: clear to auscultation bilaterally Cardio: COMMON NORMALS: regular rate, regular rhythm, S1 normal heart sound present, S2 normal heart sound present, No gallops present (Cardio), No clicks present (Cardio), No murmurs present (Cardio) and Peripheral pulses 2+ throughout RATE: regular rate RHYTHM: regular rhythm HEART SOUNDS: S1 normal heart sound present and S2 normal heart sound present PERIPHERAL PULSES: Peripheral pulses 2+ throughout GI: COMMON NORMALS: Normal to inspection, nondistended, normoactive bowel sounds present, Soft to palpation, non-tender and no masses PALPATION: Yes Soft to palpation : COMMON NORMALS: Yes no CVA tenderness BLADDER/KIDNEY EXAM: Yes no CVA tenderness Back/Pelvis: COMMON NORMALS: no CVA tenderness Extremity: COMMON NORMALS: normal to inspection Neuro: COMMON NORMALS: patient oriented x3, CN's II-XII intact bilaterally, moves all extremities, no focal motor deficits, no sensory deficits noted and gait normal SENSORIUM/ORIENTATION: Yes alert COORDINATION/BALANCE: [id number] test normal SPEECH: speech normal GAIT: Yes Normal gait present MOTOR EXAM: 5/5 motor strength present throughout COORDINATION: [id number] test normal Skin: GENERAL SKIN EXAM: dry skin Course Vital Signs: Vital signs: Vital Signs Temperature 97.4 F L 09/29/22 14:49 Pulse Rate 88 09/29/22 14:49 Respiratory Rate 16 09/29/22 14:49 Blood Pressure 113/73 09/29/22 14:49 Pulse Oximetry 96 09/29/22 14:49 Oxygen Delivery Me thod Room Air 09/29/22 14:49 MDM - Fall Medical Decision Making Patient is 82-year-old male comes to the ED after fall. Patient says fall occurred approximately 4 to 5 hours ago. He was walking into a clinic to get his toenails clipped. He tripped over the curb and fell forward and hit his right side of forehead on a metal grate. Denies any loss of consciousness, vomiting or seizure-like activity. He does endorse having a headache. He was able to get back up and go to his toenail clipping appointment. He has a swollen nodule on his right forehead from where he hit the ground but denies any other symptoms. Denies any neurological symptoms. Vitals are stable. Patient appears nontoxic and in no acute distress. He has a right frontal scalp hematoma but rest head exam is benign. Neuro exam shows no deficits. Rest of exam is benign. CT of head and cervical spine all showed no acute findings. Patient diagnosed with hematoma frontal scalp and minor head injury without loss of consciousness. Patient was stable for discharge home and told to follow-up with PCP within the next week for reevaluation. Return to ED precautions given. Patient understood and agreed with plan. Lab Data Radiology Impressions Cervical Spine CT 09/29/22 14:46 IMPRESSION: No acute abnormality. Head CT 09/29/22 14:46 IMPRESSION: No acute intracranial abnormality. Chronic microvascular ischemic changes. Discharge Plan Discharge Patient Disposition: Home Clinical Impression: Minor head injury without loss of consciousness Qualifiers: Encounter type: initial encounter Qualified Code(s): S09.90XA - Unspecified injury of head, initial encounter Hematoma of frontal scalp Qualifiers: Encounter type: initial encounter Qualified Code(s): S00.03XA - Contusion of scalp, initial encounter Condition: Stable Prescriptions: No Action multivitamin [Daily Multi-Vitamin] Tablet 1 tab PO DAILY@07 albuterol sulfate 90 mcg/actuation HFA aerosol inhaler 1 inh inhalation Q6H PRN (Reason: shortness of breath or wheezing) Qty: 8.5 0RF Lasix 20 mg tablet 20 mg PO BID Eliquis 5 mg tablet See Rx Instructions .ROUTE .COMPLEX Qty: 180 3RF Dose Instruction: TAKE ONE TABLET BY MOUTH TWICE DAILY AT 9:00 a.m. AND 9 p.m. Rx Instructions: TAKE ONE TABLET BY MOUTH TWICE DAILY AT 9:00 a.m. AND 9 p.m. (DME) compressor, for nebulizer Device See Rx Instructions .Route Qty: 1 0RF Rx Instructions: 1 nebulizer and all required equipment As directed ipratropium-albuterol 0.5 mg-3 mg(2.5 mg base)/3 mL solution for nebulization 3 ml inhalation Q4H PRN (Reason: wheezing) Qty: 200 1RF amiodarone 200 mg tablet 200 mg PO QPM Flomax 0.4 mg capsule 0.4 mg PO DAILY metoprolol tartrate 25 mg Tablet 25 mg PO BID@0900,2100 Qty: 60 0RF Discharge Orders: Discharge ED (Routine); Ordered 09/29/22 Ordered By: Mars Israel Referrals: Marielena Dnun MD [Primary Care Provider] - Discharge Diet: Regular Discharge Activity: Increase activity as tolerated Activity Restrictions/Additional Instructions: Follow-up with medical provider as directed in the next 5 to 7 days for reevaluation. Continue taking all home medications as previously prescribed. Return to the ER or your medical provider if condition worsens. Please read and understand discharge instructions. Thank you for choosing [facility] for your healthcare needs today. Please realize this is an emergency room and that we are providing you with a medical screening exam and this may not be complete and all inclusive of all the testing and or work up that you may need to determine your ailment or severity of your illness. It is very important that you follow up as instructed or that you return to the Emergency Department should you have concerns or if your condition changes or worsens in any way. Coding Level of Care Code ED Multimedia Programmer for Wilian Reyes
== END 2022-09-29 16:59 | disposition home or self-care (01) ==
PROVIDERS: Emergency Provider Physician Assistant; PCP Family Medicine
DX: S00.03XA Contusion of scalp, initial encounter (principal); S09.8XXA Other specified injuries of head, initial encounter; Z79.01 Long term (current) use of anticoagulants; Z87.891 Personal history of nicotine dependence; I10 Essential (primary) hypertension; W18.09XA Striking against other object with subsequent fall, initial encounter
CPT/HCPCS: 70450; 72125; 99284

== ENCOUNTER → 2022-11-02 14:24 | Outpatient (BNVA) | payer MEDICARE, SELFPAY | PROVIDERS: PCP Family Medicine; Visit Provider Internal Medicine Cardiovascular Disease | DX: I11.0 Hypertensive heart disease with heart failure (principal); I50.21 Acute systolic (congestive) heart failure; I48.0 Paroxysmal atrial fibrillation; Z79.01 Long term (current) use of anticoagulants; I34.0 Nonrheumatic mitral (valve) insufficiency; Z87.891 Personal history of nicotine dependence | CPT/HCPCS: 99214; 99215 ==

== ENCOUNTER → 2022-11-06 09:47 | Outpatient (BNVA) | payer MEDICARE, SELFPAY | PROVIDERS: PCP Family Medicine; Visit Provider Family Medicine | DX: R35.0 Frequency of micturition (principal) | CPT/HCPCS: 81000 ==

== ENCOUNTER → 2022-11-09 10:25 | Outpatient (BNVA) | payer MEDICARE, SELFPAY | PROVIDERS: PCP Family Medicine; Visit Provider Internal Medicine Cardiovascular Disease | DX: I48.91 Unspecified atrial fibrillation (principal); I50.9 Heart failure, unspecified; R06.02 Shortness of breath; I10 Essential (primary) hypertension | CPT/HCPCS: 80048; 83735; 83880 ==

== ENCOUNTER → 2022-11-11 15:19 | Outpatient (BNVA) | payer MEDICARE, SELFPAY | PROVIDERS: PCP Family Medicine; Visit Provider Nurse Practitioner Family | DX: I48.0 Paroxysmal atrial fibrillation (principal); I11.0 Hypertensive heart disease with heart failure; I50.21 Acute systolic (congestive) heart failure; Z79.01 Long term (current) use of anticoagulants; Z87.891 Personal history of nicotine dependence | CPT/HCPCS: 99214 ==

== ENCOUNTER 2022-11-16 13:30 | Outpatient (CLI) | payer MEDICARE, SELFPAY | END 2022-11-16 13:31 | disposition home or self-care (01) | LOC: SLEEP 11-18 12:26 | PROVIDERS: PCP Family Medicine; Visit Provider Family Medicine | DX: G47.33 Obstructive sleep apnea (adult) (pediatric) (principal); G47.36 Sleep related hypoventilation in conditions classified elsewhere | CPT/HCPCS: G0399 ==

== ENCOUNTER 2022-11-23 12:23 | Emergency (ER) | payer MEDICARE, SELFPAY ==
[2022-11-23 12:47] VITALS: BP 88/60; PULSE 70; RESP 16; TEMP 36.6; O2SAT 95; BMI 22.5
--- NOTE | 2022-11-23 13:09 | XRR_ITS ---
PROCEDURE INFORMATION: Exam: XR Chest Exam date and time: 11/23/2022 12:23 PM Age: 82 years old Clinical indication: Cough and dyspnea; Additional info: Dyspnea/cough TECHNIQUE: Imaging protocol: Radiologic exam of the chest. Views: 1 view. COMPARISON: CR XR chest 1V portable [id number] 09/16/2022 9:11 AM FINDINGS: Lungs: Unremarkable. No consolidation. Pleural spaces: Unremarkable. No pleural effusion. No pneumothorax. Heart/Mediastinum: Unremarkable. No cardiomegaly. Bones/joints: Unremarkable. XR/XR chest 1V portable [id number] IMPRESSION: No acute findings.
--- NOTE | 2022-11-23 13:12 | ED_ITS ---
HPI - Dizziness General: Chief Complaint: Dizziness Stated Complaint: Abnormal labs, dizzy Time Seen by Provider: 11/23/22 13:08 Source: patient Mode of arrival: ambulatory History of Present Illness: HPI Narrative: 82-year-old male with a history of nonspecific cardiomyopathy. (Note is listed in his past medical history and he was unable to tell me specifically why he developed a weak heart). 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 About a week and 1/2 to 2 weeks ago the patient had a increase in Lasix and potassium. He been monitoring his blood pressures at home since then they have been generally been trending down. Denies chest or abdominal pain just generalized weakness. For the last echocardiogram showed an EF of 20 to 25% with global hypokinesis. He has a LifeVest in place. MD elicited complaint: lightheadedness and near syncope Onset (ago): day(s) Timing: gradual onset Severity: moderate Context: change in medication Exacerbating factors: change in body position Relieving factors: remaining still, rest and lying down Associated symptoms: Denies abnormal vaginal bleeding, change in hearing, chest pain, chills, cough, diaphoresis, ear discharge, ear pressure, fevers/chills, headache(s), malaise, nausea, nasal congestion, palpitations, rash, short of breath, syncope, tinnitus, vomiting or weakness Associated neuro symptoms: Deny confusion, difficulty speaking, dysphagia, diplopia, extremity weakness, facial numbness, facial weakness, gait changes, numbness in extremities or visual changes Review of Systems Const: Denies: chills, malaise or diaphoresis ENMT: Denies: ear discharge, change in hearing, tinnitus or nasal congestion Card: Denies: chest pain, palpitations or syncope Resp: Denies: dyspnea, productive cough or non-productive cough GI: Denies: nausea, vomiting or dysphagia : Denies: flank pain, dysuria, urinary frequency or urinary urgency Skin/Breast: Denies: rash or pruritus Neuro: Denies: headache(s), numbness in extremities or confusion PFS ED PFSH: Medical History Atrial fibrillation BPH (benign prostatic hyperplasia) GERD (gastroesophageal reflux disease) Hx of gout Hypertension Mitral valve regurgitation Sepsis UTI (urinary tract infection) Vitamin D deficiency Surgical History Hx of colonoscopy (~2010) Hx of foot surgery Hx of hemorrhoidectomy Hx of knee surgery Hx of neck surgery Hx of rotator cuff surgery Family History Mother , age 93 Alzheimer disease Father , age 85 Cancer colon Social History Smoking and tobacco status: former smoker Quit status (tobacco): has quit using tobacco Former quit date comment: pipe in high school Second hand smoke exposure: No Alcohol intake: never Substance/Drug Use: never Lives independently: Yes Household members: spouse Marital status: Current occupational status: employed Current gender identity: Male Physical Exam Const: GENERAL APPEARANCE: cooperative and comfortable ORIENTATION/CONSCIOUSNESS: Yes awake, Yes oriented to person, Yes oriented to place and Yes oriented to time HENMT: COMMON NORMALS: normocephalic, atraumatic and hearing grossly normal bilaterally HEAD & SCALP: normocephalic and atraumatic Resp: COMMON NORMALS: normal respiratory effort, No retractions, No use of accessory muscles and clear to auscultation bilaterally AUSCULTATION: clear to auscultation bilaterally Cardio: COMMON NORMALS: regular rate, regular rhythm and No murmurs present (Cardio) RATE: regular rate RHYTHM: regular rhythm GI: COMMON NORMALS: Soft to palpation and No hepatosplenomegaly present AUSCULTATION: Yes normoactive bowel sounds PALPATION: Yes Soft to palpation, No Tenderness to palpation present (GI), No Guarding due to palpation present (GI) and Yes No hepatosplenomegaly present Extremity: COMMON NORMALS: normal to inspection, capillary refill normal, no clubbing, cyanosis or edema, no calf tenderness and no pedal edema Neuro: SENSORIUM/ORIENTATION: Yes oriented to person, Yes oriented to place and Yes oriented to time Skin: COMMON NORMALS: no rashes or lesions noted GENERAL SKIN EXAM: no rashes or lesions noted Course Vital Signs: Vital signs: Vital Signs Temperature 97.8 F 11/23/22 12:47 Pulse Rate 70 11/23/22 14:48 Respiratory Rate 18 11/23/22 14:48 Blood Pressure 113/85 11/23/22 14:48 Pulse Oximetry 98 11/23/22 14:48 Oxygen Delivery Me thod Room Air 11/23/22 14:48 MDM - Dizziness Medical Decision Making Symptoms improved with a small fluid bolus of 250 mL. Patient has a cardiomyopathy. I think he is over diuresed at this point have him decrease his Lasix to every other day. 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 Medical Records I reviewed the patient's medical records. Lab Data I reviewed the patient's lab results. 11/23/22 13:21 11/23/22 13:21 Radiology Impressions Chest X-Ray 11/23/22 13:09 IMPRESSION: No acute findings. Laboratory Results WBC 4.0 10^3/uL (4.0-10.0) 11/23/22 13:21 RBC 3.96 10^6/uL (4.1-5.3) L 11/23/22 13:21 Hgb 12.3 g/dL (11.7-16.6) 11/23/22 13:21 Hct 38.1 % (42.0-52.0) L 11/23/22 13:21 MCV 96.2 fl (80-94) H 11/23/22 13:21 MCH 31.1 pg (28.0-34.0) 11/23/22 13:21 MCHC 32.3 g/dL (30.0-36.0) 11/23/22 13:21 RDW 14.3 % (12.1-15.1) 11/23/22 13:21 Plt Count 139 10^3/cmm (130-400) 11/23/22 13:21 MPV 10.1 fL (7.4-10.4) 11/23/22 13:21 Neut % (Auto) 58.2 % 11/23/22 13:21 Lymph % (Auto) 30.7 % 11/23/22 13:21 [place] % (Auto) 8.8 % 11/23/22 13:21 Eos % (Auto) 1.5 % 11/23/22 13:21 Baso % (Auto) 0.5 % 11/23/22 13:21 Neut # (Auto) 2.32 10^3/uL (1.8-7.7) 11/23/22 13:21 Lymph # (Auto) 1.2 10^3/uL (0.8-4.8) 11/23/22 13:21 [place] # (Auto) 0.4 10^3/uL (0.2-0.9) 11/23/22 13:21 Eos # (Auto) 0.1 10^3/uL (0.0-0.8) 11/23/22 13:21 Baso # (Auto) 0.0 10^3/uL (0.0-0.1) 11/23/22 13:21 Nucleated RBC % (auto) 0 % 11/23/22 13:21 Nucleated RBCs # 0.0 /100WBC 11/23/22 13:21 Sodium 137 mmol/L (136-145) 11/23/22 13:21 Potassium 4.2 mmol/L (3.5-5.1) 11/23/22 13:21 Chloride 102 mmol/L (98-107) 11/23/22 13:21 Carbon Dioxide 30 mmol/L (22-29) H 11/23/22 13:21 Anion Gap 9.2 (5-19) 11/23/22 13:21 BUN 28 mg/dL (8-23) H 11/23/22 13:21 Creatinine 1.6 mg/dL (0.7-1.2) H 11/23/22 13:21 GFR Calculation Not Reportable 11/23/22 13:21 Glucose 88 mg/dL (65-115) 11/23/22 13:21 Calculated Osmolality 289 mOsm/kg (285-295) 11/23/22 13:21 Calcium 8.4 mg/dL (8.5-10.5) L 11/23/22 13:21 Total Bilirubin 0.7 mg/dL (0.15-1.2) 11/23/22 13:21 AST 26 U/L (0-40) 11/23/22 13:21 ALT 30 U/L (0-41) 11/23/22 13:21 Alkaline Phosphatase 60 U/L (40-130) 11/23/22 13:21 Total Protein 6.2 g/dL (6.6-8.7) L 11/23/22 13:21 Albumin 3.4 g/dL (3.5-5.2) L 11/23/22 13:21 Globulin 2.8 g/dL (1.3-4.6) 11/23/22 13:21 Urine Color Yellow (Yellow) 11/23/22 14:00 Urine Appearance Clear (CLEAR) 11/23/22 14:00 Urine pH 6 (5-7) 11/23/22 14:00 Ur Specific [place] 1.010 (1.005-1.030) 11/23/22 14:00 Urine Protein Neg (Negative) 11/23/22 14:00 Urine Glucose (UA) Norm (Normal) 11/23/22 14:00 Urine Ketones Negative (Negative) 11/23/22 14:00 Urine Blood Neg (Negative) 11/23/22 14:00 Urine Nitrate Negative (Negative) 11/23/22 14:00 Urine Bilirubin Neg (Negative) 11/23/22 14:00 Urine Urobilinogen Norm mg/dL (Negative) 11/23/22 14:00 Ur Leukocyte Esterase Negative (Negative) 11/23/22 14:00 Discharge Plan Discharge Patient Disposition: Home Clinical Impression: Hypotension, Atrial fibrillation, Cardiomyopathy Condition: Stable Prescriptions: Changed furosemide 40 mg tablet 40 mg PO BID Qty: 30 0RF Rx Instructions: Take Lasix on odd calendar days only No Action multivitamin [Daily Multi-Vitamin] Tablet 1 tab PO BEDTIME albuterol sulfate 90 mcg/actuation HFA aerosol inhaler 1 inh inhalation Q6H PRN (Reason: shortness of breath or wheezing) Qty: 8.5 0RF metoprolol succinate 25 mg tablet extended release 24 hr 25 mg PO BID Qty: 60 3RF Rx Instructions: (Rx on hold at [facility] for succinate) replaces metoprolol tartrate amiodarone 200 mg tablet 200 mg PO BID Qty: 180 2RF (DME) compressor, for nebulizer Device See Rx Instructions .Route Qty: 1 0RF Rx Instructions: 1 nebulizer and all required equipment As directed ipratropium-albuterol 0.5 mg-3 mg(2.5 mg base)/3 mL solution for nebulization 3 ml inhalation Q4H PRN (Reason: wheezing) Qty: 200 1RF tamsulosin [Flomax] 0.4 mg capsule 0.4 mg PO QAM Eliquis 5 mg tablet 5 mg PO BID@09,21 potassium chloride 20 mEq tablet extended release See Rx Instructions .ROUTE .COMPLEX Rx Instructions: 40meq po qam and 20meq po bedtime [facility] 1 cap PO DAILY metoprolol tartrate 25 mg tablet 25 mg PO BID Discharge Orders: Discharge ED (Routine); Ordered 11/23/22 Ordered By: Jeff Goncalves Referrals: Marielena Dunn MD [Primary Care Provider] - Discharge Diet: Cardiac and Low Salt Discharge Activity: Resume usual activity Patient Instructions: Opioid Safety, Pain Management Activity Restrictions/Additional Instructions: Take your Lasix 40 mg twice a day on odd calendar days only and follow-up with cardiology within the next week. Coding Level of Care Code ED Lead Database Administrator for Wilian Reyes
[2022-11-23 13:27] LABS: Basophils % 0.5 %; Eosinophils # 0.1 10^3/uL (0.0-0.8); Eosinophils % 1.5 %; Hematocrit 38.1 % (42.0-52.0); Hemoglobin 12.3 g/dL (11.7-16.6); Lymphocytes # 1.2 10^3/uL (0.8-4.8); Lymphocytes % 30.7 %; Mean Corpuscular HGB Conc 32.3 g/dL (30.0-36.0); Mean Corpuscular Hemoglobin 31.1 pg (28.0-34.0); Mean Corpuscular Volume 96.2 fl (80-94); Mean Platelet Volume 10.1 fL (7.4-10.4); Monocytes # 0.4 10^3/uL (0.2-0.9); Monocytes % 8.8 %; Neutrophils # 2.32 10^3/uL (1.8-7.7); Neutrophils % 58.2 %; Nucleated Red Blood Cells % 0 %; Platelet Count 139 10^3/cmm (130-400); Red Blood Count 3.96 10^6/uL (4.1-5.3); Red Cell Distribution Width 14.3 % (12.1-15.1)
[2022-11-23] MEDS: sodium chloride 0.9% 250 ML IV (13:43)
[2022-11-23 13:44] VITALS: BP 102/77; PULSE 71; RESP 18; O2SAT 93
[2022-11-23 13:45] LABS: Alanine Aminotransferase 30 U/L (0-41); Albumin Level 3.4 g/dL (3.5-5.2); Alkaline Phosphatase 60 U/L (40-130); Anion Gap 9.2 (5-19); Aspartate Amino Transferase 26 U/L (0-40); Blood Urea Nitrogen 28 mg/dL (8-23); Calcium 8.4 mg/dL (8.5-10.5); Carbon Dioxide 30 mmol/L (22-29); Chloride 102 mmol/L (98-107); Globulin 2.8 g/dL (1.3-4.6); Glucose 88 mg/dL (65-115); Osmolality Calculated 289 mOsm/kg (285-295); Potassium 4.2 mmol/L (3.5-5.1); Sodium 137 mmol/L (136-145); Total Bilirubin 0.7 mg/dL (0.15-1.2); Total Protein 6.2 g/dL (6.6-8.7)
[2022-11-23 13:46] VITALS: BP 102/70; BP 104/79; BP 82/55
[2022-11-23 14:08] LABS: Add Urine Microscopic? NO; Charge for UA Resulting for Rev
--- NOTE | 2022-11-23 14:10 | ECG_ITS ---
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 Measurements Intervals Arnold Rate: 67 P: 0 WV: 0 QRS: 6 QRSD: 146 T: 90 QT: 461 QTc: 488 Interpretive Statements ATRIAL FIBRILLATION INTRAVENTRICULAR CONDUCTION DELAY [130+ ms QRS DURATION] Compared to ECG 09/14/2022 16:35:38 Ventricular premature complex(es) no longer present Electronically Signed On 11-23-2022 18:40:26 CDT by Bette Rangel M.D. [id number]
[2022-11-23 14:11] LABS: Bilirubin Urine Neg (Negative); Blood Urine Neg (Negative); Glucose Urine UA Norm (Normal); Ketones Urine Negative (Negative); Leukocyte Esterase Urine Negative (Negative); Nitrate Urine Negative (Negative); Protein Urine Neg (Negative); Urine Appearance Clear (CLEAR); Urine Color Yellow (Yellow); Urobilinogen Urine Norm (Negative); pH Urine 6 (5-7)
[2022-11-23 14:48] VITALS: BP 113/85; PULSE 70; RESP 18; O2SAT 98
== END 2022-11-23 14:51 | disposition home or self-care (01) ==
PROVIDERS: Emergency Provider Family Medicine; PCP Family Medicine
DX: R42 Dizziness and giddiness (principal); I48.91 Unspecified atrial fibrillation; I10 Essential (primary) hypertension; Z87.891 Personal history of nicotine dependence
CPT/HCPCS: 36415; 71045; 80053; 81003; 85025; 93005; 99285; J7050

== ENCOUNTER 2022-12-18 09:33 | Outpatient (CLI) | payer MEDICARE, SELFPAY ==
--- NOTE | 2022-12-18 10:00 | USCV_ITS ---
Mars Reeder Age: 82 Gender: M : 1940 Exam Date: 12/18/2022 09:51 Ordering Phys: Ofe Negro MD ([email or web address]) Technologist: MAY Exam Location: [facility] [place] Indication: EVAL FOR EF, DIZZINESS BP: 96 / 66 HR: Rhythm: Sinus Technical Quality: Adequate MEASUREMENTS (Male / Female) Normal Values 2D ECHO LVOT Diameter 2.0 cm LV Ejection Fraction MOD 2C 32.1 % LV Ejection Fraction 2C AL 30.6 % LA Diameter 3.5 cm LA Width 3.8 cm LA Height 4.9 cm RA Width 3.3 cm RA Height 5.6 cm Aorta at Sinotubular Diameter 2.9 cm M-MODE Aortic Annulus Diameter 1.9 cm LA Ao Ratio MM 1.7 MV E Point Septal Separation 1.1 cm DOPPLER Right Atrial Pressure 8.0 mmHg FINDINGS Left Ventricle Normal left ventricular cavity size. Moderately decreased left ventricular systolic function. Left ventricular ejection fraction is estimated at 30 %. Moderate global left ventricular hypokinesis. Right Ventricle Normal right ventricular size and systolic function. Right Atrium Mildly increased right atrial size. Left Atrium Mildly increased left atrial size. Mitral Valve Structurally normal mitral valve. Aortic Valve Aortic valve not well visualized. Tricuspid Valve Pulmonic Valve Pulmonic valve not well visualized. Pericardium No pericardial effusion. Aorta Normal size aortic root. IVC CONCLUSIONS 1. This is a limited echo to assess left ventricular function. 2. Normal left ventricular cavity size. Moderately decreased left ventricular systolic function. Left ventricular ejection fraction is estimated at 30 %. Moderate global left ventricular hypokinesis. 3. Compared to study from August 2022, left ventricular systolic function may have improved slightly from 20-25% then. Ofe Negro MD (Electronically Signed) Final Date: 21 December 2022 12:46 S
== END 2022-12-18 09:34 | disposition home or self-care (01) ==
PROVIDERS: PCP Family Medicine; Visit Provider Internal Medicine Cardiovascular Disease
DX: I50.9 Heart failure, unspecified (principal); R42 Dizziness and giddiness
CPT/HCPCS: 93308; 99214; 99215

== ENCOUNTER → 2022-12-21 14:37 | Outpatient (BNVA) | payer MEDICARE, SELFPAY | PROVIDERS: PCP Family Medicine; Visit Provider Internal Medicine Cardiovascular Disease | DX: I11.0 Hypertensive heart disease with heart failure (principal); I50.21 Acute systolic (congestive) heart failure; I48.0 Paroxysmal atrial fibrillation; I34.0 Nonrheumatic mitral (valve) insufficiency; K21.9 Gastro-esophageal reflux disease without esophagitis; N40.1 Benign prostatic hyperplasia with lower urinary tract symptoms; R39.11 Hesitancy of micturition; Z79.01 Long term (current) use of anticoagulants; Z87.891 Personal history of nicotine dependence | CPT/HCPCS: 99214 ==

== ENCOUNTER → 2022-12-24 14:03 | Outpatient (BNVA) | payer MEDICARE, SELFPAY | PROVIDERS: PCP Family Medicine; Visit Provider Thoracic Surgery (Cardiothoracic Vascular Surgery) | DX: I11.0 Hypertensive heart disease with heart failure (principal); I50.21 Acute systolic (congestive) heart failure; Z87.891 Personal history of nicotine dependence | CPT/HCPCS: 99203 ==

== ENCOUNTER 2023-01-05 05:51 | Day surgery (SDC) | payer MEDICARE, SELFPAY ==
--- NOTE | 2022-12-31 13:54 | P.ANESASSM_ITS ---
Pre-Anesthetic Assessment Height/Weight: Height 1.83 m Preop Diagnosis: Congestive heart failure Operation Date: 01/05/23 07:00 Proposed Procedures p Defibrillator Placement 27434,I50.21(Not Applicable) - Sushil Hsu MD Familial anesthetic complications: None Social No alcohol and No tobacco Exam alert, oriented x 3, clear to auscultation bilaterally and regular rate & rhythm Airway Mallampati: Class I Dentition: partials CV/HEM Atrial Fibrillation, Congestive Heart Failure ( 35%) and Hypertension life vest Severe AVR, MVR, TVR noted on various echos over time GI Gastroesophageal Reflux Disease Anesthetic Plan ASA status: 4 Anesthesia: MAC Risk of > 500 ml blood loss (7ml/kg in children): No Medications/Allergies Home Medications Medication Instructions Recorded Confirmed Last Taken Type multivitamin (Daily Multi-Vitamin 1 tab PO BEDTIME 08/15/19 12/24/22 11/22/22 Hi story tablet) compressor, for nebulizer #1 ea 03/02/22 12/24/22 Unknown Rx ipratropium 0.5 mg-albuterol 3 mg 3 ml inhalation Q4H PRN wheezing 07/28/22 12/24/22 Unknown Rx (2.5 mg base)/3 mL nebulization #200 mL soln albuterol sulfate 90 mcg/actuation 1 inh inhalation Q6H PRN shortness 08/10/22 12/24/22 Unknown Rx aerosol inhaler of breath or wheezing #8.5 grams tamsulosin 0.4 mg capsule (Flomax) 0.4 mg PO QAM 09/14/22 12/24/22 11/23/22 History see pharmacy comment [facility] 1 cap PO DAILY 11/23/22 12/24/22 Unknown History apixaban 5 mg tablet (Eliquis) 5 mg PO BID@09,21 11/23/22 12/24/22 11/23/22 History metoprolol tartrate 25 mg tablet 25 mg PO BID 11/23/22 12/24/22 11/23/22 History amiodarone 200 mg tablet 200 mg PO DAILY 12/21/22 12/24/22 Unknown History furosemide 40 mg tablet 40 mg PO .BID every other day 12/21/22 12/24/22 Unknown History potassium chloride 20 mEq 20 meq PO BID 12/21/22 12/24/22 Unknown History tablet,extended release Allergies Allergy/AdvReac Type Severity Reaction Status Date / Time promethazine Allergy ADR-Halluci Verified 12/24/22 14:53 [facility] Anesthesia Medical History Atrial fibrillation BPH (benign prostatic hyperplasia) GERD (gastroesophageal reflux disease) Hx of gout Hypertension Mitral valve regurgitation Sepsis UTI (urinary tract infection) Vitamin D deficiency Surgical History Hx of colonoscopy (~2010) Hx of foot surgery Hx of hemorrhoidectomy Hx of knee surgery Hx of neck surgery Hx of rotator cuff surgery Family History Mother , age 93 Alzheimer disease Father , age 85 Cancer colon Social History Smoking and tobacco status: former smoker Quit status (tobacco): has quit using tobacco Former quit date comment: pipe in high school Second hand smoke exposure: No Alcohol intake: never Substance/Drug Use: never Lives independently: Yes Household members: spouse Marital status: Current occupational status: employed Current gender identity: Male Data Anesthesia Cardiac Studies: Echocardiogram 09/14/22 Echocardiogram Limited Views 12/18/22 Echocardiogram Ultrasound 09/04/20 Transesophageal Echocardiogram 09/10/20
[2022-12-31 14:01] VITALS: BMI 23.4
[2022-12-31 14:22] LABS: Add Urine Microscopic? NO; Charge for UA Resulting for Rev
[2022-12-31 14:40] LABS: Basophils % 0.5 %; Eosinophils # 0.2 10^3/uL (0.0-0.8); Eosinophils % 4.1 %; Hematocrit 34.3 % (42.0-52.0); Hemoglobin 11.4 g/dL (11.7-16.6); Lymphocytes # 0.9 10^3/uL (0.8-4.8); Lymphocytes % 22.4 %; Mean Corpuscular HGB Conc 33.2 g/dL (30.0-36.0); Mean Corpuscular Hemoglobin 31.9 pg (28.0-34.0); Mean Corpuscular Volume 96.1 fl (80-94); Mean Platelet Volume 9.8 fL (7.4-10.4); Monocytes # 0.3 10^3/uL (0.2-0.9); Monocytes % 8.3 %; Neutrophils # 2.64 10^3/uL (1.8-7.7); Neutrophils % 64.2 %; Nucleated Red Blood Cells % 0 %; Platelet Count 143 10^3/cmm (130-400); Red Blood Count 3.57 10^6/uL (4.1-5.3); Red Cell Distribution Width 15.6 % (12.1-15.1); White Blood Count 4.1 10^3/uL (4.0-10.0)
[2022-12-31 14:43] LABS: Bilirubin Urine Neg (Negative); Blood Urine Neg (Negative); Glucose Urine UA Norm (Normal); Ketones Urine Negative (Negative); Leukocyte Esterase Urine Negative (Negative); Nitrate Urine Negative (Negative); Protein Urine Neg (Negative); Urine Appearance Clear (CLEAR); Urine Color Yellow (Yellow); Urobilinogen Urine Norm (Negative); pH Urine 6 (5-7)
[2022-12-31 14:56] LABS: Anion Gap 12.1 (5-19); Blood Urea Nitrogen 25 mg/dL (8-23); Calcium 8.3 mg/dL (8.5-10.5); Carbon Dioxide 29 mmol/L (22-29); Chloride 106 mmol/L (98-107); Glucose 123 mg/dL (65-115); Osmolality Calculated 302 mOsm/kg (285-295); Potassium 4.1 mmol/L (3.5-5.1); Sodium 143 mmol/L (136-145)
[2023-01-05] VITALS (26 sets, daily range): BP systolic 103–122; BP diastolic 66–84; PULSE 58–79; RESP 16–23; TEMP 36.1–36.8; O2SAT 92–100
--- NOTE | 2023-01-05 05:53 | SC_ITS ---
WS: [id number] C-ARM RADIOGRAPHS CHEST; 3 IMAGES HISTORY: Defibrillator implantation COMPARISON: None available. Intraoperative imaging provided for Dr. Hsu during defibrillator implantation. IMPRESSION: Intraoperative imaging during defibrillator implantation.
--- NOTE | 2023-01-05 06:10 | W.PM.OPSUD ---
Surgery/Procedure H&P Update DATE OF PROCEDURE: January 05, 2023 DATE H&P PERFORMED: 12/24/22 H&P UPDATE INFORMATION: I have reviewed H&P completed within last 30 days, I have examined patient prior to procedure and No changes to prior documentation PREOP DIAGNOSIS: Congestive heart failure PRIMARY INDICATION FOR PROCEDURE: Tachycardia induced cardiomyopathy PLANNED PROCEDURE: Operation Date: 01/05/23 07:00 Proposed Procedures p Defibrillator Placement [id number],I50.21(Not Applicable) - Sushil Hsu MD
[2023-01-05] MEDS: sodium chloride 0.9% 1,000 ML 30 ML IV (06:33)
[2023-01-05] MEDS: ipratropium-albuterol 3 mL Neb INHALATION (06:47)
[2023-01-05] MEDS: ceFAZolin 2,000 MG in sodium chloride 0.9% (plus) 50 ML 100 MG IV (07:05)
--- NOTE | 2023-01-05 07:32 | P.ANESUD_ITS ---
Pre-Anesthetic Update Pre-Anesthetic Assessment: Date of Surgery/Procedure: 01/05/23 Preop Remedios gnosis: Congestive heart failure Proposed Procedure: Operation Date: 01/05/23 07:00 Proposed Procedures p Defibrillator Placement 76716,I50.21(Not Applicable) - Sushil Hsu MD Any changes to Pre-Anesthetic Assessment?: No Last Intake: Intake Last Liquid Date 01/04/23 Last Liquid Time 20:30 Last Solid Date 01/04/23 Last Solid Time 20:30 Vitals: Temperature 98.2 F 01/05/23 06:22 Temperature Source Temporal Artery S can 01/05/23 06:22 Pulse Rate 78 01/05/23 06:22 Respiratory Rate 16 01/05/23 06:22 Blood Pressure 110/74 01/05/23 06:22 Blood Pressure Rosibel n 86 01/05/23 06:22 Pulse Oximetry 97 01/05/23 06:22 Oxygen Delivery Me thod Room Air 01/05/23 06:22 Exam: Pre-Anes Outpt Exam: alert, oriented x 3 and clear to auscultation bilaterally Cardiac Studies: Echocardiogram 09/14/22 Echocardiogram Limited Views 12/18/22 Echocardiogram Ultrasound 09/04/20 Transesophageal Echocardiogram 09/10/20
[2023-01-05] MEDS: lidocaine 1% INJ 10 mL (per mL) 20 ML XX (07:38)
[2023-01-05] MEDS: ceFAZolin 1,000 mg SDV 1000 MG IRRIGATION (07:38)
--- NOTE | 2023-01-05 07:45 | SUR.OPER ---
attempted to contact to notify her of surgical start. no answer.
--- NOTE | 2023-01-05 07:50 | SUR.OPER ---
notified of surgical progress and surgical start.
--- NOTE | 2023-01-05 09:02 | P.OP_ITS ---
Operative Report Date of procedure: January 05, 2023 Pre-op diagnosis: Preop Diagnosis Congestive heart failure Post-op diagnosis: same Procedure done: Automatic implantable cardiac defibrillator placement Implants: AICD generator Right ventricular lead Pathology: none sent Surgeon: Sushil Hsu Anesthesia: MAC and Local Complications: None: Post procedure chest x-ray pending Condition: stable Disposition: PACU Brief History: Mr. Reeder is an 82-year-old gentleman with congestive heart failure with ejection fraction between 25 and 30% who had a LifeVest in place. 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 He has chronic atrial fibrillation. He was referred to our service to consider AICD implantation for prophylaxis. Rationale for implantation was carefully discussed with him and his . Details of risk of the procedure were carefully reviewed. Appropriate consents have been reviewed and signed. Procedure: Procedure: Mr. Reeder was taken to the OR suite and placed in the supine position over a shoulder roll. He received conscious sedation with continuous anesthesia monitoring by. His entire chest was sterilely prepped and draped. 1% lidocaine was infiltrated in the left subclavicular region. While in Trendelenburg position, utilizing modified seldinger technique, a guidewire was placed in the left subclavian vein. Hand-held ultrasonography was utilized to aid in location of the subclavian vein and subsequent cannulation. This was confirmed in position by fluoroscopy. Next, after infiltration with lidocaine, a subcutaneous pocket was created beginning from the exit point of the guidewire and extending laterally and inferiorly. Cautery was utilized to create the pocket just above the pectoralis musculature. Hemostasis was confirmed. An antibiotic-soaked sponge was placed in the wound. A dilator and tear-away sheath was placed over the guidewire and advanced under fluoroscopy. Guidewire and dilator were removed. Next using a combination of curved and straight stylettes, the right ventricular lead was placed in position by fluoroscopy. The distal screw was extended. Interrogation was then performed confirming appropriate parameters. The tear-away sheath was then removed and the ventricular lead was sewn to the floor of the subcutaneous pocket. Generator was brought into the field, and after confirmation of hemostasis in the subcutaneous pocket, the lead was connected to the generator with appropriate capture. The entire system was interrogated by fluoroscopy. Lead and generator were secured in the pocket. Sponge and needle count was correct. The wound was then closed in 2 layers of 3-0 Vicryl suture. Skin was reapproximated in a subcuticular manner with 4-0 Monocryl suture. A pressure dressing was applied. The left arm was placed in a sling. Mr. Reeder had equal breath sounds bilaterally. He was then transferred to the PACU, where chest x-ray is currently pending. I did executive assistant to general counsel with his at the completion of the procedure. Following are the specifics of this system: Right ventricular lead is 62 cm and model 6935M. Serial number [id number] Ventricular lead had sensing of 5.7 mV with an impedance of 556 ohms. Threshold was 0.7 V Effdon generator: Model # [id number] Serial # [id number]
--- NOTE | 2023-01-05 09:13 | XRR_ITS ---
PROCEDURE INFORMATION: Exam: XR Chest Exam date and time: 01/05/2023 9:24 AM Age: 82 years old Clinical indication: Device placement; Cardiac defibrillator lead placement or adjustment; Prior surgery; Surgery date: Post-operative (0-2 days); Surgery type: Post op defibrillator placement TECHNIQUE: Imaging protocol: Radiologic exam of the chest. Views: 1 view. COMPARISON: CR XR chest 1V portable [id number] 11/23/2022 12:23 PM FINDINGS: Tubes, catheters and devices: Cardiac device noted overlying the left chest with distal cardiac lead wire. Lungs: The lung parenchyma is clear. Pleural spaces: No pneumothorax. No pleural effusion. Heart/Mediastinum: The heart is mildly enlarged for size, similar to prior exam. Bones/joints: Degenerative changes in the shoulder joints. XR/XR chest 1V portable [id number] IMPRESSION: No acute cardiopulmonary abnormality identified.
[2023-01-05] MEDS: fentaNYL 50 mcg/mL INJ 2mL IVP ×2 (09:15→09:26)
--- NOTE | 2023-01-05 09:30 | PC.NURSE ---
Pain at procedure site. Ice applied. Left shoulder elevated on blankets. XRAY completed @ bedside. Procedure site soft with no sign of active bleeding.
[2023-01-05] MEDS: pantoprazole DR 40 mg Tablet PO (12:44)
[2023-01-05] MEDS: potassium chloride ER 20 mEq Tablet PO ×2 (12:45→17:35)
[2023-01-05] MEDS: HYDROcodone-acetaminophen 5-325 mg Tablet 1 TAB PO ×2 (12:45→20:44)
[2023-01-05] MEDS: FUROsemide 40 mg Tablet PO ×2 (12:45→20:38)
--- NOTE | 2023-01-05 15:22 | ANE.PACU2 ---
Inpatient post-anesthesia follow up: Airway intact: Yes Vital signs: Temperature 97.5 F Pulse Rate 61 Respiratory Rate 18 Blood Pressure 122/72 Pulse Oximetry 92 Oxygen Delivery Me thod Room Air Oxygen Flow Rate 8 Fraction of Inspir ed Oxygen Hydration adequate: Yes Nausea and vomiting: No Pain level: 2 Mental status: Baseline
[2023-01-05] MEDS: ceFAZolin 1,000 MG in sodium chloride 0.9% (plus) 50 ML 100 MG IV ×2 (16:21→23:08)
[2023-01-06 04:00] VITALS: BP 116/74; PULSE 70; RESP 18; TEMP 36.6; O2SAT 93
[2023-01-06 06:00] VITALS: PULSE 74
[2023-01-06] MEDS: tamsulosin 0.4 mg Capsule PO (06:17)
[2023-01-06] MEDS: ceFAZolin 1,000 MG in sodium chloride 0.9% (plus) 50 ML 100 MG IV (06:17)
--- NOTE | 2023-01-06 06:20 | P.DS_ITS ---
Discharge Providers Date of Admission: January 05, 2023 Date of Discharge: January 06, 2023 Attending Provider at Admission: Dr. 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 Cardiac performance has failed to substantially improve with maximal medical management prompting need for AICD implantation. Details of risk of procedure were carefully and frankly discussed. Hospital Course Hospital Course Mr. Reeder was electively admitted for planned AICD implantation. He has chronic atrial fibrillation. Details and risk of procedure were carefully discussed. Proper consents have been reviewed and signed. He will underwent single-lead AICD implantation on January 05, 2023. Postoperatively, he convalesced on the medical/surgical manning where he has done well. Postop discomfort has been under good control. He has received prophylactic surgical antibiotics. Tolerating diet well. Device interrogation postop day #1 reveals normal function. Insertion site is clean and dry without evidence for infection. He will be discharged home today in stable condition for follow-up at [facility] clinic in 1 week. Discharge instructions been carefully reviewed. Physical Exam Chest: COMMONS NORMALS: normal inspection of the chest OTHER: Surgical site is clean and dry. There is no evidence for substantial fluid collection. No erythema. Resp: COMMON NORMALS: normal respiratory effort Cardio: OTHER: He has chronic atrial fibrillation. Heart rate is controlled in the mid 60s. Extremity: COMMON NORMALS: no clubbing, cyanosis or edema Discharge Data Studies Completed and Pending Completed Studies During Hospitalization Category Date Time Status XR chest 1V portable [id number] Routine Exams 01/05/23 09:13 Completed Radiology Impressions Chest X-Ray 01/05/23 09:13 IMPRESSION: No acute cardiopulmonary abnormality identified. Laboratory Results WBC 4.1 10^3/uL (4.0-10.0) 12/31/22 14:00 RBC 3.57 10^6/uL (4.1-5.3) L 12/31/22 14:00 Hgb 11.4 g/dL (11.7-16.6) L 12/31/22 14:00 Hct 34.3 % (42.0-52.0) L 12/31/22 14:00 MCV 96.1 fl (80-94) H 12/31/22 14:00 MCH 31.9 pg (28.0-34.0) 12/31/22 14:00 MCHC 33.2 g/dL (30.0-36.0) 12/31/22 14:00 RDW 15.6 % (12.1-15.1) H 12/31/22 14:00 Plt Count 143 10^3/cmm (130-400) 12/31/22 14:00 MPV 9.8 fL (7.4-10.4) 12/31/22 14:00 Neut % (Auto) 64.2 % 12/31/22 14:00 Lymph % (Auto) 22.4 % 12/31/22 14:00 [place] % (Auto) 8.3 % 12/31/22 14:00 Eos % (Auto) 4.1 % 12/31/22 14:00 Baso % (Auto) 0.5 % 12/31/22 14:00 Neut # (Auto) 2.64 10^3/uL (1.8-7.7) 12/31/22 14:00 Lymph # (Auto) 0.9 10^3/uL (0.8-4.8) 12/31/22 14:00 [place] # (Auto) 0.3 10^3/uL (0.2-0.9) 12/31/22 14:00 Eos # (Auto) 0.2 10^3/uL (0.0-0.8) 12/31/22 14:00 Baso # (Auto) 0.0 10^3/uL (0.0-0.1) 12/31/22 14:00 Nucleated RBC % (auto) 0 % 12/31/22 14:00 Nucleated RBCs # 0.0 /100WBC 12/31/22 14:00 Sodium 143 mmol/L (136-145) 12/31/22 14:00 Potassium 4.1 mmol/L (3.5-5.1) 12/31/22 14:00 Chloride 106 mmol/L (98-107) 12/31/22 14:00 Carbon Dioxide 29 mmol/L (22-29) 12/31/22 14:00 Anion Gap 12.1 (5-19) 12/31/22 14:00 BUN 25 mg/dL (8-23) H 12/31/22 14:00 Creatinine 1.4 mg/dL (0.7-1.2) H 12/31/22 14:00 GFR Calculation Not Reportable 12/31/22 14:00 Glucose 123 mg/dL (65-115) H 12/31/22 14:00 Calculated Osmolality 302 mOsm/kg (285-295) H 12/31/22 14:00 Calcium 8.3 mg/dL (8.5-10.5) L 12/31/22 14:00 Urine Color Yellow (Yellow) 12/31/22 14:00 Urine Appearance Clear (CLEAR) 12/31/22 14:00 Urine pH 6 (5-7) 12/31/22 14:00 Ur Specific [place] 1.010 (1.005-1.030) 12/31/22 14:00 Urine Protein Neg (Negative) 12/31/22 14:00 Urine Glucose (UA) Norm (Normal) 12/31/22 14:00 Urine Ketones Negative (Negative) 12/31/22 14:00 Urine Blood Neg (Negative) 12/31/22 14:00 Urine Nitrate Negative (Negative) 12/31/22 14:00 Urine Bilirubin Neg (Negative) 12/31/22 14:00 Urine Urobilinogen Norm mg/dL (Negative) 12/31/22 14:00 Ur Leukocyte Esterase Negative (Negative) 12/31/22 14:00 Vitals Last Vital Signs Temp 97.9 F 01/06/23 04:00 Pulse 70 01/06/23 04:00 Resp 18 01/06/23 04:00 BP 116/74 01/06/23 04:00 Pulse Ox 93 01/06/23 04:00 O2 Del Method Room Air 01/05/23 20:00 O2 Flow Rate 8 01/05/23 09:05 Discharge Plan Discharge Patient Disposition: Home Condition: Stable Prescriptions: New hydrocodone-acetaminophen 5-325 mg Tablet 1 tab PO Q8H PRN (Reason: Moderate Pain) Qty: 12 0RF cephalexin 500 mg capsule 500 mg PO TID Qty: 9 0RF Continued multivitamin [Daily Multi-Vitamin] Tablet 1 tab PO BEDTIME albuterol sulfate 90 mcg/actuation HFA aerosol inhaler 1 inh inhalation Q6H PRN (Reason: shortness of breath or wheezing) Qty: 8.5 0RF furosemide 40 mg tablet 40 mg PO .BID every other day amiodarone 200 mg tablet 200 mg PO DAILY (DME) compressor, for nebulizer Device See Rx Instructions .Route Qty: 1 0RF Rx Instructions: 1 nebulizer and all required equipment As directed ipratropium-albuterol 0.5 mg-3 mg(2.5 mg base)/3 mL solution for nebulization 3 ml inhalation Q4H PRN (Reason: wheezing) Qty: 200 1RF tamsulosin [Flomax] 0.4 mg capsule 0.4 mg PO QAM Eliquis 5 mg tablet 5 mg PO BID@ [facility] 1 cap PO DAILY metoprolol tartrate 25 mg tablet 25 mg PO BID potassium chloride 20 mEq tablet extended release 20 meq PO BID Discharge Orders: Discharge Order (Routine); Ordered 01/06/23 Ordered By: Sushil Hsu Referrals: [facility] [Provider Group] - 1 week (Pacemaker clinic) Discharge Diet: Usual diet Discharge Activity: Limit activity as instructed Activity Restrictions/Additional Instructions: May remove bandage in 2 days May begin daily showers in 3 days Dry incision carefully after showers. May re-cover if desired to prevent irritation from clothing. No swimming or tub baths x 2 weeks No ointments on incision Report drainage, redness, heat, increased pain, fever, or swelling to clinic May resume Eliquis on , January 07 Discharge Attestations Time Spent in Discharge Care*: less than 30 min Specific Discharge Activities: educating patient, discussing with director case management/social workers/dc planners, documenting/other paperwork and evaluating patient/reviewing data Status at Discharge: Cognitive status at discharge: cognitively intact , Behavioral status at discharge: cooperative , Functional status at discharge: independent ambulation , Overall status at discharge: patient is back to baseline Quality Metrics Clinical Quality Measures [ No reported AMI, CVA or VTE this stay] Coding Level of Care Code Acute Code for Chg Fwd Diagnoses
[2023-01-06 07:27] VITALS: BP 123/86; PULSE 74; RESP 16; TEMP 36.7; O2SAT 95
[2023-01-06 07:47] VITALS: PULSE 71; RESP 16; O2SAT 96
[2023-01-06] MEDS: pantoprazole DR 40 mg Tablet PO (08:41)
[2023-01-06] MEDS: FUROsemide 40 mg Tablet PO (08:41)
[2023-01-06] MEDS: potassium chloride ER 20 mEq Tablet PO (08:41)
[2023-01-06 10:07] VITALS: PULSE 71; RESP 16; O2SAT 96
== END 2023-01-06 10:08 | disposition home or self-care (01) ==
LOC: OR 05:52 → MEDSURG 01-06 06:20
PROVIDERS: PCP Family Medicine; Visit Provider Thoracic Surgery (Cardiothoracic Vascular Surgery)
PROC: 0JH608Z Insertion of Defibrillator Generator into Chest Subcutaneous Tissue and Fascia, Open Approach (ICD-10-PCS; CPT 33249; principal; 2023-01-05 07:00)
DX: I50.9 Heart failure, unspecified (principal); I42.9 Cardiomyopathy, unspecified; I48.20 Chronic atrial fibrillation, unspecified; K21.9 Gastro-esophageal reflux disease without esophagitis; I34.0 Nonrheumatic mitral (valve) insufficiency; Z79.899 Other long term (current) drug therapy; Z87.891 Personal history of nicotine dependence; Z86.19 Personal history of other infectious and parasitic diseases
CPT/HCPCS: 33249; 36415; 71045; 76000; 80048; 81003; 85025; C1722; C1777; J0690; J2371; J2704; J3010; J3490; J7030

== ENCOUNTER → 2023-01-14 10:51 | Outpatient (BNVA) | payer MEDICARE, SELFPAY | PROVIDERS: PCP Family Medicine; Visit Provider Nurse Practitioner Family | DX: Z95.810 Presence of automatic (implantable) cardiac defibrillator (principal); Z87.891 Personal history of nicotine dependence; Z79.01 Long term (current) use of anticoagulants | CPT/HCPCS: 99213 ==

== ENCOUNTER → 2023-04-12 15:48 | Outpatient (BNVA) | payer MEDICARE, SELFPAY | PROVIDERS: PCP Family Medicine; Visit Provider Internal Medicine Cardiovascular Disease | DX: I11.0 Hypertensive heart disease with heart failure (principal); I50.21 Acute systolic (congestive) heart failure; I48.0 Paroxysmal atrial fibrillation; Z79.01 Long term (current) use of anticoagulants; I34.0 Nonrheumatic mitral (valve) insufficiency; Z87.891 Personal history of nicotine dependence | CPT/HCPCS: 99214 ==

== ENCOUNTER → 2023-08-17 10:56 | Outpatient (BNVA) | payer MEDICARE, SELFPAY | PROVIDERS: PCP Family Medicine; Visit Provider Nurse Practitioner Family | DX: I10 Essential (primary) hypertension (principal); M79.672 Pain in left foot; M10.9 Gout, unspecified | CPT/HCPCS: 80053; 84550; 85025 ==

== ENCOUNTER → 2023-10-12 12:30 | Outpatient (BNVA) | payer MEDICARE, SELFPAY | PROVIDERS: PCP Family Medicine; Visit Provider Internal Medicine Cardiovascular Disease | DX: R06.02 Shortness of breath (principal); Z79.899 Other long term (current) drug therapy; I10 Essential (primary) hypertension; I42.8 Other cardiomyopathies; I34.0 Nonrheumatic mitral (valve) insufficiency; I48.0 Paroxysmal atrial fibrillation; Z95.810 Presence of automatic (implantable) cardiac defibrillator; I27.20 Pulmonary hypertension, unspecified | CPT/HCPCS: 36415; 80048; 83880; 99215 ==

== ENCOUNTER 2023-11-03 14:22 | Outpatient (CLI) | payer MEDICARE, SELFPAY ==
--- NOTE | 2023-11-03 14:45 | USCV_ITS ---
Mars Reeder Age: 83 Gender: M : 1940 Exam Date: 11/03/2023 14:36 Ordering Phys: Bette Rangel MD ([email or web address]) Technologist: Exam Location: [facility] [place] Indication: BP: 110 / 70 HR: Rhythm: Sinus Technical Quality: Adequate MEASUREMENTS (Male / Female) Normal Values 2D ECHO LV Diastolic Diameter PLAX 4.5 cm 4.2 - 5.9 / 3.9 - 5.3 cm IVS Diastolic Thickness 1.2 cm 0.6 - 1.0 / 0.6 - 0.9 cm IVS Systolic Thickness 1.7 cm LVPW Diastolic Thickness 1.6 cm 0.6 - 1.0 / 0.6 - 0.9 cm LVPW Systolic Thickness 1.7 cm LVOT Diameter 2.0 cm LV Ejection Fraction 2D Teich 47.2 % LV Ejection Fraction MOD 2C 50.7 % LV Ejection Fraction 2C AL 51.0 % LA Diameter 3.3 cm RA Systolic Volume 4C AL 78.7 ml RA Systolic Volume 4C MOD 78.3 ml LA Sys Volume AL 73.1 cm cubed LA Sys Volume Index AL 36.0 cm cubed/m squared FINDINGS Left Ventricle Diffuse hypokinesia left ventricle with ejection fraction of 41% by MOD. Mild concentric left-ventricular hypertrophy Right Ventricle Possibly of normal size with normal ejection fraction Right Atrium Mildly dilated right atrium Left Atrium Appears to be of normal size Mitral Valve Thickened mitral valve. Aortic Valve Thickened aortic valve. Tricuspid Valve No gross abnormalities noted Pulmonic Valve Pulmonic valve not well visualized. Pericardium No pericardial effusion. Aorta Mildly dilated aortic root measuring 3.6 cm at the level of the isthumus IVC Inferior vena cava not visualized. CONCLUSIONS Diffuse hypokinesia left ventricle with ejection fraction of 41% by MOD. Mildly dilated right atrium Mild concentric left-ventricular hypertrophy. Minimally thickened aortic and mitral valves Mildly dilated aortic root measuring 3.6 cm at the level of the isthumus. There is no pericardial effusion. There are no intracardiac masses. Compared to the study from 12/10/2022, there is improvement in the LV ejection fraction from 30% to 41% Dr Bette Rangel MD [facility] (Electronically Signed) Final Date: 07 November 2023 22:26 S
== END 2023-11-03 14:23 | disposition home or self-care (01) ==
LOC: RAD 14:22
PROVIDERS: PCP Family Medicine; Visit Provider Internal Medicine Cardiovascular Disease
DX: I42.9 Cardiomyopathy, unspecified (principal); I51.89 Other ill-defined heart diseases; I34.89 Other nonrheumatic mitral valve disorders; I35.8 Other nonrheumatic aortic valve disorders
CPT/HCPCS: 93308

== ENCOUNTER → 2023-11-11 10:47 | Outpatient (BNVA) | payer MEDICARE, SELFPAY | PROVIDERS: PCP Family Medicine; Visit Provider Family Medicine | DX: R30.0 Dysuria (principal); N39.0 Urinary tract infection, site not specified | CPT/HCPCS: 81000 ==